=== PATIENT | female | born 1930 | race Caucasian/White ===

== ENCOUNTER → 2016-08-12 | Day surgery (SDC) | payer BC ==
[2016-08-10 08:05] VITALS: Ht 158.8 cm; Wt 61.4 kg
[~2016-08-12] VITALS: Ht 158.8 cm; Wt 61.4 kg
[~2016-08-12] MED LIST: 500ML BSS 0.3ML EPI 1:1000PF IRRIG ONE; ACETAMINOPHEN 325 MG TAB PO PRN; AMVISC PLUS 0.8ML SYRINGE INT OCU ONE; ASPI325T45 PO; ATOR-26 PO; ATROPINE SULFATE 0.1 MG/ML 5ML SYR IV PRN; BETAXOLOL HCL 0.25% OP SUSP PER DROP CHARGE OPL SCH; BRIMONIDINE TART 0.2% OP SOLN PER DROP CHARGE ONE; BSS FLUSH ONE; CHOL20009 PO; CLIN300C2 PO; DORZ2SOL17 OPL; EpHEDrine SULFATE INJ 50 MG/ML AMP IV PRN; EpINEphrine INJ 1MG/ML AMP 1 MG/ML AMP ONE; FENTANYL CITRATE INJ 50 MCG/1 ML 2 ML VIAL IV PRN; FLUMAZENIL 0.1 MG/1 ML 10 ML VIAL IV PRN; HYDROmorphone INJ 2 MG/ML SYR/VIAL IV PRN; INSDGIPEN SC; LABETALOL HCL IV 5 MG/ML 20ML IV PRN; LACTATED RINGER'S 1000ML 500 ML IV SCH; LATA0.009 OPB; LEVO25TA5 PO; LIDOCAINE 4% OP SOLN DROP CHARGE ONE; LIDOCAINE 4% OP SOLN DROP CHARGE OPL SCH; LIDOCAINE HCL 1% MPF 2 ML VIAL ONE; LIDOCAINE HCL 2% 2 ML VIAL (20MG/ML) ONE; LISI-461 PO; LISI-725 PO; LSN20 PO; MEPERIDINE HCL 25 MG/ML CARP IV PRN; MIDAZOLAM HCL 1 MG/ML 2ML VIAL ONE; MIX: 4ML BSS 1ML EPI 1:1000 PF INSTIL ONE; MOXIFLOXACIN OPH SOLN PER DROP CHARGE ONE; NALOXONE HCL 0.4 MG/1 ML VIAL/CARP IV PRN; NVLGI/PEN SC; OCUCOAT 1 ML SOLN IO ONE; ONDANSETRON INJ 2 MG/ML 2 ML VIAL IV PRN; PHENYLEPHRINE 100MCG/ML 5ML SYR IV PRN; PLV75 PO; POVIDONE-IODINE OP SOLN 30 ML BTL ONE; PROPARACAINE 0.5% OP SOLN PER DROP CHARGE OPL SCH; PROPOFOL IV EMULSION 10 MG/ML 20 ML VIAL IV ONE; TOBRAMYCIN/DEXAMETHASONE OPH OINT PER APPLN CHARGE ONE
--- NOTE | 2016-08-12 08:20 | History & Physical Bridge - SC ---
H&P Re-Evaluation Bridge Note: I have examined the patient, reviewed the History & Physical and in the interval since the performance of the History & Physical I have noted the following changes of clinical significance: No changes noted
[2016-08-12] MEDS: PHENYLEPHRINE HCL 2.5% OP SOLN PER DROP CHARGE OPL SCH ×2 (09:13→09:18)
[2016-08-12] MEDS: TROPICAMIDE 1% OP SOLN PER DROP CHARGE OPL SCH ×2 (09:14→09:19)
[2016-08-12] MEDS: CYCLOPENTOLATE HCL 1% OP SOLN PER DROP CHARGE OPL SCH ×2 (09:15→09:20)
[2016-08-12] MEDS: MOXIFLOXACIN OPH SOLN PER DROP CHARGE OPL SCH ×2 (09:16→09:26)
--- NOTE | 2016-08-12 10:07 | Discharge Instructions-SurgCtr ---
Discharge Instructions Visit Reason for Visit: Left Cataract Discharge Discharge Diagnosis / Problem: Lens Implant Left Eye Discharge Goals Goal(s): Improve function Activity Recommendations Activity Limitations: resume your previous activity Lifting Limitations: no more than 10 pounds Exercise/Sports Limitations: gradually increase as tolerated May Resume Sexual Activity: when tolerated Shower/Bathe: tomorrow Driving or Machine Use: resume 1 day after discharge Anesthesia . Post Anesthesia Instructions: If you have had General Anesthesia or IV Sedation: * Do not drive today. * Resume driving when surgeon permits. * Do not make important decisions or sign legal documents today. * Call surgeon for: 1. Temperature elevations greater than 101 degrees F. 2. Uncontrollable pain. 3. Excessive bleeding. 4. Persistent nausea and vomiting. 5. Medication intolerance (nausea, vomiting or rash). * For nausea and vomiting use only clear liquids such as: tea, soda, bouillon until nausea subsides, then gradually increase diet as tolerated. * If you have any concerns or questions, call your surgeon's office. If physician is unavailable and it is an emergency, call 911 or go to the nearest emergency room. . Instructions / Follow-Up Instructions / Follow-Up ACTIVITY RECOMMENDATIONS: * Light activities. * Mild irritation and blurred vision are common for the first few days. * You may walk outside, read, watch television. * Redness around the white part of the eye is common. MEDICATIONS: Resume previous medications unless instructed otherwise by your surgeon. Start all eye drops at 1 pm today: * Eye drops (today and tomorrow): Durezol - one drop in operative eye every 3 hours while awake Ofloxacin - one drop in operative eye every 3 hours while awake BromSite - one drop in operative eye twice a day SPECIAL CARE INSTRUCTIONS: * Tape plastic shield over eye to sleep at night. Call your doctor at with any concerns or problems. FOLLOW UP VISIT: Follow-up with Dr Hancock at [facility] office as scheduled. Diet Recommendations Home Diet: no limitations Pending Studies Studies pending at discharge: no Medical Emergencies . Who to Call and When: Medical Emergencies: If at any time you feel your situation is an emergency, please call 911 immediately. . Non-Emergent Contact Non-Emergency issues call your: Test Fixture Designer Call Non-Emergent contact if: your pain is not controlled [phone] . . "Provider Documentation" section prepared by Klaus Hancock.
--- NOTE | 2016-08-12 10:09 | [facility] Operative Report ---
Operative Report 1. PREOPERATIVE DIAGNOSIS: Senile nuclear cataract, left eye. 2. POSTOPERATIVE DIAGNOSIS: Senile nuclear cataract, left eye. 3. PROCEDURE: Phacoemulsification of left cataract with posterior chamber lens implant, type Bausch [employer] Lomb, model MX60, power +20.5 diopters. ANESTHESIA: Local standby. SURGEON: Dr. Hancock. COMPLICATIONS: None. OPERATING TIME: 10 minutes. 4. OPERATION AND FINDINGS: DESCRIPTION OF PROCEDURE: The left pupil was dilated. The anesthetic was administered using a topical technique. The left eye was prepped and draped. A speculum was placed. A clear corneal incision was formed. The chamber was filled with Amvisc Plus and Endocoat. Epinephrine solution was used. A paracentesis was placed. A capsulorrhexis was performed. The nucleus was hydrodissected. The lens was removed with phacoemulsification. Time was 5.52 seconds. The aspiration unit was used to remove the cortex. The capsule was filled with Amvisc Plus. The lens implant was folded and placed into the capsule. The incision was hydrated. The Amvisc was aspirated. The wound was secure. The chamber was deep. The pupil was round. TobraDex ointment and Vigamox solution were placed. The speculum was removed. The patient was returned to the Recovery Room in stable condition. I attest to the content of the Intraoperative Record and any orders documented therein. Any exceptions are noted below. The scribe's documentation has been prepared in my presence, under my direction and personally reviewed by me in its entirety. I confirm that the note above accurately reflects all work, treatment, procedures, and medical decision making performed by me. I personally scribed for Klaus Hancock M.D. ([email or web address]) on 08/12/16 at 10:09. Electronically submitted by Aisha Hand ([email or web address]).
[2016-08-12 10:12] VITALS: TEMP 36.5
[2016-08-12 10:28] VITALS: BP 159/73; PULSE 78; O2SAT 100
--- NOTE | 2016-08-12 10:37 | Anesthesia Progress Nt - [facility] ---
Anesthesia Post Op Note Date & Time Aug 12, 2016 at 10:36 Vital Signs Pain Intensity: 0 Vital Signs Past 12 Hours Date Time Temp Pulse Resp B/P Pulse Ox O2 Delivery O2 Flow Rate FiO2 08/12/16 10:28 78 16 159/73 100 Room Air 08/12/16 10:12 36.5 64 16 160/78 100 Room Air 08/12/16 09:02 36.3 71 20 189/78 99 Room Air 08/12/16 08:49 36.3 20 20 189/78 99 Notes Mental Status: alert / awake / arousable, participated in evaluation Pt Amnestic to Procedure: Yes Nausea / Vomiting: adequately controlled Pain: adequately controlled Airway Patency, RR, SpO2: stable & adequate BP & HR: stable & adequate Hydration State: stable & adequate Anesthetic Complications: no major complications apparent
== END | disposition home or self-care (01) ==
LOC: X.SURG 08:27
PROVIDERS: ATTEND Specialist
DX: H25.12 Age-related nuclear cataract, left eye (principal); I10 Essential (primary) hypertension; I51.9 Heart disease, unspecified; E11.9 Type 2 diabetes mellitus without complications; Z79.4 Long term (current) use of insulin

== ENCOUNTER → 2016-09-09 | Day surgery (SDC) | payer BC ==
[2016-08-26 10:09] VITALS: Ht 158.8 cm; Wt 61.4 kg
[~2016-09-09] VITALS: Ht 158.8 cm; Wt 61.4 kg
[~2016-09-09] MED LIST changes: -BETAXOLOL HCL 0.25% OP SUSP PER DROP CHARGE OPL SCH; +BETAXOLOL HCL 0.25% OP SUSP PER DROP CHARGE OPR SCH; +ENDOCOAT 0.85ML SYRINGE INT OCU ONE; -FENTANYL CITRATE INJ 50 MCG/1 ML 2 ML VIAL IV PRN; -FLUMAZENIL 0.1 MG/1 ML 10 ML VIAL IV PRN; -HYDROmorphone INJ 2 MG/ML SYR/VIAL IV PRN; -LABETALOL HCL IV 5 MG/ML 20ML IV PRN; -LIDOCAINE 4% OP SOLN DROP CHARGE OPL SCH; +LIDOCAINE 4% OP SOLN DROP CHARGE OPR SCH; -LIDOCAINE HCL 2% 2 ML VIAL (20MG/ML) ONE; -MEPERIDINE HCL 25 MG/ML CARP IV PRN; -NALOXONE HCL 0.4 MG/1 ML VIAL/CARP IV PRN; -ONDANSETRON INJ 2 MG/ML 2 ML VIAL IV PRN; -PHENYLEPHRINE 100MCG/ML 5ML SYR IV PRN; -PROPARACAINE 0.5% OP SOLN PER DROP CHARGE OPL SCH; +PROPARACAINE 0.5% OP SOLN PER DROP CHARGE OPR SCH; -PROPOFOL IV EMULSION 10 MG/ML 20 ML VIAL IV ONE
[2016-09-09] MEDS: PHENYLEPHRINE HCL 2.5% OP SOLN PER DROP CHARGE OPR SCH ×2 (07:52→07:57)
[2016-09-09] MEDS: TROPICAMIDE 1% OP SOLN PER DROP CHARGE OPR SCH ×2 (07:53→07:58)
[2016-09-09] MEDS: CYCLOPENTOLATE HCL 1% OP SOLN PER DROP CHARGE OPR SCH ×2 (07:54→07:59)
[2016-09-09] MEDS: MOXIFLOXACIN OPH SOLN PER DROP CHARGE OPR SCH ×2 (07:55→08:05)
--- NOTE | 2016-09-09 08:52 | Discharge Instructions-SurgCtr ---
Discharge Instructions Visit Reason for Visit: Cataract Right Eye Discharge Discharge Diagnosis / Problem: lens implant right eye Discharge Goals Goal(s): Improve function Activity Recommendations Activity Limitations: resume your previous activity Lifting Limitations: no more than 10 pounds Exercise/Sports Limitations: gradually increase as tolerated May Resume Sexual Activity: when tolerated Shower/Bathe: tomorrow Driving or Machine Use: resume 1 day after discharge Anesthesia . Post Anesthesia Instructions: If you have had General Anesthesia or IV Sedation: * Do not drive today. * Resume driving when surgeon permits. * Do not make important decisions or sign legal documents today. * Call surgeon for: 1. Temperature elevations greater than 101 degrees F. 2. Uncontrollable pain. 3. Excessive bleeding. 4. Persistent nausea and vomiting. 5. Medication intolerance (nausea, vomiting or rash). * For nausea and vomiting use only clear liquids such as: tea, soda, bouillon until nausea subsides, then gradually increase diet as tolerated. * If you have any concerns or questions, call your surgeon's office. If physician is unavailable and it is an emergency, call 911 or go to the nearest emergency room. . Instructions / Follow-Up Instructions / Follow-Up ACTIVITY RECOMMENDATIONS: * Light activities. * Mild irritation and blurred vision are common for the first few days. * You may walk outside, read, watch television. * Redness around the white part of the eye is common. MEDICATIONS: Resume previous medications unless instructed otherwise by your surgeon. Start all eye drops at 1 pm today: * Eye drops (today and tomorrow): Durezol - one drop in operative eye every 3 hours while awake Ofloxacin - one drop in operative eye every 3 hours while awake SPECIAL CARE INSTRUCTIONS: * Tape plastic shield over eye to sleep at night. Call your doctor at with any concerns or problems. FOLLOW UP VISIT: Follow-up with Dr Hancock at [facility] as scheduled. Diet Recommendations Home Diet: no limitations Procedures Procedures Performed: cataract extraction with lens implant Pending Studies Studies pending at discharge: no Medical Emergencies . Who to Call and When: Medical Emergencies: If at any time you feel your situation is an emergency, please call 911 immediately. . Non-Emergent Contact Non-Emergency issues call your: Target Network Analyst Call Non-Emergent contact if: your pain is not controlled [phone] . . "Provider Documentation" section prepared by Klaus Hancock.
--- NOTE | 2016-09-09 08:54 | [facility] Operative Report ---
Operative Report 1. PREOPERATIVE DIAGNOSIS: Senile nuclear cataract, right eye. 2. POSTOPERATIVE DIAGNOSIS: Senile nuclear cataract, right eye. 3. PROCEDURE: Phacoemulsification of right cataract with posterior chamber lens implant, type Bausch & Lomb, model MX60, power +21.0 diopters. ANESTHESIA: Local standby. SURGEON: Dr. Hancock. COMPLICATIONS: None. OPERATING TIME: 10 minutes. 4. OPERATION AND FINDINGS: DESCRIPTION OF PROCEDURE: The right pupil was dilated. The anesthetic was administered using a topical technique. The right eye was prepped and draped. A speculum was placed. A clear corneal incision was formed. The chamber was filled with Amvisc Plus and Endocoat. Epinephrine solution was used. A paracentesis was placed. A capsulorrhexis was performed. The nucleus was hydrodissected. A dense lens was removed with phacoemulsification. Time was 7.90 seconds. The aspiration unit was used to remove the cortex. The capsule was filled with Amvisc Plus. The lens implant was folded and placed into the capsule. The incision was hydrated. The Amvisc was aspirated. The wound was secure. The chamber was deep. The pupil was round. TobraDex ointment and Vigamox solution were placed. The speculum was removed. The patient was returned to the Recovery Room in stable condition. I attest to the content of the Intraoperative Record and any orders documented therein. Any exceptions are noted below. The scribe's documentation has been prepared in my presence, under my direction and personally reviewed by me in its entirety. I confirm that the note above accurately reflects all work, treatment, procedures, and medical decision making performed by me. I personally scribed for Klaus Hancock M.D. ([email or web address]) on 09/09/16 at 08:54. Electronically submitted by Aisha Hand ([email or web address]).
[2016-09-09 08:57] VITALS: TEMP 36.4
[2016-09-09 09:16] VITALS: BP 164/75; PULSE 65; O2SAT 100
--- NOTE | 2016-09-09 09:28 | Anesthesia Progress Nt - [facility] ---
Anesthesia Post Op Note Date & Time Sep 09, 2016 at 09:28 Vital Signs Pain Intensity: 0 Vital Signs Past 12 Hours Date Time Temp Pulse Resp B/P Pulse Ox O2 Delivery O2 Flow Rate FiO2 09/09/16 09:16 65 16 164/75 100 Room Air 09/09/16 08:57 36.4 70 16 147/76 99 Room Air 09/09/16 07:45 36.4 73 18 178/89 100 Room Air Notes Mental Status: alert / awake / arousable, participated in evaluation Pt Amnestic to Procedure: Yes Nausea / Vomiting: adequately controlled Pain: adequately controlled Airway Patency, RR, SpO2: stable & adequate BP & HR: stable & adequate Hydration State: stable & adequate Anesthetic Complications: no major complications apparent
== END | disposition home or self-care (01) ==
LOC: X.SURG 07:26
PROVIDERS: ATTEND Specialist
DX: H25.11 Age-related nuclear cataract, right eye (principal); I10 Essential (primary) hypertension; I51.9 Heart disease, unspecified; E11.9 Type 2 diabetes mellitus without complications; Z79.4 Long term (current) use of insulin; Z88.0 Allergy status to penicillin; Z88.2 Allergy status to sulfonamides

== ENCOUNTER → 2016-10-05 | Outpatient (CLI) | payer BC ==
[~2016-10-05] MED LIST changes: -500ML BSS 0.3ML EPI 1:1000PF IRRIG ONE; -ACETAMINOPHEN 325 MG TAB PO PRN; -AMVISC PLUS 0.8ML SYRINGE INT OCU ONE; +ATOR-24 PO; -ATROPINE SULFATE 0.1 MG/ML 5ML SYR IV PRN; -BETAXOLOL HCL 0.25% OP SUSP PER DROP CHARGE OPR SCH; -BRIMONIDINE TART 0.2% OP SOLN PER DROP CHARGE ONE; +BRIN3SUS OP; -BSS FLUSH ONE; +CHOL100027 PO; +CTP/1 PO; -ENDOCOAT 0.85ML SYRINGE INT OCU ONE; -EpHEDrine SULFATE INJ 50 MG/ML AMP IV PRN; -EpINEphrine INJ 1MG/ML AMP 1 MG/ML AMP ONE; -LACTATED RINGER'S 1000ML 500 ML IV SCH; -LIDOCAINE 4% OP SOLN DROP CHARGE ONE; -LIDOCAINE 4% OP SOLN DROP CHARGE OPR SCH; -LIDOCAINE HCL 1% MPF 2 ML VIAL ONE; -MIDAZOLAM HCL 1 MG/ML 2ML VIAL ONE; -MIX: 4ML BSS 1ML EPI 1:1000 PF INSTIL ONE; -MOXIFLOXACIN OPH SOLN PER DROP CHARGE ONE; -OCUCOAT 1 ML SOLN IO ONE; -POVIDONE-IODINE OP SOLN 30 ML BTL ONE; -PROPARACAINE 0.5% OP SOLN PER DROP CHARGE OPR SCH; -TOBRAMYCIN/DEXAMETHASONE OPH OINT PER APPLN CHARGE ONE
[2016-10-05 13:50] LABS: ESTIMATED AVERAGE GLUCOSE 177 mg/dl; HA1C FLAG Normal (Normal)
== END | disposition home or self-care (01) ==
LOC: C.LABBC 10:45
PROVIDERS: ATTEND Nurse Practitioner Family
DX: E03.9 Hypothyroidism, unspecified (principal); E10.9 Type 1 diabetes mellitus without complications

== ENCOUNTER 2016-10-16 23:23 | Inpatient (IN) | payer BC, OTHER ==
[~2016-10-16] VITALS: Ht 157.5 cm; Wt 56.4 kg
[~2016-10-16 23:23] MED LIST changes: -ATOR-24 PO; -BRIN3SUS OP; -CHOL100027 PO; -CLIN300C2 PO; -CTP/1 PO; -LATA0.009 OPB; -LISI-461 PO; -LSN20 PO; -PLV75 PO
[2016-10-17] MEDS ORDERED: LABETALOL HCL IV 5 MG/ML 20ML IV STA ×2 (00:14→03:40)
[2016-10-17 00:24] LABS: BASO % 0.4 %; BASO ABS # 0.02 K/uL (0-0.2); COMPLETE YES; EOS % 2.1 %; HEMATOCRIT 37.3 % (37-47); IG% 0.6 %; LYMPH % 20.2 %; LYMPH ABS # 0.98 K/uL (1.2-3.4); MEAN CELL VOLUME 83.1 fL (80-100); MEAN CORPUSCULAR HEMOGLOBIN 27.6 pg (25-34); MEAN CORPUSCULAR HGB CONC 33.2 g/dl (32-36); MEAN PLATELET VOLUME 10.8 fL (7.4-10.4); MONO % 12.1 %; NEUT % 64.6 %; PLATELET COUNT 155 K/uL (130-400); RED BLOOD COUNT 4.49 M/uL (4.2-5.4); WHITE BLOOD COUNT 4.86 K/uL (4.8-10.8)
[2016-10-17 00:33] LABS: URINE APPEARANCE CLEAR (CLEAR); URINE BILIRUBIN NEG (NEG); URINE COLOR YELLOW; URINE NITRITE NEG (NEG); URINE SPECIFIC GRAVITY 1.004 (1.000-1.030); UROBILINOGEN NEG (NEG)
[2016-10-17 00:38] LABS: INR 1.1 (0.9-1.1); PARTIAL THROMBOPLASTIN RATIO 1.1; PROTHROMBIN TIME (PATIENT) 11.5 SECONDS (9.0-12.0)
[2016-10-17 00:41] LABS: ALT/SGPT 25 U/L (12-78); BLOOD UREA NITROGEN 30 mg/dl (7-18); BUN/CREATININE RATIO 27.5 (10-20); CALCIUM 9.3 mg/dl (8.5-10.1); CARBON DIOXIDE 27 mmol/L (21-32); CHLORIDE 101 mmol/L (98-107); GLUCOSE 232 mg/dl (70-99); POTASSIUM 4.1 mmol/L (3.5-5.1); SODIUM 138 mmol/L (136-145)
[2016-10-17 00:49] LABS: MANUAL MICROSCOPIC REQUIRED? NO; REVIEW REQ? NO
[2016-10-17 00:51] LABS: ALKALINE PHOSPHATASE 85 U/L (45-117); AST/SGOT 17 U/L (15-37); CKMB/CK RATIO 3.3 (0-3.0)
[2016-10-17] MEDS ORDERED: LEVO25TA5 PO (01:31)
[2016-10-17] MEDS ORDERED: LATA0.009 OPB (01:37)
[2016-10-17] MEDS ORDERED: CLIN300C2 PO (01:40)
[2016-10-17] MEDS ORDERED: ASPIRIN 81 MG CHEW PO STA (01:45)
--- NOTE | 2016-10-17 04:52 | EMERGENCY ROOM VISIT NOTE ---
History Report prepared by Valeri: Bijan Lopez Under the Supervision of: Dr. Chi Johnson M.D. First contact with patient: 23:39 Chief Complaint: HYPERTENSION Stated Complaint: CONFUSED, SILENT MIGRAINE, HTN History of Present Illness The patient is an 86 year old female who presents to the Emergency Room with complaints of persistent headache that started about 3-4 hours ago. The patient has a history of silent migraines and noticed she was starting to get one tonight. The patient notes that she has a visual aura of sparkling diamonds in her eyes when her migraines are starting which she experienced tonight. She currently complains of a headache that she describes as a dull ache and some nausea for the past few days. The patient also notes that she had difficulty producing speech for about 30-45 minutes after the visual aura started. She notes that during this time, she knew what she wanted to say but could not say it. She notes that she has no history of these speech symptoms before. She has a history of TIA from a few years ago. She notes during this episode she had numbness symptoms in her arms and legs which she currently denies having. The patient is on Lisinopril as needed and notes that she fluctuates daily depending on what her blood pressure is. The last few days her pressure has been low. She took her Lisinopril tonight when she started experiencing her migraine symptoms. Upon arrival at the ED, her blood pressure is high. Pt denies LOC, fevers, chills, diaphoresis, neck pain, chest pain, breathing difficulties, vomiting, abdominal pain, back pain, melena, hematochezia, urinary symptoms, numbness, weakness, lymphadenopathy, rash, or other complaints. Source of History: patient Onset: 3-4 hours ago Position: head Quality: ache Timing: other (persistent) Associated Symptoms: + nausea Note: Other associated symptoms: visual aura, high blood pressure, difficulty with speech production Review of Systems See HPI for pertinent positives and negatives. A total of ten systems were reviewed and were otherwise negative. Past Medical & Surgical Medical Problems: (1) Accelerated hypertension (2) Aphasia (3) Diabetic peripheral neuropathy associated with type 2 diabetes mellitus (4) Foot deformity (5) Loss of sensation (6) Pre-ulcerative corn or callous Family History No pertinent family history Social History Smoking Status: Never Smoker Marital Status: Occupation Status: retired Current/Historical Medications Scheduled Aspirin (Aspirin), 162.5 MG PO QAM Atorvastatin (Lipitor), 80 MG PO HS Cholecalciferol (Vitamin D), 2,000 UNITS PO QAM Clindamycin Hcl (Cleocin), 600 MG PO PRN/UD Insulin Aspart (Novolog Flexpen), 1 DOSE SC AC Insulin Glargine (Lantus Solostar), 13 UNITS SC QPM Latanoprost (Xalatan 0.005% Oph Flavia), 1 DROPS OPB BID Levothyroxine Sodium (Levothyroxine Sodium), 25 MCG PO DAILY Lisinopril (Zestril), 0.25-0.5 TAB PO BID Allergies Coded Allergies: Penicillins (Verified Allergy, Unknown, UNKNOWN, 09/09/16) Sulfa Antibiotics (Verified Allergy, Unknown, SEVERE HIVES, 09/09/16) Physical Exam Vital Signs Date Time Temp Pulse Resp B/P Pulse Ox O2 Delivery O2 Flow Rate FiO2 10/17/16 02:45 70 18 198/91 99 Room Air 10/17/16 02:30 67 18 180/83 100 Room Air 10/17/16 02:15 67 18 183/84 100 Room Air 10/17/16 01:30 66 18 159/73 100 Room Air 10/17/16 01:15 66 18 161/81 98 Room Air 10/17/16 01:00 69 18 187/80 99 Room Air 10/17/16 00:51 73 18 167/87 99 Room Air 10/17/16 00:43 73 18 193/94 100 Room Air 10/17/16 00:00 74 18 222/113 99 Room Air 10/17/16 00:00 99 Room Air 10/17/16 00:00 99 Room Air 10/16/16 23:53 77 10/16/16 23:27 36.8 80 20 214/79 99 Room Air Physical Exam GENERAL: Awake, alert, well appearing, no distress HENT: Normocephalic, atraumatic. Oropharynx unremarkable. EYES: PERRL. EOMI. Normal conjunctiva. Sclera non-icteric. NECK: Supple. No nuchal rigidity. FROM. No JVD or bruit. RESPIRATORY: CTA CARDIAC: RRR. No murmur. ABDOMEN: Soft, non distended. No tenderness to palpation. No rebound or guarding. No masses. RECTAL: Deferred. MUSCULOSKELETAL: Unremarkable. No edema. No discoloration. Gross motor strength symmetric. NEURO: Cranial nerves 2-12 grossly intact. Normal sensorium. No sensory or motor deficits noted. Speech normal. No pronator drift. SKIN: No rash or jaundice noted. LYMPH: No adenopathy. Medical Decision & Procedures ER Provider Diagnostic Interpretation: Radiology results as stated below per my review and radiologist interpretation CT Head: Comparison is made to MRI brain 11/23/09. No ICH, mass effect, or midline shift. Involutional and chronic small vessel ischemic changes with intracranial atherosclerosis. Collins-white differentiation preserved. No evidence of skull fracture. Clear paranasal sinuses and mastoid air cells. MRI of the head. No acute ischemic findings noted. No hemorrhage. No mass. Chronic small vessel ischemic disease present. Carotid ultrasound pending. Laboratory Results 10/17/16 00:08 Red Blood Count 4.49, Mean Corpuscular Volume 83.1, Mean Corpuscular Hemoglobin 27.6, Mean Corpuscular Hemoglobin Concent 33.2, Mean Platelet Volume 10.8, Neutrophils (%) (Auto) 64.6, Lymphocytes (%) (Auto) 20.2, Monocytes (%) (Auto) 12.1, Eosinophils (%) (Auto) 2.1, Basophils (%) (Auto) 0.4, Neutrophils # (Auto ) 3.14, Lymphocytes # (Auto) 0.98, Monocytes # (Auto) 0.59, Eosinophils # (Auto ) 0.10, Basophils # (Auto) 0.02 10/17/16 00:08 Test 10/17/16 00:08 10/17/16 02:40 10/17/16 04:47 White Blood Count 4.86 K/uL (4.8-10.8) Red Blood Count 4.49 M/uL (4.2-5.4) Hemoglobin 12.4 g/dL (12.0-16.0) Hematocrit 37.3 % (37-47) Mean Corpuscular Volume 83.1 fL (80-100) Mean Corpuscular Hemoglobin 27.6 pg (25-34) Mean Corpuscular Hemoglobin Concent 33.2 g/dl (32-36) Platelet Count 155 K/uL (130-400) Mean Platelet Volume 10.8 fL (7.4-10.4) Neutrophils (%) (Auto) 64.6 % Lymphocytes (%) (Auto) 20.2 % Monocytes (%) (Auto) 12.1 % Eosinophils (%) (Auto) 2.1 % Basophils (%) (Auto) 0.4 % Neutrophils # (Auto) 3.14 K/uL (1.4-6.5) Lymphocytes # (Auto) 0.98 K/uL (1.2-3.4) Monocytes # (Auto) 0.59 K/uL (0.11-0.59) Eosinophils # (Auto) 0.10 K/uL (0-0.5) Basophils # (Auto) 0.02 K/uL (0-0.2) RDW Standard Deviation 46.3 fL (36.4-46.3) RDW Coefficient of Variation 15.1 % (11.5-14.5) Immature Granulocyte % (Auto) 0.6 % Immature Granulocyte # (Auto) 0.03 K/uL (0.00-0.02) Prothrombin Time 11.5 SECONDS (9.0-12.0) Prothromb Time International Ratio 1.1 (0.9-1.1) Activated Partial Thromboplast Time 28.7 SECONDS (21.0-31.0) Partial Thromboplastin Ratio 1.1 Urine Color YELLOW Urine Appearance CLEAR (CLEAR) Urine pH 7.0 (4.5-7.5) Urine Specific Stephens 1.004 (1.000-1.030) Urine Protein NEG (NEG) Urine Glucose (UA) 1+ (NEG) Urine Ketones NEG (NEG) Urine Occult Blood NEG (NEG) Urine Nitrite NEG (NEG) Urine Bilirubin NEG (NEG) Urine Urobilinogen NEG (NEG) Urine Leukocyte Esterase NEG (NEG) Anion Gap 10.0 mmol/L (3-11) Est Creatinine Clear Calc Drug Dose 31.5 ml/min Estimated GFR () 52.6 Estimated GFR (Non- 45.4 BUN/Creatinine Ratio 27.5 (10-20) Calcium Level 9.3 mg/dl (8.5-10.1) Total Bilirubin 0.4 mg/dl (0.2-1) Direct Bilirubin < 0.1 mg/dl (0-0.2) Aspartate Amino Transf (AST/SGOT) 17 U/L (15-37) Alanine Aminotransferase (ALT/SGPT) 25 U/L (12-78) Alkaline Phosphatase 85 U/L (45-117) Total Creatine Kinase 116 U/L (26-192) Creatine Kinase MB 3.8 ng/ml (0.5-3.6) Creatine Kinase MB Ratio 3.3 (0-3.0) Troponin I < 0.015 ng/ml (0-0.045) Total Protein 7.7 gm/dl (6.4-8.2) Albumin 4.0 gm/dl (3.4-5.0) Lipase 69 U/L (73-393) Thyroid Stimulating Hormone (TSH) 4.490 uIu/ml (0.300-4.500) Bedside Glucose 209 mg/dl (70-90) Laboratory results reviewed by me Medications Administered Medications (Trade) Dose Ordered Sig/Bernadine Route Start Time Stop Time Status Last Admin Dose Admin Labetalol HCl (Normodyne IV) 20 mg NOW STAT IV 10/17/16 00:14 10/17/16 00:15 DC 10/17/16 00:48 20 MG Aspirin (Aspirin Chew) 324 mg NOW STAT PO 10/17/16 01:45 10/17/16 01:47 DC 10/17/16 02:38 324 MG Labetalol HCl (Normodyne IV) 10 mg NOW STAT IV 10/17/16 03:40 10/17/16 03:41 DC 10/17/16 04:46 10 MG ECG Indication: other Rate (beats per minute): 79 Rhythm: normal sinus Findings: nonspecific-ST abn, no acute ischemic change, no ectopy ED Course 2345: The patient was evaluated in room A12. A complete history and physical exam was performed. 0014: Ordered Labetalol HCl 20 mg IV. 0142: I reevaluated the patient at this time and she was resting comfortably. 0145: Ordered Aspirin 324 mg PO. 0340: Ordered Labetalol HCl 10 mg IV. 0253: At this time, I discussed the patient's case with Dr. Bran - Hospitalist GENEVIEVE and he agreed to accept the patient for further evaluation. Medical Decision Triage Nursing notes reviewed. The patient's presentation and history were concerning for expressive aphasia. Etiologies such as TIA, CVA, hypertensive emergency, metabolic, infection, hypo/ hyperglycemia, electrolyte abnormalities, cardiac sources, intracerebral event, toxicologic, neurologic, as well as others were entertained. The patient was evaluated. Neuro examination did not reveal any focal findings. Her expressive aphasia had resolved. The patient was significantly hypertensive. She was given an IV dose of labetalol. Her CBC, coagulation studies, urinalysis, chemistry panel, troponin, LFTs, and TSH were unremarkable except for mild hyperglycemia. CK-MB was mildly elevated. The patient's EKG did not show any acute changes. Her CT and chest x-ray were unremarkable for acute process. The patient was given a second dose of IV labetalol and she was still hypertensive and given a dose of aspirin. Internal medicine was consulted. There was a high census in the Emergency Room and internal medicine was somewhat delayed admitting of the patient. MRI and carotid ultrasounds were ordered to assist with the workup. The chart was completed utilizing [employer] Speech voice recognition software. Grammatical errors, random word insertions, pronoun errors, and incomplete sentences are an occasional consequence of this system due to software limitations, ambient noise, and hardware issues. Any formal questions or concerns about the content, text, or information contained within the body of this dictation should be directly addressed to the physician for clarification. Consults Time Called: 0248 Consulting Physician: Dr. Bran [facility] [place] Returned Call: [phone] At this time, I discussed the patient's case with Dr. Bran and he agreed to accept the patient for further evaluation. Impression Primary Impression: Expressive aphasia Additional Impression: Hypertensive emergency Critical Care I have personally spent greater than 30 minutes of critical care time in the direct management of this patient. This includes bedside care, interpretation of diagnostic studies, and testing, discussion with consultants, patient, and family members, and other required patient management activities. This 30 minutes is in excess of all separately billable procedures. Scribe Attestation The scribe's documentation has been prepared under my direction and personally reviewed by me in its entirety. I confirm that the note above accurately reflects all work, treatment, procedures, and medical decision making performed by me. Departure Information Dispostion Being Evaluated By Hospitalist Shahid Morgan M.D. (PCP) Problem Qualifiers
[2016-10-17] MEDS ORDERED: PHARMACIST DISCHARGE MED REC CONSULT PRN (05:00)
[2016-10-17] MEDS ORDERED: ONDANSETRON INJ 2 MG/ML 2 ML VIAL IV PRN (05:00)
[2016-10-17] MEDS ORDERED: POLYETHYLENE (MIRALAX) 17 GM PACK PO PRN (05:00)
[2016-10-17] MEDS ORDERED: MAGNESIUM HYDROXIDE SUSP 30 ML UDC PO PRN (05:00)
[2016-10-17] MEDS ORDERED: ACETAMINOPHEN 325 MG TAB PO PRN (05:00)
[2016-10-17] MEDS ORDERED: METOPROLOL TARTRATE 1 MG/ML VIAL IV PRN (05:00)
[2016-10-17] MEDS ORDERED: ALUMINUM/MAGNESIUM/SIMETH (MAALOX MAX) 30 ML UDC PO PRN (05:00)
--- NOTE | 2016-10-17 05:04 | History and Physical ---
History & Physical Date & Time of Service: Oct 17, 2016 at 04:55 Chief Complaint: Confused, Silent Migraine, Htn Primary Care Physician: Shahid Shea M.D. History of Present Illness Source: patient 86 y/o F w/Hx HTN, DM, Migraines with aura, TIA, AVR. Pt developed a migraine aura which she describes as "diamonds appearing in front of her eyes". This was followed by a moderate to severe largely frontal SULLIVAN. She took a nap to wait for the SULLIVAN to resolve and woke up a few hours later reporting paresthesias , nausea and then acute aphasia. She was unable to get any words out although she describes knowing what she wanted to say. This lasted for approximately 40 min and resolved prior to arrival in the ER. It was noted that her SBP on arrival was 240. She denies previous episodes of aphasia. She denies CP, SOB, vomiting, fevers or dysuria. She denies noncompliance with her medications and states that her BP can be highly variable. Past Medical/Surgical History 1) TIA - diagnosi is not definitive as she describes this as acute upper b/l upper extremity weakness 2) AVR - bioprosthesis - 2004 3) Hypothyroid 4) Complex migraines 5) HTN 6) HPL 7) DM 2 8) Glaucoma Family History No pertinent family history Social History Smoking Status: Never Smoker Marital Status: Occupational Status: retired Multi-Drug Resistant Organisms History of MDRO: No Allergies Coded Allergies: Penicillins (Verified Allergy, Unknown, UNKNOWN, 09/09/16) Sulfa Antibiotics (Verified Allergy, Unknown, SEVERE HIVES, 09/09/16) Home Medications Scheduled Aspirin (Aspirin), 162.5 MG PO QAM Atorvastatin (Lipitor), 80 MG PO HS Cholecalciferol (Vitamin D), 2,000 UNITS PO QAM Clindamycin Hcl (Cleocin), 600 MG PO PRN/UD Insulin Aspart (Novolog Flexpen), 1 DOSE SC AC Insulin Glargine (Lantus Solostar), 13 UNITS SC QPM Latanoprost (Xalatan 0.005% Oph Flavia), 1 DROPS OPB BID Levothyroxine Sodium (Levothyroxine Sodium), 25 MCG PO DAILY Lisinopril (Zestril), 0.25-0.5 TAB PO BID Review of Systems Constitutional: No chills, No fever, No sweats Eyes: + worsening of vision, No eye pain ENT: No hearing loss, No nasal symptoms, No unusual epistaxis Respiratory: No cough, No sputum, No wheezing Cardiovascular: No PND, No chest pain, No orthopnea Abdomen: No nausea, No pain, No vomiting Musculoskeletal: No joint pain, No muscle pain Genitourinary - Female: No dysuria, No hematuria, No urinary frequency, No urinary incontinence, No urinary retention, No urinary urgency Neurologic: + numbness/tingling, + problem reported (headache , visual changes and aphasia as above), No memory loss, No paralysis Psychiatric: No anhedonism, No depression symptoms Endocrine: No fatigue Hematologic / Lymphatic: No abnormal bleeding/bruising Integumentary: No rash Allergic / Immunologic: No environmental allergies Physical Exam Vital Signs Date Time Temp Pulse Resp B/P Pulse Ox O2 Delivery O2 Flow Rate FiO2 10/17/16 02:45 70 18 198/91 99 Room Air 10/17/16 02:30 67 18 180/83 100 Room Air 10/17/16 02:15 67 18 183/84 100 Room Air 10/17/16 01:30 66 18 159/73 100 Room Air 10/17/16 01:15 66 18 161/81 98 Room Air 10/17/16 01:00 69 18 187/80 99 Room Air 10/17/16 00:51 73 18 167/87 99 Room Air 10/17/16 00:43 73 18 193/94 100 Room Air 10/17/16 00:00 74 18 222/113 99 Room Air 10/17/16 00:00 99 Room Air 10/17/16 00:00 99 Room Air 10/16/16 23:53 77 10/16/16 23:27 36.8 80 20 214/79 99 Room Air Head: normocephalic, atraumatic ENT: normal ENT inspection, pharynx normal Neck: supple, no JVD Respiratory/Chest: chest non-tender, lungs clear, normal breath sounds, no respiratory distress, no accessory muscle use Cardiovascular: regular rate, rhythm, no edema, no gallop, no JVD, no murmur, normal peripheral pulses Abdomen/GI: normal bowel sounds, non tender, soft Back: normal inspection, no CVA tenderness Extremities/Musculoskelatal: normal inspection, no calf tenderness, normal capillary refill, no pedal edema, normal range of motion Skin: normal color Diagnostics Laboratory Results Results Past 24 Hours Test 10/17/16 00:08 10/17/16 02:40 10/17/16 04:47 Range/Units White Blood Count 4.86 4.8-10.8 K/uL Red Blood Count 4.49 4.2-5.4 M/uL Hemoglobin 12.4 12.0-16.0 g/dL Hematocrit 37.3 37-47 % Mean Corpuscular Volume 83.1 80-100 fL Mean Corpuscular Hemoglobin 27.6 25-34 pg Mean Corpuscular Hemoglobin Concent 33.2 32-36 g/dl Platelet Count 155 130-400 K/uL Mean Platelet Volume 10.8 7.4-10.4 fL Neutrophils (%) (Auto) 64.6 % Lymphocytes (%) (Auto) 20.2 % Monocytes (%) (Auto) 12.1 % Eosinophils (%) (Auto) 2.1 % Basophils (%) (Auto) 0.4 % Neutrophils # (Auto) 3.14 1.4-6.5 K/uL Lymphocytes # (Auto) 0.98 1.2-3.4 K/uL Monocytes # (Auto) 0.59 0.11-0.59 K/uL Eosinophils # (Auto) 0.10 0-0.5 K/uL Basophils # (Auto) 0.02 0-0.2 K/uL RDW Standard Deviation 46.3 36.4-46.3 fL RDW Coefficient of Variation 15.1 11.5-14.5 % Immature Granulocyte % (Auto) 0.6 % Immature Granulocyte # (Auto) 0.03 0.00-0.02 K/uL Prothrombin Time 11.5 9.0-12.0 SECONDS Prothromb Time International Ratio 1.1 0.9-1.1 Activated Partial Thromboplast Time 28.7 21.0-31.0 SECONDS Partial Thromboplastin Ratio 1.1 Urine Color YELLOW Urine Appearance CLEAR CLEAR Urine pH 7.0 4.5-7.5 Urine Specific [place] 1.004 1.000-1.030 Urine Protein NEG NEG Urine Glucose (UA) 1+ NEG Urine Ketones NEG NEG Urine Occult Blood NEG NEG Urine Nitrite NEG NEG Urine Bilirubin NEG NEG Urine Urobilinogen NEG NEG Urine Leukocyte Esterase NEG NEG Sodium Level 138 136-145 mmol/L Potassium Level 4.1 3.5-5.1 mmol/L Chloride Level 101 98-107 mmol/L Carbon Dioxide Level 27 21-32 mmol/L Anion Gap 10.0 3-11 mmol/L Blood Urea Nitrogen 30 7-18 mg/dl Creatinine 1.10 0.60-1.20 mg/dl Est Creatinine Clear Calc Drug Dose 31.5 ml/min Estimated GFR () 52.6 Estimated GFR (Non- 45.4 BUN/Creatinine Ratio 27.5 10-20 Random Glucose 232 70-99 mg/dl Calcium Level 9.3 8.5-10.1 mg/dl Total Bilirubin 0.4 0.2-1 mg/dl Direct Bilirubin < 0.1 0-0.2 mg/dl Aspartate Amino Transf (AST/SGOT) 17 15-37 U/L Alanine Aminotransferase (ALT/SGPT) 25 12-78 U/L Alkaline Phosphatase 85 45-117 U/L Total Creatine Kinase 116 26-192 U/L Creatine Kinase MB 3.8 0.5-3.6 ng/ml Creatine Kinase MB Ratio 3.3 0-3.0 Troponin I < 0.015 0-0.045 ng/ml Total Protein 7.7 6.4-8.2 gm/dl Albumin 4.0 3.4-5.0 gm/dl Lipase 69 73-393 U/L Thyroid Stimulating Hormone (TSH) 4.490 0.300-4.500 uIu/ml Bedside Glucose 209 70-90 mg/dl Diagnostic Radiology MRI brain - negative for acute ischemia/cva - small vessel disease is seen EKG NSR Impression Assessment and Plan 86 y/o F w/Hx HTN, DM, Migraines with aura, TIA, AVR. Pt developed a migraine aura which she describes as "diamonds appearing in front of her eyes". This was followed by a moderate to severe largely frontal SULLIVAN. She took a nap to wait for the SULLIVAN to resolve and woke up a few hours later reporting paresthesias , nausea and then acute aphasia. She was unable to get any words out although she describes knowing what she wanted to say. This lasted for approximately 40 min and resolved prior to arrival in the ER. It was noted that her SBP on arrival was 240. She denies previous episodes of aphasia. She denies CP, SOB, vomiting, fevers or dysuria. She denies noncompliance with her medications and states that her BP can be highly variable. 1) Aphasia - complex migraine symptoms vs TIA - deficits have resolved as has her SULLIVAN. An MRI was negative for acute changes - carotid US is pending. We will add Plavix to her ASA, continue Lipitor 80 and consult neurology. She is admitted under a CVA protocol. As she had a valve replaced in 2004 we will obtain an echo 2) Accelerated HTN - she received IV Lopressor in the ER to excellent effect. We will avoid treating unless the BP is > 210 and would then prefer a low dose of Labetalol. 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 3) DM - sliding scale coverage provided 4) Hypothyroid - cont Synthroid Full code - Heparin prophylaxis Total time for this admit including review of labs, med, imaging, EKG - discussion with pt and ER attending - 38 min Level of Care Telemetry Resuscitation Status FULL RESUSCITATION VTE Prophylaxis VTE Risk Assessment Done? Y/N: Yes Risk Level: Moderate Given or contraindicated: Unfractionated heparin SQ
[2016-10-17 05:05] VITALS: BP 152/71; PULSE 66; TEMP 36.9; O2SAT 96; Ht 157.5 cm; Wt 56.4 kg
[2016-10-17] MEDS ORDERED: GLUCOSE 10 TABS/TUBE PO PRN (05:30)
[2016-10-17] MEDS ORDERED: GLUCAGON FOR INJ 1 MG VIAL SQ PRN (05:30)
[2016-10-17] MEDS ORDERED: DEXTROSE 50% 50 ML SYR IV PRN (05:30)
[2016-10-17] MEDS ORDERED: GLUCOSE 40% GEL 15 GM TUBE PO PRN (05:30)
[2016-10-17 06:00] LABS: ESTIMATED AVERAGE GLUCOSE 174 mg/dl; HA1C FLAG Normal (Normal)
--- NOTE | 2016-10-17 06:16 | DIAGNOSTIC IMAGING REPORT ---
CHEST ONE VIEW PORTABLE CLINICAL HISTORY: severe hypertension dyspnea COMPARISON STUDY: None FINDINGS: Prior median sternotomy. Diaphragms smooth. Lungs grossly clear. IMPRESSION: No acute process. Electronically signed by: Oscar Cruz M.D. 10/17/2016 6:15 AM Dictated Date/Time: 10/17/2016 6:14 AM
--- NOTE | 2016-10-17 06:23 | DIAGNOSTIC IMAGING REPORT ---
HEAD CT NONCONTRAST CT DOSE: 614.27 mGy.cm HISTORY: Hypertension severe hypertension TECHNIQUE: Multiaxial CT images of the head were performed without the use of intravenous contrast. Comparison: None. Findings: The paranasal sinuses and mastoid air cells are clear. The calvarium and skull base are intact. The ventricles and sulci are within normal limits. There is no mass, hematoma, midline shift, or acute infarct. Impression: No acute intracranial abnormality. Electronically signed by: Oscar Cruz M.D. 10/17/2016 6:22 AM Dictated Date/Time: 10/17/2016 6:22 AM
--- NOTE | 2016-10-17 07:13 | DIAGNOSTIC IMAGING REPORT ---
BILATERAL CAROTID DOPPLER STUDY HISTORY: Mental status change expressive aphasia COMPARISON: None. TECHNIQUE: Real-time, grayscale, and color Doppler sonography of the carotid arteries was performed. Imaging reviewed in the transverse and longitudinal planes. All measurements were calculated based on NASCET criteria. FINDINGS: Antegrade flow is seen in the bilateral vertebral arteries. The brachial pressures are hemodynamically similar. Considerable plaque formation bilaterally critical stenosis right external carotid artery The peak systolic velocity within the right ICA is 136. The right systolic ratio is 1.9. The peak systolic velocity within the left ICA is 176. The left systolic ratio is 2.0. IMPRESSION: Moderate 50-60% stenosis left internal carotid artery. 2. 40-50% stenosis right internal carotid artery. 3. Critical stenosis right external carotid artery Electronically signed by: Oscar Cruz M.D. 10/17/2016 7:12 AM Dictated Date/Time: 10/17/2016 7:06 AM
--- NOTE | 2016-10-17 07:23 | DIAGNOSTIC IMAGING REPORT ---
Brain MRI WITHOUT CONTRAST HISTORY: Mental status change severe htn, expressive aphasia TECHNIQUE: Multiplanar multisequence MRI of the brain was performed without the use of contrast. COMPARISON STUDY: 11/23/2009 FINDINGS: There are no areas of restricted diffusion to suggest acute infarction. The midline structures are intact. The paranasal sinuses are clear. The mastoid air cells are clear. The ventricles and sulci are within normal limits for age. There is no mass, hematoma, midline shift. The major vascular flow-voids at the skull base are well maintained. Findings of moderate cerebral atrophy. Moderate chronic small vessel change of aging. IMPRESSION: No acute intracranial abnormality. Age-related change. Electronically signed by: Oscar Cruz M.D. 10/17/2016 7:21 AM Dictated Date/Time: 10/17/2016 7:19 AM
[2016-10-17] MEDS: CLOPIDOGREL BISULFATE 75 MG TAB PO SCH (07:35)
[2016-10-17] MEDS: HEPARIN SOD 5000 UNIT/0.5 ML CARP SQ SCH ×3 (07:37→21:38)
[2016-10-17] MEDS: LEVOTHYROXINE 25 MCG TAB PO SCH (07:37)
[2016-10-17] MEDS: INSULIN ASPART 100 UNITS/ML 3 ML PEN SC SCH ×4 (07:37→21:00)
[2016-10-17 07:38] VITALS: BP 162/76; PULSE 66; TEMP 36.9; O2SAT 98
[2016-10-17] MEDS ORDERED: LATANOPROST 0.005% OP SOLN 2.5 ML BTL OPB SCH (09:00)
[2016-10-17] MEDS ORDERED: ASPIRIN 81 MG ECTAB PO SCH (09:00)
[2016-10-17 11:06] VITALS: BP_SYST 184; BP_SYST 186; BP_DIAS 78; BP_DIAS 81; PULSE 69; TEMP 36.7; O2SAT 98
--- NOTE | 2016-10-17 11:06 | ECHOCARDIOGRAM REPORT ---
*NOTICE TO RECEIVING REPUBLICAN AGENCY This information is strictly Confidential and protected under [place] law. [place] law prohibits you from making any further disclosure of this information unless further disclosure is expressly permitted by the written consent of the person to whom it pertains or is authorized by law. A general authorization for the release of medical or other information is not sufficient for this purpose. Hospital accepts no responsibility if the information is made available to any other person, INCLUDING THE PATIENT. Interpretation Summary * Name: JEFFERSON LOUIS Study Date: 10/17/2016 06:37 AM BP: 154/75 mmHg * Patient Location: .2E\S\E204\S\1 HR: 71 * : 1930 (M/d/yyyy) Gender: Female Height: 62 in * Age: 86 yrs Ethnicity: CA Weight: 133 lb * Ordering Physician: Giuseppe Bran * Performed By: Jazz Lee * * Reason For Study: TIA, AVR * BSA: 1.6 m2 * -- Conclusions -- * There is mild asymmetric left ventricular hypertrophy. * Left ventricular systolic function is normal. * A full diastolic examination was done with clinical findings of Class I diastolic dysfunction. * The left atrium is mildly dilated. * There is a prosthetic aortic valve. * The gradient is normal for this prosthetic aortic valve. * Heavily calcified mitral leaflets and apparatus * There is moderate mitral regurgitation. * Right ventricular systolic pressure is elevated at 40-50mmHg. Procedure Details * A complete two-dimensional transthoracic echocardiogram was performed (2D, M-mode, Doppler and color flow Doppler). * A saline contrast injection was performed to assess for cardiac shunting. * The injection was performed through an intravenous line in the right arm. * A total of 20 cc of agitated saline was given. Left Ventricle * The left ventricle is grossly normal size. * There is mild asymmetric left ventricular hypertrophy. * Ejection Fraction = 60-65%. * Left ventricular systolic function is normal. * A full diastolic examination was done with clinical findings of Class I diastolic dysfunction. Right Ventricle * The right ventricle is borderline dilated. * The right ventricular systolic function is normal. Atria * The left atrium is mildly dilated. * Right atrial size is normal. Mitral Valve * Heavily calcified mitral leaflets and apparatus * There is moderate mitral regurgitation. Tricuspid Valve * The tricuspid valve is not well visualized, but is grossly normal. * There is mild tricuspid regurgitation. * Right ventricular systolic pressure is elevated at 40-50mmHg. Aortic Valve * There is a prosthetic aortic valve. * The gradient is normal for this prosthetic aortic valve. Great Vessels * The aortic root and proximal ascending aorta are normal sized. Pericardium/Pleural * There is no pericardial effusion. MMode 2D Measurements and Calculations IVSd 1.7 cm IVSs 1.9 cm LVIDd 3.6 cm LVIDs 2.4 cm LVPWd 1.2 cm LVPWs 1.6 cm IVS/LVPW 1.5 FS 33.9 % EDV(Teich) 55.1 ml ESV(Teich) 20.0 ml EF(Teich) 63.7 % EDV(cubed) 47.4 ml ESV(cubed) 13.7 ml EF(cubed) 71.1 % % IVS thick 13.3 % % LVPW thick 34.9 % LV mass(C)d 191.8 grams LV mass(C)dI 119.3 grams/m\S\2 LV mass(C)s 163.2 grams LV mass(C)sI 101.5 grams/m\S\2 SV(Teich) 35.1 ml SI(Teich) 21.8 ml/m\S\2 SV(cubed) 33.7 ml SI(cubed) 21.0 ml/m\S\2 LA dimension 4.2 cm asc Aorta Diam 3.3 cm LVOT diam 1.2 cm LVOT area 1.1 cm\S\2 LVAd ap4 24.7 cm\S\2 LVLd ap4 6.8 cm EDV(MOD-sp4) 72.2 ml EDV(sp4-el) 75.8 ml LVAs ap4 12.7 cm\S\2 LVLs ap4 5.6 cm ESV(MOD-sp4) 26.3 ml ESV(sp4-el) 24.8 ml EF(MOD-sp4) 63.6 % EF(sp4-el) 67.2 % LVAd ap2 22.7 cm\S\2 LVLd ap2 7.2 cm EDV(MOD-sp2) 61.9 ml EDV(sp2-el) 60.4 ml LVAs ap2 11.1 cm\S\2 LVLs ap2 5.5 cm ESV(MOD-sp2) 20.5 ml ESV(sp2-el) 19.1 ml EF(MOD-sp2) 66.9 % EF(sp2-el) 68.4 % LVLd %diff 6.0 % EDV(MOD-bp) 68.4 ml LVLs %diff -1.50 % ESV(MOD-bp) 23.0 ml EF(MOD-bp) 66.3 % SV(MOD-sp4) 45.9 ml SI(MOD-sp4) 28.6 ml/m\S\2 SV(MOD-sp2) 41.4 ml SI(MOD-sp2) 25.8 ml/m\S\2 SV(MOD-bp) 45.3 ml SI(MOD-bp) 28.2 ml/m\S\2 SV(sp4-el) 51.0 ml SI(sp4-el) 31.7 ml/m\S\2 SV(sp2-el) 41.3 ml SI(sp2-el) 25.7 ml/m\S\2 Doppler Measurements and Calculations MV E max jeanna 146.1 cm/sec MV A max jeanna 156.9 cm/sec MV E/A 0.93 MV V2 max 174.5 cm/sec MV max PG 12.2 mmHg MV V2 mean 90.8 cm/sec MV mean PG 4.1 mmHg MV V2 VTI 59.7 cm MV dec time 0.24 sec Ao V2 max 242.7 cm/sec Ao max PG 23.6 mmHg Ao max PG (full) 15.9 mmHg SANA(V,A) 0.62 cm\S\2 SANA(V,D) 0.62 cm\S\2 LV V1 max PG 7.6 mmHg LV V1 max 138.0 cm/sec MR max jeanna 525.0 cm/sec MR max PG 110.3 mmHg PA V2 max 67.2 cm/sec PA max PG 1.8 mmHg TR max jeanna 299.6 cm/sec
--- NOTE | 2016-10-17 14:12 | Neurology Consultation ---
Neurology Consultation Date of Consultation: Oct 17, 2016. Attending Physician: Yolanda Mcnulty MD Primary Care Physician: Shahid Shea M.D. Reason for Consultation: consultation for TIA like events History of Present Illness Source: patient, clinic records, hospital records This is a 86-year-old right-handed female who presents for transient symptoms concerning for possible TIA. Patient reports that yesterday she got a typical ocular migraine with/e- lights in her vision. She reports that she is beginning ocular migraines without a headache for the last 5 years. She does report a remote history of rare migraine headaches. She reports that at the time of getting this most recent ocular-type migraine, she went to bed and when she woke up she had trouble getting words. She reports that she knew what she wanted to say but had trouble getting them out. It lasted for about half an hour. She denies any new numbness or weakness. Denies any facial droop. No loss of vision or double vision. No trouble swallowing. Her blood pressure taken at home at the time was systolically in the 180s and then teto to the low 200s. At this point family encouraged her to go to the emergency room for evaluation. Patient does report that her blood pressure at home does tend to fluctuate and can be anywhere from systolic 110 to 170s. Patient has never had any definite stroke or TIA like episodes in the past and she does report 1 episode in 2009 in which both of her upper extremities felt weak and she did receive a TIA workup at that time that was unremarkable. Patient reports that with this current episode she did have a mild 1/ 10 headache. She also been feeling a little bit nauseous for the last couple of days. She denies any other sick symptoms. Patient was taking half tab of full dose aspirin daily at the time of this event. The patient does not use tobacco. On review of systems she does note some decreased hearing for the last 5-10 years and intermittent constipation. MRI of the brain reported images reviewed by myself. It appeared normal for age. No old or acute strokes. Minimum T2 hyperintensity likely consistent with age. Ultrasound of the carotids showed 50-60% stenosis of the left ICA, 40-50% stenosis of the right ICA, and critical stenosis of right external carotid artery Echocardiogram was reviewed. Noted left ventricular hypertrophy and diastolic 1 dysfunction. 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 Independent in activities of daily living. No tobacco use. No alcohol use. No illegal drug use. No supplement use. There has not been any recent weight loss or old medication use. Marital Status: Occupation Status: retired Allergies Coded Allergies: Penicillins (Verified Allergy, Unknown, UNKNOWN, 09/09/16) Sulfa Antibiotics (Verified Allergy, Unknown, SEVERE HIVES, 09/09/16) Current Inpatient Medications Current Inpatient Medications Medications (Trade) Dose Ordered Sig/Bernadine Route Start Time Stop Time Status Last Admin Dose Admin Atorvastatin Calcium (Lipitor Tab) 80 mg HS PO 10/17/16 21:00 11/16/16 20:59 Latanoprost (Xalatan Oph Soln) 1 drops BID OPB 10/17/16 09:00 11/16/16 08:59 10/17/16 07:37 1 DROPS Levothyroxine Sodium (Synthroid Tab) 25 mcg DAILYBB PO 10/17/16 06:00 11/16/16 08:59 Clopidogrel Bisulfate (plAVix TAB) 75 mg QAM PO 10/17/16 09:00 11/16/16 08:59 10/17/16 07:35 75 MG Miscellaneous Information (Pharmacist Discharge Med Rec Consult) 1 ea UD PRN N/A 10/17/16 05:00 11/16/16 04:59 Heparin Sodium (Porcine) (Heparin Sq 5000 Unit/0.5ml) 5,000 unit Q8 SQ 10/17/16 06:00 11/16/16 05:59 Acetaminophen (Tylenol Tab) 650 mg Q4H PRN PO 10/17/16 05:00 11/16/16 04:59 Al Hydrox/Mg Hydrox/Simethicone (Maalox Max Susp) 15 ml Q4H PRN PO 10/17/16 05:00 11/16/16 04:59 Magnesium Hydroxide (Milk Of Magnesia Susp) 30 ml Q12H PRN PO 10/17/16 05:00 11/16/16 04:59 Ondansetron HCl (Zofran Inj) 4 mg Q6H PRN IV 10/17/16 05:00 11/16/16 04:59 Polyethylene (Miralax Powder Packet) 17 gm DAILY PRN PO 10/17/16 05:00 11/16/16 04:59 Metoprolol Tartrate (Lopressor Iv) 2.5 mg Q6 PRN IV 10/17/16 05:00 11/16/16 04:59 Insulin Aspart (novoLOG ASPART) SLIDING SCALE G... ACHS SC 10/17/16 07:00 11/16/16 06:59 10/17/16 11:35 2 UNITS Glucose (Glucose 40% Gel) 15-30 GRAMS 15 GRAMS... UD PRN PO 10/17/16 05:30 11/16/16 05:29 Glucose (Glucose Chew Tab) 4-8 Tablets 4 Tabl... UD PRN PO 10/17/16 05:30 11/16/16 05:29 Dextrose (Dextrose 50% 50ML Syringe) 25-50ML OF 50% DW IV FOR... UD PRN IV 10/17/16 05:30 11/16/16 05:29 Glucagon (Glucagon Inj) 1 mg UD PRN SQ 10/17/16 05:30 11/16/16 05:29 Aspirin (Ecotrin Tab) 81 mg QAM PO 10/18/16 09:00 11/17/16 08:59 Review of Systems Complete review of systems otherwise negative except for the above noted in history of present illness Physical Exam Vital Signs (Past 24 Hrs): Date Time Temp Pulse Resp B/P Pulse Ox O2 Delivery O2 Flow Rate FiO2 10/17/16 12:10 Room Air 10/17/16 11:06 36.7 69 20 184/78 98 186/81 10/17/16 08:00 Room Air 10/17/16 07:38 36.9 66 20 162/76 98 10/17/16 05:09 71 15 154/75 97 10/17/16 05:05 36.9 66 18 152/71 96 Room Air 10/17/16 05:01 71 15 154/75 97 Room Air 10/17/16 04:46 66 20 168/84 97 Room Air 10/17/16 04:43 166/109 10/17/16 02:45 70 18 198/91 99 Room Air 10/17/16 02:30 67 18 180/83 100 Room Air 10/17/16 02:15 67 18 183/84 100 Room Air 10/17/16 01:30 66 18 159/73 100 Room Air 10/17/16 01:15 66 18 161/81 98 Room Air 10/17/16 01:00 69 18 187/80 99 Room Air 10/17/16 00:51 73 18 167/87 99 Room Air 10/17/16 00:43 73 18 193/94 100 Room Air 10/17/16 00:00 74 18 222/113 99 Room Air 10/17/16 00:00 99 Room Air 10/17/16 00:00 99 Room Air 10/16/16 23:53 77 10/16/16 23:27 36.8 80 20 214/79 99 Room Air Gen.: Patient is alert and sitting in bed, in no acute distress. HEENT: Normocephalic /atraumatic, no scleral icterus Heart: Regular rate and rhythm Extremities: No gross deformities or rashes noted Neurological examination: Mental status: Patient is alert and oriented x3. Attention and concentration normal for the situation. Good fund of knowledge. Able to give her own history. Speech is fluent without any dysarthria or aphasia noted Cranial nerve: Funduscopic examination was unremarkable. No papilledema. Pupils equally round and reactive to light. Extraocular muscles intact without nystagmus. No facial asymmetry noted. Facial sensation intact. Tongue is midline. Good palatal elevation. Good shoulder shrug bilaterally. Hearing grossly intact to voice. Strength: 5/5 both proximal and distally in all extremities. There is no arm drift. Tone is normal. Sensation: Grossly intact to light touch in all extremities. Deep tendon reflexes: +1 in bilateral biceps, brachioradialis and patellar. Coordination: Patient had good finger to nose without dysmetria Station within the bed was normal Laboratory Results Past 24 Hours: 10/17/16 00:08 Red Blood Count 4.49, Mean Corpuscular Volume 83.1, Mean Corpuscular Hemoglobin 27.6, Mean Corpuscular Hemoglobin Concent 33.2, Mean Platelet Volume 10.8, Neutrophils (%) (Auto) 64.6, Lymphocytes (%) (Auto) 20.2, Monocytes (%) (Auto) 12.1, Eosinophils (%) (Auto) 2.1, Basophils (%) (Auto) 0.4, Neutrophils # (Auto ) 3.14, Lymphocytes # (Auto) 0.98, Monocytes # (Auto) 0.59, Eosinophils # (Auto ) 0.10, Basophils # (Auto) 0.02 10/17/16 00:08 Test 10/17/16 00:08 10/17/16 11:05 White Blood Count 4.86 K/uL (4.8-10.8) Red Blood Count 4.49 M/uL (4.2-5.4) Hemoglobin 12.4 g/dL (12.0-16.0) Hematocrit 37.3 % (37-47) Mean Corpuscular Volume 83.1 fL (80-100) Mean Corpuscular Hemoglobin 27.6 pg (25-34) Mean Corpuscular Hemoglobin Concent 33.2 g/dl (32-36) Platelet Count 155 K/uL (130-400) Mean Platelet Volume 10.8 fL (7.4-10.4) Neutrophils (%) (Auto) 64.6 % Lymphocytes (%) (Auto) 20.2 % Monocytes (%) (Auto) 12.1 % Eosinophils (%) (Auto) 2.1 % Basophils (%) (Auto) 0.4 % Neutrophils # (Auto) 3.14 K/uL (1.4-6.5) Lymphocytes # (Auto) 0.98 K/uL (1.2-3.4) Monocytes # (Auto) 0.59 K/uL (0.11-0.59) Eosinophils # (Auto) 0.10 K/uL (0-0.5) Basophils # (Auto) 0.02 K/uL (0-0.2) RDW Standard Deviation 46.3 fL (36.4-46.3) RDW Coefficient of Variation 15.1 % (11.5-14.5) Immature Granulocyte % (Auto) 0.6 % Immature Granulocyte # (Auto) 0.03 K/uL (0.00-0.02) Prothrombin Time 11.5 SECONDS (9.0-12.0) Prothromb Time International Ratio 1.1 (0.9-1.1) Activated Partial Thromboplast Time 28.7 SECONDS (21.0-31.0) Partial Thromboplastin Ratio 1.1 Urine Color YELLOW Urine Appearance CLEAR (CLEAR) Urine pH 7.0 (4.5-7.5) Urine Specific [place] 1.004 (1.000-1.030) Urine Protein NEG (NEG) Urine Glucose (UA) 1+ (NEG) Urine Ketones NEG (NEG) Urine Occult Blood NEG (NEG) Urine Nitrite NEG (NEG) Urine Bilirubin NEG (NEG) Urine Urobilinogen NEG (NEG) Urine Leukocyte Esterase NEG (NEG) Anion Gap 10.0 mmol/L (3-11) Est Creatinine Clear Calc Drug Dose 31.5 ml/min Estimated GFR () 52.6 Estimated GFR (Non- 45.4 BUN/Creatinine Ratio 27.5 (10-20) Estimated Average Glucose 174 mg/dl Hemoglobin A1c 7.7 % (4.5-5.6) Calcium Level 9.3 mg/dl (8.5-10.1) Total Bilirubin 0.4 mg/dl (0.2-1) Direct Bilirubin < 0.1 mg/dl (0-0.2) Aspartate Amino Transf (AST/SGOT) 17 U/L (15-37) Alanine Aminotransferase (ALT/SGPT) 25 U/L (12-78) Alkaline Phosphatase 85 U/L (45-117) Total Creatine Kinase 116 U/L (26-192) Creatine Kinase MB 3.8 ng/ml (0.5-3.6) Creatine Kinase MB Ratio 3.3 (0-3.0) Troponin I < 0.015 ng/ml (0-0.045) Total Protein 7.7 gm/dl (6.4-8.2) Albumin 4.0 gm/dl (3.4-5.0) Lipase 69 U/L (73-393) Thyroid Stimulating Hormone (TSH) 4.490 uIu/ml (0.300-4.500) Bedside Glucose 228 mg/dl (70-90) Imaging As noted above in history of present illness Impression This is a 86-year-old right-handed female who presented with ocular migraine type symptoms followed by half an hour of acute expressive aphasia in the setting of accelerated hypertension. Differential diagnosis is TIA versus hypertensive encephalopathy secondary to accelerated hypertension. I think it is unlikely that this is a migraine event (typically migraines will not cause accelerated hypertension in the 200s). No residual neurological deficits this morning. Known stroke risk factors include diabetes, dyslipidemia, carotid artery stenosis (large vessel atherosclerotic disease), and hypertension. Overall I think that we have to treat as though this may have been TIA Plan Agree with addition of Plavix for secondary stroke prevention, especially in the setting of large vessel atherosclerotic disease. Recommend discontinuation of aspirin in 3-7 days. In addition I have changed aspirin to 81 mg daily (there is no significant benefit between 81 mg and higher doses of aspirin for stroke prevention) Follow-up lipid profile for stroke risk factor modifications (scheduled for tomorrow morning). Continue home statin medication. Follow-up PT/OT and speech therapies for discharge planning. Blood pressure recommendations while in hospital 175/95-150/80 Avoid hypotension and dehydration Stroke risk factor modifications and recommendations: Blood pressure recommendations for the first month post hospital discharge 150/ 90-130/80, and after that blood pressure recommendations 130/80-110/70 Total cholesterol goal 100- 200 and LDL goal less than 70 Hemoglobin A1c goal less than 7 Encourage cardiovascular exercise at least 3 times a week for 30 minutes. Follow-up in neurology clinic in 1 month for post stroke hospital follow-up. As an outpatient, recommend Holter monitor to rule out A. fib if no cardiac arrhythmias are found in hospital. Thank you for letting me participate in this patient's care. If there is any questions or concerns, feel free to call/page me. ( I anticipate that the patient will be able to go home tomorrow morning from a neurological standpoint.)
--- NOTE | 2016-10-17 14:19 | Progress Note ---
Subjective Date of Service: Oct 17, 2016. Subjective Pt evaluation today including: conversation w/ patient, conversation w/ family , physical exam, chart review, lab review, review of studies, review of inpatient medication list Patient reports she has been diagnosed with "silent migraines" typically manifesting with auras and usually resolves after she naps/sleeps. She reports having an expressive aphasia-type of event where she knew what she wanted to say but could not verbalize it. This event only lasted for a few minutes and completely resolved with no residual effects. She currently feels no chest pain , no sob. No discomfort of any sort and tolerating diet well. Problem List Medical Problems: (1) Expressive aphasia Status: Acute (2) Hypertensive emergency Status: Acute Review of Systems All Other Systems: Reviewed and Negative Medications Acetaminophen (Tylenol Tab) 650 mg Q4H PRN PO; Start 10/17/16 at 05:00; Stop 11/16/16 at 04:59 Al Hydrox/Mg Hydrox/Simethicone (Maalox Max Susp) 15 ml Q4H PRN PO; Start 10/17 at 05:00; Stop 11/16/16 at 04:59 Aspirin (Ecotrin Tab) 81 mg QAM PO; Start 10/18/16 at 09:00; Stop 11/17/16 at 08 :59 Atorvastatin Calcium (Lipitor Tab) 80 mg HS PO; Start 10/17/16 at 21:00; Stop at 20:59 Clopidogrel Bisulfate (plAVix TAB) 75 mg QAM PO Last administered on 10/17/16t 07:35; Admin Dose 75 MG; Start 10/17/16 at 09:00; Stop 11/16/16 at 08:59 Dextrose (Dextrose 50% 50ML Syringe) 25-50ML OF 50% DW IV FOR... UD PRN IV; Start 10/17/16 at 05:30; Stop 11/16/16 at 05:29 Glucagon (Glucagon Inj) 1 mg UD PRN SQ; Start 10/17/16 at 05:30; Stop 11/16/16 at 05:29 Glucose (Glucose 40% Gel) 15-30 GRAMS 15 GRAMS... UD PRN PO; Start 10/17/16 at 05:30; Stop 11/16/16 at 05:29 Glucose (Glucose Chew Tab) 4-8 Tablets 4 Tabl... UD PRN PO; Start 10/17/16 at 05:30; Stop 11/16/16 at 05:29 Heparin Sodium (Porcine) (Heparin Sq 5000 Unit/0.5ml) 5,000 unit Q8 SQ Last administered on 10/17/16 14:26; Admin Dose 5,000 UNIT; Start 10/17/16 at 06:00 ; Stop 11/16/16 at 05:59 Insulin Aspart (novoLOG ASPART) SLIDING SCALE G... ACHS SC Last administered on 10/17/16 11:35; Admin Dose 2 UNITS; Start 10/17/16 at 07:00; Stop 11/16/16 at 06:59 Latanoprost (Xalatan Oph Soln) 1 drops BID OPB Last administered on 10/17/16 07 :37; Admin Dose 1 DROPS; Start 10/17/16 at 09:00; Stop 11/16/16 at 08:59 Levothyroxine Sodium (Synthroid Tab) 25 mcg DAILYBB PO; Start 10/17/16 at 06:00 ; Stop 11/16/16 at 08:59 Magnesium Hydroxide (Milk Of Magnesia Susp) 30 ml Q12H PRN PO; Start 10/17/16 at 05:00; Stop 11/16/16 at 04:59 Metoprolol Tartrate (Lopressor Iv) 2.5 mg Q6 PRN IV; Start 10/17/16 at 05:00; Stop 11/16/16 at 04:59 Miscellaneous Information (Pharmacist Discharge Med Rec Consult) 1 ea UD PRN N/ A; Start 10/17/16 at 05:00; Stop 11/16/16 at 04:59 Ondansetron HCl (Zofran Inj) 4 mg Q6H PRN IV; Start 10/17/16 at 05:00; Stop at 04:59 Polyethylene (Miralax Powder Packet) 17 gm DAILY PRN PO; Start 10/17/16 at 05: 00; Stop 11/16/16 at 04:59 Objective Vital Signs Date Time Temp Pulse Resp B/P Pulse Ox O2 Delivery O2 Flow Rate FiO2 10/17/16 12:10 Room Air 10/17/16 11:06 36.7 69 20 184/78 98 186/81 10/17/16 08:00 Room Air 10/17/16 07:38 36.9 66 20 162/76 98 10/17/16 05:09 71 15 154/75 97 10/17/16 05:05 36.9 66 18 152/71 96 Room Air 10/17/16 05:01 71 15 154/75 97 Room Air 10/17/16 04:46 66 20 168/84 97 Room Air 10/17/16 04:43 166/109 10/17/16 02:45 70 18 198/91 99 Room Air 10/17/16 02:30 67 18 180/83 100 Room Air 10/17/16 02:15 67 18 183/84 100 Room Air 10/17/16 01:30 66 18 159/73 100 Room Air 10/17/16 01:15 66 18 161/81 98 Room Air 10/17/16 01:00 69 18 187/80 99 Room Air 10/17/16 00:51 73 18 167/87 99 Room Air 10/17/16 00:43 73 18 193/94 100 Room Air 10/17/16 00:00 74 18 222/113 99 Room Air 10/17/16 00:00 99 Room Air 10/17/16 00:00 99 Room Air 10/16/16 23:53 77 10/16/16 23:27 36.8 80 20 214/79 99 Room Air Physical Exam Comments: nad, aox3 eomi, perrl, anicteric s1 s2 rrr, no murmurs appreciated, left carotid bruit appreciated ctab no w/r/r abd soft nt/nd +BS no LE edema Laboratory Results Last 24 Hours Test 10/17/16 00:08 10/17/16 02:40 10/17/16 06:32 10/17/16 11:05 White Blood Count 4.86 K/uL Red Blood Count 4.49 M/uL Hemoglobin 12.4 g/dL Hematocrit 37.3 % Mean Corpuscular Volume 83.1 fL Mean Corpuscular Hemoglobin 27.6 pg Mean Corpuscular Hemoglobin Concent 33.2 g/dl Platelet Count 155 K/uL Mean Platelet Volume 10.8 fL Neutrophils (%) (Auto) 64.6 % Lymphocytes (%) (Auto) 20.2 % Monocytes (%) (Auto) 12.1 % Eosinophils (%) (Auto) 2.1 % Basophils (%) (Auto) 0.4 % Neutrophils # (Auto) 3.14 K/uL Lymphocytes # (Auto) 0.98 K/uL Monocytes # (Auto) 0.59 K/uL Eosinophils # (Auto) 0.10 K/uL Basophils # (Auto) 0.02 K/uL RDW Standard Deviation 46.3 fL RDW Coefficient of Variation 15.1 % Immature Granulocyte % (Auto) 0.6 % Immature Granulocyte # (Auto) 0.03 K/uL Prothrombin Time 11.5 SECONDS Prothromb Time International Ratio 1.1 Activated Partial Thromboplast Time 28.7 SECONDS Partial Thromboplastin Ratio 1.1 Urine Color YELLOW Urine Appearance CLEAR Urine pH 7.0 Urine Specific [place] 1.004 Urine Protein NEG Urine Glucose (UA) 1+ Urine Ketones NEG Urine Occult Blood NEG Urine Nitrite NEG Urine Bilirubin NEG Urine Urobilinogen NEG Urine Leukocyte Esterase NEG Sodium Level 138 mmol/L Potassium Level 4.1 mmol/L Chloride Level 101 mmol/L Carbon Dioxide Level 27 mmol/L Anion Gap 10.0 mmol/L Blood Urea Nitrogen 30 mg/dl Creatinine 1.10 mg/dl Est Creatinine Clear Calc Drug Dose 31.5 ml/min Estimated GFR () 52.6 Estimated GFR (Non- 45.4 BUN/Creatinine Ratio 27.5 Random Glucose 232 mg/dl Estimated Average Glucose 174 mg/dl Hemoglobin A1c 7.7 % Calcium Level 9.3 mg/dl Total Bilirubin 0.4 mg/dl Direct Bilirubin < 0.1 mg/dl Aspartate Amino Transf (AST/SGOT) 17 U/L Alanine Aminotransferase (ALT/SGPT) 25 U/L Alkaline Phosphatase 85 U/L Total Creatine Kinase 116 U/L Creatine Kinase MB 3.8 ng/ml Creatine Kinase MB Ratio 3.3 Troponin I < 0.015 ng/ml Total Protein 7.7 gm/dl Albumin 4.0 gm/dl Lipase 69 U/L Thyroid Stimulating Hormone (TSH) 4.490 uIu/ml Bedside Glucose 209 mg/dl 167 mg/dl 228 mg/dl Assessment and Plan 1. Accelerated HTN - no end-organ damage on labs or CT noted - will keep BP 160-180 for today and gradually control BP over the next 24 hours - cont to monitor tele 2. Transient expressive aphasia - migraine vs TIA vs HTN encephalopathy - not typical of her migraine presentation - noted is the left carotid 50-60% carotid stenosis which she already knew about - await neuro recs - CTH and MRI also noted - therapeutic options may be surgical vs conservative with BP and lipid control along with dual antiplatelet therapy 3. DM - relatively controlled for her age - will resume her on glargine 10unit tonight 4. Hypothyroid - resume home levothyroxine 5. dvt ppx
[2016-10-17] MEDS ORDERED: LABETALOL HCL IV 5 MG/ML 20ML IV PRN (16:00)
[2016-10-17 16:25] VITALS: BP 177/78; PULSE 68; TEMP 36.8; O2SAT 97
[2016-10-17] MEDS ORDERED: DOCUSATE SODIUM 100 MG CAP PO ONE (16:30)
[2016-10-17 19:32] VITALS: BP 175/90; PULSE 67; TEMP 37.6; O2SAT 97
[2016-10-17] MEDS ORDERED: ATORVASTATIN 40 MG TAB PO SCH (21:00)
[2016-10-17] MEDS ORDERED: INSULIN GLARGINE SOLOSTAR 100 UNITS/ML 3 ML PEN SC SCH (21:00)
[2016-10-17] MEDS ORDERED: NURSING VERBAL MED ORDER ONE (21:15)
[2016-10-17] MEDS: BRINZOLAMIDE-BRIMONIDINE 1-0.2% OPH SUSP OPB SCH (22:08)
[2016-10-17 23:38] VITALS: BP 127/55; PULSE 57; TEMP 36.9; O2SAT 97
[2016-10-18 03:37] VITALS: BP 128/67; PULSE 58; TEMP 36.6; O2SAT 98
[2016-10-18 05:59] LABS: BASO % 0.5 %; BASO ABS # 0.02 K/uL (0-0.2); COMPLETE YES; IG% 0.2 %; LYMPH % 30.5 %; LYMPH ABS # 1.31 K/uL (1.2-3.4); MEAN CELL VOLUME 82.7 fL (80-100); MEAN CORPUSCULAR HGB CONC 32.6 g/dl (32-36); MEAN PLATELET VOLUME 10.9 fL (7.4-10.4); MONO % 11.9 %; NEUT % 52.9 %; PLATELET COUNT 148 K/uL (130-400); RED BLOOD COUNT 4.11 M/uL (4.2-5.4); WHITE BLOOD COUNT 4.29 K/uL (4.8-10.8)
[2016-10-18] MEDS: HEPARIN SOD 5000 UNIT/0.5 ML CARP SQ SCH (06:00)
[2016-10-18] MEDS: LEVOTHYROXINE 25 MCG TAB PO SCH (06:37)
[2016-10-18 06:41] LABS: BUN/CREATININE RATIO 24.6 (10-20); CALCIUM 8.8 mg/dl (8.5-10.1); CREATININE 0.92 mg/dl (0.60-1.20)
[2016-10-18 06:44] LABS: CHOLESTEROL/HDL RATIO 2.4
[2016-10-18] MEDS: INSULIN ASPART 100 UNITS/ML 3 ML PEN SC SCH ×2 (07:00→10:26)
[2016-10-18] MEDS ORDERED: PLV75 PO ×2 (07:21→11:18)
[2016-10-18] MEDS ORDERED: LISI-461 PO ×2 (07:21→11:18)
[2016-10-18 07:37] VITALS: BP 153/76; PULSE 68; TEMP 36.6; O2SAT 99
[2016-10-18] MEDS: CLOPIDOGREL BISULFATE 75 MG TAB PO SCH (08:01)
[2016-10-18] MEDS: BRINZOLAMIDE-BRIMONIDINE 1-0.2% OPH SUSP OPB SCH (08:02)
[2016-10-18 09:00] VITALS: O2SAT 99
[2016-10-18] MEDS ORDERED: DOCUSATE SODIUM 100 MG CAP PO SCH (09:00)
[2016-10-18] MEDS ORDERED: LISINOPRIL 10 MG TAB PO SCH (09:00)
[2016-10-18] MEDS ORDERED: ASPIRIN 81 MG ECTAB PO SCH (09:00)
[2016-10-18 09:20] VITALS: BP 123/70; PULSE 70; O2SAT 96
--- NOTE | 2016-10-18 10:44 | Discharge Instructions ---
Discharge Instructions Date of Service Oct 18, 2016. Admission Reason for Admission: Accelerated Hypertension, Aphasia Discharge Discharge Diagnosis / Problem: accelerated hypertension Discharge Goals Goal(s): Improve disease control Activity Recommendations Activity Limitations: resume your previous activity . Current Hospital Diet Patient's current hospital diet: AHA Diet (Heart Healthy) Discharge Diet Recommended Diet: AHA Diet (Heart Healthy), Low Sodium Diet (2gm Na), Diabetes Type 1 Diet Pending Studies Studies pending at discharge: no Laboratory Results Hemoglobin A1c Test 10/17/16 00:08 Range/Units Estimated Average Glucose 174 mg/dl Hemoglobin A1c 7.7 H 4.5-5.6 % Lipid Panel Test 10/18/16 05:16 Range/Units Triglycerides Level 83 0-150 mg/dl Cholesterol Level 110 0-200 mg/dl HDL Cholesterol 46 mg/dl Cholesterol/HDL Ratio 2.4 LDL Cholesterol, Calculated 47 mg/dl Medical Emergencies . Who to Call and When: Medical Emergencies: If at any time you feel your situation is an emergency, please call 911 immediately. . Non-Emergent Contact Non-Emergency issues call your: Primary Care Provider . . "Provider Documentation" section prepared by Yolanda Mcnulty. VTE Core Measure Inpt VTE Proph given/why not?: Unfractionated heparin SQ
[2016-10-18] MEDS ORDERED: INSULIN ASPART 100 UNITS/ML 3 ML PEN SC SCH (11:00)
[2016-10-18 11:14] VITALS: BP 163/71; PULSE 58; TEMP 36.5; O2SAT 98
--- NOTE | 2016-10-18 11:17 | Discharge Summary ---
Discharge Summary Date of Service Oct 18, 2016. Discharge Summary Admission Date: Oct 17, 2016 at 04:51 Discharge Date: Oct 18, 2016 Discharge Disposition: Home Principal Diagnosis: accelerated hypertension Procedures: Brain MRI WITHOUT CONTRAST HISTORY: Mental status change severe htn, expressive aphasia TECHNIQUE: Multiplanar multisequence MRI of the brain was performed without the use of contrast. COMPARISON STUDY: 11/23/2009 FINDINGS: There are no areas of restricted diffusion to suggest acute infarction. The midline structures are intact. The paranasal sinuses are clear. The mastoid air cells are clear. The ventricles and sulci are within normal limits for age. There is no mass, hematoma, midline shift. The major vascular flow-voids at the skull base are well maintained. Findings of moderate cerebral atrophy. Moderate chronic small vessel change of aging. IMPRESSION: No acute intracranial abnormality. Age-related change. BILATERAL CAROTID DOPPLER STUDY HISTORY: Mental status change expressive aphasia COMPARISON: None. TECHNIQUE: Real-time, grayscale, and color Doppler sonography of the carotid arteries was performed. Imaging reviewed in the transverse and longitudinal planes. All measurements were calculated based on NASCET criteria. FINDINGS: Antegrade flow is seen in the bilateral vertebral arteries. The brachial pressures are hemodynamically similar. Considerable plaque formation bilaterally critical stenosis right external carotid artery The peak systolic velocity within the right ICA is 136. The right systolic ratio is 1.9. The peak systolic velocity within the left ICA is 176. The left systolic ratio is 2.0. IMPRESSION: Moderate 50-60% stenosis left internal carotid artery. 2. 40-50% stenosis right internal carotid artery. 3. Critical stenosis right external carotid artery ECHO on this admission Interpretation Summary * Name: JEFFERSON LOUIS Study Date: 10/17/2016 06:37 AM BP: 154/75 mmHg * Patient Location: 2E\\S\\E204\\S\\1 HR: 71 * : 1930 (M/d/yyyy) Gender: Female Height: 62 in * Age: 86 yrs Ethnicity: [place] Weight: 133 lb * Ordering Physician: Giuseppe Bran * Performed By: Jazz Lee * * Reason For Study: TIA, AVR * BSA: 1.6 m2 * -- Conclusions -- * There is mild asymmetric left ventricular hypertrophy. * Left ventricular systolic function is normal. * A full diastolic examination was done with clinical findings of Class I diastolic dysfunction. * The left atrium is mildly dilated. * There is a prosthetic aortic valve. * The gradient is normal for this prosthetic aortic valve. * Heavily calcified mitral leaflets and apparatus * There is moderate mitral regurgitation. * Right ventricular systolic pressure is elevated at 40-50mmHg. Procedure Details * A complete two-dimensional transthoracic echocardiogram was performed (2D, M-mode, Doppler and color flow Doppler). * A saline contrast injection was performed to assess for cardiac shunting. * The injection was performed through an intravenous line in the right arm. * A total of 20 cc of agitated saline was given. Left Ventricle * The left ventricle is grossly normal size. * There is mild asymmetric left ventricular hypertrophy. * Ejection Fraction = 60-65%. * Left ventricular systolic function is normal. * A full diastolic examination was done with clinical findings of Class I diastolic dysfunction. Right Ventricle * The right ventricle is borderline dilated. * The right ventricular systolic function is normal. Medication Reconciliation New Medications: Clopidogrel Bisulfate (Clopidogrel) 75 Mg Tab 75 MG PO QAM for 30 Days, #30 TAB Continued Medications: Aspirin (Aspirin) 325 Mg Tab 162.5 MG PO QAM 1/2 TABLET DOSE Atorvastatin (Lipitor) 80 Mg Tab 80 MG PO HS, TAB Cholecalciferol (Vitamin D) 2,000 Unit Tab 2000 UNITS PO QAM Clindamycin Hcl (Cleocin) 300 Mg Cap 600 MG PO PRN/UD for 10 Days, CAP TAKE 2 CAPSULES 1 HOUR PRIOR TO DENTAL APPOINTMENT Insulin Aspart (Novolog Flexpen) 100 Units/Ml Inj 1 DOSE SC AC DOSE PER SLIDING SCALE Insulin Glargine (Lantus Solostar) 100 Unit/Ml Inj 13 UNITS SC QPM, PEN AND IN ADDITION TO SLIDING SCALE Latanoprost (Xalatan 0.005% Oph Flavia) 0.005 % Flavia 1 DROPS OPB BID, #2.5 ML Levothyroxine Sodium (Levothyroxine Sodium) 25 Mcg Tab 25 MCG PO DAILY, TAB Lisinopril (Zestril) 20 Mg Tab 0.25-0.5 TAB PO BID, TAB Hospital Course 86 y/o F w/Hx HTN, DM, Migraines with aura, TIA, AVR. Pt developed a migraine aura which she describes as "diamonds appearing in front of her eyes". This was followed by a moderate to severe largely frontal SULLIVAN. She took a nap to wait for the SULLIVAN to resolve and woke up a few hours later reporting paresthesias , nausea and then acute aphasia. She was unable to get any words out although she describes knowing what she wanted to say. This lasted for approximately 40 min and resolved prior to arrival in the ER. It was noted that her SBP on arrival was 240. She denies previous episodes of aphasia. She denies CP, SOB, vomiting, fevers or dysuria. She denies noncompliance with her medications and states that her BP can be highly variable. On this admission, she had a CT of her head done which was negative for any pathologies. MRI of the brain was also unremarkable for any acute pathologies. Carotid US however did reveals b/l stenoses worse on the left side as above 50- 60%. Neurology was consulted. It is unlikely that this was her silent migraine as it does not typically present this way for her. Her carotid stenosis certainly would be a concern, however, after speaking with patient, she would like a more conservative management at this point. She will need good lipid control and more stable BP control. Vital Signs Date Time Temp Pulse Resp B/P Pulse Ox O2 Delivery O2 Flow Rate FiO2 10/18/16 09:20 70 96 10/18/16 09:00 Room Air 10/18/16 07:37 36.6 20 153/76 On day of discharge, she c/o no chest pain, no sob, no abd pain No further neuro events nad, aox3 eomi, perrl, anicteric s1 s2 rrr, no carotid bruit noted today ctab no w/r/r abd soft nt / nd + BS no LE edema cn 2-12 grossly intact without facial drooping, speech fluent and coherent 1. Accelerated HTN - no end-organ damage on labs or CT noted - BP recs below - cont to monitor tele - will cont her on current lisinopril at home dose - she was startedo n plavix by neurology as well - cont statin 2. Transient expressive aphasia vs #1 - migraine vs TIA vs HTN encephalopathy - not typical of her migraine presentation - noted is the left carotid 50-60% carotid stenosis which she already knew about - await neuro recs - CTH and MRI also noted - conservative with BP and lipid control along with dual antiplatelet therapy as below - certainly, if she has recurrent episodes of elevated BP with neuro deficits, i would consider surgical intervention for her carotid stenosis 3. DM - although neuro recs were a1c <7.0, for her age, risk of hypoglycemic episodes need to be weighed by benefits so I would tend to be less strict on her A1C 4. Hypothyroid - resume home levothyroxine 5. dvt ppx Neuro recs are as follows: Stroke risk factor modifications and recommendations: Blood pressure recommendations for the first month post hospital discharge 150/ 90-130/80, and after that blood pressure recommendations 130/80-110/70 Total cholesterol goal 100- 200 and LDL goal less than 70 Hemoglobin A1c goal less than 7 Encourage cardiovascular exercise at least 3 times a week for 30 minutes. Total Time Spent: Less than 30 minutes This includes examination of the patient, discharge planning, medication reconciliation, and 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 with other providers. Discharge Instructions Please refer to the electronic Patient Visit Report (Discharge Instructions) for additional information. Additional Copies To Alfred Martínez M.D.; Shahid Shea M.D.
[2016-10-18] MEDS ORDERED: LSN20 PO (11:23)
[2016-10-18 12:36] VITALS: BP 163/71; PULSE 58; TEMP 36.5; O2SAT 98
== END 2016-10-18 13:35 | disposition home or self-care (01) | DRG 305 ==
LOC: ENRESERVTM → ENRESERVDT → C.EDB 23:25 → C.2E 10-17 04:51
PROVIDERS: ADMIT Internal Medicine; ATTEND Internal Medicine
DX: I10 Essential (primary) hypertension (principal); R47.01 Aphasia; R41.82 Altered mental status, unspecified; I65.23 Occlusion and stenosis of bilateral carotid arteries; G43.909 Migraine, unspecified, not intractable, without status migrainosus; E11.9 Type 2 diabetes mellitus without complications; E03.9 Hypothyroidism, unspecified; E78.5 Hyperlipidemia, unspecified; H40.9 Unspecified glaucoma; Z95.3 Presence of xenogenic heart valve; Z79.82 Long term (current) use of aspirin; Z79.4 Long term (current) use of insulin; Z79.899 Other long term (current) drug therapy

== ENCOUNTER 2016-10-19 21:20 | Emergency (ER) | payer BC, OTHER ==
[~2016-10-19 21:20] MED LIST changes: +CLIN300C2 PO; -DORZ2SOL17 OPL; +LATA0.009 OPB; +PLV75 PO
== END 2016-10-19 21:50 | disposition left against medical advice (07) ==
LOC: C.EDB 21:21
DX: I10 Essential (primary) hypertension (principal)

== ENCOUNTER → 2016-12-03 | Outpatient (CLI) | payer BC ==
[~2016-12-03] MED LIST changes: +ATOR-24 PO; +ATV5 PO; +BRIN3SUS OP; +BRIN3SUS OPB; +BUSP5TAB59 PO; +CHOL100027 PO; +CLC/300 PO; +CTP/1 PO; +ESCI1TAB6 PO; +FLUO0.0220 TOP; +LISI-461 PO; +LORA-741 PO; +LSN10 PO; +NVLG SC
== END | disposition home or self-care (01) ==
LOC: C.PATHSPEC 16:35
PROVIDERS: ATTEND Dermatology
DX: C44.310 Basal cell carcinoma of skin of unspecified parts of face (principal); L57.0 Actinic keratosis; L82.0 Inflamed seborrheic keratosis

== ENCOUNTER → 2017-01-06 | Outpatient (CLI) | payer BC ==
[2017-01-06 14:20] LABS: ESTIMATED AVERAGE GLUCOSE 177 mg/dl; HA1C FLAG Normal (Normal)
== END | disposition home or self-care (01) ==
LOC: C.LABBC 10:20
PROVIDERS: ATTEND Nurse Practitioner Family
DX: E10.9 Type 1 diabetes mellitus without complications (principal)

== ENCOUNTER → 2017-01-18 | Outpatient (CLI) | payer BC | END | disposition home or self-care (01) | LOC: C.PAPS 10:56 | PROVIDERS: ATTEND Obstetrics & Gynecology | DX: Z12.4 Encounter for screening for malignant neoplasm of cervix (principal) ==

== ENCOUNTER → 2017-04-08 | Outpatient (CLI) | payer BC ==
[~2017-04-08] MED LIST changes: -ATV5 PO; -BRIN3SUS OPB; -BUSP5TAB59 PO; -CLC/300 PO; -ESCI1TAB6 PO; -FLUO0.0220 TOP; -LISI-461 PO; -LSN10 PO; -NVLG SC
[2017-04-08 11:34] LABS: CHOLESTEROL/HDL RATIO 2.6
[2017-04-08 11:50] LABS: ESTIMATED AVERAGE GLUCOSE 169 mg/dl; HA1C FLAG Normal (Normal)
== END | disposition home or self-care (01) ==
LOC: C.LABBC 07:55
PROVIDERS: ATTEND Nurse Practitioner Family
DX: E10.42 Type 1 diabetes mellitus with diabetic polyneuropathy (principal)

== ENCOUNTER 2017-05-06 13:10 | Emergency (ER) | payer BC ==
[~2017-05-06] VITALS: Ht 157.5 cm; Wt 61.6 kg
[~2017-05-06 13:10] MED LIST changes: -ATOR-24 PO; -BRIN3SUS OP; -CHOL100027 PO; -CTP/1 PO; -LORA-741 PO
[2017-05-06 13:21] VITALS: TEMP 36.5; O2SAT 100; Ht 157.5 cm; Wt 61.6 kg
--- NOTE | 2017-05-06 14:11 | DIAGNOSTIC IMAGING REPORT ---
CHEST ONE VIEW PORTABLE CLINICAL HISTORY: Chest pain. COMPARISON STUDY: Chest radiograph October 16, 2016. FINDINGS: Median sternotomy wires are noted. Cardiac size is normal. There is no evidence of pulmonary edema. Mild widening of the right paratracheal stripe is unchanged. No pneumothorax or pleural effusion is present. Minimal bibasilar opacities favor atelectasis. IMPRESSION: No acute cardiopulmonary findings. Electronically signed by: Jean Paul Salcedo M.D. 05/06/2017 2:10 PM Dictated Date/Time: 05/06/2017 2:08 PM
[2017-05-06] MEDS ORDERED: BRIN3SUS OP (14:37)
[2017-05-06] MEDS ORDERED: ATOR-24 PO (14:37)
[2017-05-06] MEDS ORDERED: CTP/1 PO (14:37)
[2017-05-06] MEDS ORDERED: CHOL100027 PO (14:37)
[2017-05-06 14:39] LABS: BASO % 0.6 %; BASO ABS # 0.02 K/uL (0-0.2); COMPLETE YES; EOS % 1.4 %; HEMATOCRIT 34.9 % (37-47); IG% 0.6 %; LYMPH % 15.2 %; LYMPH ABS # 0.55 K/uL (1.2-3.4); MEAN CELL VOLUME 83.5 fL (80-100); MEAN CORPUSCULAR HEMOGLOBIN 27.5 pg (25-34); MEAN PLATELET VOLUME 10.6 fL (7.4-10.4); MONO % 9.7 %; NEUT % 72.5 %; PLATELET COUNT 152 K/uL (130-400); RED BLOOD COUNT 4.18 M/uL (4.2-5.4); WHITE BLOOD COUNT 3.61 K/uL (4.8-10.8)
[2017-05-06 14:48] LABS: BUN/CREATININE RATIO 23.5 (10-20); CALCIUM 8.6 mg/dl (8.5-10.1); CREATININE 0.96 mg/dl (0.60-1.20); POTASSIUM 4.1 mmol/L (3.5-5.1)
--- NOTE | 2017-05-06 15:47 | EMERGENCY ROOM VISIT NOTE ---
History Report prepared by Valeri: Josue Stevens Under the Supervision of: Dr. Kamaljit Good M.D. First contact with patient: 13:36 Chief Complaint: HYPERTENSION Stated Complaint: HYPERTENSION/ANXIETY History of Present Illness The patient is a 86 year old female who presents to the Emergency Room with complaints of persistent hypertension beginning today. The patient states that her blood pressure was over 200 today. She states that she has been having problems with her hypertension for 7 months. She is on Lisinopril for her blood pressure. The patient states that she takes extra Lisinopril PRN. She states that she took Clonidine today for her blood pressure today as it would not drop below 200 systolically. She estimates that this was 7 hours ago. The patient has a history of type I diabetes and notes that she was mildly hypoglycemic today. She states that she began "feeling funny" after eating. She states "my head often feels funny". The patient states that she had an episode of lightheadedness. She is on Plavix. She denies headache, chest pain, SOB, weakness, or numbness. The patient states that she often does not take Lisinopril certain days because her blood pressure is sometimes normal. She notes that she was a little stressed today. She also notes that her last year and she has felt very anxious since. Source of History: patient, family Onset: Today Symptom Intensity: over 200 Quality: other (hypertension) Timing: other (persistent) Associated Symptoms: No headache, No chest pain, No SOB, No weakness, No numbness Note: Additional symptoms: episode of lightheadedness. Review of Systems See HPI for pertinent positives & negatives. A total of 10 systems reviewed and were otherwise negative. Past Medical & Surgical Medical Problems: (1) Accelerated hypertension (2) Aphasia (3) Diabetic peripheral neuropathy associated with type 2 diabetes mellitus (4) Foot deformity (5) Loss of sensation (6) Pre-ulcerative corn or callous Old medical records were reviewed. Nurse's notes were reviewed and I agree with. Family History No pertinent family history Social History Smoking Status: Never Smoker Drug Use: none Marital Status: Occupation Status: retired Current/Historical Medications Scheduled Atorvastatin (Lipitor), 40 MG PO HS Brinzolamide-Brimonidine Tartr (Simbrinza), 1 DROP OP BID Cholecalciferol (Vitamin D 1000 Unit), 1,000 INTER.UNIT PO DAILY Clopidogrel Bisulfate (Clopidogrel), 75 MG PO QAM Insulin Aspart (Novolog Flexpen), 1 DOSE SC AC Insulin Glargine (Lantus Solostar), 13 UNITS SC QPM Levothyroxine Sodium (Levothyroxine Sodium), 25 MCG PO DAILY Lisinopril (Zestril), 5 MG PO BID Scheduled PRN Clonidine Hcl (Catapres), 0.1 MG PO BID PRN for Anxiety Allergies Coded Allergies: Penicillins (Verified Allergy, Unknown, UNKNOWN, 09/09/16) Sulfa Antibiotics (Verified Allergy, Unknown, SEVERE HIVES, 09/09/16) Tramadol (Unverified Allergy, Unknown, UNKNOWN, 05/06/17) Physical Exam Vital Signs Date Time Temp Pulse Resp B/P (MAP) Pulse Ox O2 Delivery O2 Flow Rate FiO2 05/06/17 16:05 64 20 176/90 99 Room Air 05/06/17 14:34 68 17 173/77 99 Room Air 05/06/17 13:21 100 Room Air 05/06/17 13:21 36.5 75 18 207/81 100 Room Air 05/06/17 13:21 74 Physical Exam General: Non-ill appearing older female in no acute distress. Mildly hard of hearing. HEENT: Normal cephalic atraumatic. Pupils are equal round and reactive to light. Sclerae anicteric. No nystagmus. Extraocular movements are intact. Oropharynx is pink with moist mucous membranes. No swelling of the mouth lips or tongue. Neck: Supple with a midline trachea. No meningeal signs or stiffness, no JVD or bruits. No Stridor. Chest: Clear to auscultation bilaterally. No wheezes or rhonchi. No increased work of breathing. Heart: regular rate and rhythm. Abdomen: Soft nontender, nondistended without rebound guarding or rigidity. Extremities: No cyanosis clubbing or edema. No calf tenderness or assymetry Spine/Back. Non tender to palpation. No CVA tenderness Skin: Good turgor without rashes. Neurologic exam: Cranial nerves two through 12 are intact. Motor and sensation are intact and symmetrical throughout. No tremor. Medical Decision & Procedures ER Provider Diagnostic Interpretation: X-ray results as stated below per interpretation by me and the radiologist: CHEST ONE VIEW PORTABLE FINDINGS: Median sternotomy wires are noted. Cardiac size is normal. There is no evidence of pulmonary edema. Mild widening of the right paratracheal stripe is unchanged. No pneumothorax or pleural effusion is present. Minimal bibasilar opacities favor atelectasis. IMPRESSION: No acute cardiopulmonary findings. Electronically signed by: Jean Paul Salcedo M.D. 05/06/2017 2:10 PM Laboratory Results 05/06/17 14:15 Red Blood Count 4.18, Mean Corpuscular Volume 83.5, Mean Corpuscular Hemoglobin 27.5, Mean Corpuscular Hemoglobin Concent 33.0, Mean Platelet Volume 10.6, Neutrophils (%) (Auto) 72.5, Lymphocytes (%) (Auto) 15.2, Monocytes (%) (Auto) 9.7, Eosinophils (%) (Auto) 1.4, Basophils (%) (Auto) 0.6, Neutrophils # (Auto) 2.62, Lymphocytes # (Auto) 0.55, Monocytes # (Auto) 0.35, Eosinophils # (Auto) 0.05, Basophils # (Auto) 0.02 05/06/17 14:15 Test 05/06/17 14:15 White Blood Count 3.61 K/uL (4.8-10.8) Red Blood Count 4.18 M/uL (4.2-5.4) Hemoglobin 11.5 g/dL (12.0-16.0) Hematocrit 34.9 % (37-47) Mean Corpuscular Volume 83.5 fL (80-100) Mean Corpuscular Hemoglobin 27.5 pg (25-34) Mean Corpuscular Hemoglobin Concent 33.0 g/dl (32-36) Platelet Count 152 K/uL (130-400) Mean Platelet Volume 10.6 fL (7.4-10.4) Neutrophils (%) (Auto) 72.5 % Lymphocytes (%) (Auto) 15.2 % Monocytes (%) (Auto) 9.7 % Eosinophils (%) (Auto) 1.4 % Basophils (%) (Auto) 0.6 % Neutrophils # (Auto) 2.62 K/uL (1.4-6.5) Lymphocytes # (Auto) 0.55 K/uL (1.2-3.4) Monocytes # (Auto) 0.35 K/uL (0.11-0.59) Eosinophils # (Auto) 0.05 K/uL (0-0.5) Basophils # (Auto) 0.02 K/uL (0-0.2) RDW Standard Deviation 45.8 fL (36.4-46.3) RDW Coefficient of Variation 15.0 % (11.5-14.5) Immature Granulocyte % (Auto) 0.6 % Immature Granulocyte # (Auto) 0.02 K/uL (0.00-0.02) Anion Gap 9.0 mmol/L (3-11) Est Creatinine Clear Calc Drug Dose 36.3 ml/min Estimated GFR () 62.1 Estimated GFR (Non- 53.6 BUN/Creatinine Ratio 23.5 (10-20) Calcium Level 8.6 mg/dl (8.5-10.1) Laboratory studies as stated above per my review. ECG Indication: other (HTN) Rate (beats per minute): 99 Rhythm: normal sinus Findings: no acute ischemic change, other (Non-specific ST abnormality) Comparison ECG Date: October 16, 2016 Change: no significant change ED Course 1337: Past medical records reviewed. The patient was evaluated in room B4B, and a complete history and physical examination were performed. 1530: Upon reevaluation, the patient is resting comfortably. I discussed the results and treatment plan with her. She verbalized agreement of the treatment plan. The patient was discharged home. Medical Decision Differentials include, but are not limited to; HTN, anxiety, cardiac disease, diabetic emergency, and electrolyte or metabolic abnormality. This patient comes in as described above. She was placed room A2. She is here for treatment and evaluation of hypertension just felt anxious. She is of high blood pressure. He does go up and down she in fact takes her lisinopril more or less when necessary. She takes it twice a day and either takes anywhere from 0-1/4-1/2 a pill depending upon how her blood pressure is. She looks fine at present she has a normal neurologic exam. She's no chest pain or shortness breath at present . EKG was obtained and shows no acute coronary syndrome or arrhythmia. Electrolytes were unremarkable. She has no abnormalities of her kidney function. She has no elevation of her troponin. She is feeling better and blood pressure has been coming down. Talking to the patient and looking through her blood pressure she checks her blood pressure about 7 times a day. She becomes very anxious with this and I think this is deftly an anxiety component. I discussed this with Dr. Shahid Shea, her primary care physician , and he is to follow-up with her as well. I encouraged her to check her blood pressure but not be too concerned about the numbers but more of a long-term friend as long she feels well. There may be an anxiety component as well. The patient and family were happy with plan and she was discharged to home. Medication Reconcilliation Current Medication List: was personally reviewed by me Blood Pressure Screening Patient's blood pressure: Elevated blood pressure Blood pressure disposition: Referred to PCP Consults Time Called: [phone] Consulting Physician: Dr. Shea PCP Returned Call: [phone] Discussed the patient's case. Dr. Shea agrees with the treatment plan. Impression Primary Impression: HTN (hypertension) Additional Impression: Anxiety Scribe Attestation The scribe's documentation has been prepared under my direction and personally reviewed by me in its entirety. I confirm that the note above accurately reflects all work, treatment, procedures, and medical decision making performed by me. Departure Information Dispostion Home / Self-Care Referrals Shahid Shea M.D. (PCP) Forms HOME CARE DOCUMENTATION FORM, IMPORTANT VISIT INFORMATION, WORK / SCHOOL INSTRUCTIONS Patient Instructions My [facility] [place] [employer] Additional Instructions Rest Drink plenty of fluids REturn if: worsening of symptoms, chest pain, shortness of breath, any new problems or concerns Follow-up with Dr. Shea for recheck this coming week, return to the ER over the weekend if any new problems Problem Qualifiers
[2017-05-06 16:05] VITALS: BP 176/90; PULSE 64; O2SAT 99
== END 2017-05-06 16:32 | disposition home or self-care (01) ==
LOC: EDBD 13:10 → C.EDB 13:11
DX: I10 Essential (primary) hypertension (principal); F41.9 Anxiety disorder, unspecified; R47.01 Aphasia; E11.40 Type 2 diabetes mellitus with diabetic neuropathy, unspecified; Z79.4 Long term (current) use of insulin

== ENCOUNTER 2017-05-13 17:00 | Emergency (ER) | payer BC ==
[~2017-05-13] VITALS: Ht 157.5 cm; Wt 57.4 kg
[~2017-05-13 17:00] MED LIST changes: -ASPI325T45 PO; +ATOR-24 PO; -ATOR-26 PO; +BRIN3SUS OP; +CHOL100027 PO; -CHOL20009 PO; -CLIN300C2 PO; +CTP/1 PO; -LATA0.009 OPB
[2017-05-13 17:18] VITALS: TEMP 36.8; Ht 157.5 cm; Wt 57.4 kg
[2017-05-13] MEDS ORDERED: LORA-741 PO (17:52)
[2017-05-13] MEDS ORDERED: LORAZEPAM 0.5 MG TAB PO STA (17:54)
--- NOTE | 2017-05-13 17:59 | EMERGENCY ROOM VISIT NOTE ---
History Report prepared by Valeri: Haily Maya Under the Supervision of: Dr. Tony Luis D.O. First contact with patient: 17:24 Chief Complaint: HYPERTENSION Stated Complaint: HIGH BLOOD PRESSURE, ANXIETY History of Present Illness The patient is an 86 year old female who presents to the Emergency Room with complaints of persistent high blood pressure starting earlier today. She checks her blood pressure frequently throughout the day. The patient has been having episode of high blood pressure for several months now. She has been prescribed clonidine and lisinopril to take when her blood pressure goes over 200. Her pressure is normal at times. Earlier today, her blood pressure was 214/101. She took some clonidine at the time. She called a nurse who told her to present to the ED. She states she feels "ucky" when her blood pressure is high. She does not feel comfortable and her head is "mixed up". Her mouth is dry. She feels like she has some anxiety which started after her passed 1 year ago. She was started on Lexapro yesterday. She has a history of diabetes and aortic valve replacement. Source of History: patient Onset: earlier today Position: other (global) Quality: other (hypertension) Timing: other (persistent) Associated Symptoms: + headache Note: Pt reports anxiety, mouth dry. Review of Systems See HPI for pertinent positives & negatives. A total of 10 systems reviewed and were otherwise negative. Past Medical & Surgical Medical Problems: (1) Accelerated hypertension (2) Aphasia (3) Diabetic peripheral neuropathy associated with type 2 diabetes mellitus (4) Foot deformity (5) Loss of sensation (6) Pre-ulcerative corn or callous Family History No pertinent family history Social History Smoking Status: Never Smoker Drug Use: none Marital Status: Occupation Status: retired Current/Historical Medications Scheduled Atorvastatin (Lipitor), 40 MG PO HS Brinzolamide-Brimonidine Tartr (Simbrinza), 1 DROP OP BID Cholecalciferol (Vitamin D 1000 Unit), 1,000 INTER.UNIT PO DAILY Clopidogrel Bisulfate (Clopidogrel), 75 MG PO QAM Insulin Aspart (Novolog Flexpen), 1 DOSE SC AC Insulin Glargine (Lantus Solostar), 13 UNITS SC QPM Levothyroxine Sodium (Levothyroxine Sodium), 25 MCG PO DAILY Lisinopril (Zestril), 5 MG PO BID Scheduled PRN Clonidine Hcl (Catapres), 0.1 MG PO BID PRN for Anxiety Lorazepam (Ativan), 0.5 MG PO Q8 PRN for Anxiety/Agitation Allergies Coded Allergies: Penicillins (Verified Allergy, Unknown, UNKNOWN, 09/09/16) Sulfa Antibiotics (Verified Allergy, Unknown, SEVERE HIVES, 09/09/16) Tramadol (Unverified Allergy, Unknown, UNKNOWN, 05/06/17) Physical Exam Vital Signs Date Time Temp Pulse Resp B/P (MAP) Pulse Ox O2 Delivery O2 Flow Rate FiO2 05/13/17 17:18 36.8 79 20 105/58 97 Room Air Physical Exam VITAL SIGNS: were reviewed as above. GENERAL:Non-toxic in appearance. SKIN: Warm dry and pink. HEAD: Normocephalic and atraumatic. OROPHARYNX: Is clear and moist NECK: Supple without lymphadenopathy or meningismus. LUNGS: clear. HEART: Regular rate and rhythm. ABDOMEN: Soft and nontender. EXTREMITIES: Warm and well perfused. NEUROLOGICALLY: Awake alert and oriented without focal deficit. Cranial nerves 2 -12 are intact. There is no pronator drift. Cerebellar testing is within normal limits. There is no nystagmus. There is no facial droop. Speech is clear. Vision is grossly normal. MUSCULOSKELETAL: Good muscle tone. No evidence of trauma. Medical Decision & Procedures ED Course 1727: Previous medical records were reviewed. The patient was evaluated in room B3B. A complete history and physical examination was performed. I discussed the results and findings with the patient. She verbalized agreement of the treatment plan. She was discharged home. 1751: Ativan 1 homepack PO. Medical Decision the differential was considered includes acute myocardial infarction, acute coronary syndrome, myocarditis, pericarditis, pericardial effusions /tamponade, esophageal perforation, thoracic aortic dissection, pulmonary embolism, pneumonia, pneumothorax, pancreatitis, shingles, acute cholecystitis, perforated abdominal viscus. This is a 86-year-old female who presents to the ED with a chief complaint of hypertension. The patient states that she is undergoing a lot of stress with regards to German and various issues after her 's one year ago. The patient has had labile hypertension and is on when necessary lisinopril and when necessary clonidine for this. Today she measured her blood pressure at home and it was over 200. She reports it being 214/100 one around 4 PM. She called the advice nurse and was referred here. She states that she has a feeling of apprehension or anxiety. She was started on Lexapro yesterday for this. The patient's initial blood pressure here was 105/58. It was 172/83 in the room. After talking with the patient, she does report that she has had similar symptoms in the past and has been seen here for this. She has been worked up completely and she states that everything has been normal. The patient has a normal exam and is no distress. She reports that she checks her blood pressure more than 4 times today. She takes a mostly when she is not feeling well and it has been high. After talking with the patient, I feel the patient's symptoms are likely related to stress and anxiety. She was prescribed lorazepam. She will take this as needed for these feelings of anxiety and apprehension. She was advised to limit the number of times that she takes her blood pressure per day. Medication Reconcilliation Current Medication List: was personally reviewed by me Blood Pressure Screening Patient's blood pressure: Elevated blood pressure Blood pressure disposition: Elevated BP felt to be situational Impression Primary Impression: Anxiety Additional Impression: Hypertension Scribe Attestation The scribe's documentation has been prepared under my direction and personally reviewed by me in its entirety. I confirm that the note above accurately reflects all work, treatment, procedures, and medical decision making performed by me. Departure Information Prescriptions Lorazepam (ATIVAN) 0.5 Mg Tab 0.5 MG PO Q8 Y for Anxiety/Agitation, #15 TAB Prov: Tony Luis D.O. 05/13/17 Referrals Shahid Shea M.D. (PCP) Patient Instructions My [facility] Problem Qualifiers
[2017-05-13 18:21] VITALS: BP 153/78; PULSE 68; O2SAT 98
[2017-05-13] MEDS ORDERED: ATIVAN 1MG HOMEPACK PO ONE (18:30)
== END 2017-05-13 18:22 | disposition home or self-care (01) ==
LOC: C.EDB 17:00
DX: I10 Essential (primary) hypertension (principal); F41.9 Anxiety disorder, unspecified; F43.9 Reaction to severe stress, unspecified; Z95.2 Presence of prosthetic heart valve; E11.43 Type 2 diabetes mellitus with diabetic autonomic (poly)neuropathy; Z79.4 Long term (current) use of insulin; Z79.899 Other long term (current) drug therapy

== ENCOUNTER 2017-05-18 11:59 | Inpatient (IN) | payer BC, OTHER ==
[2017-05-18] VITALS (20 sets, daily range): BP systolic 139–217; BP diastolic 58–93; PULSE 64–81; TEMP 36.4–36.7; O2SAT 96–100; Ht 157.5 cm; Wt 54.0 kg
[~2017-05-18] VITALS: Ht 157.5 cm; Wt 54.0 kg
[~2017-05-18 11:59] MED LIST changes: +LORA-741 PO
[2017-05-18] MEDS ORDERED: SODIUM CHLORIDE 0.9% 1000ML 1,000 ML IV SCH ×2 (12:47→15:15)
[2017-05-18 12:57] LABS: BASO % 0.3 %; BASO ABS # 0.02 K/uL (0-0.2); COMPLETE YES; EOS % 0.8 %; HEMATOCRIT 39.8 % (37-47); IG% 0.5 %; LYMPH % 22.1 %; LYMPH ABS # 1.39 K/uL (1.2-3.4); MEAN CELL VOLUME 82.7 fL (80-100); MEAN CORPUSCULAR HEMOGLOBIN 27.2 pg (25-34); MEAN CORPUSCULAR HGB CONC 32.9 g/dl (32-36); MEAN PLATELET VOLUME 10.3 fL (7.4-10.4); MONO % 11.5 %; NEUT % 64.8 %; PLATELET COUNT 209 K/uL (130-400); RED BLOOD COUNT 4.81 M/uL (4.2-5.4); WHITE BLOOD COUNT 6.28 K/uL (4.8-10.8)
[2017-05-18 13:04] LABS: BLOOD UREA NITROGEN 25 mg/dl (7-18); BUN/CREATININE RATIO 24.5 (10-20); CALCIUM 9.5 mg/dl (8.5-10.1); CARBON DIOXIDE 26 mmol/L (21-32); CHLORIDE 96 mmol/L (98-107); CREATININE 1.01 mg/dl (0.60-1.20); GLUCOSE 187 mg/dl (70-99); SODIUM 129 mmol/L (136-145)
[2017-05-18 13:11] LABS: INR 1.1 (0.9-1.1); PARTIAL THROMBOPLASTIN RATIO 1.1; PROTHROMBIN TIME (PATIENT) 11.7 SECONDS (9.0-12.0)
--- NOTE | 2017-05-18 13:21 | DIAGNOSTIC IMAGING REPORT ---
SINGLE VIEW CHEST CLINICAL HISTORY: Strokelike symptoms. FINDINGS: An AP, portable, upright chest radiograph is compared to study dated 05/06/2017. The examination is degraded by portable technique and patient rotation. The patient is status post midline sternotomy. The heart is mildly enlarged and there is atherosclerotic calcification of the thoracic aorta. The pulmonary vasculature is noncongested. Chronic interstitial thickening is similar to previous. No airspace consolidation, large pleural effusion, or pneumothorax is seen. The skeletal structures are osteopenic. The bony thorax is grossly intact. Calcific tendinopathy is noted in the right shoulder. IMPRESSION: Mild cardiac enlargement with no acute cardiopulmonary abnormality. Electronically signed by: Julio Cano M.D. 05/18/2017 1:19 PM Dictated Date/Time: 05/18/2017 1:18 PM
--- NOTE | 2017-05-18 13:50 | DIAGNOSTIC IMAGING REPORT ---
CT SCAN OF THE BRAIN WITHOUT IV CONTRAST CLINICAL HISTORY: Right-sided facial droop. Stroke like symptoms. Weakness. COMPARISON STUDY: CT of the brain dated 10/17/2016. TECHNIQUE: Unenhanced axial CT scan of the brain is performed from the vertex to the skull base. CT DOSE: 729.78 mGycm FINDINGS: Brain parenchyma: There are age-related involutional changes noting mild subcortical and periventricular microangiopathic change. There is no hemorrhage, mass effect, or evidence of acute territorial ischemia by CT criteria. Collins-white matter is preserved. No extra-axial fluid collection is seen. Ventricles, sulci, cisterns: Prominent secondary to involutional change. Intracranial vasculature: There is atherosclerotic calcification of the cavernous carotid and vertebral arteries. Calvarium: Unremarkable. Sinuses and mastoids: The visualized paranasal sinuses are clear. The mastoid air cells are well pneumatized. Orbits: The bony orbits are grossly intact. There are bilateral ocular lens implants. IMPRESSION: There is no hemorrhage, mass effect, or evidence of acute territorial ischemia by CT criteria. Electronically signed by: Julio Cano M.D. 05/18/2017 1:49 PM Dictated Date/Time: 05/18/2017 1:47 PM
[2017-05-18] MEDS ORDERED: PHARMACIST DISCHARGE MED REC CONSULT PRN (14:45)
[2017-05-18] MEDS ORDERED: ACETAMINOPHEN 325 MG TAB PO PRN (14:45)
[2017-05-18] MEDS ORDERED: ONDANSETRON INJ 2 MG/ML 2 ML VIAL IV PRN (14:45)
[2017-05-18] MEDS ORDERED: CLONIDINE HCL 0.1 MG TAB PO PRN (14:45)
[2017-05-18] MEDS ORDERED: MoRPHine SULFATE 2 MG/ML CARP IV PRN (14:45)
[2017-05-18] MEDS ORDERED: MAGNESIUM HYDROXIDE SUSP 30 ML UDC PO PRN (14:45)
[2017-05-18] MEDS ORDERED: ALUMINUM/MAGNESIUM/SIMETH (MAALOX MAX) 30 ML UDC PO PRN (14:45)
[2017-05-18] MEDS ORDERED: BRIN3SUS OPB (14:47)
[2017-05-18] MEDS ORDERED: ESCI1TAB6 PO (14:47)
[2017-05-18] MEDS ORDERED: CLC/300 PO (14:47)
[2017-05-18] MEDS ORDERED: INSDGIPEN SC (14:47)
[2017-05-18] MEDS ORDERED: FLUO0.0220 TOP (14:48)
--- NOTE | 2017-05-18 15:07 | EMERGENCY ROOM VISIT NOTE ---
History Report prepared by Valeri: Josue Stevens Under the Supervision of: Dr. Mj Ramsey M.D. First contact with patient: 12:29 Chief Complaint: WEAKNESS Stated Complaint: WEAKNESS Nursing Triage Summary: Pt presents via ALS litter from home. Per medic and pts daughter, pt reports approx 1030 developed a right facial droop, slow speech that became slurred, generalized weakness. Daughter states she was with the pt and pt was "not acting herself", "was slowing moving, seemed confused, had slow speech and was unable to read what she was writing. She had to keep turning the tablet to try to read it because she thought it was upside down." Pt states she also felt dizzy at the time. Medic states by the time they arrived on scene, which was approx 12 mins after the call was placed, the sx had resolved. Pt reports TIA in September. Hx of aortic valve replacement. History of Present Illness The patient is a 86 year old female who presents to the Emergency Room by EMS with complaints of an episode of neurologic symptoms occurring 1.5 hours ago. She is on Plavix due to a history of TIA. She recently was started on Clonidine for breakthrough hypertension. Per daughter, the patient's symptoms included left sided facial droop, slurred speech, fatigue, generalized weakness, and generalized lack of coordination. She states that the patient's blood pressure has been running very high recently. She states that the patient has been "slow " all week, and has been very tired. The patient's daughter states that the patient was doing the dishes when her symptoms occurred. She states that she was having problems with motor control initially, and then developed her facial droop and slurred speech. She states that the patient's symptoms improved significantly after calling EMS. The patient estimates that her facial droop and slurred speech lasted for about 10 minutes total, although states that her speech is not completely normal at this time. She denies any focal weakness, chest pain, vomiting, fevers, or abdominal pain. She states "I was walking funny ", and states that she was shuffling to walk. The patient also states that she had trouble reading something she had written this morning, and felt that it was difficulty with comprehending the letters rather than visual change. The patient's daughter feels that the patient's speech has improved significantly, but is still "a little thick". The patient does not believe she had a headache, but states "if I did, it was very, very slight". She notes that she has felt dehydrated recently. She also notes that she has been changing her blood pressure medication dose reactively after her blood pressure goes too high or too low. Source of History: patient, family (daughter) Onset: 1.5 hours ago Symptom Intensity: 10 minutes long Quality: other (neurologic symptoms) Timing: other (episode) Associated Symptoms: + fatigue, + weakness (generalized), No fevers, No headache, No chest pain, No SOB, No vomiting, No abdominal pain Note: Additional symptoms: left sided facial droop, slurred speech, and generalized lack of coordination Review of Systems See HPI for pertinent positives & negatives. A total of 10 systems reviewed and were otherwise negative. Past Medical & Surgical Medical Problems: (1) Accelerated hypertension (2) Aphasia (3) Diabetic peripheral neuropathy associated with type 2 diabetes mellitus (4) Focal motor deficit (5) Foot deformity (6) Loss of sensation (7) Pre-ulcerative corn or callous (8) Troponin I above reference range Family History No pertinent family history Social History Smoking Status: Never Smoker Drug Use: none Marital Status: Occupation Status: retired Current/Historical Medications Scheduled Atorvastatin (Lipitor), 40 MG PO HS Brinzolamide-Brimonidine Tartr (Simbrinza), 1 DROP OPB BID Cholecalciferol (Vitamin D 1000 Unit), 2,000 UNITS PO DAILY Clindamycin HCl (Clindamycin HCl), 300 MG PO UD Clopidogrel Bisulfate (Clopidogrel), 75 MG PO QAM Escitalopram Oxalate (Lexapro), 5 MG PO DAILY Fluorouracil (Topical) (Fluorouracil), 1 APPLN TOP HS Insulin Glargine (Lantus Solostar), 13 UNITS SC DAILY Levothyroxine Sodium (Levothyroxine Sodium), 25 MCG PO DAILY Lisinopril (Zestril), 5 MG PO AMPM Scheduled PRN Clonidine Hcl (Catapres), 0.1 MG PO UD PRN for BLOOD PRESSURE Lorazepam (Ativan), 0.5 MG PO Q8 PRN for Anxiety/Agitation Allergies Coded Allergies: Penicillins (Verified Allergy, Unknown, UNKNOWN, 05/18/17) Sulfa Antibiotics (Verified Allergy, Unknown, SEVERE HIVES, 05/18/17) Tramadol (Unverified Allergy, Unknown, UNKNOWN, 05/18/17) Physical Exam Vital Signs Date Time Temp Pulse Resp B/P (MAP) Pulse Ox O2 Delivery O2 Flow Rate FiO2 05/18/17 14:50 76 18 233/104 100 Room Air 228/99 05/18/17 13:31 63 18 176/106 99 Room Air 05/18/17 12:09 61 05/18/17 12:05 36.5 61 20 158/76 98 Room Air 05/18/17 12:05 98 Room Air Physical Exam Constitutional: Vital signs reviewed. Eyes: Pupils are equal round reactive to light. Conjunctiva are noninjected. ENT: Pharynx is clear without erythema or exudate. Mucous membranes are moist. Neck supple without meningeal signs. Respiratory: Clear to auscultation bilaterally. Breath sounds are equal bilaterally. Cardiovascular: Regular rate and rhythm. No rubs or gallops. GI: Soft, nondistended and nontender. Bowel sounds are present. Musculoskeletal: No peripheral edema. No lower extremity tenderness. Integumentary: No cyanosis. Neurological: The patient is awake and alert. Cranial nerves II-XII are intact. Motor is 5 out of 5 all extremities. Sensation is intact to light touch all extremities. Normal speech. No pronator drift. No limb ataxia. Psychiatric: Normal affect. Medical Decision & Procedures ER Provider Diagnostic Interpretation: Radiology results as stated below per my review and the radiologist's interpretation: CT SCAN OF THE BRAIN WITHOUT IV CONTRAST FINDINGS: Brain parenchyma: There are age-related involutional changes noting mild subcortical and periventricular microangiopathic change. There is no hemorrhage, mass effect, or evidence of acute territorial ischemia by CT criteria. Collins-white matter is preserved. No extra-axial fluid collection is seen. Ventricles, sulci, cisterns: Prominent secondary to involutional change. Intracranial vasculature: There is atherosclerotic calcification of the cavernous carotid and vertebral arteries. Calvarium: Unremarkable. Sinuses and mastoids: The visualized paranasal sinuses are clear. The mastoid air cells are well pneumatized. Orbits: The bony orbits are grossly intact. There are bilateral ocular lens implants. IMPRESSION: There is no hemorrhage, mass effect, or evidence of acute territorial ischemia by CT criteria. Electronically signed by: Julio Cano M.D. 05/18/2017 1:49 PM SINGLE VIEW CHEST FINDINGS: An AP, portable, upright chest radiograph is compared to study dated 05/06/2017. The examination is degraded by portable technique and patient rotation. The patient is status post midline sternotomy. The heart is mildly enlarged and there is atherosclerotic calcification of the thoracic aorta. The pulmonary vasculature is noncongested. Chronic interstitial thickening is similar to previous. No airspace consolidation, large pleural effusion, or pneumothorax is seen. The skeletal structures are osteopenic. The bony thorax is grossly intact. Calcific tendinopathy is noted in the right shoulder. IMPRESSION: Mild cardiac enlargement with no acute cardiopulmonary abnormality. Electronically signed by: Julio Cano M.D. 05/18/2017 1:19 PM Laboratory Results 05/18/17 12:00 Red Blood Count 4.81, Mean Corpuscular Volume 82.7, Mean Corpuscular Hemoglobin 27.2, Mean Corpuscular Hemoglobin Concent 32.9, Mean Platelet Volume 10.3, Neutrophils (%) (Auto) 64.8, Lymphocytes (%) (Auto) 22.1, Monocytes (%) (Auto) 11.5, Eosinophils (%) (Auto) 0.8, Basophils (%) (Auto) 0.3, Neutrophils # (Auto ) 4.07, Lymphocytes # (Auto) 1.39, Monocytes # (Auto) 0.72, Eosinophils # (Auto ) 0.05, Basophils # (Auto) 0.02 05/18/17 12:00 Test 05/18/17 12:00 05/18/17 12:52 White Blood Count 6.28 K/uL (4.8-10.8) Red Blood Count 4.81 M/uL (4.2-5.4) Hemoglobin 13.1 g/dL (12.0-16.0) Hematocrit 39.8 % (37-47) Mean Corpuscular Volume 82.7 fL (80-100) Mean Corpuscular Hemoglobin 27.2 pg (25-34) Mean Corpuscular Hemoglobin Concent 32.9 g/dl (32-36) Platelet Count 209 K/uL (130-400) Mean Platelet Volume 10.3 fL (7.4-10.4) Neutrophils (%) (Auto) 64.8 % Lymphocytes (%) (Auto) 22.1 % Monocytes (%) (Auto) 11.5 % Eosinophils (%) (Auto) 0.8 % Basophils (%) (Auto) 0.3 % Neutrophils # (Auto) 4.07 K/uL (1.4-6.5) Lymphocytes # (Auto) 1.39 K/uL (1.2-3.4) Monocytes # (Auto) 0.72 K/uL (0.11-0.59) Eosinophils # (Auto) 0.05 K/uL (0-0.5) Basophils # (Auto) 0.02 K/uL (0-0.2) RDW Standard Deviation 44.3 fL (36.4-46.3) RDW Coefficient of Variation 14.6 % (11.5-14.5) Immature Granulocyte % (Auto) 0.5 % Immature Granulocyte # (Auto) 0.03 K/uL (0.00-0.02) Prothrombin Time 11.7 SECONDS (9.0-12.0) Prothromb Time International Ratio 1.1 (0.9-1.1) Activated Partial Thromboplast Time 29.1 SECONDS (21.0-31.0) Partial Thromboplastin Ratio 1.1 Anion Gap 7.0 mmol/L (3-11) Est Creatinine Clear Calc Drug Dose 31.6 ml/min Estimated GFR () 58.4 Estimated GFR (Non- 50.4 BUN/Creatinine Ratio 24.5 (10-20) Calcium Level 9.5 mg/dl (8.5-10.1) Troponin I < 0.015 ng/ml (0-0.045) Bedside Troponin I 0.050 ng/ml (0-0.045) Laboratory results as reviewed by me. Medications Administered Medications (Trade) Dose Ordered Sig/Bernadine Route Start Time Stop Time Status Last Admin Dose Admin Sodium Chloride 1,000 ml @ 50 mls/hr Q20H IV 05/18/17 12:47 06/17/17 12:46 05/18/17 12:50 50 MLS/HR ECG Indication: weakness Rate (beats per minute): 59 Rhythm: sinus bradycardia Findings: no ectopy, other (No ST elevations. Limited interpretation due to motion artifact V4-V6.) Change: Repeat ECG reveals a normal sinus rhythm with a rate of 64 bpm. No ectopy or ischemic changes seen. Minimal ST depressions noted V4-V6 less than 1 mm. ED Course 1232: The patient was evaluated in room A2. A complete history and physical exam was performed. 1247: Ordered Sodium Chloride 1000 ml @ 50 mls/hr IV. 1405: I reassessed the patient. She has no further symptoms. She explains that her last chest discomfort was two weeks ago which she describes as "pounding". I discussed test results and the treatment plan with the patient. She verbalized agreement and understanding. The patient will be evaluated for further management. Medical Decision This is an 86-year-old female who presents with neurologic symptoms and generalized weakness. Differential diagnosis includes TIA, CVA, intracranial mass, intracranial hemorrhage, metabolic derangement, cardiac, infection. I did perform a limited focused review of portions of the patient's old chart on the electronic medical record. The patient was seen here five days ago for high blood pressure and saying that her head felt "mixed up". She was treated for anxiety with Lorazepam. I did evaluate the patient as noted above. The patient is presenting with neurologic symptoms concerning for CVA/TIA. She had slurred speech and a left facial droop that was witnessed by her daughter. Currently her symptoms are almost completely resolved until her speech is reported to be still slightly abnormal. She does have a prior history of TIA and takes Plavix for this. She also has had generalized weakness and a general lack of coordination with some difficulty walking. She has not been herself over the past week. She has had trouble with her blood pressure and has seen her environmental systems coordinator and PCP as well as visit the ER for this problem in the past. She was placed on clonidine when necessary by her environmental systems coordinator. IV access was established. The patient was placed on a continuous general engineer. I did order and personally review the patient's 12-lead EKG and chest x-ray as described above. I did order and review the patient's blood work as noted in the electronic medical record. Her troponin is very minimally elevated. Her sodium is low. She does state that she drinks approximately 6 glasses of water a day. I did order a CT of the head. I did review the images myself as well as the radiology report as described above. There is no evidence of intracranial hemorrhage or CVA. I did reassess patient. She is feeling much better at this time. Her blood pressure still elevated. She states that her speech is completely normal at this time. She feels better in general and denies having any chest discomfort. She states the last time she had chest discomfort was 2 weeks ago when she felt a pounding sensation in her chest. I did repeat a twelve-lead EKG which showed some very minimal ST depressions in leads V4 to V6. I did discuss the test results with the patient and her daughter. I did recommend hospitalization for further evaluation. I did discuss the case with the hospitalist and renal case manager. Medication Reconcilliation Current Medication List: was personally reviewed by me Blood Pressure Screening Patient's blood pressure: Elevated blood pressure Blood pressure disposition: Referred to PCP Consults Time Called: 1400 Consulting Physician: Dr. Bran -[facility] Returned Call: [address] Bran of [facility]. We discussed the patient and her results. The patient will be further evaluated by [facility]. Impression Primary Impression: TIA (transient ischemic attack) Additional Impressions: Hyponatremia Elevated troponin I level Abnormal ECG Poorly-controlled hypertension Scribe Attestation The scribe's documentation has been prepared under my direct and personally reviewed by me in its entirety. I confirm that the note above accurately reflects all work, treatment, procedures, and medical decision making performed by me. Departure Information Dispostion Being Evaluated By Hospitalist Referrals Shahid Shea M.D. (PCP) Patient Instructions My [facility] Problem Qualifiers Primary Impression: TIA (transient ischemic attack) Transient cerebral ischemia type: unspecified Qualified Codes: G45.9 - Transient cerebral ischemic attack, unspecified
[2017-05-18 15:12] LABS: URINE APPEARANCE CLEAR (CLEAR); URINE BILIRUBIN NEG (NEG); URINE COLOR YELLOW; URINE NITRITE NEG (NEG); URINE SPECIFIC GRAVITY 1.015 (1.000-1.030); UROBILINOGEN NEG (NEG); ZZUR CULT IF INDIC CLEAN CATCH NO
[2017-05-18 15:28] LABS: MANUAL MICROSCOPIC REQUIRED? NO; REVIEW REQ? NO
[2017-05-18] MEDS ORDERED: IV FLUIDS COMPLETED PRN ×2 (15:30→16:00)
[2017-05-18] MEDS ORDERED: GLUCOSE 10 TABS/TUBE PO PRN (16:00)
[2017-05-18] MEDS ORDERED: GLUCOSE 40% GEL 15 GM TUBE PO PRN (16:00)
[2017-05-18] MEDS ORDERED: GLUCAGON FOR INJ 1 MG VIAL SQ PRN (16:00)
[2017-05-18] MEDS: INSULIN ASPART 100 UNITS/ML 3 ML PEN SC SCH ×2 (16:00→23:49)
[2017-05-18] MEDS ORDERED: DEXTROSE 50% 50 ML SYR IV PRN (16:00)
--- NOTE | 2017-05-18 16:40 | History and Physical ---
History & Physical Date & Time of Service: May 18, 2017 at 15:34 Chief Complaint: Weakness Primary Care Physician: Shahid Shea M.D. History of Present Illness Source: patient 86 y/o F Hx AVR, DM II, hypothyroidism, HTN, HPL, Grade I diastolic dysfunction. Pt states that over the past 2 days her BP has been labile and fluctuating between 170-200 at home. She was worming in her kitchen today and her daughter reported that she developed a L facia droop and slurred speech. She was brought into the ER therefore. Her symptoms had resolved at the time of arrival. An initial EKG revealed inferior ST depressions. Past Medical/Surgical History 1) Aortic valve replacement - bioprosthetic 2) HTN 3) HPL 4) Hypothyroidism 5) Grade I diastolic dysfunction - echo 10/16 6) DM II Family History No pertinent family history Noncontributory Social History Smoking Status: Never Smoker Drug Use: none Marital Status: Occupational Status: retired Multi-Drug Resistant Organisms History of MDRO: No Allergies Coded Allergies: Penicillins (Verified Allergy, Unknown, UNKNOWN, 09/09/16) Sulfa Antibiotics (Verified Allergy, Unknown, SEVERE HIVES, 09/09/16) Tramadol (Unverified Allergy, Unknown, UNKNOWN, 05/06/17) Home Medications Scheduled Atorvastatin (Lipitor), 40 MG PO HS Brinzolamide-Brimonidine Tartr (Simbrinza), 1 DROP OPB BID Cholecalciferol (Vitamin D 1000 Unit), 2,000 UNITS PO DAILY Clindamycin HCl (Clindamycin HCl), 300 MG PO UD Clopidogrel Bisulfate (Clopidogrel), 75 MG PO QAM Escitalopram Oxalate (Lexapro), 5 MG PO DAILY Fluorouracil (Topical) (Fluorouracil), 1 APPLN TOP HS Insulin Glargine (Lantus Solostar), 13 UNITS SC DAILY Levothyroxine Sodium (Levothyroxine Sodium), 25 MCG PO DAILY Lisinopril (Zestril), 5 MG PO AMPM Scheduled PRN Clonidine Hcl (Catapres), 0.1 MG PO UD PRN for BLOOD PRESSURE Lorazepam (Ativan), 0.5 MG PO Q8 PRN for Anxiety/Agitation Review of Systems Constitutional: No fever, No chills, No sweats ENT: No hearing loss, No unusual epistaxis Respiratory: No cough, No sputum, No wheezing Cardiovascular: No chest pain, No orthopnea, No PND Abdomen: No pain, No nausea Musculoskeletal: No joint pain Genitourinary - Female: No dysuria, No urinary frequency, No urinary urgency Neurologic: + memory loss, + problem reported (L facial droop, slurred speech reported - does not recall) Psychiatric: No depression symptoms Endocrine: No fatigue Hematologic / Lymphatic: No abnormal bleeding/bruising Integumentary: No rash Allergic / Immunologic: No environmental allergies Physical Exam Vital Signs Date Time Temp Pulse Resp B/P (MAP) Pulse Ox O2 Delivery O2 Flow Rate FiO2 05/18/17 13:31 63 18 176/106 99 Room Air 05/18/17 12:09 61 05/18/17 12:05 36.5 61 20 158/76 98 Room Air 05/18/17 12:05 98 Room Air General Appearance: WD/WN, no apparent distress Head: normocephalic Eyes: normal inspection ENT: normal ENT inspection, pharynx normal Neck: supple, no JVD Respiratory/Chest: chest non-tender, lungs clear Cardiovascular: regular rate, rhythm, no edema, no gallop, no JVD Abdomen/GI: normal bowel sounds, non tender, soft Back: normal inspection, no CVA tenderness Extremities/Musculoskelatal: normal inspection, no calf tenderness Neurologic/Psych: regional cra II-XII nml as tested, no motor/sensory deficits, alert, oriented x 3 Skin: normal color, warm/dry, no rash Diagnostics Laboratory Results Results Past 24 Hours Test 05/18/17 12:00 05/18/17 12:52 05/18/17 14:50 Range/Units White Blood Count 6.28 4.8-10.8 K/uL Red Blood Count 4.81 4.2-5.4 M/uL Hemoglobin 13.1 12.0-16.0 g/dL Hematocrit 39.8 37-47 % Mean Corpuscular Volume 82.7 80-100 fL Mean Corpuscular Hemoglobin 27.2 25-34 pg Mean Corpuscular Hemoglobin Concent 32.9 32-36 g/dl Platelet Count 209 130-400 K/uL Mean Platelet Volume 10.3 7.4-10.4 fL Neutrophils (%) (Auto) 64.8 % Lymphocytes (%) (Auto) 22.1 % Monocytes (%) (Auto) 11.5 % Eosinophils (%) (Auto) 0.8 % Basophils (%) (Auto) 0.3 % Neutrophils # (Auto) 4.07 1.4-6.5 K/uL Lymphocytes # (Auto) 1.39 1.2-3.4 K/uL Monocytes # (Auto) 0.72 0.11-0.59 K/uL Eosinophils # (Auto) 0.05 0-0.5 K/uL Basophils # (Auto) 0.02 0-0.2 K/uL RDW Standard Deviation 44.3 36.4-46.3 fL RDW Coefficient of Variation 14.6 11.5-14.5 % Immature Granulocyte % (Auto) 0.5 % Immature Granulocyte # (Auto) 0.03 0.00-0.02 K/uL Prothrombin Time 11.7 9.0-12.0 SECONDS Prothromb Time International Ratio 1.1 0.9-1.1 Activated Partial Thromboplast Time 29.1 21.0-31.0 SECONDS Partial Thromboplastin Ratio 1.1 Sodium Level 129 136-145 mmol/L Potassium Level 4.0 3.5-5.1 mmol/L Chloride Level 96 98-107 mmol/L Carbon Dioxide Level 26 21-32 mmol/L Anion Gap 7.0 3-11 mmol/L Blood Urea Nitrogen 25 7-18 mg/dl Creatinine 1.01 0.60-1.20 mg/dl Est Creatinine Clear Calc Drug Dose 31.6 ml/min Estimated GFR () 58.4 Estimated GFR (Non- 50.4 BUN/Creatinine Ratio 24.5 10-20 Random Glucose 187 70-99 mg/dl Calcium Level 9.5 8.5-10.1 mg/dl Troponin I < 0.015 0-0.045 ng/ml Bedside Troponin I 0.050 0-0.045 ng/ml Urine Color YELLOW Urine Appearance CLEAR CLEAR Urine pH 6.0 4.5-7.5 Urine Specific [place] 1.015 1.000-1.030 Urine Protein NEG NEG Urine Glucose (UA) NEG NEG Urine Ketones NEG NEG Urine Occult Blood NEG NEG Urine Nitrite NEG NEG Urine Bilirubin NEG NEG Urine Urobilinogen NEG NEG Urine Leukocyte Esterase TRACE NEG Urine WBC (Auto) 1-5 0-5 /hpf Urine RBC (Auto) 0-4 0-4 /hpf Urine Hyaline Casts (Auto) 1-5 0-5 /lpf Urine Epithelial Cells (Auto) 5-10 0-5 /lpf Urine Bacteria (Auto) NEG NEG Diagnostic Radiology CT head is negative EKG Initial EKG - Sinus , inferior ST depressions - resolved on subsequent Impression Assessment and Plan 86 y/o F Hx AVR, DM II, hypothyroidism, HTN, HPL, Grade I diastolic dysfunction. Pt states that over the past 2 days her BP has been labile and fluctuating between 170-200 at home. She was worming in her kitchen today and her daughter reported that she developed a L facia droop and slurred speech. She was brought into the ER therefore. Her symptoms had resolved at the time of arrival. An initial EKG revealed inferior ST depressions. This normalized on a repeat which appeared to correlate with a lower BP. An initial troponin is marginally elevated and her sodium is incidentally low She has no complaints of CP, SOB, lightheadedness or nausea and vomiting. She was unaware of her neurological symptoms when they occurred. 1) Hypertensive urgency - the pts pressure was fluctuant yet remained over 200 on admission. She was placed on a Cardene drip due to HR considerations. She is asymptomatic at the time of transfer to the ICU. Lisinopril and Clonidine held. 2) TIA - likely related to her elevated pressure. She will remain on Plavix, we will add 81 ASA and continue Statin therapy. She is admitted with a CVA protocol and an MRI/MRA are pending. Neurology is consulted 3) Elevated troponin - EKG changes - believed due to uncontrolled pressure and resultant strain. An echo in September did not show any wall motion abnormalities. We will trend her troponin and consult cardiology. She will remain on Plavix and a Statin. Has not c/o CP or related symptoms. 4) Hyponatremia - reason unclear - may correlate with commencement of Lexapro. Provided with IVF - urine NA, OSM ordered. 5) Hypothyroidism - cont Synthroid 6) Depression - pt expresses degree of clinical depression - will remain on Lexapro pending above results. 7) DM - placed on a sliding scale Full code - Heparin prophylaxis - total time for this admit including review of labs, meds, imaging, records - discussion with pt, family and ER attending - 43 min Level of Care Critical Care Resuscitation Status FULL RESUSCITATION VTE Prophylaxis VTE Risk Assessment Done? Y/N: Yes Risk Level: Moderate Given or contraindicated: Unfractionated heparin SQ
[2017-05-18] MEDS ORDERED: NiCARDipine IV 25 MG in SODIUM CHLORIDE 0.9% 250ML 240 ML IV PRN (16:45)
--- NOTE | 2017-05-18 18:06 | Critical Care Consultation ---
Critical Care Consultation Date of Consultation: May 18, 2017. Attending Physician: Giuseppe Bran M.D. Reason for Consultation: Hypertensive emergency. History of Present Illness In summary, the patient is a 86-year-old female with history of hypertension who is very functional and works in her garden on daily basis. Patient stated that she has had difficulty controlling blood pressure for the last couple of weeks. Systolic blood pressure would spike above 200 mmHg. That was even more pronounced last 2 days when systolic blood pressure spikes of 231 and 224 mmHg were recorded. Patient was taking additional lorazepam and clonidine in addition to her lisinopril. Patient developed sudden episode of clumsiness, left-sided facial droop slurred speech. Her gait was shuffled. Patient was brought to [facility] emergency room for further evaluation. In the emergency room, face looks symmetric, her speech was still thick. CT scan was negative for any acute intracranial abnormality. Patient was started on nicardipine drip for hypertension and transferred critically ill to surgical intensive care unit for further management. Past Medical/Surgical History 1. Status post pericardial aortic valve replacement in 2007 2. Single vessel CABG (to PDA) in 2007 at the time of her AVR 3. Insulin requiring diabetes mellitus with neuropathy 4. Dyslipidemia 5. Hypertension 6. Hypothyroidism 7. Carotid artery stenosis 8. Lumbar radiculopathy and sciatica 9. Ocular migraines 10. Mohs surgery 11. Cataract surgery 12. Tonsillectomy 13. Tubal ligation Family History No pertinent family history Social History Patient lives with her son. She has never smoked. No alcohol intake. She has 6 daughters, multiple grandchildren. Smoking Status: Never Smoker Drug Use: none Marital Status: Occupation Status: retired Allergies Coded Allergies: Penicillins (Verified Allergy, Unknown, UNKNOWN, 05/18/17) Sulfa Antibiotics (Verified Allergy, Unknown, SEVERE HIVES, 05/18/17) Tramadol (Unverified Allergy, Unknown, UNKNOWN, 05/18/17) Home Medications Scheduled Atorvastatin (Lipitor), 40 MG PO HS Brinzolamide-Brimonidine Tartr (Simbrinza), 1 DROP OPB BID Cholecalciferol (Vitamin D 1000 Unit), 2,000 UNITS PO DAILY Clindamycin HCl (Clindamycin HCl), 300 MG PO UD Clopidogrel Bisulfate (Clopidogrel), 75 MG PO QAM Escitalopram Oxalate (Lexapro), 5 MG PO DAILY Fluorouracil (Topical) (Fluorouracil), 1 APPLN TOP HS Insulin Glargine (Lantus Solostar), 13 UNITS SC DAILY Levothyroxine Sodium (Levothyroxine Sodium), 25 MCG PO DAILY Lisinopril (Zestril), 5 MG PO AMPM Scheduled PRN Clonidine Hcl (Catapres), 0.1 MG PO UD PRN for BLOOD PRESSURE Lorazepam (Ativan), 0.5 MG PO Q8 PRN for Anxiety/Agitation Current Inpatient Medications Current Inpatient Medications Medications (Trade) Dose Ordered Sig/Bernadine Route Start Time Stop Time Status Last Admin Dose Admin Atorvastatin Calcium (Lipitor Tab) 40 mg HS PO 05/18/17 21:00 06/17/17 20:59 Cholecalciferol (Vitamin D Tab) 1,000 inter.unit DAILY PO 05/19/17 09:00 06/18/17 08:59 Clonidine HCl (Catapres Tab) 0.1 mg BID PRN PO 05/18/17 14:45 06/17/17 14:44 Clopidogrel Bisulfate (plAVix TAB) 75 mg QAM PO 05/19/17 09:00 06/18/17 08:59 Levothyroxine Sodium (Synthroid Tab) 25 mcg DAILYBB PO 05/19/17 06:00 06/18/17 06:59 Lisinopril (Zestril Tab) 5 mg BID PO 05/18/17 21:00 06/17/17 20:59 Lorazepam (Ativan Tab) 0.5 mg Q8 PRN PO 05/18/17 14:45 06/17/17 14:44 Insulin Aspart (novoLOG ASPART) SLIDING SCALE G... ACHS SC 05/18/17 16:00 06/17/17 15:59 Heparin Sodium (Porcine) (Heparin Sq 5000 Unit/0.5ml) 5,000 unit Q8 SQ 05/18/17 22:00 06/17/17 21:59 Acetaminophen (Tylenol Tab) 650 mg Q4H PRN PO 05/18/17 14:45 06/17/17 14:44 Al Hydrox/Mg Hydrox/Simethicone (Maalox Max Susp) 15 ml Q4H PRN PO 05/18/17 14:45 06/17/17 14:44 Magnesium Hydroxide (Milk Of Magnesia Susp) 30 ml Q12H PRN PO 05/18/17 14:45 06/17/17 14:44 Ondansetron HCl (Zofran Inj) 4 mg Q6H PRN IV 05/18/17 14:45 06/17/17 14:44 Morphine Sulfate (MoRPHine SULFATE INJ) 2 mg Q30M PRN IV 05/18/17 14:45 06/01/17 14:44 Aspirin (Ecotrin Tab) 81 mg QAM PO 05/19/17 09:00 06/18/17 08:59 Miscellaneous Information (Pharmacist Discharge Med Rec Consult) 1 ea UD PRN N/A 05/18/17 14:45 06/17/17 14:44 Miscellaneous (Iv Fluids Completed) 1 ea PRN PRN N/A 05/18/17 15:30 05/18/18 15:29 Nicardipine HCl 25 mg/Sodium Chloride 250 ml @ 50 mls/hr Q5H PRN IV 05/18/17 16:45 06/17/17 16:44 05/18/17 16:54 50 MLS/HR Sodium Chloride 1,000 ml @ 50 mls/hr Q20H IV 05/18/17 15:15 06/17/17 15:14 05/18/17 15:15 50 MLS/HR Escitalopram Oxalate (Lexapro Tab) 5 mg DAILY PO 05/19/17 09:00 06/18/17 08:59 Insulin Glargine (Lantus Solostar Pen) 13 units DAILY SC 05/19/17 09:00 06/18/17 08:59 Miscellaneous Information (Order Awaiting Action) 1 ea QS N/A 05/19/17 00:00 06/18/17 00:00 Glucose (Glucose 40% Gel) 15-30 GRAMS 15 GRAMS... UD PRN PO 05/18/17 16:00 06/17/17 15:59 Glucose (Glucose Chew Tab) 4-8 Tablets 4 Tabl... UD PRN PO 05/18/17 16:00 06/17/17 15:59 Dextrose (Dextrose 50% 50ML Syringe) 25-50ML OF 50% DW IV FOR... UD PRN IV 05/18/17 16:00 06/17/17 15:59 Glucagon (Glucagon Inj) 1 mg UD PRN SQ 05/18/17 16:00 06/17/17 15:59 Review of Systems Neurologic: + weakness, + numbness/tingling, + balance problems, No memory loss , No paralysis, No vertigo, No problem reported Psychiatric: + anxiety Physical Exam Date Time Temp Pulse Resp B/P (MAP) Pulse Ox O2 Delivery O2 Flow Rate FiO2 05/18/17 17:15 64 19 155/64 (83) 100 05/18/17 17:00 75 17 160/73 (102) 99 05/18/17 16:45 67 19 99 05/18/17 16:38 36.4 71 16 217/93 100 Room Air 05/18/17 16:31 67 20 205/94 05/18/17 16:30 72 28 97 05/18/17 15:40 197/89 05/18/17 15:39 68 18 204/102 99 05/18/17 15:29 66 18 100 05/18/17 15:19 67 21 100 05/18/17 15:09 70 18 208/98 05/18/17 15:09 70 17 100 05/18/17 15:08 230/97 05/18/17 15:06 204/104 05/18/17 15:03 78 228/99 05/18/17 15:00 228/99 05/18/17 14:59 67 14 99 05/18/17 14:51 233/104 05/18/17 14:50 76 18 233/104 100 Room Air 228/99 05/18/17 13:31 63 18 176/106 99 Room Air 05/18/17 13:28 176/106 05/18/17 13:19 62 19 100 05/18/17 13:09 60 19 100 05/18/17 12:59 61 18 100 05/18/17 12:49 68 22 100 05/18/17 12:39 65 14 98 05/18/17 12:29 57 17 99 05/18/17 12:24 158/76 05/18/17 12:19 59 17 100 05/18/17 12:09 61 05/18/17 12:05 36.5 61 20 158/76 98 Room Air 05/18/17 12:05 158/76 05/18/17 12:05 98 Room Air Constitutional: Elderly female sitting in the bed, pleasant, alert, oriented, in no acute distress. HEENT: Head is atraumatic and normocephalic. EOMs intact. Sclera anicteric. Face is symmetric. No perioral cyanosis. Mucous membranes moist. Neck: Supple, no appreciable JVD, bilateral carotid bruits Pulmonary: Normal respiratory effort, clear to auscultation bilaterally Cardiac: Regular rate and rhythm, normal S1 and S2, no gallops, no rubs, no obvious murmurs Extremities: No clubbing, cyanosis, or edema. Pulses intact Abdomen: Normal bowel sounds, soft, non-tender, no abdominal mass palpated Skin: Normal skin color, turgor, and pigmentation, no rash, no skin lesions Neurological: Oriented to person, place, and time 3. Speech is clear and 12 understandable. Face looks symmetric with complete resolution of left nasolabial fold droop. Motor strength in all 4 extremities is equal, 5 over 5. Peripheral neuropathy in lower extremities to light touch. Psychiatric: Slightly anxious otherwise affect is appropriate. Laboratory Results Last 24 Hours Test 05/18/17 12:00 05/18/17 12:52 05/18/17 14:50 05/18/17 16:30 White Blood Count 6.28 K/uL Red Blood Count 4.81 M/uL Hemoglobin 13.1 g/dL Hematocrit 39.8 % Mean Corpuscular Volume 82.7 fL Mean Corpuscular Hemoglobin 27.2 pg Mean Corpuscular Hemoglobin Concent 32.9 g/dl Platelet Count 209 K/uL Mean Platelet Volume 10.3 fL Neutrophils (%) (Auto) 64.8 % Lymphocytes (%) (Auto) 22.1 % Monocytes (%) (Auto) 11.5 % Eosinophils (%) (Auto) 0.8 % Basophils (%) (Auto) 0.3 % Neutrophils # (Auto) 4.07 K/uL Lymphocytes # (Auto) 1.39 K/uL Monocytes # (Auto) 0.72 K/uL Eosinophils # (Auto) 0.05 K/uL Basophils # (Auto) 0.02 K/uL RDW Standard Deviation 44.3 fL RDW Coefficient of Variation 14.6 % Immature Granulocyte % (Auto) 0.5 % Immature Granulocyte # (Auto) 0.03 K/uL Prothrombin Time 11.7 SECONDS Prothromb Time International Ratio 1.1 Activated Partial Thromboplast Time 29.1 SECONDS Partial Thromboplastin Ratio 1.1 Sodium Level 129 mmol/L Potassium Level 4.0 mmol/L Chloride Level 96 mmol/L Carbon Dioxide Level 26 mmol/L Anion Gap 7.0 mmol/L Blood Urea Nitrogen 25 mg/dl Creatinine 1.01 mg/dl Est Creatinine Clear Calc Drug Dose 31.6 ml/min Estimated GFR () 58.4 Estimated GFR (Non- 50.4 BUN/Creatinine Ratio 24.5 Random Glucose 187 mg/dl Calcium Level 9.5 mg/dl Troponin I < 0.015 ng/ml Bedside Troponin I 0.050 ng/ml Urine Color YELLOW Urine Appearance CLEAR Urine pH 6.0 Urine Specific [place] 1.015 Urine Protein NEG Urine Glucose (UA) NEG Urine Ketones NEG Urine Occult Blood NEG Urine Nitrite NEG Urine Bilirubin NEG Urine Urobilinogen NEG Urine Leukocyte Esterase TRACE Urine WBC (Auto) 1-5 /hpf Urine RBC (Auto) 0-4 /hpf Urine Hyaline Casts (Auto) 1-5 /lpf Urine Epithelial Cells (Auto) 5-10 /lpf Urine Bacteria (Auto) NEG Urine Osmolality 249 mOms/kg Urine Random Sodium 64 mEq/L Test 05/18/17 16:43 Bedside Glucose 118 mg/dl Assessment & Plan 1. Hypertensive emergency versus TIA. Neurologic examination revealed improvement as patient had clear speech, symmetric face, no motor asymmetry. Neurology consultation was obtained, MRI was ordered. CT scan did not reveal any acute intracranial changes. 2. Difficult to control hypertension. Nicardipine drip was initiated. We will keep systolic blood pressure 160-180. We'll continue with lisinopril. 3. Hyponatremia, may be secondary to recently initiated (05/06) Lexapro. If sodium level continues to decline we'll discontinue Lexapro. 4. Hyperlipidemia 5. Status post biomechanical aortic valve replacement. 6. No signs of cardiac ischemia. 7. Respiratory: Good gas exchange. 8. GI: Nothing by mouth for now, restart diet tomorrow. 9. Renal function is adequate. 10. Hypothyroidism for what will continue with Synthroid. 11. Diabetes mellitus, we will continue with insulin sliding scale. 12. Patient wished not to be resuscitated in the event of cardiac arrest. I spent totally 35 minutes of critical care modality and managing this patient. Patient's clinical condition and management plan was extensively discussed with 2 daughters at the bedside.
[2017-05-18] MEDS ORDERED: INFLUENZA ADMINISTRATION CHARGE ONE (20:00)
[2017-05-18] MEDS ORDERED: INFLUENZA VACCINE HIGH DOSE 65+ 0.5 ML SYR IM. ONE (20:00)
[2017-05-18] MEDS ORDERED: GADAVIST IV PRN (20:15)
[2017-05-18] MEDS: LISINOPRIL 5 MG TAB PO SCH (20:16)
[2017-05-18] MEDS: ATORVASTATIN 40 MG TAB PO SCH (20:17)
[2017-05-18] MEDS: HEPARIN SOD 5000 UNIT/0.5 ML CARP SQ SCH (20:18)
--- NOTE | 2017-05-18 20:40 | DIAGNOSTIC IMAGING REPORT ---
Brain MRA HISTORY: Stroke - Attention to [place] TECHNIQUE: 3-D [id number] MRA of the brain was performed without contrast. COMPARISON STUDY: None. FINDINGS: Visualized intracranial internal carotid arteries, distal vertebral arteries, and basilar artery are widely patent. There is no significant stenosis, occlusion, or aneurysm seen within the bilateral ACAs, MCAs, or disassembler. IMPRESSION: No significant stenosis, occlusion, or aneurysm within the [place]. Electronically signed by: Nitin Vega M.D. 05/18/2017 8:39 PM Dictated Date/Time: 05/18/2017 8:36 PM
--- NOTE | 2017-05-18 20:46 | DIAGNOSTIC IMAGING REPORT ---
NECK MRA HISTORY: Slurred speech. Stroke TECHNIQUE: [id number] and gadolinium-enhanced MRA of the neck was performed both before and after the intravenous administration of contrast. All measurements were calculated based on NASCET criteria. COMPARISON STUDY: Carotid Doppler 10/17/2016. FINDINGS: The aortic arch is not well visualized. The visualized portion of the proximal great vessels extending from the aortic arch appear patent. The bilateral common carotid and vertebral arteries are widely patent. There is approximate 50% focal stenosis at the right carotid bifurcation. There is high-grade/critical stenosis at the takeoff of the right external carotid artery. There is a 1.3 cm segment of approximately 50% stenosis within the proximal left internal carotid artery. The left external carotid artery is widely patent. IMPRESSION: 1. Approximately 50% focal stenosis at the right carotid bifurcation. 2. High-grade/critical stenosis at the takeoff of the right external carotid artery. 3. Approximately 50% stenosis involving a proximal 1.3 cm segment of the left internal carotid artery. Electronically signed by: Nitin Vega M.D. 05/18/2017 8:45 PM Dictated Date/Time: 05/18/2017 8:39 PM
--- NOTE | 2017-05-18 20:50 | DIAGNOSTIC IMAGING REPORT ---
Brain MRI WITHOUT CONTRAST HISTORY: Slurred speech. Stroke TECHNIQUE: Multiplanar multisequence MRI of the brain was performed without the use of contrast. COMPARISON STUDY: Brain MRI 10/17/2016. FINDINGS: There is a punctate focus of restricted diffusion seen within the left stoney on image 7 consistent with an acute lacunar infarct. There is no mass, hematoma, midline shift. Age-related atrophy and microvascular ischemic changes are again noted. This is not significantly changed. Old lacunar infarct seen within the left caudate head. The major vascular flow-voids at the skull base are maintained. The paranasal sinuses and mastoid air cells are clear. IMPRESSION: A punctate acute lacunar infarct within the left stoney. Electronically signed by: Nitin Vega M.D. 05/18/2017 8:49 PM Dictated Date/Time: 05/18/2017 8:45 PM
[2017-05-18] MEDS ORDERED: BRINZOLAMIDE BRIMONIDINE TARTR OP SCH (21:00)
[2017-05-18] MEDS ORDERED: INSULIN GLARGINE SOLOSTAR 100 UNITS/ML 3 ML PEN SC SCH (21:00)
[2017-05-19] VITALS (19 sets, daily range): BP systolic 123–194; BP diastolic 62–99; PULSE 61–92; TEMP 36.7–37.3; O2SAT 96–98
[2017-05-19] MEDS ORDERED: INSULIN GLARGINE SOLOSTAR 100 UNITS/ML 3 ML PEN SC STA (00:24)
[2017-05-19] MEDS ORDERED: NURSING VERBAL MED ORDER ONE ×2 (00:30→12:15)
[2017-05-19 05:27] LABS: BASO % 0.4 %; BASO ABS # 0.02 K/uL (0-0.2); COMPLETE YES; EOS % 2.2 %; IG% 0.4 %; LYMPH % 29.5 %; MEAN CELL VOLUME 81.9 fL (80-100); MEAN PLATELET VOLUME 10.3 fL (7.4-10.4); MONO % 12.8 %; NEUT % 54.7 %; PLATELET COUNT 177 K/uL (130-400); RED BLOOD COUNT 4.52 M/uL (4.2-5.4); WHITE BLOOD COUNT 5.08 K/uL (4.8-10.8)
[2017-05-19] MEDS: HydrALAZINE HCL 20 MG/ML VIAL IV. PRN ×2 (05:40→16:41)
[2017-05-19] MEDS: LEVOTHYROXINE 25 MCG TAB PO SCH (05:40)
[2017-05-19] MEDS: HEPARIN SOD 5000 UNIT/0.5 ML CARP SQ SCH ×3 (05:41→21:12)
[2017-05-19 05:53] LABS: BLOOD UREA NITROGEN 21 mg/dl (7-18); BUN/CREATININE RATIO 23.5 (10-20); CALCIUM 8.7 mg/dl (8.5-10.1); CARBON DIOXIDE 25 mmol/L (21-32); CHLORIDE 103 mmol/L (98-107); CREATININE 0.91 mg/dl (0.60-1.20); GLUCOSE 189 mg/dl (70-99); MAGNESIUM 2.1 mg/dl (1.8-2.4); POTASSIUM 4.2 mmol/L (3.5-5.1); SODIUM 134 mmol/L (136-145)
[2017-05-19 05:58] LABS: CHOLESTEROL 131 mg/dl (0-200); CHOLESTEROL/HDL RATIO 2.6; HDL CHOLESTEROL 50 mg/dl; LDL CHOLESTEROL CALCULATED 63 mg/dl; TRIGLYCERIDES 88 mg/dl (0-150); VERY LOW DENSITY LIPOPROT CALC 18 mg/dl
--- NOTE | 2017-05-19 07:13 | Critical Care Progress Note ---
Critical Care Progress Note Date of Service May 19, 2017. ICU Day ICU Day Number: [address] Givens Subjective The patient was seen and examined at bedside. Pt was taken off her Nicardipine drip the previous evening. Pt reports that she still feels funny (has a slight SULLIVAN) and has continued interrupted speech. After a long discussion with the patient in which we talked about her life, the passing of her one year ago, her present living situation with her son and being taken care of her daughters - the patient expressed to me that she wishes to not be resuscitated or intubated if anything bad happens. I do believe she has capacity. Pt is eating her food and is able to ambulate in the room on her own. BPs remain slightly elevated with a MAP of around 115. Patient is resting comfortably in bed. Denies having any pain. Eating and urinating well. Plan of care was described to the patient and all questions were answered. ROS: No chest pain, no SOB, no dyspnea on exertion, no palpitations, no fevers, no chills, no nausea, no vomiting, no diarrhea, no dysuria, no rash. Objective Gen: No acute distress. +Thin. Normal mood and affect. There was no family in the room on exam. Mood: Pt does appear sad, pt denies SI, but states that since her passing she has been sad. Neuro: AAOx3. Muscle strength is 5/5 in all 4 extremities. 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 There are no cerebellar signs. Could not appreciated any motor or sensory deficits on exam. 2+ biceps and patellar tendon reflexes bilaterally . CN2-12 normal as tested. Patient does have intermittent pauses in her speech where she has to either repeat a word or stop to think which word she is going to say - this is not her baseline according to the patient,. HEENT: Head - normocephalic and atraumatic. Pupils are equal, round, and reactive to light. Extraocular eye muscles are intact and sclera are anicteric. Ears - bilaterally patent canals with noninjected tympanic membranes and no evidence of hemotympanum. Nose - moist nasal mucosa without discharge. Mouth - moist buccal mucosa. Oropharynx is nonerythematous and there is no tonsillar exudate or edema noted. Neck: Supple; no JVD, nuchal rigidity, cervical lymphadenopathy, or auscultated bruits. Heart: Regular rate and rhythm. There is a normal S1 and S2 with no murmurs, clicks, or gallops appreciated. Lungs: Clear to auscultation bilaterally with no wheezes, rales, or rhonchi. Abdomen: Soft, completely nontender, nondistended, with good bowel sounds. There are no palpable pulsatile masses or hepatosplenomegaly. There is no guarding, rigidity, or rebound noted. Extremities: No evidence of cyanosis, clubbing, or edema. There are easily palpable peripheral pulses. Current SOFA Score SOFA Score Response (Comments) Value Platelets (x10) > 150 0 Bilirubin (mg/dL) < 1.2 0 [place] Coma Score 15 0 Level of Hypotension No Hypotension 0 Creatinine (mg/dL) < 1.2 0 Total 0 Assessment & Plan Resident Physician Supervision Note: I was present with [Name of resident] during the history and exam. I discussed the case with the resident and agree with the findings and plan as documented in the note. Any exceptions or clarifications are listed here: [None ] Documented By: Alvaro Givens [id number] with a PMHx of TIAs p/w stroke like symptoms (slurred speech and left facial droop) that resolved on ER admission. Admitted to the ICU for HTN Urgency (nicardipine drip was utilized and turned off in the PM of 05/18/2017) . 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 Clinical symptoms are improving. Pt is stable in our opinion to be transferred to [facility]. Neuro: AAOx3, complaining of SULLIVAN. * Stroke: MRI showed a punctate acute lacunar infarct within the left stoney. * PT has a history of TIA. * Head and Neck MRA normal for age. * ASA 81mg daily. * c/w Plavix 75mg daily. * Appreciate Neurology recommendations. * Pain control with Tylenol 650mg PO Q4H PRN + Morphine 2mg IV q30min PRN chest pain. * Anxiety: 0.5mg Q8H PRN. * Depression: Lexapro 5mg daily. CV - * EKG showed normal sinus rhythm. * HTN Urgency, last BP 142 / 71: * Hydralazine 10mg Q6H PRN systolic >160, Lisinopril 5mg PO BID, Nicardipine drip stopped yesterday evening. * Cardiology on board, appreciate their recs regarding HTN management. * Consider endocrine workup for HTN if it becomes refractive to medications. * HLD: Lipitor 40mg daily Resp - * Good sats on room air. * X-ray results showed no acute process. Renal/ - * Creatinine is 0.9 * IVF NSS at 50mls/hr overnight. GI/Diet - * DM2/Heart Healthy diet is ordered. * Pt is eating her breakfast without difficulty. * Still appreciate speech eval consult. Endo - * DM2: HBA1C was 7.1, c/w Lantus 13 units QHS + Novolog coverage for meals, adjust for target sugars between 120-180. * Hypothyroid: c/w Levothyroxine 25mcg PO daily. * Vit D Deficiency: c/w Vitamin D 1000 IU * Electrolytes: Na+ 134 (resolved hyponatremia possibly 2/2 to Lexapro), K+ 4.2 , Mg2+ 2.1. * Will continue NSS at 50mls/hr for hyponatremia. Heme - * Hgb 12, Platelets 177 - WNL. * DVT Proph: Hep SQ BID, SCDs ID - * Afebrile, WBC count normal. MSK - * PT and OT on board. Dispo: Tele. Social: Pt expressed desire to create a living will - I have put in the pecan mallow dipper consult so she can have it done here which she appreciated. Will change status to a DNR/ DNI - Family should be informed. Dr. Barker hospitalist also made aware. Resident Physician Supervision Note: I was present with Dr. Oscar Miguel during the history and exam. I discussed the case with the resident and agree with the findings and plan as documented in the note. In summary, patient is a 86-year-old very functional female with recently more difficult to control hypertension who presented yesterday with dysarthria, left facial droop and disbalance with spontaneous resolution. Patient had hypertensive crisis with systolic blood pressure of 230 mmHg. Patient was treated with nicardipine drip with significantly better blood pressure control. Patient had an uneventful night. MRI was obtained and revealed acute left stoney stroke which could explain her symptoms. Neurology and cardiology consultation is appreciated. Patient will require significantly better blood pressure control. It would be reasonable to continue titrating lisinopril. Nicardipine drip has been discontinued. Patient remains on 12 and platelet therapy. We will continue with Synthroid for management of hypothyroidism, insulin for diabetes mellitus. Otherwise, patient denies any signs of cardiac ischemia. She is able to tolerate diet without any signs of dysphagia or aspiration. Patient expressed her wishes not to be resuscitated in case of cardiopulmonary arrest. CODE STATUS was changed to DO NOT RESUSCITATE/DO NOT INTUBATE. Patient has improved significantly, so we'll transfer her to telemetry status. [id number] note. GULKANA II Score Date Score Was Generated: May 20, 2017 Consults & Procedures Consultants: Neurology Cardiology Speech Therapy PT and OT Car Racer Procedures: None Data Medications: Current Inpatient Medications Medications (Trade) Dose Ordered Sig/Bernadine Route Start Time Stop Time Status Last Admin Dose Admin Atorvastatin Calcium (Lipitor Tab) 40 mg HS PO 05/18/17 21:00 06/17/17 20:59 05/18/17 20:17 40 MG Cholecalciferol (Vitamin D Tab) 1,000 inter.unit DAILY PO 05/19/17 09:00 06/18/17 08:59 Clonidine HCl (Catapres Tab) 0.1 mg BID PRN PO 05/18/17 14:45 06/17/17 14:44 Clopidogrel Bisulfate (plAVix TAB) 75 mg QAM PO 05/19/17 09:00 06/18/17 08:59 Levothyroxine Sodium (Synthroid Tab) 25 mcg DAILYBB PO 05/19/17 06:00 06/18/17 06:59 05/19/17 05:40 25 MCG Lisinopril (Zestril Tab) 5 mg BID PO 05/18/17 21:00 06/17/17 20:59 05/18/17 20:16 5 MG Lorazepam (Ativan Tab) 0.5 mg Q8 PRN PO 05/18/17 14:45 06/17/17 14:44 Insulin Aspart (novoLOG ASPART) SLIDING SCALE G... ACHS SC 05/18/17 16:00 06/17/17 15:59 Heparin Sodium (Porcine) (Heparin Sq 5000 Unit/0.5ml) 5,000 unit Q8 SQ 05/18/17 22:00 06/17/17 21:59 05/19/17 05:41 5,000 UNIT Acetaminophen (Tylenol Tab) 650 mg Q4H PRN PO 05/18/17 14:45 06/17/17 14:44 Al Hydrox/Mg Hydrox/Simethicone (Maalox Max Susp) 15 ml Q4H PRN PO 05/18/17 14:45 06/17/17 14:44 Magnesium Hydroxide (Milk Of Magnesia Susp) 30 ml Q12H PRN PO 05/18/17 14:45 06/17/17 14:44 Ondansetron HCl (Zofran Inj) 4 mg Q6H PRN IV 05/18/17 14:45 06/17/17 14:44 Morphine Sulfate (MoRPHine SULFATE INJ) 2 mg Q30M PRN IV 05/18/17 14:45 06/01/17 14:44 Aspirin (Ecotrin Tab) 81 mg QAM PO 05/19/17 09:00 06/18/17 08:59 Miscellaneous Information (Pharmacist Discharge Med Rec Consult) 1 ea UD PRN N/A 05/18/17 14:45 06/17/17 14:44 Miscellaneous (Iv Fluids Completed) 1 ea PRN PRN N/A 05/18/17 15:30 05/18/18 15:29 Nicardipine HCl 25 mg/Sodium Chloride 250 ml @ 50 mls/hr Q5H PRN IV 05/18/17 16:45 06/17/17 16:44 Future Hold 05/18/17 16:54 50 MLS/HR Sodium Chloride 1,000 ml @ 50 mls/hr Q20H IV 05/18/17 15:15 06/17/17 15:14 05/18/17 15:15 50 MLS/HR Escitalopram Oxalate (Lexapro Tab) 5 mg DAILY PO 05/19/17 09:00 06/18/17 08:59 Miscellaneous Information (Order Awaiting Action) 1 ea QS N/A 05/19/17 00:00 06/18/17 00:00 Glucose (Glucose 40% Gel) 15-30 GRAMS 15 GRAMS... UD PRN PO 05/18/17 16:00 06/17/17 15:59 Glucose (Glucose Chew Tab) 4-8 Tablets 4 Tabl... UD PRN PO 05/18/17 16:00 06/17/17 15:59 Dextrose (Dextrose 50% 50ML Syringe) 25-50ML OF 50% DW IV FOR... UD PRN IV 05/18/17 16:00 06/17/17 15:59 Glucagon (Glucagon Inj) 1 mg UD PRN SQ 05/18/17 16:00 06/17/17 15:59 Gadobutrol (Gadavist) 5 mmol UD PRN IV 05/18/17 20:15 05/22/17 20:14 Insulin Glargine (Lantus Solostar Pen) 13 units HS SC 05/19/17 21:00 06/18/17 20:59 Hydralazine HCl (HydrALAZINE INJ) 10 mg Q6H PRN IV. 05/19/17 01:15 06/18/17 01:14 05/19/17 05:40 10 MG Vital Signs: Date Time Temp Pulse Resp B/P (MAP) Pulse Ox O2 Delivery O2 Flow Rate FiO2 05/19/17 06:00 69 17 142/71 (94) 97 Room Air 05/19/17 05:37 68 22 164/81 (108) 97 Room Air 05/19/17 05:00 69 22 179/82 (114) 97 Room Air 05/19/17 04:00 37.0 61 15 142/70 (94) 97 Room Air 05/19/17 04:00 Room Air 05/19/17 03:00 66 20 137/68 (91) 96 Room Air 05/19/17 02:00 67 22 141/64 (89) 97 Room Air 05/19/17 01:00 72 18 140/70 (93) 97 Room Air 05/19/17 00:00 36.9 69 17 151/82 (105) 97 Room Air 05/19/17 00:00 Room Air 05/18/17 22:00 67 16 143/67 (93) 96 05/18/17 22:00 67 16 143/67 (93) 96 05/18/17 22:00 69 16 143/67 (92) 97 Room Air 05/18/17 21:45 68 16 97 05/18/17 21:30 70 16 152/82 (119) 97 05/18/17 21:30 70 16 152/82 (119) 97 05/18/17 21:15 73 17 98 05/18/17 21:00 71 14 155/80 (123) 99 05/18/17 20:45 72 18 162/70 (116) 99 05/18/17 20:30 74 23 152/89 (120) 98 05/18/17 20:15 68 18 160/87 (138) 98 05/18/17 20:00 Room Air 05/18/17 20:00 36.7 68 20 152/82 (105) 97 Room Air 05/18/17 19:00 36.4 71 17 139/60 (97) 98 05/18/17 18:30 71 17 139/60 (97) 98 05/18/17 18:15 74 16 149/65 (104) 99 05/18/17 18:00 80 21 157/63 (118) 98 05/18/17 18:00 74 20 157/63 (94) 98 Room Air 05/18/17 17:45 81 15 167/65 (112) 99 05/18/17 17:30 70 16 155/58 (80) 100 05/18/17 17:15 64 19 155/64 (83) 100 05/18/17 17:15 64 19 155/64 (83) 100 05/18/17 17:00 75 17 160/73 (102) 99 05/18/17 17:00 75 17 160/73 (102) 99 05/18/17 16:45 67 19 99 05/18/17 16:38 36.4 71 16 217/93 100 Room Air 05/18/17 16:31 67 20 205/94 05/18/17 16:30 72 28 97 05/18/17 16:30 72 28 97 05/18/17 15:40 197/89 05/18/17 15:39 68 18 204/102 99 05/18/17 15:29 66 18 100 05/18/17 15:19 67 21 100 05/18/17 15:09 70 18 208/98 05/18/17 15:09 70 17 100 05/18/17 15:08 230/97 05/18/17 15:06 204/104 05/18/17 15:03 78 228/99 05/18/17 15:00 228/99 05/18/17 14:59 67 14 99 05/18/17 14:51 233/104 05/18/17 14:50 76 18 233/104 100 Room Air 228/99 05/18/17 13:31 63 18 176/106 99 Room Air 05/18/17 13:28 176/106 05/18/17 13:19 62 19 100 05/18/17 13:09 60 19 100 05/18/17 12:59 61 18 100 05/18/17 12:49 68 22 100 05/18/17 12:39 65 14 98 05/18/17 12:29 57 17 99 05/18/17 12:24 158/76 05/18/17 12:19 59 17 100 05/18/17 12:09 61 05/18/17 12:05 36.5 61 20 158/76 98 Room Air 05/18/17 12:05 158/76 05/18/17 12:05 98 Room Air Laboratory Results: Last 24 Hours Test 05/18/17 12:00 05/18/17 12:52 05/18/17 14:50 05/18/17 16:30 White Blood Count 6.28 K/uL Red Blood Count 4.81 M/uL Hemoglobin 13.1 g/dL Hematocrit 39.8 % Mean Corpuscular Volume 82.7 fL Mean Corpuscular Hemoglobin 27.2 pg Mean Corpuscular Hemoglobin Concent 32.9 g/dl Platelet Count 209 K/uL Mean Platelet Volume 10.3 fL Neutrophils (%) (Auto) 64.8 % Lymphocytes (%) (Auto) 22.1 % Monocytes (%) (Auto) 11.5 % Eosinophils (%) (Auto) 0.8 % Basophils (%) (Auto) 0.3 % Neutrophils # (Auto) 4.07 K/uL Lymphocytes # (Auto) 1.39 K/uL Monocytes # (Auto) 0.72 K/uL Eosinophils # (Auto) 0.05 K/uL Basophils # (Auto) 0.02 K/uL RDW Standard Deviation 44.3 fL RDW Coefficient of Variation 14.6 % Immature Granulocyte % (Auto) 0.5 % Immature Granulocyte # (Auto) 0.03 K/uL Prothrombin Time 11.7 SECONDS Prothromb Time International Ratio 1.1 Activated Partial Thromboplast Time 29.1 SECONDS Partial Thromboplastin Ratio 1.1 Sodium Level 129 mmol/L Potassium Level 4.0 mmol/L Chloride Level 96 mmol/L Carbon Dioxide Level 26 mmol/L Anion Gap 7.0 mmol/L Blood Urea Nitrogen 25 mg/dl Creatinine 1.01 mg/dl Est Creatinine Clear Calc Drug Dose 31.6 ml/min Estimated GFR () 58.4 Estimated GFR (Non- 50.4 BUN/Creatinine Ratio 24.5 Random Glucose 187 mg/dl Calcium Level 9.5 mg/dl Troponin I < 0.015 ng/ml Bedside Glucose 174 mg/dl Bedside Troponin I 0.050 ng/ml Urine Color YELLOW Urine Appearance CLEAR Urine pH 6.0 Urine Specific [place] 1.015 Urine Protein NEG Urine Glucose (UA) NEG Urine Ketones NEG Urine Occult Blood NEG Urine Nitrite NEG Urine Bilirubin NEG Urine Urobilinogen NEG Urine Leukocyte Esterase TRACE Urine WBC (Auto) 1-5 /hpf Urine RBC (Auto) 0-4 /hpf Urine Hyaline Casts (Auto) 1-5 /lpf Urine Epithelial Cells (Auto) 5-10 /lpf Urine Bacteria (Auto) NEG Urine Osmolality 249 mOms/kg Urine Random Sodium 64 mEq/L Test 05/18/17 16:43 05/18/17 20:26 05/18/17 23:35 05/19/17 04:52 Bedside Glucose 118 mg/dl 187 mg/dl 167 mg/dl White Blood Count 5.08 K/uL Red Blood Count 4.52 M/uL Hemoglobin 12.2 g/dL Hematocrit 37.0 % Mean Corpuscular Volume 81.9 fL Mean Corpuscular Hemoglobin 27.0 pg Mean Corpuscular Hemoglobin Concent 33.0 g/dl Platelet Count 177 K/uL Mean Platelet Volume 10.3 fL Neutrophils (%) (Auto) 54.7 % Lymphocytes (%) (Auto) 29.5 % Monocytes (%) (Auto) 12.8 % Eosinophils (%) (Auto) 2.2 % Basophils (%) (Auto) 0.4 % Neutrophils # (Auto) 2.78 K/uL Lymphocytes # (Auto) 1.50 K/uL Monocytes # (Auto) 0.65 K/uL Eosinophils # (Auto) 0.11 K/uL Basophils # (Auto) 0.02 K/uL RDW Standard Deviation 43.0 fL RDW Coefficient of Variation 14.3 % Immature Granulocyte % (Auto) 0.4 % Immature Granulocyte # (Auto) 0.02 K/uL Sodium Level 134 mmol/L Potassium Level 4.2 mmol/L Chloride Level 103 mmol/L Carbon Dioxide Level 25 mmol/L Anion Gap 6.0 mmol/L Blood Urea Nitrogen 21 mg/dl Creatinine 0.91 mg/dl Est Creatinine Clear Calc Drug Dose 35.1 ml/min Estimated GFR () 66.2 Estimated GFR (Non- 57.1 BUN/Creatinine Ratio 23.5 Random Glucose 189 mg/dl Calcium Level 8.7 mg/dl Magnesium Level 2.1 mg/dl Troponin I < 0.015 ng/ml Triglycerides Level 88 mg/dl Cholesterol Level 131 mg/dl HDL Cholesterol 50 mg/dl LDL Cholesterol, Calculated 63 mg/dl VLDL Cholesterol, Calculated 18 mg/dl Cholesterol/HDL Ratio 2.6 Resident Involvement: Resident Care Provided Care Provided: Adult Hospital Medicine
[2017-05-19] MEDS: SIMBRINZA ~ ORDER AWAITING ACTION SCH ×3 (08:00→16:00)
[2017-05-19] MEDS: CLOPIDOGREL BISULFATE 75 MG TAB PO SCH (08:25)
[2017-05-19] MEDS: ASPIRIN 81 MG ECTAB PO SCH (08:25)
[2017-05-19] MEDS: ESCITALOPRAM OXALATE 10 MG TAB PO SCH (08:25)
[2017-05-19] MEDS: LISINOPRIL 5 MG TAB PO SCH ×2 (08:25→21:12)
[2017-05-19] MEDS: CHOLECALCIFEROL 1000 INTER.UNIT TAB PO SCH (08:25)
[2017-05-19] MEDS: INSULIN ASPART 100 UNITS/ML 3 ML PEN SC SCH ×4 (08:27→21:00)
[2017-05-19 08:32] LABS: ESTIMATED AVERAGE GLUCOSE 157 mg/dl; HA1C FLAG Normal (Normal)
--- NOTE | 2017-05-19 08:49 | Medical Student: [facility] ---
Consultation Date of Consultation: May 19, 2017. Requesting Physician: Dr. Hill Attending Physician: Dr. Black Reason for Consultation: Hypertensive urgency - neurologic deficits History of Present Illness Patient is an 86yo female with PMH significant for HTN, DM II with peripheral neuropathy, HLD and grade I diastolic dysfunction (echo ) presenting to the hospital due to several day history of labile BP with elevated systolic values per home monitoring and noted LT facial droop and speech slurring observed by daughter 05/18. She currently reports no motor or sensory changes other than slight articulation difficulty. She states she does feel generally worse than yesterday, although she is unable to provide an exact reason why, largely citing fatigue and feeling "unsteady". Patient denies recent illness, SOB, pain, tachycardia, NVDC, difficulty swallowing, fever, nightsweats or recent weight changes. No reported symptoms outside of fatigue and dysarthria Past Medical/Surgical History Medical History: HTN - patient instructed to use clonidine when BP over 200 only, not a daily regiment HLD,Hypothyroidism Grade I diastolic dysfunction - last echo 10/16 DM II with secondary peripheral neuropathy Sciatica Glaucoma Anxiety Surgical History: Tonsillectomy Aortic valve replacement - bioprosthetic Heart catheterization 1 vessel CABG Tubal ligation Cataracts Family History Mother: Hemorrhagic stroke Father: CT, DM, CVA Brother: CT Cancers No clotting disorders known Social History Smoking Status: Never Smoker History of Alcohol Use: No Drug Use: none Marital Status: ( passed 2015) Housing Status: lives with family (Son) 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) Review of Systems Constitutional: + fatigue, No fever, No chills, No sweats, No weight loss, No weakness Eyes: No worsening of vision, No diplopia ENT: + hearing loss (Chronic RT ear), No tinnitus, No trouble swallowing Respiratory: No shortness of breath Cardiac: No chest pain, No palpitations Neurologic: + numbness/tingling (Chronic - feet bilateral, no change), + balance problems (Feels "unstable" when walking), No memory loss, No paralysis, No weakness Heme: No clotting problems, No night sweats Endo: + fatigue Allergies Coded Allergies: Penicillins (Verified Allergy, Unknown, UNKNOWN, 05/18/17) Sulfa Antibiotics (Verified Allergy, Unknown, SEVERE HIVES, 05/18/17) Tramadol (Unverified Allergy, Unknown, UNKNOWN, 05/18/17) Medications Current Inpatient Medications Medications (Trade) Dose Ordered Sig/Bernadine Route Start Time Stop Time Status Last Admin Dose Admin Atorvastatin Calcium (Lipitor Tab) 40 mg HS PO 05/18/17 21:00 06/17/17 20:59 05/18/17 20:17 40 MG Cholecalciferol (Vitamin D Tab) 1,000 inter.unit DAILY PO 05/19/17 09:00 06/18/17 08:59 Clonidine HCl (Catapres Tab) 0.1 mg BID PRN PO 05/18/17 14:45 06/17/17 14:44 Clopidogrel Bisulfate (plAVix TAB) 75 mg QAM PO 05/19/17 09:00 06/18/17 08:59 Levothyroxine Sodium (Synthroid Tab) 25 mcg DAILYBB PO 05/19/17 06:00 06/18/17 06:59 05/19/17 05:40 25 MCG Lisinopril (Zestril Tab) 5 mg BID PO 05/18/17 21:00 06/17/17 20:59 05/18/17 20:16 5 MG Lorazepam (Ativan Tab) 0.5 mg Q8 PRN PO 05/18/17 14:45 06/17/17 14:44 Insulin Aspart (novoLOG ASPART) SLIDING SCALE G... ACHS SC 05/18/17 16:00 06/17/17 15:59 Heparin Sodium (Porcine) (Heparin Sq 5000 Unit/0.5ml) 5,000 unit Q8 SQ 05/18/17 22:00 06/17/17 21:59 05/19/17 05:41 5,000 UNIT Acetaminophen (Tylenol Tab) 650 mg Q4H PRN PO 05/18/17 14:45 06/17/17 14:44 Al Hydrox/Mg Hydrox/Simethicone (Maalox Max Susp) 15 ml Q4H PRN PO 05/18/17 14:45 06/17/17 14:44 Magnesium Hydroxide (Milk Of Magnesia Susp) 30 ml Q12H PRN PO 05/18/17 14:45 06/17/17 14:44 Ondansetron HCl (Zofran Inj) 4 mg Q6H PRN IV 05/18/17 14:45 06/17/17 14:44 Morphine Sulfate (MoRPHine SULFATE INJ) 2 mg Q30M PRN IV 05/18/17 14:45 06/01/17 14:44 Aspirin (Ecotrin Tab) 81 mg QAM PO 05/19/17 09:00 06/18/17 08:59 Miscellaneous Information (Pharmacist Discharge Med Rec Consult) 1 ea UD PRN N/A 05/18/17 14:45 06/17/17 14:44 Miscellaneous (Iv Fluids Completed) 1 ea PRN PRN N/A 05/18/17 15:30 05/18/18 15:29 Nicardipine HCl 25 mg/Sodium Chloride 250 ml @ 50 mls/hr Q5H PRN IV 05/18/17 16:45 06/17/17 16:44 Future Hold 05/18/17 16:54 50 MLS/HR Sodium Chloride 1,000 ml @ 50 mls/hr Q20H IV 05/18/17 15:15 06/17/17 15:14 05/18/17 15:15 50 MLS/HR Escitalopram Oxalate (Lexapro Tab) 5 mg DAILY PO 05/19/17 09:00 06/18/17 08:59 Miscellaneous Information (Order Awaiting Action) 1 ea QS N/A 05/19/17 00:00 06/18/17 00:00 Glucose (Glucose 40% Gel) 15-30 GRAMS 15 GRAMS... UD PRN PO 05/18/17 16:00 06/17/17 15:59 Glucose (Glucose Chew Tab) 4-8 Tablets 4 Tabl... UD PRN PO 05/18/17 16:00 06/17/17 15:59 Dextrose (Dextrose 50% 50ML Syringe) 25-50ML OF 50% DW IV FOR... UD PRN IV 05/18/17 16:00 06/17/17 15:59 Glucagon (Glucagon Inj) 1 mg UD PRN SQ 05/18/17 16:00 06/17/17 15:59 Gadobutrol (Gadavist) 5 mmol UD PRN IV 05/18/17 20:15 05/22/17 20:14 Insulin Glargine (Lantus Solostar Pen) 13 units HS SC 05/19/17 21:00 06/18/17 20:59 Hydralazine HCl (HydrALAZINE INJ) 10 mg Q6H PRN IV. 05/19/17 01:15 06/18/17 01:14 05/19/17 05:40 10 MG Physical Exam Date Time Temp Pulse Resp B/P (MAP) Pulse Ox O2 Delivery O2 Flow Rate FiO2 05/19/17 06:00 69 17 142/71 (94) 97 Room Air 05/19/17 05:37 68 22 164/81 (108) 97 Room Air 05/19/17 05:00 69 22 179/82 (114) 97 Room Air 05/19/17 04:00 37.0 61 15 142/70 (94) 97 Room Air 05/19/17 04:00 Room Air 05/19/17 03:00 66 20 137/68 (91) 96 Room Air 05/19/17 02:00 67 22 141/64 (89) 97 Room Air 05/19/17 01:00 72 18 140/70 (93) 97 Room Air 05/19/17 00:00 36.9 69 17 151/82 (105) 97 Room Air 05/19/17 00:00 Room Air 05/18/17 22:00 67 16 143/67 (93) 96 05/18/17 22:00 67 16 143/67 (93) 96 05/18/17 22:00 69 16 143/67 (92) 97 Room Air 05/18/17 21:45 68 16 97 05/18/17 21:30 70 16 152/82 (119) 97 05/18/17 21:30 70 16 152/82 (119) 97 05/18/17 21:15 73 17 98 05/18/17 21:00 71 14 155/80 (123) 99 05/18/17 20:45 72 18 162/70 (116) 99 05/18/17 20:30 74 23 152/89 (120) 98 05/18/17 20:15 68 18 160/87 (138) 98 05/18/17 20:00 Room Air 05/18/17 20:00 36.7 68 20 152/82 (105) 97 Room Air 05/18/17 19:00 36.4 71 17 139/60 (97) 98 05/18/17 18:30 71 17 139/60 (97) 98 05/18/17 18:15 74 16 149/65 (104) 99 05/18/17 18:00 80 21 157/63 (118) 98 17 18:00 74 20 157/63 (94) 98 Room Air 05/18/17 17:45 81 15 167/65 (112) 99 05/18/17 17:30 70 16 155/58 (80) 100 05/18/17 17:15 64 19 155/64 (83) 100 17 17:15 64 19 155/64 (83) 100 17 17:00 75 17 160/73 (102) 99 17 17:00 75 17 160/73 (102) 99 05/18/17 16:45 67 19 99 05/18/17 16:38 36.4 71 16 217/93 100 Room Air 05/18/17 16:31 67 20 205/94 05/18/17 16:30 72 28 97 05/18/17 16:30 72 28 97 05/18/17 15:40 197/89 05/18/17 15:39 68 18 204/102 99 05/18/17 15:29 66 18 100 05/18/17 15:19 67 21 100 05/18/17 15:09 70 18 208/98 05/18/17 15:09 70 17 100 05/18/17 15:08 230/97 05/18/17 15:06 204/104 05/18/17 15:03 78 228/99 05/18/17 15:00 228/99 05/18/17 14:59 67 14 99 05/18/17 14:51 233/104 05/18/17 14:50 76 18 233/104 100 Room Air 228/99 05/18/17 13:31 63 18 176/106 99 Room Air 05/18/17 13:28 176/106 05/18/17 13:19 62 19 100 05/18/17 13:09 60 19 100 05/18/17 12:59 61 18 100 05/18/17 12:49 68 22 100 05/18/17 12:39 65 14 98 05/18/17 12:29 57 17 99 05/18/17 12:24 158/76 05/18/17 12:19 59 17 100 05/18/17 12:09 61 05/18/17 12:05 36.5 61 20 158/76 98 Room Air 05/18/17 12:05 158/76 05/18/17 12:05 98 Room Air General Appearance: no apparent distress Eyes: bilateral eyes normal inspection, bilateral eyes PERRL, bilateral eyes EOMI ENT: hearing grossly normal (Chronic RT loss, hearing aid LT), pharynx normal Neck: supple, no adenopathy, no JVD, no carotid bruits, trachea midline Respiratory: chest non-tender, lungs clear, normal breath sounds, no respiratory distress, no accessory muscle use Cardiovascular: regular rate, rhythm, no edema, no gallop, no JVD, no murmur Neurologic/Psychiatric: normal mood/affect Skin: normal color, warm/dry, no rash Alert and oriented to person, place, time, and situation. Motor: * 5/5 upper extremities * 5/5 lower extremities * No pronator drift noted * Normal finger to nose exam * Appropriate tone in all limbs * Able to stand, gait not assessed as patient reported feeling "unsteady" today * Minor dysarthria noted Sensory * Symmetric fine touch and vibrational in upper extremities * Decreased fine touch and vibrational in feet due to chronic peripheral neuropathy, patient notes no change from prior exams and symmetry. Symmetric fine touch in proximal lower extremities Cranial Nerves * I: not assessed * II: Pupils equal and reactive to light, visual acuity grossly normal ( chronically poor), ophthalmic exam demonstrated no papilledema, potentially enlarged vessels that would be explained by chronic HTN * III, IV, : EOMI, no nystagmus * V: Sensation to fine touch equal in V1, V2, V3 distributions * VII: 5/5 facial muscle strength * VIII: hearing grossly normal, chronic hearing impairment secondary to age * IX, X: equal palatine elevation, no trouble swallowing * XI: 5/5 strength * XII: full range of motion, no fasciculations, 5/5 strength Reflexes: * Biceps and triceps 1/4 bilaterally * RT brachioradialis 1/4, LT not tested due to IV placement * Patellar 2/4 bilaterally * LT Achilles 1/4, RT 0/4 * Babinski negative bilaterally Laboratory Results Last 24 Hours Test 05/18/17 12:00 05/18/17 12:52 05/18/17 14:50 05/18/17 16:30 White Blood Count 6.28 K/uL Red Blood Count 4.81 M/uL Hemoglobin 13.1 g/dL Hematocrit 39.8 % Mean Corpuscular Volume 82.7 fL Mean Corpuscular Hemoglobin 27.2 pg Mean Corpuscular Hemoglobin Concent 32.9 g/dl Platelet Count 209 K/uL Mean Platelet Volume 10.3 fL Neutrophils (%) (Auto) 64.8 % Lymphocytes (%) (Auto) 22.1 % Monocytes (%) (Auto) 11.5 % Eosinophils (%) (Auto) 0.8 % Basophils (%) (Auto) 0.3 % Neutrophils # (Auto) 4.07 K/uL Lymphocytes # (Auto) 1.39 K/uL Monocytes # (Auto) 0.72 K/uL Eosinophils # (Auto) 0.05 K/uL Basophils # (Auto) 0.02 K/uL RDW Standard Deviation 44.3 fL RDW Coefficient of Variation 14.6 % Immature Granulocyte % (Auto) 0.5 % Immature Granulocyte # (Auto) 0.03 K/uL Prothrombin Time 11.7 SECONDS Prothromb Time International Ratio 1.1 Activated Partial Thromboplast Time 29.1 SECONDS Partial Thromboplastin Ratio 1.1 Sodium Level 129 mmol/L Potassium Level 4.0 mmol/L Chloride Level 96 mmol/L Carbon Dioxide Level 26 mmol/L Anion Gap 7.0 mmol/L Blood Urea Nitrogen 25 mg/dl Creatinine 1.01 mg/dl Est Creatinine Clear Calc Drug Dose 31.6 ml/min Estimated GFR () 58.4 Estimated GFR (Non- 50.4 BUN/Creatinine Ratio 24.5 Random Glucose 187 mg/dl Calcium Level 9.5 mg/dl Troponin I < 0.015 ng/ml Bedside Glucose 174 mg/dl Bedside Troponin I 0.050 ng/ml Urine Color YELLOW Urine Appearance CLEAR Urine pH 6.0 Urine Specific [place] 1.015 Urine Protein NEG Urine Glucose (UA) NEG Urine Ketones NEG Urine Occult Blood NEG Urine Nitrite NEG Urine Bilirubin NEG Urine Urobilinogen NEG Urine Leukocyte Esterase TRACE Urine WBC (Auto) 1-5 /hpf Urine RBC (Auto) 0-4 /hpf Urine Hyaline Casts (Auto) 1-5 /lpf Urine Epithelial Cells (Auto) 5-10 /lpf Urine Bacteria (Auto) NEG Urine Osmolality 249 mOms/kg Urine Random Sodium 64 mEq/L Test 05/18/17 16:43 05/18/17 20:26 05/18/17 23:35 05/19/17 04:52 Bedside Glucose 118 mg/dl 187 mg/dl 167 mg/dl White Blood Count 5.08 K/uL Red Blood Count 4.52 M/uL Hemoglobin 12.2 g/dL Hematocrit 37.0 % Mean Corpuscular Volume 81.9 fL Mean Corpuscular Hemoglobin 27.0 pg Mean Corpuscular Hemoglobin Concent 33.0 g/dl Platelet Count 177 K/uL Mean Platelet Volume 10.3 fL Neutrophils (%) (Auto) 54.7 % Lymphocytes (%) (Auto) 29.5 % Monocytes (%) (Auto) 12.8 % Eosinophils (%) (Auto) 2.2 % Basophils (%) (Auto) 0.4 % Neutrophils # (Auto) 2.78 K/uL Lymphocytes # (Auto) 1.50 K/uL Monocytes # (Auto) 0.65 K/uL Eosinophils # (Auto) 0.11 K/uL Basophils # (Auto) 0.02 K/uL RDW Standard Deviation 43.0 fL RDW Coefficient of Variation 14.3 % Immature Granulocyte % (Auto) 0.4 % Immature Granulocyte # (Auto) 0.02 K/uL Sodium Level 134 mmol/L Potassium Level 4.2 mmol/L Chloride Level 103 mmol/L Carbon Dioxide Level 25 mmol/L Anion Gap 6.0 mmol/L Blood Urea Nitrogen 21 mg/dl Creatinine 0.91 mg/dl Est Creatinine Clear Calc Drug Dose 35.1 ml/min Estimated GFR () 66.2 Estimated GFR (Non- 57.1 BUN/Creatinine Ratio 23.5 Random Glucose 189 mg/dl Calcium Level 8.7 mg/dl Magnesium Level 2.1 mg/dl Troponin I < 0.015 ng/ml Triglycerides Level 88 mg/dl Cholesterol Level 131 mg/dl HDL Cholesterol 50 mg/dl LDL Cholesterol, Calculated 63 mg/dl VLDL Cholesterol, Calculated 18 mg/dl Cholesterol/HDL Ratio 2.6 Test 05/19/17 06:37 Bedside Glucose 181 mg/dl Assessment & Plan Patient is a pleasant 86yo female with PMH significant for HTN, DMII, HLD, and diastolic dysfunction presenting with 2 day history elevated systolic BP, 1 day history facial droop, which has resolved, and slurred speech which has improved per patient with minor residual articulation issues. FND likely secondary to punctate acute lacunar infarct in LT stoney Focal neurologic deficits secondary to punctate acute lacunar infarct seen on brain MRI * Likely result of small vessel disease due to chronic HTN and DM * Differential * CT head non contrast rules out acute intraparenchymal/subarachnoid hemorrhage * Acute nature of symptoms + brain imaging rules out neoplasm, mass lesion, slow subdural bleed * Lack of significant stenosis in internal carotids and [place] decreases likelihood of large vessel atherosclerotic disease * Echo in 10/16 demonstrated no vegetations that could result in embolization, normal CBC makes infective endocarditis unlikely * PT/OT evaluation to determine fall risk * Outpatient speech therapy to work on articulation * Patient is currently on clopidogrel and ASA - no medication changes at this time * Continue to monitor patient HTN: 142/71, average MAP 111 * Continue home lisinopril * Patient completed nicardipine drip * Continue monitoring with goal MAP of approximately 100 - some elevation expectable to ensure penumbral perfusion * Current elevation episode may be secondary to frequent clonidine use over past several days inducing rebound HTN, consider alternative acute BP control medication DM II: 181, A1C 7.1 * Patient placed on sliding insulin scale * Diabetic diet * Continue bedside glucose monitoring Prophylaxis * Lovenox for DVT * Continue home clindamycin for cardiovascular infection prophylaxis Resuscitation * Patient wishes to change from full code to DNR/DNI
[2017-05-19] MEDS ORDERED: INSULIN GLARGINE SOLOSTAR 100 UNITS/ML 3 ML PEN SC SCH (09:00)
--- NOTE | 2017-05-19 10:15 | Cardiology Consultation ---
Cardiology Consultation Date of Consultation: May 19, 2017. Requesting Physician: Dr. Bran Attending Physician: Dr. Vogt Reason for Consultation: Hypertensive urgency, elevated troponin Pt evaluation today including: conversation w/ patient, physical exam, chart review, lab review, review of studies, review of inpatient medication list, conversation w/ attending History of Present Illness Ms. Saleh is an 86-year-old female with a history of pericardial aortic valve replacement and CABG x1 vessel (PDA) in 2007, hypertension, dyslipidemia, insulin requiring diabetes mellitus with neuropathy, and carotid artery stenosis who presented to the ED yesterday with complaints of neurologic symptoms occurring about 1.5 hours prior to arrival. Per notes, her symptoms included left sided facial droop, slurred speech, generalized weakness, and generalized lack of coordination. Her symptoms improved significantly after calling EMS, and they had resolved completely at the time of arrival to the ED. The patient reports that she has recently been struggling with elevated blood pressures. She was in the ED on 05/06/2017 with complaints of hypertension. She had been taking her blood pressure up to 8 times a day, and due to concern for hypotension, she tries to regulate her blood pressure by taking her Lisinopril as well as clonidine as needed. She was recently seen in her PCP's office, and at that time, she was advised to limit taking her blood pressure. She was advised to take her BP in the morning, and if it is >140, she was to take 1/4 dose Lisinopril 20 mg. She was to not take her blood pressure again until that evening, and if her BP is >180, she was to take 1/4 dose lisinopril and repeat blood pressure in 1 hour. If her pressure was elevated at that time, she was to take clonidine 0.1 mg and recheck in 1 hour. She reports that she has been following these instructions, but her pressure has been consistently elevated at home, and it reaches >200 at times. She denies chest pain or other anginal type symptoms. She notes chronic exertional dyspnea with walking longer distances, but this has been stable in nature. She denies orthopnea, PND, or edema. She reports that she could feel her heart beating hard and fast prior to her ED visit on 05/06/2017, but she notes that she was also hypoglycemic at this time. She denies any other palpitations or irregular heartbeat including yesterday when her neurologic symptoms occurred. She denies lightheadedness, dizziness, syncope, or presyncope. She denies abnormal bleeding such as melena, hematochezia, or hematuria. Review of Systems: As noted in HPI. All other 10 point ROS reviewed and otherwise negative. Past Medical/Surgical History 1. Status post pericardial aortic valve replacement in 2007 2. Single vessel CABG (to PDA) in 2007 at the time of her AVR 3. Insulin requiring diabetes mellitus with neuropathy 4. Dyslipidemia 5. Hypertension 6. Hypothyroidism 7. Carotid artery stenosis 8. Lumbar radiculopathy and sciatica 9. Ocular migraines 10. Mohs surgery 11. Cataract surgery 12. Tonsillectomy 13. Tubal ligation Family History No pertinent family history Noncontributory given her advanced age and known CAD. Social History Smoking Status: Never Smoker History of Alcohol Use: No She is a . She has 6 children and numerous grandchildren and great grandchildren. She lives at home with her son. She denies smoking, alcohol, or illicit drug use. Review of Systems Respiratory: No shortness of breath Cardiac: No chest pain, No palpitations Allergies Coded Allergies: Penicillins (Verified Allergy, Unknown, UNKNOWN, 05/18/17) Sulfa Antibiotics (Verified Allergy, Unknown, SEVERE HIVES, 05/18/17) Tramadol (Unverified Allergy, Unknown, UNKNOWN, 05/18/17) Medications Current Inpatient Medications Medications (Trade) Dose Ordered Sig/Bernadine Route Start Time Stop Time Status Last Admin Dose Admin Atorvastatin Calcium (Lipitor Tab) 40 mg HS PO 05/18/17 21:00 06/17/17 20:59 05/18/17 20:17 40 MG Cholecalciferol (Vitamin D Tab) 1,000 inter.unit DAILY PO 05/19/17 09:00 06/18/17 08:59 05/19/17 08:25 1,000 INTER.UNIT Clonidine HCl (Catapres Tab) 0.1 mg BID PRN PO 05/18/17 14:45 06/17/17 14:44 Clopidogrel Bisulfate (plAVix TAB) 75 mg QAM PO 05/19/17 09:00 06/18/17 08:59 05/19/17 08:25 75 MG Levothyroxine Sodium (Synthroid Tab) 25 mcg DAILYBB PO 05/19/17 06:00 06/18/17 06:59 05/19/17 05:40 25 MCG Lisinopril (Zestril Tab) 5 mg BID PO 05/18/17 21:00 06/17/17 20:59 05/19/17 08:25 5 MG Lorazepam (Ativan Tab) 0.5 mg Q8 PRN PO 05/18/17 14:45 06/17/17 14:44 Insulin Aspart (novoLOG ASPART) SLIDING SCALE G... ACHS SC 05/18/17 16:00 06/17/17 15:59 05/19/17 08:27 1 UNITS Heparin Sodium (Porcine) (Heparin Sq 5000 Unit/0.5ml) 5,000 unit Q8 SQ 05/18/17 22:00 06/17/17 21:59 05/19/17 05:41 5,000 UNIT Acetaminophen (Tylenol Tab) 650 mg Q4H PRN PO 05/18/17 14:45 06/17/17 14:44 Al Hydrox/Mg Hydrox/Simethicone (Maalox Max Susp) 15 ml Q4H PRN PO 05/18/17 14:45 06/17/17 14:44 Magnesium Hydroxide (Milk Of Magnesia Susp) 30 ml Q12H PRN PO 05/18/17 14:45 06/17/17 14:44 Ondansetron HCl (Zofran Inj) 4 mg Q6H PRN IV 05/18/17 14:45 06/17/17 14:44 Morphine Sulfate (MoRPHine SULFATE INJ) 2 mg Q30M PRN IV 05/18/17 14:45 06/01/17 14:44 Aspirin (Ecotrin Tab) 81 mg QAM PO 05/19/17 09:00 06/18/17 08:59 05/19/17 08:25 81 MG Miscellaneous Information (Pharmacist Discharge Med Rec Consult) 1 ea UD PRN N/A 05/18/17 14:45 06/17/17 14:44 Miscellaneous (Iv Fluids Completed) 1 ea PRN PRN N/A 05/18/17 15:30 05/18/18 15:29 Escitalopram Oxalate (Lexapro Tab) 5 mg DAILY PO 05/19/17 09:00 06/18/17 08:59 05/19/17 08:25 5 MG Miscellaneous Information (Order Awaiting Action) 1 ea QS N/A 05/19/17 00:00 06/18/17 00:00 Glucose (Glucose 40% Gel) 15-30 GRAMS 15 GRAMS... UD PRN PO 05/18/17 16:00 06/17/17 15:59 Glucose (Glucose Chew Tab) 4-8 Tablets 4 Tabl... UD PRN PO 05/18/17 16:00 06/17/17 15:59 Dextrose (Dextrose 50% 50ML Syringe) 25-50ML OF 50% DW IV FOR... UD PRN IV 05/18/17 16:00 06/17/17 15:59 Glucagon (Glucagon Inj) 1 mg UD PRN SQ 05/18/17 16:00 06/17/17 15:59 Gadobutrol (Gadavist) 5 mmol UD PRN IV 05/18/17 20:15 05/22/17 20:14 Insulin Glargine (Lantus Solostar Pen) 13 units HS SC 05/19/17 21:00 06/18/17 20:59 Hydralazine HCl (HydrALAZINE INJ) 10 mg Q6H PRN IV. 05/19/17 01:15 06/18/17 01:14 05/19/17 05:40 10 MG Physical Exam Vital Signs Past 12 Hours Date Time Temp Pulse Resp B/P (MAP) Pulse Ox O2 Delivery O2 Flow Rate FiO2 05/19/17 08:00 79 18 155/75 (101) 97 Room Air 05/19/17 08:00 Room Air 05/19/17 08:00 Room Air 05/19/17 06:00 69 17 142/71 (94) 97 Room Air 05/19/17 05:37 68 22 164/81 (108) 97 Room Air 05/19/17 05:00 69 22 179/82 (114) 97 Room Air 05/19/17 04:00 37.0 61 15 142/70 (94) 97 Room Air 05/19/17 04:00 Room Air 05/19/17 03:00 66 20 137/68 (91) 96 Room Air 05/19/17 02:00 67 22 141/64 (89) 97 Room Air 05/19/17 01:00 72 18 140/70 (93) 97 Room Air 05/19/17 00:00 36.9 69 17 151/82 (105) 97 Room Air 05/19/17 00:00 Room Air 05/18/17 22:00 67 16 143/67 (93) 96 05/18/17 22:00 67 16 143/67 (93) 96 05/18/17 22:00 69 16 143/67 (92) 97 Room Air 05/18/17 21:45 68 16 97 05/18/17 21:30 70 16 152/82 (119) 97 05/18/17 21:30 70 16 152/82 (119) 97 Constitutional: Alert, oriented, in no acute distress HEENT: Head is atraumatic and normocephalic. EOMs intact. Sclera anicteric. Face is symmetric. No perioral cyanosis. Mucous membranes moist. Neck: Supple, no appreciable JVD, bilateral carotid bruits Pulmonary: Normal respiratory effort, clear to auscultation bilaterally Cardiac: Regular rate and rhythm, normal S1 and S2, no gallops, no rubs, no obvious murmurs Extremities: No clubbing, cyanosis, or edema. Pulses intact Abdomen: Normal bowel sounds, soft, non-tender, no abdominal mass palpated Skin: Normal skin color, turgor, and pigmentation, no rash, no skin lesions Neurological: Oriented to person, place, and time Data Laboratory Results: Last 24 Hours Test 05/18/17 12:00 05/18/17 12:52 05/18/17 14:50 05/18/17 16:30 White Blood Count 6.28 K/uL Red Blood Count 4.81 M/uL Hemoglobin 13.1 g/dL Hematocrit 39.8 % Mean Corpuscular Volume 82.7 fL Mean Corpuscular Hemoglobin 27.2 pg Mean Corpuscular Hemoglobin Concent 32.9 g/dl Platelet Count 209 K/uL Mean Platelet Volume 10.3 fL Neutrophils (%) (Auto) 64.8 % Lymphocytes (%) (Auto) 22.1 % Monocytes (%) (Auto) 11.5 % Eosinophils (%) (Auto) 0.8 % Basophils (%) (Auto) 0.3 % Neutrophils # (Auto) 4.07 K/uL Lymphocytes # (Auto) 1.39 K/uL Monocytes # (Auto) 0.72 K/uL Eosinophils # (Auto) 0.05 K/uL Basophils # (Auto) 0.02 K/uL RDW Standard Deviation 44.3 fL RDW Coefficient of Variation 14.6 % Immature Granulocyte % (Auto) 0.5 % Immature Granulocyte # (Auto) 0.03 K/uL Prothrombin Time 11.7 SECONDS Prothromb Time International Ratio 1.1 Activated Partial Thromboplast Time 29.1 SECONDS Partial Thromboplastin Ratio 1.1 Sodium Level 129 mmol/L Potassium Level 4.0 mmol/L Chloride Level 96 mmol/L Carbon Dioxide Level 26 mmol/L Anion Gap 7.0 mmol/L Blood Urea Nitrogen 25 mg/dl Creatinine 1.01 mg/dl Est Creatinine Clear Calc Drug Dose 31.6 ml/min Estimated GFR () 58.4 Estimated GFR (Non- 50.4 BUN/Creatinine Ratio 24.5 Random Glucose 187 mg/dl Estimated Average Glucose 157 mg/dl Hemoglobin A1c 7.1 % Calcium Level 9.5 mg/dl Troponin I < 0.015 ng/ml Bedside Glucose 174 mg/dl Bedside Troponin I 0.050 ng/ml Urine Color YELLOW Urine Appearance CLEAR Urine pH 6.0 Urine Specific Monitor 1.015 Urine Protein NEG Urine Glucose (UA) NEG Urine Ketones NEG Urine Occult Blood NEG Urine Nitrite NEG Urine Bilirubin NEG Urine Urobilinogen NEG Urine Leukocyte Esterase TRACE Urine WBC (Auto) 1-5 /hpf Urine RBC (Auto) 0-4 /hpf Urine Hyaline Casts (Auto) 1-5 /lpf Urine Epithelial Cells (Auto) 5-10 /lpf Urine Bacteria (Auto) NEG Urine Osmolality 249 mOms/kg Urine Random Sodium 64 mEq/L Test 05/18/17 16:43 05/18/17 20:26 05/18/17 23:35 05/19/17 04:52 Bedside Glucose 118 mg/dl 187 mg/dl 167 mg/dl White Blood Count 5.08 K/uL Red Blood Count 4.52 M/uL Hemoglobin 12.2 g/dL Hematocrit 37.0 % Mean Corpuscular Volume 81.9 fL Mean Corpuscular Hemoglobin 27.0 pg Mean Corpuscular Hemoglobin Concent 33.0 g/dl Platelet Count 177 K/uL Mean Platelet Volume 10.3 fL Neutrophils (%) (Auto) 54.7 % Lymphocytes (%) (Auto) 29.5 % Monocytes (%) (Auto) 12.8 % Eosinophils (%) (Auto) 2.2 % Basophils (%) (Auto) 0.4 % Neutrophils # (Auto) 2.78 K/uL Lymphocytes # (Auto) 1.50 K/uL Monocytes # (Auto) 0.65 K/uL Eosinophils # (Auto) 0.11 K/uL Basophils # (Auto) 0.02 K/uL RDW Standard Deviation 43.0 fL RDW Coefficient of Variation 14.3 % Immature Granulocyte % (Auto) 0.4 % Immature Granulocyte # (Auto) 0.02 K/uL Sodium Level 134 mmol/L Potassium Level 4.2 mmol/L Chloride Level 103 mmol/L Carbon Dioxide Level 25 mmol/L Anion Gap 6.0 mmol/L Blood Urea Nitrogen 21 mg/dl Creatinine 0.91 mg/dl Est Creatinine Clear Calc Drug Dose 35.1 ml/min Estimated GFR () 66.2 Estimated GFR (Non- 57.1 BUN/Creatinine Ratio 23.5 Random Glucose 189 mg/dl Calcium Level 8.7 mg/dl Magnesium Level 2.1 mg/dl Troponin I < 0.015 ng/ml Triglycerides Level 88 mg/dl Cholesterol Level 131 mg/dl HDL Cholesterol 50 mg/dl LDL Cholesterol, Calculated 63 mg/dl VLDL Cholesterol, Calculated 18 mg/dl Cholesterol/HDL Ratio 2.6 Test 05/19/17 06:37 Bedside Glucose 181 mg/dl EKG 05/18/2017: Sinus bradycardia at [address] wave abnormality. EKG 05/18/2017: Sinus rhythm at 64 bpm. Telemetry reviewed: Sinus rhythm. No arrhythmia. Assessment & Plan ASSESSMENT: 1. S/P Acute lacunar infarct within the left stoney - Her neurological symptoms have now resolved. 2. Hypertensive urgency - Her blood pressure is adequately controlled currently. 3. S/P pericardial AVR - Her most recent echo in September 2016 showed appropriate valve gradient. 4. CAD S/P CABG x1 - She denies angina. She has no evidence of ACS. 5. Dyslipidemia - She is on high intensity statin therapy, and her lipid profile showed excellent control with LDL 63. 6. Diabetes mellitus 7. Carotid artery stenosis 8. No arrhythmia identified by telemetry monitoring or ECG PLAN: The patient has no evidence of ACS, and there is no indication for an ischemic evaluation at this time as she is asymptomatic. Her blood pressure is now better controlled, but she may benefit from a set dosing of her antihypertensive medications when she is discharged at home. Since the Lisinopril 5 mg BID has not been adequate to control her pressure recently, the dose may need to be titrated prior to discharge. Otherwise, she should remain on high intensity statin therapy and antiplatelet therapy. The patient was discussed with Dr. Vogt, and the plan was made in collaboration with him.
--- NOTE | 2017-05-19 10:55 | Neurology Consultation ---
Neurology Consultation Date of Consultation: May 19, 2017. Attending Physician: Kushal Barker D.O. Primary Care Physician: Shahid Shea M.D. Reason for Consultation: Stroke History of Present Illness Source: patient, hospital records The patient is an 86-year-old female who presented to the emergency department yesterday for further assessment of an episode of facial droop, slurred speech, and poor balance that began suddenly about 1-1/2 hours prior to arrival. The episode had persisted for about 10 minutes and greatly improved by the time she was evaluated in the emergency department. She does not recall experiencing any associated diplopia. She does believe that her speech is slightly slurred this morning but otherwise does not have any new or specific neurological complaints. She denies headache at this time. She denies any weakness or loss of sensation in the limbs at this time. An EKG revealed a normal sinus rhythm, [address] of the head was unremarkable. No evidence of hemorrhage or acute process. A follow-up brain MRI does reveal a very small, punctate, acute infarcts within the left yunior-stoney as well as chronic small vessel ischemic disease throughout the brain parenchyma. I reviewed the images as well as the radiologist's interpretation of this test in degree. An MRI of the head is unremarkable. MR angiography of the neck reveals a 50% stenosis of the right carotid bifurcation and a 50% stenosis of the left internal carotid artery. The patient is aware of this issue and has been following regularly with Dr. Martínez who has been following her carotid stenoses with ultrasounds. She does not have a history of carotid endarterectomy. The patient does have a past medical history is notable for significant hypertension. Further, the patient has been notably hypertensive during this hospitalization with a blood pressure as high as 233/104 obtained yesterday. Her blood pressure has been improving with treatment. Again, she denies headache at this time. Past Medical/Surgical History Medical Problems: (1) Abnormal ECG Status: Acute (2) Anxiety Status: Acute (3) Anxiety Status: Acute (4) Elevated troponin I level Status: Acute (5) Expressive aphasia Status: Acute (6) HTN (hypertension) Status: Acute (7) Hypertension Status: Acute (8) Hypertensive emergency Status: Acute (9) Hyponatremia Status: Acute (10) Poorly-controlled hypertension Status: Acute (11) TIA (transient ischemic attack) Status: Acute Family History There is no pertinent family history that would place this patient at increased risk for additional neurological diagnoses or complications in the context of her current hospitalization at age Social History Drug Use: none Marital Status: ( passed 2015) 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) Allergies Coded Allergies: Penicillins (Verified Allergy, Unknown, UNKNOWN, 05/18/17) Sulfa Antibiotics (Verified Allergy, Unknown, SEVERE HIVES, 05/18/17) Tramadol (Unverified Allergy, Unknown, UNKNOWN, 05/18/17) Current Inpatient Medications Current Inpatient Medications Medications (Trade) Dose Ordered Sig/Bernadine Route Start Time Stop Time Status Last Admin Dose Admin Atorvastatin Calcium (Lipitor Tab) 40 mg HS PO 05/18/17 21:00 06/17/17 20:59 05/18/17 20:17 40 MG Cholecalciferol (Vitamin D Tab) 1,000 inter.unit DAILY PO 05/19/17 09:00 06/18/17 08:59 05/19/17 08:25 1,000 INTER.UNIT Clonidine HCl (Catapres Tab) 0.1 mg BID PRN PO 05/18/17 14:45 06/17/17 14:44 Clopidogrel Bisulfate (plAVix TAB) 75 mg QAM PO 05/19/17 09:00 06/18/17 08:59 05/19/17 08:25 75 MG Levothyroxine Sodium (Synthroid Tab) 25 mcg DAILYBB PO 05/19/17 06:00 06/18/17 06:59 05/19/17 05:40 25 MCG Lisinopril (Zestril Tab) 5 mg BID PO 05/18/17 21:00 06/17/17 20:59 05/19/17 08:25 5 MG Lorazepam (Ativan Tab) 0.5 mg Q8 PRN PO 05/18/17 14:45 06/17/17 14:44 Insulin Aspart (novoLOG ASPART) SLIDING SCALE G... ACHS SC 05/18/17 16:00 06/17/17 15:59 05/19/17 08:27 1 UNITS Heparin Sodium (Porcine) (Heparin Sq 5000 Unit/0.5ml) 5,000 unit Q8 SQ 05/18/17 22:00 06/17/17 21:59 05/19/17 05:41 5,000 UNIT Acetaminophen (Tylenol Tab) 650 mg Q4H PRN PO 05/18/17 14:45 06/17/17 14:44 Al Hydrox/Mg Hydrox/Simethicone (Maalox Max Susp) 15 ml Q4H PRN PO 05/18/17 14:45 06/17/17 14:44 Magnesium Hydroxide (Milk Of Magnesia Susp) 30 ml Q12H PRN PO 05/18/17 14:45 06/17/17 14:44 Ondansetron HCl (Zofran Inj) 4 mg Q6H PRN IV 05/18/17 14:45 06/17/17 14:44 Morphine Sulfate (MoRPHine SULFATE INJ) 2 mg Q30M PRN IV 05/18/17 14:45 06/01/17 14:44 Aspirin (Ecotrin Tab) 81 mg QAM PO 05/19/17 09:00 06/18/17 08:59 05/19/17 08:25 81 MG Miscellaneous Information (Pharmacist Discharge Med Rec Consult) 1 ea UD PRN N/A 05/18/17 14:45 06/17/17 14:44 Miscellaneous (Iv Fluids Completed) 1 ea PRN PRN N/A 05/18/17 15:30 05/18/18 15:29 Escitalopram Oxalate (Lexapro Tab) 5 mg DAILY PO 05/19/17 09:00 06/18/17 08:59 05/19/17 08:25 5 MG Miscellaneous Information (Order Awaiting Action) 1 ea QS N/A 05/19/17 00:00 06/18/17 00:00 Glucose (Glucose 40% Gel) 15-30 GRAMS 15 GRAMS... UD PRN PO 05/18/17 16:00 06/17/17 15:59 Glucose (Glucose Chew Tab) 4-8 Tablets 4 Tabl... UD PRN PO 05/18/17 16:00 06/17/17 15:59 Dextrose (Dextrose 50% 50ML Syringe) 25-50ML OF 50% DW IV FOR... UD PRN IV 05/18/17 16:00 06/17/17 15:59 Glucagon (Glucagon Inj) 1 mg UD PRN SQ 05/18/17 16:00 06/17/17 15:59 Gadobutrol (Gadavist) 5 mmol UD PRN IV 05/18/17 20:15 05/22/17 20:14 Insulin Glargine (Lantus Solostar Pen) 13 units HS SC 05/19/17 21:00 06/18/17 20:59 Hydralazine HCl (HydrALAZINE INJ) 10 mg Q6H PRN IV. 05/19/17 01:15 06/18/17 01:14 05/19/17 05:40 10 MG Review of Systems Constitutional: No fever or chills Eyes: No vision loss or diplopia ENT: No vertigo or tinnitus Cardiovascular: No chest pain or palpitations Respiratory: No coughing wheezing or shortness of breath Neurological: As per history of present illness A full 10 point review of systems was obtained in this patient with pertinent positives and negatives described in history of present illness and otherwise listed above. All remaining systems reviewed and are negative. Physical Exam Vital Signs (Past 24 Hrs): Date Time Temp Pulse Resp B/P (MAP) Pulse Ox O2 Delivery O2 Flow Rate FiO2 05/19/17 08:00 79 18 155/75 (101) 97 Room Air 05/19/17 08:00 Room Air 05/19/17 08:00 Room Air 05/19/17 06:00 69 17 142/71 (94) 97 Room Air 05/19/17 05:37 68 22 164/81 (108) 97 Room Air 05/19/17 05:00 69 22 179/82 (114) 97 Room Air 05/19/17 04:00 37.0 61 15 142/70 (94) 97 Room Air 05/19/17 04:00 Room Air 05/19/17 03:00 66 20 137/68 (91) 96 Room Air 05/19/17 02:00 67 22 141/64 (89) 97 Room Air 05/19/17 01:00 72 18 140/70 (93) 97 Room Air 05/19/17 00:00 36.9 69 17 151/82 (105) 97 Room Air 05/19/17 00:00 Room Air 05/18/17 22:00 67 16 143/67 (93) 96 05/18/17 22:00 67 16 143/67 (93) 96 05/18/17 22:00 69 16 143/67 (92) 97 Room Air 05/18/17 21:45 68 16 97 05/18/17 21:30 70 16 152/82 (119) 97 05/18/17 21:30 70 16 152/82 (119) 97 05/18/17 21:15 73 17 98 05/18/17 21:00 71 14 155/80 (123) 99 05/18/17 20:45 72 18 162/70 (116) 99 05/18/17 20:30 74 23 152/89 (120) 98 05/18/17 20:15 68 18 160/87 (138) 98 05/18/17 20:00 Room Air 05/18/17 20:00 36.7 68 20 152/82 (105) 97 Room Air 05/18/17 19:00 36.4 71 17 139/60 (97) 98 05/18/17 18:30 71 17 139/60 (97) 98 05/18/17 18:15 74 16 149/65 (104) 99 05/18/17 18:00 80 21 157/63 (118) 98 05/18/17 18:00 74 20 157/63 (94) 98 Room Air 05/18/17 17:45 81 15 167/65 (112) 99 05/18/17 17:30 70 16 155/58 (80) 100 05/18/17 17:15 64 19 155/64 (83) 100 05/18/17 17:15 64 19 155/64 (83) 100 05/18/17 17:00 75 17 160/73 (102) 99 05/18/17 17:00 75 17 160/73 (102) 99 05/18/17 16:45 67 19 99 05/18/17 16:38 36.4 71 16 217/93 100 Room Air 05/18/17 16:31 67 20 205/94 05/18/17 16:30 72 28 97 05/18/17 16:30 72 28 97 05/18/17 15:40 197/89 05/18/17 15:39 68 18 204/102 99 05/18/17 15:29 66 18 100 05/18/17 15:19 67 21 100 05/18/17 15:09 70 18 208/98 05/18/17 15:09 70 17 100 05/18/17 15:08 230/97 10/17/17 15:06 204/104 05/18/17 15:03 78 228/99 05/18/17 15:00 228/99 05/18/17 14:59 67 14 99 05/18/17 14:51 233/104 05/18/17 14:50 76 18 233/104 100 Room Air 228/99 05/18/17 13:31 63 18 176/106 99 Room Air 05/18/17 13:28 176/106 05/18/17 13:19 62 19 100 05/18/17 13:09 60 19 100 05/18/17 12:59 61 18 100 05/18/17 12:49 68 22 100 05/18/17 12:39 65 14 98 05/18/17 12:29 57 17 99 05/18/17 12:24 158/76 05/18/17 12:19 59 17 100 05/18/17 12:09 61 05/18/17 12:05 36.5 61 20 158/76 98 Room Air 05/18/17 12:05 158/76 05/18/17 12:05 98 Room Air The patient is a well-developed elderly female. She is sitting up comfortably in bed and is in no acute distress. The patient is alert and oriented to person place and time. Recent and remote memory intact. Attention and concentration normal. Patient is able to name objects and repeat phrases. She does exhibit mild dysarthria. Patient exhibits an age-appropriate fund of knowledge and normal vocabulary. Visual vail full to confrontation. Visual acuity normal. Pupils equal round reactive to light and accommodation. Eye movements normal. Facial sensation intact bilaterally. There is normal facial symmetry and strength. No facial droop. There is an impaired hearing to finger rub on the right. Hearing to finger rub on the left intact (hearing aid in place). Palate elevates to midline. Shoulder shrug strength intact bilaterally. Tongue protrudes to midline. Sensation intact to temperature, light touch, temperature , and proprioception for all 4 limbs. I do not find any evidence of a "crossed sensory deficit." Deep tendon reflexes are intact and symmetric for the arms and legs bilaterally. Plantar responses downgoing bilaterally. There is no dysdiadochokinesia or dysmetria with finger to nose or heel to waters bilaterally. Ophthalmoscopic examination reveals normal-appearing optic disks and posterior segments. No papilledema or hemorrhages. Carotid pulses normal bilaterally. Patient does have faint bruits to auscultation bilaterally. Gait and station not tested due to safety concerns. Muscle strength and tone normal for the arms and legs bilaterally. No atrophy. No abnormal movements observed. Laboratory Results Past 24 Hours: 05/19/17 04:52 Red Blood Count 4.52, Mean Corpuscular Volume 81.9, Mean Corpuscular Hemoglobin 27.0, Mean Corpuscular Hemoglobin Concent 33.0, Mean Platelet Volume 10.3, Neutrophils (%) (Auto) 54.7, Lymphocytes (%) (Auto) 29.5, Monocytes (%) (Auto) 12.8, Eosinophils (%) (Auto) 2.2, Basophils (%) (Auto) 0.4, Neutrophils # (Auto ) 2.78, Lymphocytes # (Auto) 1.50, Monocytes # (Auto) 0.65, Eosinophils # (Auto ) 0.11, Basophils # (Auto) 0.02 05/19/17 04:52 Test 05/18/17 12:00 05/18/17 12:52 05/18/17 14:50 05/18/17 16:30 Prothrombin Time 11.7 SECONDS (9.0-12.0) Prothromb Time International Ratio 1.1 (0.9-1.1) Activated Partial Thromboplast Time 29.1 SECONDS (21.0-31.0) Partial Thromboplastin Ratio 1.1 Estimated Average Glucose 157 mg/dl Hemoglobin A1c 7.1 % (4.5-5.6) Bedside Troponin I 0.050 ng/ml (0-0.045) Urine Color YELLOW Urine Appearance CLEAR (CLEAR) Urine pH 6.0 (4.5-7.5) Urine Specific Humble 1.015 (1.000-1.030) Urine Protein NEG (NEG) Urine Glucose (UA) NEG (NEG) Urine Ketones NEG (NEG) Urine Occult Blood NEG (NEG) Urine Nitrite NEG (NEG) Urine Bilirubin NEG (NEG) Urine Urobilinogen NEG (NEG) Urine Leukocyte Esterase TRACE (NEG) Urine WBC (Auto) 1-5 /hpf (0-5) Urine RBC (Auto) 0-4 /hpf (0-4) Urine Hyaline Casts (Auto) 1-5 /lpf (0-5) Urine Epithelial Cells (Auto) 5-10 /lpf (0-5) Urine Bacteria (Auto) NEG (NEG) Urine Osmolality 249 mOms/kg (500-800) Urine Random Sodium 64 mEq/L Test 05/19/17 04:52 05/19/17 06:37 White Blood Count 5.08 K/uL (4.8-10.8) Red Blood Count 4.52 M/uL (4.2-5.4) Hemoglobin 12.2 g/dL (12.0-16.0) Hematocrit 37.0 % (37-47) Mean Corpuscular Volume 81.9 fL (80-100) Mean Corpuscular Hemoglobin 27.0 pg (25-34) Mean Corpuscular Hemoglobin Concent 33.0 g/dl (32-36) Platelet Count 177 K/uL (130-400) Mean Platelet Volume 10.3 fL (7.4-10.4) Neutrophils (%) (Auto) 54.7 % Lymphocytes (%) (Auto) 29.5 % Monocytes (%) (Auto) 12.8 % Eosinophils (%) (Auto) 2.2 % Basophils (%) (Auto) 0.4 % Neutrophils # (Auto) 2.78 K/uL (1.4-6.5) Lymphocytes # (Auto) 1.50 K/uL (1.2-3.4) Monocytes # (Auto) 0.65 K/uL (0.11-0.59) Eosinophils # (Auto) 0.11 K/uL (0-0.5) Basophils # (Auto) 0.02 K/uL (0-0.2) RDW Standard Deviation 43.0 fL (36.4-46.3) RDW Coefficient of Variation 14.3 % (11.5-14.5) Immature Granulocyte % (Auto) 0.4 % Immature Granulocyte # (Auto) 0.02 K/uL (0.00-0.02) Anion Gap 6.0 mmol/L (3-11) Est Creatinine Clear Calc Drug Dose 35.1 ml/min Estimated GFR () 66.2 Estimated GFR (Non- 57.1 BUN/Creatinine Ratio 23.5 (10-20) Calcium Level 8.7 mg/dl (8.5-10.1) Magnesium Level 2.1 mg/dl (1.8-2.4) Troponin I < 0.015 ng/ml (0-0.045) Triglycerides Level 88 mg/dl (0-150) Cholesterol Level 131 mg/dl (0-200) HDL Cholesterol 50 mg/dl LDL Cholesterol, Calculated 63 mg/dl VLDL Cholesterol, Calculated 18 mg/dl Cholesterol/HDL Ratio 2.6 Bedside Glucose 181 mg/dl (70-90) Date/Time Source Procedure Growth Status 05/18/17 16:30 Nasal MRSA DNA Surveillance Screen - Final Specimen Negative for MRSA by DNA Probe Complete Impression This is an 86-year-old female who presents with an episode of facial droop, dysarthria, and poor balance lasting about 10 minutes and largely resolving by the time she was assessed in the emergency department. She does have very mild residual dysarthria at this time. Her recently completed brain MRI does reveal a very faint, punctate, infarct within the left yunior-stoney. 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 Fortunately, most of her symptoms have resolved. Hypertensive urgency would be the most significant risk factor in this patient's presentation. Her blood pressure has been much better controlled during this hospitalization. She also has a history of diabetes mellitus which would be another pertinent risk factor. The bilateral moderate carotid stenoses would not be clinically significant. Plan Additional neurological testing is not needed. Continue medical management of patient's hypertension. Continue antiplatelet therapy. I would typically only recommend a single antiplatelet agent for stroke risk reduction. In her case, I think Plavix is appropriate. However, if cardiology feels that 2 antiplatelet agents are necessary in light of her cardiac history, then it may be reasonable to continue with both aspirin and Plavix PT/OT/speech therapy consultations Please contact me if I may be of further assistance
[2017-05-19] MEDS ORDERED: INSULIN ASPART 100 UNITS/ML 3 ML PEN SC ONE (12:30)
--- NOTE | 2017-05-19 12:45 | Progress Note ---
Subjective Date of Service: May 19, 2017. Subjective Pt evaluation today including: conversation w/ patient, conversation w/ family , physical exam, lab review, review of studies, conversation w/ funeral pre need consultant, review of inpatient medication list Pain: no pain PO Intake: adequate Voiding: no voiding problems patient feeling well, only mild dysarthria but most of symptoms resolved no other complaints wants to take Novolog like at home, 3 units, 9 units and then 11 units with meals reviewed MRI, small infarct in left stoney MRA head and neck mostly unremarkable Cardene off discussed case with ICU reviewed recommendations from cardiology and neurology Problem List Medical Problems: (1) Abnormal ECG Status: Acute (2) Anxiety Status: Acute (3) Anxiety Status: Acute (4) Elevated troponin I level Status: Acute (5) Expressive aphasia Status: Acute (6) HTN (hypertension) Status: Acute (7) Hypertension Status: Acute (8) Hypertensive emergency Status: Acute (9) Hyponatremia Status: Acute (10) Poorly-controlled hypertension Status: Acute (11) TIA (transient ischemic attack) Status: Acute Review of Systems All Other Systems: Reviewed and Negative Medications Current Inpatient Medications Medications (Trade) Dose Ordered Sig/Bernadine Route Start Time Stop Time Status Last Admin Dose Admin Atorvastatin Calcium (Lipitor Tab) 40 mg HS PO 05/18/17 21:00 06/17/17 20:59 05/18/17 20:17 40 MG Cholecalciferol (Vitamin D Tab) 1,000 inter.unit DAILY PO 05/19/17 09:00 06/18/17 08:59 05/19/17 08:25 1,000 INTER.UNIT Clonidine HCl (Catapres Tab) 0.1 mg BID PRN PO 05/18/17 14:45 06/17/17 14:44 Clopidogrel Bisulfate (plAVix TAB) 75 mg QAM PO 05/19/17 09:00 06/18/17 08:59 05/19/17 08:25 75 MG Levothyroxine Sodium (Synthroid Tab) 25 mcg DAILYBB PO 05/19/17 06:00 06/18/17 06:59 05/19/17 05:40 25 MCG Lisinopril (Zestril Tab) 5 mg BID PO 05/18/17 21:00 06/17/17 20:59 05/19/17 08:25 5 MG Lorazepam (Ativan Tab) 0.5 mg Q8 PRN PO 05/18/17 14:45 06/17/17 14:44 Heparin Sodium (Porcine) (Heparin Sq 5000 Unit/0.5ml) 5,000 unit Q8 SQ 05/18/17 22:00 06/17/17 21:59 05/19/17 05:41 5,000 UNIT Acetaminophen (Tylenol Tab) 650 mg Q4H PRN PO 05/18/17 14:45 06/17/17 14:44 Al Hydrox/Mg Hydrox/Simethicone (Maalox Max Susp) 15 ml Q4H PRN PO 05/18/17 14:45 06/17/17 14:44 Magnesium Hydroxide (Milk Of Magnesia Susp) 30 ml Q12H PRN PO 05/18/17 14:45 06/17/17 14:44 Ondansetron HCl (Zofran Inj) 4 mg Q6H PRN IV 05/18/17 14:45 06/17/17 14:44 Morphine Sulfate (MoRPHine SULFATE INJ) 2 mg Q30M PRN IV 05/18/17 14:45 06/01/17 14:44 Aspirin (Ecotrin Tab) 81 mg QAM PO 05/19/17 09:00 06/18/17 08:59 05/19/17 08:25 81 MG Miscellaneous Information (Pharmacist Discharge Med Rec Consult) 1 ea UD PRN N/A 05/18/17 14:45 06/17/17 14:44 Miscellaneous (Iv Fluids Completed) 1 ea PRN PRN N/A 05/18/17 15:30 05/18/18 15:29 Escitalopram Oxalate (Lexapro Tab) 5 mg DAILY PO 05/19/17 09:00 06/18/17 08:59 05/19/17 08:25 5 MG Miscellaneous Information (Order Awaiting Action) 1 ea QS N/A 05/19/17 00:00 06/18/17 00:00 Glucose (Glucose 40% Gel) 15-30 GRAMS 15 GRAMS... UD PRN PO 05/18/17 16:00 06/17/17 15:59 Glucose (Glucose Chew Tab) 4-8 Tablets 4 Tabl... UD PRN PO 05/18/17 16:00 06/17/17 15:59 Dextrose (Dextrose 50% 50ML Syringe) 25-50ML OF 50% DW IV FOR... UD PRN IV 05/18/17 16:00 06/17/17 15:59 Glucagon (Glucagon Inj) 1 mg UD PRN SQ 05/18/17 16:00 06/17/17 15:59 Gadobutrol (Gadavist) 5 mmol UD PRN IV 05/18/17 20:15 05/22/17 20:14 Insulin Glargine (Lantus Solostar Pen) 13 units HS SC 05/19/17 21:00 06/18/17 20:59 Hydralazine HCl (HydrALAZINE INJ) 10 mg Q6H PRN IV. 05/19/17 01:15 06/18/17 01:14 05/19/17 05:40 10 MG Insulin Aspart (novoLOG ASPART) SLIDING SCALE G... ACHS SC 05/19/17 16:00 06/18/17 15:59 Insulin Aspart (novoLOG ASPART) 11 units QDD SC 05/19/17 16:30 06/18/17 16:29 Insulin Aspart (novoLOG ASPART) 3 units QDB SC 05/20/17 07:15 06/19/17 07:14 Insulin Aspart (novoLOG ASPART) 9 units QDL SC 05/20/17 11:30 06/19/17 11:29 Objective Vital Signs Date Time Temp Pulse Resp B/P (MAP) Pulse Ox O2 Delivery O2 Flow Rate FiO2 05/19/17 12:00 Room Air 05/19/17 12:00 68 18 123/64 (83) Room Air 05/19/17 08:00 79 18 155/75 (101) 97 Room Air 05/19/17 08:00 Room Air 05/19/17 08:00 Room Air 05/19/17 06:00 69 17 142/71 (94) 97 Room Air 05/19/17 05:37 68 22 164/81 (108) 97 Room Air 05/19/17 05:00 69 22 179/82 (114) 97 Room Air 05/19/17 04:00 37.0 61 15 142/70 (94) 97 Room Air 05/19/17 04:00 Room Air 05/19/17 03:00 66 20 137/68 (91) 96 Room Air 05/19/17 02:00 67 22 141/64 (89) 97 Room Air 05/19/17 01:00 72 18 140/70 (93) 97 Room Air 05/19/17 00:00 36.9 69 17 151/82 (105) 97 Room Air 05/19/17 00:00 Room Air 05/18/17 22:00 67 16 143/67 (93) 96 05/18/17 22:00 67 16 143/67 (93) 96 05/18/17 22:00 69 16 143/67 (92) 97 Room Air 05/18/17 21:45 68 16 97 05/18/17 21:30 70 16 152/82 (119) 97 05/18/17 21:30 70 16 152/82 (119) 97 05/18/17 21:15 73 17 98 05/18/17 21:00 71 14 155/80 (123) 99 05/18/17 20:45 72 18 162/70 (116) 99 05/18/17 20:30 74 23 152/89 (120) 98 05/18/17 20:15 68 18 160/87 (138) 98 05/18/17 20:00 Room Air 05/18/17 20:00 36.7 68 20 152/82 (105) 97 Room Air 05/18/17 19:00 36.4 71 17 139/60 (97) 98 05/18/17 18:30 71 17 139/60 (97) 98 05/18/17 18:15 74 16 149/65 (104) 99 05/18/17 18:00 80 21 157/63 (118) 98 05/18/17 18:00 74 20 157/63 (94) 98 Room Air 05/18/17 17:45 81 15 167/65 (112) 99 05/18/17 17:30 70 16 155/58 (80) 100 05/18/17 17:15 64 19 155/64 (83) 100 05/18/17 17:15 64 19 155/64 (83) 100 05/18/17 17:00 75 17 160/73 (102) 99 05/18/17 17:00 75 17 160/73 (102) 99 05/18/17 16:45 67 19 99 05/18/17 16:38 36.4 71 16 217/93 100 Room Air 05/18/17 16:31 67 20 205/94 05/18/17 16:30 72 28 97 05/18/17 16:30 72 28 97 05/18/17 15:40 197/89 05/18/17 15:39 68 18 204/102 99 05/18/17 15:29 66 18 100 05/18/17 15:19 67 21 100 05/18/17 15:09 70 18 208/98 05/18/17 15:09 70 17 100 05/18/17 15:08 230/97 05/18/17 15:06 204/104 05/18/17 15:03 78 228/99 05/18/17 15:00 228/99 05/18/17 14:59 67 14 99 05/18/17 14:51 233/104 05/18/17 14:50 76 18 233/104 100 Room Air 228/99 05/18/17 13:31 63 18 176/106 99 Room Air 05/18/17 13:28 176/106 05/18/17 13:19 62 19 100 05/18/17 13:09 60 19 100 05/18/17 12:59 61 18 100 05/18/17 12:49 68 22 100 05/18/17 12:39 65 14 98 Physical Exam General Appearance: WD/WN, no apparent distress Eyes: normal inspection, EOMI, sclerae normal ENT: normal ENT inspection, hearing grossly normal, pharynx normal Neck: supple, no adenopathy, no JVD, trachea midline Respiratory/Chest: chest non-tender, lungs clear, normal breath sounds, no respiratory distress, no accessory muscle use Cardiovascular: regular rate, rhythm, no edema, no gallop, no JVD, no murmur Abdomen: normal bowel sounds, non tender, soft, no organomegaly Extremities: normal range of motion, non-tender, normal inspection, no pedal edema, no calf tenderness Neurologic/Psychiatric: dockmaster II-XII nml as tested, no motor/sensory deficits, alert, normal mood/affect, oriented x 3 Skin: normal color, warm/dry, no rash Laboratory Results Last 24 Hours Test 05/18/17 12:52 05/18/17 14:50 05/18/17 16:30 05/18/17 16:43 Bedside Glucose 174 mg/dl 118 mg/dl Bedside Troponin I 0.050 ng/ml Urine Color YELLOW Urine Appearance CLEAR Urine pH 6.0 Urine Specific [place] 1.015 Urine Protein NEG Urine Glucose (UA) NEG Urine Ketones NEG Urine Occult Blood NEG Urine Nitrite NEG Urine Bilirubin NEG Urine Urobilinogen NEG Urine Leukocyte Esterase TRACE Urine WBC (Auto) 1-5 /hpf Urine RBC (Auto) 0-4 /hpf Urine Hyaline Casts (Auto) 1-5 /lpf Urine Epithelial Cells (Auto) 5-10 /lpf Urine Bacteria (Auto) NEG Urine Osmolality 249 mOms/kg Urine Random Sodium 64 mEq/L Test 05/18/17 20:26 05/18/17 23:35 05/19/17 04:52 05/19/17 06:37 Bedside Glucose 187 mg/dl 167 mg/dl 181 mg/dl White Blood Count 5.08 K/uL Red Blood Count 4.52 M/uL Hemoglobin 12.2 g/dL Hematocrit 37.0 % Mean Corpuscular Volume 81.9 fL Mean Corpuscular Hemoglobin 27.0 pg Mean Corpuscular Hemoglobin Concent 33.0 g/dl Platelet Count 177 K/uL Mean Platelet Volume 10.3 fL Neutrophils (%) (Auto) 54.7 % Lymphocytes (%) (Auto) 29.5 % Monocytes (%) (Auto) 12.8 % Eosinophils (%) (Auto) 2.2 % Basophils (%) (Auto) 0.4 % Neutrophils # (Auto) 2.78 K/uL Lymphocytes # (Auto) 1.50 K/uL Monocytes # (Auto) 0.65 K/uL Eosinophils # (Auto) 0.11 K/uL Basophils # (Auto) 0.02 K/uL RDW Standard Deviation 43.0 fL RDW Coefficient of Variation 14.3 % Immature Granulocyte % (Auto) 0.4 % Immature Granulocyte # (Auto) 0.02 K/uL Sodium Level 134 mmol/L Potassium Level 4.2 mmol/L Chloride Level 103 mmol/L Carbon Dioxide Level 25 mmol/L Anion Gap 6.0 mmol/L Blood Urea Nitrogen 21 mg/dl Creatinine 0.91 mg/dl Est Creatinine Clear Calc Drug Dose 35.1 ml/min Estimated GFR () 66.2 Estimated GFR (Non- 57.1 BUN/Creatinine Ratio 23.5 Random Glucose 189 mg/dl Calcium Level 8.7 mg/dl Magnesium Level 2.1 mg/dl Troponin I < 0.015 ng/ml Triglycerides Level 88 mg/dl Cholesterol Level 131 mg/dl HDL Cholesterol 50 mg/dl LDL Cholesterol, Calculated 63 mg/dl VLDL Cholesterol, Calculated 18 mg/dl Cholesterol/HDL Ratio 2.6 Test 05/19/17 10:39 05/19/17 11:37 Troponin I < 0.015 ng/ml Bedside Glucose 237 mg/dl Assessment and Plan 86 y/o F Hx AVR, DM II, hypothyroidism, HTN, HPL, Grade I diastolic dysfunction. Pt states that over the past 2 days her BP has been labile and fluctuating between 170-200 at home. She was worming in her kitchen today and her daughter reported that she developed a L facia droop and slurred speech. She was brought into the ER therefore. Her symptoms had resolved at the time of arrival. An initial EKG revealed inferior ST depressions. This normalized on a repeat which appeared to correlate with a lower BP. An initial troponin is marginally elevated and her sodium is incidentally low She has no complaints of CP, SOB, lightheadedness or nausea and vomiting. She was unaware of her neurological symptoms when they occurred. - Left lacunar ischemic infarct, stoney antiplatelet therapy with aspirin and Plavix, neurology recommends just Plavix LDL controlled on statin HbA1c 7.1 on Lantus and Novolog BP control with Lisinopril no further neurological testing recommended PT/OT and speech therapy - Hypertensive urgency: resolved, no further Cardene resume Lisinopril 5mg BID and PRN Hydralazine - DM, insulin dependent: Lantus 13 units and Novolog with meals (3, 9 and 11 units with BLD) sliding scale coverage with CF of 40 - Mild elevated in troponin, no EKG changes, continue antiplatelet therapy, likely demand ischemia from hypertension - Hypothyroidism: Synthroid - Hyponatremia: resolving, Uosm low at 294 so unlikely SIADH repeat tomorrow - Depression: lexapro DVT prophylaxis: heparin SC
[2017-05-19] MEDS: LORAZEPAM 0.5 MG TAB PO PRN (17:08)
[2017-05-19] MEDS ORDERED: CLONIDINE HCL 0.1 MG TAB PO ONE (18:00)
[2017-05-19] MEDS: ATORVASTATIN 40 MG TAB PO SCH (21:09)
[2017-05-19] MEDS: INSULIN GLARGINE SOLOSTAR 100 UNITS/ML 3 ML PEN SC SCH (21:10)
[2017-05-20] VITALS (10 sets, daily range): BP systolic 96–195; BP diastolic 58–82; PULSE 63–71; TEMP 36.4–36.7; O2SAT 97–99
[2017-05-20] MEDS: LORAZEPAM 0.5 MG TAB PO PRN (03:36)
[2017-05-20] MEDS: HydrALAZINE HCL 20 MG/ML VIAL IV. PRN (03:37)
[2017-05-20] MEDS: LEVOTHYROXINE 25 MCG TAB PO SCH (06:00)
[2017-05-20] MEDS: HEPARIN SOD 5000 UNIT/0.5 ML CARP SQ SCH ×3 (06:03→21:33)
[2017-05-20] MEDS: INSULIN ASPART 100 UNITS/ML 3 ML PEN SC SCH ×7 (07:00→20:11)
[2017-05-20 07:03] LABS: BASO % 0.2 %; BASO ABS # 0.01 K/uL (0-0.2); COMPLETE YES; EOS % 2.1 %; HEMATOCRIT 34.1 % (37-47); IG% 0.5 %; LYMPH % 25.7 %; LYMPH ABS # 1.12 K/uL (1.2-3.4); MEAN CORPUSCULAR HEMOGLOBIN 26.7 pg (25-34); MEAN CORPUSCULAR HGB CONC 32.6 g/dl (32-36); MEAN PLATELET VOLUME 10.4 fL (7.4-10.4); MONO % 10.8 %; NEUT % 60.7 %; PLATELET COUNT 152 K/uL (130-400); RED BLOOD COUNT 4.16 M/uL (4.2-5.4); WHITE BLOOD COUNT 4.35 K/uL (4.8-10.8)
[2017-05-20 07:33] LABS: BUN/CREATININE RATIO 29.9 (10-20); CALCIUM 8.9 mg/dl (8.5-10.1); CREATININE 0.84 mg/dl (0.60-1.20); POTASSIUM 4.2 mmol/L (3.5-5.1)
[2017-05-20] MEDS: SIMBRINZA ~ ORDER AWAITING ACTION SCH ×3 (07:40→16:00)
[2017-05-20] MEDS: CLOPIDOGREL BISULFATE 75 MG TAB PO SCH (07:41)
[2017-05-20] MEDS: LISINOPRIL 5 MG TAB PO SCH (07:41)
[2017-05-20] MEDS: ASPIRIN 81 MG ECTAB PO SCH (07:41)
[2017-05-20] MEDS: ESCITALOPRAM OXALATE 10 MG TAB PO SCH (07:41)
[2017-05-20] MEDS: CHOLECALCIFEROL 1000 INTER.UNIT TAB PO SCH (07:41)
--- NOTE | 2017-05-20 10:14 | Cardiology Follow-Up ---
Subjective Date of Service: May 20, 2017. Pt evaluation today including: conversation w/ patient, conversation w/ family , physical exam, chart review, lab review, review of studies, review of inpatient medication list, conversation w/ attending History of Present Illness Patient was seen at bedside this morning. Her son and daughter accompany her in the room. She reports that she has been feeling very anxious and overwhelmed in regards to her blood pressure as well as her diabetes mellitus since she has to take her blood sugar several times daily. She denies chest pain or shortness of breath. She denies orthopnea, PND, or edema. She denies palpitations, syncope, or presyncope. She denies cerebrovascular symptoms. Early this morning, her blood pressure teto to >190 mmHg systolic. She was therefore given IV hydralazine with improvement in her pressure. Social History Smoking Status: Never Smoker History of Alcohol Use: No Review of Systems Cardiac: + palpitations Objective Vital Signs Past 12 Hours Date Time Temp Pulse Resp B/P (MAP) Pulse Ox O2 Delivery O2 Flow Rate FiO2 05/20/17 08:06 Room Air 05/20/17 07:37 36.7 68 18 136/70 (92) 98 Room Air 05/20/17 04:15 67 115/65 (82) 05/20/17 04:00 Room Air 05/20/17 04:00 69 145/65 (91) 05/20/17 03:42 71 180/82 (114) 05/20/17 03:29 36.6 71 17 190/77 (114) 99 Room Air 195/75 (115) 05/20/17 00:00 Room Air 05/19/17 23:10 36.7 74 17 151/70 (97) 98 Room Air Last Recorded Weight-Kilograms: 55.800 Physical Exam Constitutional: Alert, oriented, in no acute distress HEENT: Head is atraumatic and normocephalic. EOMs intact. Sclera anicteric. Face is symmetric. No perioral cyanosis. Mucous membranes moist. Neck: Supple, no appreciable JVD Pulmonary: Normal respiratory effort, clear to auscultation bilaterally Cardiac: Regular rate and rhythm, normal S1 and S2, no gallops, no rubs, 1/6 basal systolic murmur, 1/6 apical holosystolic murmur Extremities: No clubbing, cyanosis, or edema. Pulses intact Abdomen: Normal bowel sounds, soft, non-tender, no abdominal mass palpated Skin: Normal skin color, turgor, and pigmentation, no rash, no skin lesions Neurological: Oriented to person, place, and time Data Laboratory Results: Last 24 Hours Test 05/19/17 10:39 05/19/17 11:37 05/19/17 15:57 05/19/17 20:48 Troponin I < 0.015 ng/ml Bedside Glucose 237 mg/dl 153 mg/dl 244 mg/dl Test 05/20/17 06:23 05/20/17 06:43 Bedside Glucose 152 mg/dl White Blood Count 4.35 K/uL Red Blood Count 4.16 M/uL Hemoglobin 11.1 g/dL Hematocrit 34.1 % Mean Corpuscular Volume 82.0 fL Mean Corpuscular Hemoglobin 26.7 pg Mean Corpuscular Hemoglobin Concent 32.6 g/dl Platelet Count 152 K/uL Mean Platelet Volume 10.4 fL Neutrophils (%) (Auto) 60.7 % Lymphocytes (%) (Auto) 25.7 % Monocytes (%) (Auto) 10.8 % Eosinophils (%) (Auto) 2.1 % Basophils (%) (Auto) 0.2 % Neutrophils # (Auto) 2.64 K/uL Lymphocytes # (Auto) 1.12 K/uL Monocytes # (Auto) 0.47 K/uL Eosinophils # (Auto) 0.09 K/uL Basophils # (Auto) 0.01 K/uL RDW Standard Deviation 43.8 fL RDW Coefficient of Variation 14.6 % Immature Granulocyte % (Auto) 0.5 % Immature Granulocyte # (Auto) 0.02 K/uL Sodium Level 132 mmol/L Potassium Level 4.2 mmol/L Chloride Level 101 mmol/L Carbon Dioxide Level 24 mmol/L Anion Gap 7.0 mmol/L Blood Urea Nitrogen 25 mg/dl Creatinine 0.84 mg/dl Est Creatinine Clear Calc Drug Dose 38.0 ml/min Estimated GFR () 72.9 Estimated GFR (Non- 62.9 BUN/Creatinine Ratio 29.9 Random Glucose 152 mg/dl Calcium Level 8.9 mg/dl Telemetry reviewed: Sinus rhythm with occasional PVCs. No atrial or ventricular arrhythmia identified. Assessment and Plan ASSESSMENT: 1. S/P Acute lacunar infarct within the left stoney - Her neurological symptoms have now resolved. Neurology has recommended only one antiplatelet medication in the form of Plavix for treatment of her cerebrovascular disease. 2. Hypertensive urgency - Her blood pressure is adequately controlled currently , but she has continued to require IV hydralazine PRN for spikes in her blood pressure. 3. S/P pericardial AVR - Her most recent echo in September 2016 showed appropriate valve gradient. 4. CAD S/P CABG x1 - She denies angina. She has no evidence of ACS. 5. Dyslipidemia - She is on high intensity statin therapy, and her lipid profile showed excellent control with LDL 63. 6. Diabetes mellitus 7. Carotid artery stenosis 8. No arrhythmia identified by telemetry monitoring PLAN: 1. Increase Lisinopril to 10 mg BID for better blood pressure control and continue to monitor vitals closely. 2. Add Clonidine 0.1 mg BID if she continues to have spikes in her blood pressure despite the increased dose of Lisinopril. 3. Continue Atorvastatin 40 mg daily. 4. Continue Plavix 75 mg daily. 5. Aspirin may be discontinued from a cardiovascular standpoint. 6. Will continue to follow. The patient was discussed with Dr. Vogt, and the plan was made in collaboration with him.
[2017-05-20] MEDS ORDERED: LISI-461 PO (12:04)
[2017-05-20] MEDS ORDERED: BUSP5TAB59 PO (12:04)
--- NOTE | 2017-05-20 12:13 | Discharge Instructions ---
Discharge Instructions Date of Service May 20, 2017. Admission Reason for Admission: Hypertensive Urgency, Malignant Discharge Discharge Diagnosis / Problem: CVA, htn urgency Discharge Goals Goal(s): Improve function, Improve disease control Activity Recommendations Activity Limitations: resume your previous activity . Instructions / Follow-Up Instructions / Follow-Up Risk Factors for Stroke: You can reduce your chances of stroke by working with your medical provider to adopt a healthy lifestyle. Some specific ways to lower your chance of stroke are: * If you are a smoker, now is the time to stop smoking cigarettes * If you are diabetic, improve the control of your blood sugars * Avoid excessive amounts of alcohol * Control high blood pressure * Lose weight if you are overweight * Be sure to lead an active lifestyle * Eat a healthy diet low in salt, cholesterol and fat You should know about other risk factors for stroke that you are unable to control. These include: * Age 55 years or older * Male gender * Certain racial groups: , or / * Family History of Stroke, Mini stroke or Heart Attack * Sickle Cell Disease Follow Up: It is important for you to keep your follow up appointments with your medical provider. You will have an appt set up with Dr. Shea by the nurse navigator for next week. Please have blood work done on Wednesday, your results will got to Dr. Shea's office. Current Hospital Diet Patient's current hospital diet: AHA Diet (Heart Healthy), Diabetes Type 2 Diet Discharge Diet Recommended Diet: AHA Diet (Heart Healthy) Procedures Procedures Performed: CT head MRI head MRA head/neck Chest xray Pending Studies Studies pending at discharge: no Laboratory Results Hemoglobin A1c Test 05/18/17 12:00 Range/Units Estimated Average Glucose 157 mg/dl Hemoglobin A1c 7.1 H 4.5-5.6 % Lipid Panel Test 05/19/17 04:52 Range/Units Triglycerides Level 88 0-150 mg/dl Cholesterol Level 131 0-200 mg/dl HDL Cholesterol 50 mg/dl Cholesterol/HDL Ratio 2.6 LDL Cholesterol, Calculated 63 mg/dl Medical Emergencies . Who to Call and When: Medical Emergencies: Call 911 immediately if you experience any of the following warning signs and symptoms of Stroke: * Sudden numbness or weakness of the face, arm or leg, especially on one side of the body * Sudden confusion, trouble speaking or understanding * Sudden trouble seeing in one or both eyes * Sudden trouble walking, dizziness, loss of balance or coordination * Sudden severe headache with no cause Do not delay calling 911 if you experience any warning signs or symptoms of a stroke. Delay in seeking medical attention may affect what treatments can be given to you. . Non-Emergent Contact Non-Emergency issues call your: Primary Care Provider Call Non-Emergent contact if: you have any medication questions . . "Provider Documentation" section prepared by Janett Shea. . Stroke Core Measures Reason no t-PA for Stroke: Treatment not indicated Reason no antithrom by day 2: Treatment not indicated Reason no antithrom at D/C: Treatment not indicated Reason no statin at D/C: Treatment provided - N/A Reason no anticoag w/a fib: Treatment not indicated VTE Core Measure Inpt VTE Proph given/why not?: Unfractionated heparin SQ
--- NOTE | 2017-05-20 12:35 | Hospitalist Progress Note ---
Hospitalist Progress Note Date of Service May 20, 2017. Subjective Pt evaluation today including: conversation w/ patient, conversation w/ family , physical exam, review of studies, review of inpatient medication list Voiding: no voiding problems Ms. Saleh reports feeling better today but is not 100% back to baseline. She is not having any of the symptoms that brought her into the hospital. Respiratory: No shortness of breath Cardiovascular: No chest pain Neurologic: No weakness, No numbness/tingling, No balance problems Psychiatric: + anxiety All Other Systems: Reviewed and Negative Medications Medications Administered Medications (Trade) Dose Ordered Sig/Bernadine Route Start Time Stop Time Status Last Admin Dose Admin Sodium Chloride 1,000 ml @ 50 mls/hr Q20H IV 05/18/17 12:47 05/18/17 16:51 DC 05/18/17 12:50 50 MLS/HR Atorvastatin Calcium (Lipitor Tab) 40 mg HS PO 05/18/17 21:00 06/17/17 20:59 05/19/17 21:09 40 MG Cholecalciferol (Vitamin D Tab) 1,000 inter.unit DAILY PO 05/19/17 09:00 06/18/17 08:59 05/20/17 07:41 1,000 INTER.UNIT Clopidogrel Bisulfate (plAVix TAB) 75 mg QAM PO 05/19/17 09:00 06/18/17 08:59 05/20/17 07:41 75 MG Levothyroxine Sodium (Synthroid Tab) 25 mcg DAILYBB PO 05/19/17 06:00 06/18/17 06:59 05/20/17 06:00 25 MCG Lisinopril (Zestril Tab) 5 mg BID PO 05/18/17 21:00 05/20/17 11:57 DC 05/20/17 07:41 5 MG Lorazepam (Ativan Tab) 0.5 mg Q8 PRN PO 05/18/17 14:45 06/17/17 14:44 05/20/17 03:36 0.5 MG Insulin Aspart (novoLOG ASPART) SLIDING SCALE G... ACHS SC 05/18/17 16:00 05/19/17 12:12 DC 05/19/17 08:27 1 UNITS Heparin Sodium (Porcine) (Heparin Sq 5000 Unit/0.5ml) 5,000 unit Q8 SQ 05/18/17 22:00 06/17/17 21:59 05/20/17 06:03 5,000 UNIT Aspirin (Ecotrin Tab) 81 mg QAM PO 05/19/17 09:00 05/20/17 12:04 DC 05/20/17 07:41 81 MG Nicardipine HCl 25 mg/Sodium Chloride 250 ml @ 50 mls/hr Q5H PRN IV 05/18/17 16:45 05/19/17 09:17 DC 05/18/17 16:54 50 MLS/HR Sodium Chloride 1,000 ml @ 50 mls/hr Q20H IV 05/18/17 15:15 05/19/17 09:17 DC 05/18/17 15:15 50 MLS/HR Escitalopram Oxalate (Lexapro Tab) 5 mg DAILY PO 05/19/17 09:00 05/20/17 12:04 DC 05/20/17 07:41 5 MG Insulin Glargine (Lantus Solostar Pen) 13 units HS SC 05/19/17 21:00 06/18/17 20:59 05/19/17 21:10 13 UNITS Insulin Glargine (Lantus Solostar Pen) 13 units NOW STAT SC 05/19/17 00:24 05/19/17 00:25 DC 05/19/17 00:29 13 UNITS Hydralazine HCl (HydrALAZINE INJ) 10 mg Q6H PRN IV. 05/19/17 01:15 06/18/17 01:14 05/20/17 03:37 10 MG Insulin Aspart (novoLOG ASPART) SLIDING SCALE G... ACHS SC 05/19/17 16:00 06/18/17 15:59 05/20/17 11:00 1 UNITS Insulin Aspart (novoLOG ASPART) 9 units NOW ONCE SC 05/19/17 12:30 05/19/17 12:31 DC 05/19/17 13:03 9 UNITS Insulin Aspart (novoLOG ASPART) 11 units QDD SC 05/19/17 16:30 06/18/17 16:29 05/19/17 16:35 10 UNITS Insulin Aspart (novoLOG ASPART) 3 units QDB SC 05/20/17 07:15 06/19/17 07:14 05/20/17 07:40 3 UNITS Insulin Aspart (novoLOG ASPART) 9 units QDL SC 05/20/17 11:30 06/19/17 11:29 05/20/17 11:42 9 UNITS Clonidine HCl (Catapres Tab) 0.1 mg NOW ONCE PO 05/19/17 18:00 05/19/17 18:01 DC 05/19/17 18:32 0.1 MG Objective Vital Signs Date Time Temp Pulse Resp B/P (MAP) Pulse Ox O2 Delivery O2 Flow Rate FiO2 05/20/17 12:26 36.5 66 16 98 05/20/17 12:01 Room Air 05/20/17 11:59 36.5 66 16 96/58 (71) 98 Room Air 05/20/17 11:53 36.5 66 20 96/58 (71) 98 Room Air Free Flow/Blowby 05/20/17 08:06 Room Air 05/20/17 07:37 36.7 68 18 136/70 (92) 98 Room Air 05/20/17 04:15 67 115/65 (82) 05/20/17 04:00 Room Air 05/20/17 04:00 69 145/65 (91) 05/20/17 03:42 71 180/82 (114) 05/20/17 03:29 36.6 71 17 190/77 (114) 99 Room Air 195/75 (115) 05/20/17 00:00 Room Air 05/19/17 23:10 36.7 74 17 151/70 (97) 98 Room Air 05/19/17 20:04 37.3 77 18 155/67 (96) 97 Room Air 05/19/17 20:00 Room Air 05/19/17 18:30 76 17 05/19/17 17:39 91 17 194/77 (116) 98 05/19/17 17:30 92 22 05/19/17 17:04 158/62 (94) 05/19/17 16:41 82 187/99 (128) 05/19/17 15:20 36.8 78 18 143/66 (91) 97 Room Air 05/19/17 15:20 Room Air 05/19/17 14:25 88 Physical Exam Notes: General: no distress Eyes: normal inspection, PERLL Respiratory: chest non tender, clear to auscultation, normal breath sounds, no respiratory distress, no accessory muscle use Cardiac: regular rate and rhythm, no rub or gallop, no murmur, no edema, no jvd GI/: active bowel sounds, no abd pain or tenderness, soft, non distended Extremities: normal range of motion, normal strength, non tender Neuro/Psych: alert and oriented x 3, normal mood and affect Skin: normal color, dry Laboratory Results Last 24 Hours Test 05/19/17 15:57 05/19/17 20:48 05/20/17 06:23 05/20/17 06:43 Bedside Glucose 153 mg/dl 244 mg/dl 152 mg/dl White Blood Count 4.35 K/uL Red Blood Count 4.16 M/uL Hemoglobin 11.1 g/dL Hematocrit 34.1 % Mean Corpuscular Volume 82.0 fL Mean Corpuscular Hemoglobin 26.7 pg Mean Corpuscular Hemoglobin Concent 32.6 g/dl Platelet Count 152 K/uL Mean Platelet Volume 10.4 fL Neutrophils (%) (Auto) 60.7 % Lymphocytes (%) (Auto) 25.7 % Monocytes (%) (Auto) 10.8 % Eosinophils (%) (Auto) 2.1 % Basophils (%) (Auto) 0.2 % Neutrophils # (Auto) 2.64 K/uL Lymphocytes # (Auto) 1.12 K/uL Monocytes # (Auto) 0.47 K/uL Eosinophils # (Auto) 0.09 K/uL Basophils # (Auto) 0.01 K/uL RDW Standard Deviation 43.8 fL RDW Coefficient of Variation 14.6 % Immature Granulocyte % (Auto) 0.5 % Immature Granulocyte # (Auto) 0.02 K/uL Sodium Level 132 mmol/L Potassium Level 4.2 mmol/L Chloride Level 101 mmol/L Carbon Dioxide Level 24 mmol/L Anion Gap 7.0 mmol/L Blood Urea Nitrogen 25 mg/dl Creatinine 0.84 mg/dl Est Creatinine Clear Calc Drug Dose 38.0 ml/min Estimated GFR () 72.9 Estimated GFR (Non- 62.9 BUN/Creatinine Ratio 29.9 Random Glucose 152 mg/dl Calcium Level 8.9 mg/dl Test 05/20/17 11:10 Bedside Glucose 181 mg/dl Assessment and Plan 86 y/o F Hx AVR, DM II, hypothyroidism, HTN, HPL, Grade I diastolic dysfunction. Pt states that prior to admission her BP has been labile and fluctuating between 170-200 at home. She was working in her kitchen and her daughter reported that she developed a L facial droop and slurred speech. She was brought into the ER therefore. Her symptoms had resolved at the time of arrival. An initial EKG revealed inferior ST depressions. This normalized on a repeat which appeared to correlate with a lower BP. An initial troponin is marginally elevated and her sodium is incidentally low She has no complaints of CP, SOB, lightheadedness or nausea and vomiting. She was unaware of her neurological symptoms when they occurred. - Left lacunar ischemic infarct, stoney antiplatelet therapy with aspirin and Plavix, neurology recommends just Plavix LDL controlled on statin HbA1c 7.1 on Lantus and Novolog BP control with Lisinopril no further neurological testing recommended PT/OT and speech therapy - Hypertensive urgency: resolved, no further Cardene resume Lisinopril 5mg BID and PRN Hydralazine SBP below 100 today so held off on increasing lisinopril - DM, insulin dependent: Lantus 13 units and Novolog with meals (3, 9 and 11 units with BLD) sliding scale coverage with CF of 40 - Mild elevated in troponin, no EKG changes, continue antiplatelet therapy, likely demand ischemia from hypertension - Hypothyroidism: Synthroid - Hyponatremia: Na 132 today d/c'd lexapro and changed to buspirone for anxiety - Anxiety/depression - buspirone DVT prophylaxis: heparin SC DNR
[2017-05-20] MEDS ORDERED: NURSING VERBAL MED ORDER ONE (17:00)
[2017-05-20] MEDS: BRINZOLAMIDE-BRIMONIDINE 1-0.2% OPH SUSP OPB SCH (18:52)
[2017-05-20] MEDS: INSULIN GLARGINE SOLOSTAR 100 UNITS/ML 3 ML PEN SC SCH (20:14)
[2017-05-20] MEDS ORDERED: LISINOPRIL 5 MG TAB PO SCH ×2 (21:00)
[2017-05-20] MEDS: ATORVASTATIN 40 MG TAB PO SCH (21:32)
[2017-05-21] VITALS (8 sets, daily range): BP systolic 113–204; BP diastolic 62–87; PULSE 71–76; TEMP 36.5–37.1; O2SAT 97–100
[2017-05-21 05:45] LABS: BASO % 0.4 %; BASO ABS # 0.02 K/uL (0-0.2); COMPLETE YES; EOS % 2.2 %; HEMATOCRIT 35.1 % (37-47); IG% 0.4 %; LYMPH % 28.1 %; LYMPH ABS # 1.41 K/uL (1.2-3.4); MEAN CELL VOLUME 81.6 fL (80-100); MEAN CORPUSCULAR HEMOGLOBIN 27.4 pg (25-34); MEAN CORPUSCULAR HGB CONC 33.6 g/dl (32-36); MONO % 11.4 %; NEUT % 57.5 %; PLATELET COUNT 156 K/uL (130-400); WHITE BLOOD COUNT 5.02 K/uL (4.8-10.8)
[2017-05-21] MEDS: HEPARIN SOD 5000 UNIT/0.5 ML CARP SQ SCH ×3 (06:00→21:43)
[2017-05-21] MEDS: LEVOTHYROXINE 25 MCG TAB PO SCH (06:07)
[2017-05-21 06:12] LABS: BUN/CREATININE RATIO 28.2 (10-20); CALCIUM 8.7 mg/dl (8.5-10.1); CREATININE 0.85 mg/dl (0.60-1.20)
[2017-05-21] MEDS: INSULIN ASPART 100 UNITS/ML 3 ML PEN SC SCH ×7 (07:43→21:00)
[2017-05-21] MEDS: LORAZEPAM 0.5 MG TAB PO PRN ×2 (07:45→15:37)
[2017-05-21] MEDS: CLOPIDOGREL BISULFATE 75 MG TAB PO SCH (07:45)
[2017-05-21] MEDS: CHOLECALCIFEROL 1000 INTER.UNIT TAB PO SCH (07:46)
[2017-05-21] MEDS: BRINZOLAMIDE-BRIMONIDINE 1-0.2% OPH SUSP OPB SCH ×2 (07:47→19:33)
[2017-05-21] MEDS: LISINOPRIL 10 MG TAB PO SCH ×2 (08:28→21:45)
[2017-05-21] MEDS ORDERED: BusPIRone 15 MG TAB PO SCH (09:00)
--- NOTE | 2017-05-21 10:08 | CARDIOLOGY PROGRESS NOTE ---
DATE: 05/21/2017 SUBJECTIVE: Mrs. Saleh is resting comfortably in bed without complaints of chest pain or dyspnea. She is anxious for elevated blood pressure this morning. OBJECTIVE: VITAL SIGNS: Blood pressure is labile ranging from 96/60-204/87 this morning. Heart rate is 76 and the patient is afebrile at 37.1 degrees Celsius. Saturation is 97% on room air. NECK: Supple with full carotid upstrokes. No carotid bruits. Jugular venous pressure is flat at 90 degrees. There is no thyromegaly. CARDIOVASCULAR: Reveals a regular rhythm with a normal S1 and S2. A 1/6 basal systolic ejection murmur noted. No S3. LUNGS: Clear without rales, rhonchi, or wheezes. ABDOMEN: Soft without bruits. EXTREMITIES: Reveal intact radial artery pulses bilaterally. There is no peripheral edema. DATA: CBC notes hemoglobin of 11.8, hematocrit 35.1, white count 5.0, and platelet count 156,000. Electrolytes note sodium of 127, potassium 4.0, chloride 96, bicarbonate 25, BUN 25, creatinine 0.85, glucose 123. IMPRESSION AND PLAN: 1. Status post acute on current function -- within the left stoney. Her neurological status has improved. She will remain on Plavix alone as per neurology. 2. Labile hypertension -- concerned that there is a large component of anxiety making treatment difficult. I have discussed with Dr. Barker. We may increase her lisinopril dose. 3. Status post pericardial aortic valve replacement -- appropriate gradients on echocardiogram in September 2016. 4. Coronary artery disease -- status post coronary artery bypass grafting x1. Continue medical management. 5. Hypercholesterolemia -- continue high intensity statin. 6. Carotid artery stenosis. 7. Diabetes mellitus.
[2017-05-21] MEDS ORDERED: SODIUM CHLORIDE 1 GM TAB PO ONE (11:47)
--- NOTE | 2017-05-21 13:27 | Hospitalist Progress Note ---
Hospitalist Progress Note Date of Service May 21, 2017. Subjective Pt evaluation today including: conversation w/ patient, physical exam, chart review, lab review, review of inpatient medication list Voiding: no voiding problems Ms. Saleh is still not feeling her baseline self although her complaints are vague. She has not had any headache or change in vision. She is eating well. Respiratory: No shortness of breath Cardiovascular: No chest pain Abdomen: No nausea, No vomiting Neurologic: + see HPI Psychiatric: + anxiety All Other Systems: Reviewed and Negative Medications Medications Administered Medications (Trade) Dose Ordered Sig/Bernadine Route Start Time Stop Time Status Last Admin Dose Admin Sodium Chloride 1,000 ml @ 50 mls/hr Q20H IV 05/18/17 12:47 05/18/17 16:51 DC 05/18/17 12:50 50 MLS/HR Atorvastatin Calcium (Lipitor Tab) 40 mg HS PO 05/18/17 21:00 06/17/17 20:59 05/20/17 21:32 40 MG Cholecalciferol (Vitamin D Tab) 1,000 inter.unit DAILY PO 05/19/17 09:00 06/18/17 08:59 05/21/17 07:46 1,000 INTER.UNIT Clopidogrel Bisulfate (plAVix TAB) 75 mg QAM PO 05/19/17 09:00 06/18/17 08:59 05/21/17 07:45 75 MG Levothyroxine Sodium (Synthroid Tab) 25 mcg DAILYBB PO 05/19/17 06:00 06/18/17 06:59 05/21/17 06:07 25 MCG Lisinopril (Zestril Tab) 5 mg BID PO 05/18/17 21:00 05/20/17 11:57 DC 05/20/17 07:41 5 MG Lorazepam (Ativan Tab) 0.5 mg Q8 PRN PO 05/18/17 14:45 06/17/17 14:44 05/21/17 07:45 0.5 MG Insulin Aspart (novoLOG ASPART) SLIDING SCALE G... ACHS SC 05/18/17 16:00 05/19/17 12:12 DC 05/19/17 08:27 1 UNITS Heparin Sodium (Porcine) (Heparin Sq 5000 Unit/0.5ml) 5,000 unit Q8 SQ 05/18/17 22:00 06/17/17 21:59 05/20/17 13:13 5,000 UNIT Aspirin (Ecotrin Tab) 81 mg QAM PO 05/19/17 09:00 05/20/17 12:04 DC 05/20/17 07:41 81 MG Nicardipine HCl 25 mg/Sodium Chloride 250 ml @ 50 mls/hr Q5H PRN IV 05/18/17 16:45 05/19/17 09:17 DC 05/18/17 16:54 50 MLS/HR Sodium Chloride 1,000 ml @ 50 mls/hr Q20H IV 05/18/17 15:15 05/19/17 09:17 DC 05/18/17 15:15 50 MLS/HR Escitalopram Oxalate (Lexapro Tab) 5 mg DAILY PO 05/19/17 09:00 05/20/17 12:04 DC 05/20/17 07:41 5 MG Insulin Glargine (Lantus Solostar Pen) 13 units HS SC 05/19/17 21:00 06/18/17 20:59 05/20/17 20:14 13 UNITS Insulin Glargine (Lantus Solostar Pen) 13 units NOW STAT SC 05/19/17 00:24 05/19/17 00:25 DC 05/19/17 00:29 13 UNITS Hydralazine HCl (HydrALAZINE INJ) 10 mg Q6H PRN IV. 05/19/17 01:15 06/18/17 01:14 05/20/17 03:37 10 MG Insulin Aspart (novoLOG ASPART) SLIDING SCALE G... ACHS SC 05/19/17 16:00 06/18/17 15:59 05/21/17 12:02 1 UNITS Insulin Aspart (novoLOG ASPART) 9 units NOW ONCE SC 05/19/17 12:30 05/19/17 12:31 DC 05/19/17 13:03 9 UNITS Insulin Aspart (novoLOG ASPART) 11 units QDD SC 05/19/17 16:30 06/18/17 16:29 05/20/17 16:55 11 UNITS Insulin Aspart (novoLOG ASPART) 3 units QDB SC 05/20/17 07:15 06/19/17 07:14 05/21/17 07:43 3 UNITS Insulin Aspart (novoLOG ASPART) 9 units QDL SC 05/20/17 11:30 06/19/17 11:29 05/21/17 12:01 9 UNITS Clonidine HCl (Catapres Tab) 0.1 mg NOW ONCE PO 05/19/17 18:00 05/19/17 18:01 DC 05/19/17 18:32 0.1 MG Lisinopril (Zestril Tab) 5 mg BID PO 05/20/17 21:00 05/21/17 07:32 DC 05/20/17 21:33 5 MG Buspirone HCl (BusPAR TAB) 15 mg QAM PO 05/21/17 09:00 05/21/17 11:48 DC 05/21/17 08:28 15 MG Lisinopril (Zestril Tab) 10 mg BID PO 05/21/17 09:00 06/19/17 20:59 05/21/17 08:28 10 MG Sodium Chloride (Sodium Chloride Tab) 1 gm 1147 ONCE PO 05/21/17 11:47 05/21/17 12:30 DC 05/21/17 12:56 1 GM Objective Vital Signs Date Time Temp Pulse Resp B/P (MAP) Pulse Ox O2 Delivery O2 Flow Rate FiO2 05/21/17 10:22 113/72 (86) 05/21/17 08:00 Room Air 05/21/17 07:17 37.1 76 18 204/87 (126) 97 Room Air 05/21/17 00:00 97 Room Air 05/20/17 23:10 36.5 71 18 155/70 (98) 97 Room Air 05/20/17 15:44 36.4 63 18 154/75 (101) 99 Room Air 05/20/17 15:35 Room Air Physical Exam Notes: General: no distress Eyes: normal inspection, PERLL Respiratory: chest non tender, clear to auscultation, normal breath sounds, no respiratory distress, no accessory muscle use Cardiac: regular rate and rhythm, no rub or gallop, no murmur, no edema, no jvd GI/: active bowel sounds, no abd pain or tenderness, soft, non distended Extremities: normal range of motion, normal strength, non tender Neuro/Psych: alert and oriented x 3, anxious Skin: normal color, dry Laboratory Results Last 24 Hours Test 05/20/17 16:15 05/20/17 16:20 05/20/17 19:57 05/21/17 05:19 Bedside Glucose 142 mg/dl 110 mg/dl Urine Osmolality 398 mOms/kg White Blood Count 5.02 K/uL Red Blood Count 4.30 M/uL Hemoglobin 11.8 g/dL Hematocrit 35.1 % Mean Corpuscular Volume 81.6 fL Mean Corpuscular Hemoglobin 27.4 pg Mean Corpuscular Hemoglobin Concent 33.6 g/dl Platelet Count 156 K/uL Mean Platelet Volume 10.0 fL Neutrophils (%) (Auto) 57.5 % Lymphocytes (%) (Auto) 28.1 % Monocytes (%) (Auto) 11.4 % Eosinophils (%) (Auto) 2.2 % Basophils (%) (Auto) 0.4 % Neutrophils # (Auto) 2.89 K/uL Lymphocytes # (Auto) 1.41 K/uL Monocytes # (Auto) 0.57 K/uL Eosinophils # (Auto) 0.11 K/uL Basophils # (Auto) 0.02 K/uL RDW Standard Deviation 43.2 fL RDW Coefficient of Variation 14.6 % Immature Granulocyte % (Auto) 0.4 % Immature Granulocyte # (Auto) 0.02 K/uL Sodium Level 127 mmol/L Potassium Level 4.0 mmol/L Chloride Level 96 mmol/L Carbon Dioxide Level 25 mmol/L Anion Gap 6.0 mmol/L Blood Urea Nitrogen 24 mg/dl Creatinine 0.85 mg/dl Est Creatinine Clear Calc Drug Dose 37.6 ml/min Estimated GFR () 71.9 Estimated GFR (Non- 62.0 BUN/Creatinine Ratio 28.2 Random Glucose 123 mg/dl Calcium Level 8.7 mg/dl Thyroid Stimulating Hormone (TSH) 3.100 uIu/ml Test 05/21/17 07:40 05/21/17 08:58 05/21/17 11:14 Bedside Glucose 137 mg/dl 177 mg/dl Osmolality 272 mOsm/kg Assessment and Plan 86 y/o F Hx AVR, DM II, hypothyroidism, HTN, HPL, Grade I diastolic dysfunction. Pt states that prior to admission her BP has been labile and fluctuating between 170-200 at home. She was working in her kitchen and her daughter reported that she developed a L facial droop and slurred speech. She was brought into the ER therefore. Her symptoms had resolved at the time of arrival. An initial EKG revealed inferior ST depressions. This normalized on a repeat which appeared to correlate with a lower BP. An initial troponin is marginally elevated and her sodium is incidentally low She has no complaints of CP, SOB, lightheadedness or nausea and vomiting. She was unaware of her neurological symptoms when they occurred. - Left lacunar ischemic infarct, stoney antiplatelet therapy with aspirin and Plavix, neurology recommends just Plavix LDL controlled on statin HbA1c 7.1 on Lantus and Novolog BP control with Lisinopril no further neurological testing recommended PT/OT and speech therapy - Hypertensive urgency: resolved, no further Cardene increase Lisinopril to 10mg BID and PRN Hydralazine - DM, insulin dependent: Lantus 13 units and Novolog with meals (3, 9 and 11 units with BLD) sliding scale coverage with CF of 40 - Mild elevated in troponin, no EKG changes, continue antiplatelet therapy, likely demand ischemia from hypertension - Hypothyroidism: Synthroid - Hyponatremia: Na 132 today d/c'd lexapro and changed to buspirone for anxiety TSH, serum osmolality, urine sodium - Anxiety/depression - buspirone DVT prophylaxis: heparin SC DNR
[2017-05-21] MEDS: INSULIN GLARGINE SOLOSTAR 100 UNITS/ML 3 ML PEN SC SCH (21:43)
[2017-05-21] MEDS: ATORVASTATIN 40 MG TAB PO SCH (21:45)
[2017-05-22] VITALS (11 sets, daily range): BP systolic 100–197; BP diastolic 62–82; PULSE 64–79; TEMP 36.6–36.9; O2SAT 94–98
[2017-05-22] MEDS: LORAZEPAM 0.5 MG TAB PO PRN (02:18)
[2017-05-22] MEDS: HydrALAZINE HCL 20 MG/ML VIAL IV. PRN (02:18)
[2017-05-22] MEDS: HEPARIN SOD 5000 UNIT/0.5 ML CARP SQ SCH ×3 (06:30→21:10)
[2017-05-22] MEDS: INSULIN ASPART 100 UNITS/ML 3 ML PEN SC SCH ×7 (06:30→21:00)
[2017-05-22] MEDS: LEVOTHYROXINE 25 MCG TAB PO SCH (06:32)
[2017-05-22] MEDS: BRINZOLAMIDE-BRIMONIDINE 1-0.2% OPH SUSP OPB SCH ×2 (06:33→18:36)
[2017-05-22] MEDS: CHOLECALCIFEROL 1000 INTER.UNIT TAB PO SCH (08:07)
[2017-05-22] MEDS: CLOPIDOGREL BISULFATE 75 MG TAB PO SCH (08:07)
[2017-05-22] MEDS: BusPIRone 15 MG TAB PO SCH ×2 (08:08→21:02)
[2017-05-22] MEDS: LISINOPRIL 10 MG TAB PO SCH ×2 (08:08→21:03)
[2017-05-22] MEDS ORDERED: SODIUM CHLORIDE 1 GM TAB PO SCH (09:00)
[2017-05-22 09:48] LABS: BUN/CREATININE RATIO 30.4 (10-20); CALCIUM 8.7 mg/dl (8.5-10.1); CREATININE 0.91 mg/dl (0.60-1.20); POTASSIUM 4.6 mmol/L (3.5-5.1)
--- NOTE | 2017-05-22 10:34 | CARDIOLOGY PROGRESS NOTE ---
DATE: 05/22/2017 DATE: 05/22/2017 SUBJECTIVE: Mrs. Saleh is resting comfortably in bedside chair without complaints of chest pain or dyspnea. OBJECTIVE: VITAL SIGNS: Blood is 110/60 with a regular pulse of 75. Respiratory rate is 16. The patient is afebrile at 36.7 degrees Celsius. Saturations 97% on room air. NECK: Supple with full carotid upstrokes. There are no carotid bruits. Jugular venous pressure is flat at 90 degrees. There is no thyromegaly. CARDIOVASCULAR EXAMINATION: Reveals a regular rhythm with normal S1 and S2. A 1/6 basal systolic ejection murmur is noted. No S3. LUNGS: Clear without rales, rhonchi, or wheezes. ABDOMEN: Soft and nontender without bruits. EXTREMITIES: Reveal intact radial artery pulses bilaterally. There is no peripheral edema. LABORATORY DATA: CBC notes a hemoglobin of 11.8, hematocrit 35.1, white count 5.0, platelet count 156,000. Electrolytes note a sodium of 126, potassium 4.6, chloride 94, bicarb 25, BUN 28, creatinine 0.9, glucose 135. IMPRESSION AND PLAN: 1. Status post acute lacunar cerebrovascular accident -- within the left stoney. Neurologic status has normalized. She will remain on Plavix alone as per neurology. 2. Labile hypertension -- adequately controlled this morning, however, concern that her anxiety is a major factor in her elevated blood pressures. Consider long-term anxiolytic. 3. Status post pericardial aortic valve replacement -- appropriate gradients on echocardiogram September 2016. 4. Coronary artery disease -- status post coronary artery bypass graft x1 -- continue medical management. 5. Hypercholesterolemia -- continue high intensity statin. 6. Carotid artery stenosis. 7. Diabetes mellitus.
--- NOTE | 2017-05-22 11:39 | Progress Note ---
Subjective Date of Service: May 22, 2017. 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, review of inpatient medication list Pain: no pain PO Intake: adequate Voiding: no voiding problems patient was doing well until she experienced a lot of anxiety last night, called in RN at 1am BP was 190's systolic, normal diastolic given Ativan at 2am, slept better long talk with patient, it certainly appears that anxiety is driving BP up on average her pressures are acceptable discussed low sodium, will increase NaCl to BID, repeat osmolalities tomorrow Problem List Medical Problems: (1) Abnormal ECG Status: Acute (2) Anxiety Status: Acute (3) Anxiety Status: Acute (4) Elevated troponin I level Status: Acute (5) Expressive aphasia Status: Acute (6) HTN (hypertension) Status: Acute (7) Hypertension Status: Acute (8) Hypertensive emergency Status: Acute (9) Hyponatremia Status: Acute (10) Poorly-controlled hypertension Status: Acute (11) TIA (transient ischemic attack) Status: Acute Review of Systems Constitutional: + weakness, + fatigue Psychiatric: + depression symptoms, + anxiety, + insomnia All Other Systems: Reviewed and Negative Medications Current Inpatient Medications Medications (Trade) Dose Ordered Sig/Bernadine Route Start Time Stop Time Status Last Admin Dose Admin Atorvastatin Calcium (Lipitor Tab) 40 mg HS PO 05/18/17 21:00 06/17/17 20:59 05/21/17 21:45 40 MG Cholecalciferol (Vitamin D Tab) 1,000 inter.unit DAILY PO 05/19/17 09:00 06/18/17 08:59 05/22/17 08:07 1,000 INTER.UNIT Clopidogrel Bisulfate (plAVix TAB) 75 mg QAM PO 05/19/17 09:00 06/18/17 08:59 05/22/17 08:07 75 MG Levothyroxine Sodium (Synthroid Tab) 25 mcg DAILYBB PO 05/19/17 06:00 06/18/17 06:59 05/22/17 06:32 25 MCG Lorazepam (Ativan Tab) 0.5 mg Q8 PRN PO 05/18/17 14:45 06/17/17 14:44 05/22/17 02:18 0.5 MG Heparin Sodium (Porcine) (Heparin Sq 5000 Unit/0.5ml) 5,000 unit Q8 SQ 05/18/17 22:00 06/17/17 21:59 05/22/17 06:30 5,000 UNIT Acetaminophen (Tylenol Tab) 650 mg Q4H PRN PO 05/18/17 14:45 06/17/17 14:44 Al Hydrox/Mg Hydrox/Simethicone (Maalox Max Susp) 15 ml Q4H PRN PO 05/18/17 14:45 06/17/17 14:44 Magnesium Hydroxide (Milk Of Magnesia Susp) 30 ml Q12H PRN PO 05/18/17 14:45 06/17/17 14:44 Ondansetron HCl (Zofran Inj) 4 mg Q6H PRN IV 05/18/17 14:45 06/17/17 14:44 Morphine Sulfate (MoRPHine SULFATE INJ) 2 mg Q30M PRN IV 05/18/17 14:45 06/01/17 14:44 Miscellaneous Information (Pharmacist Discharge Med Rec Consult) 1 ea UD PRN N/A 05/18/17 14:45 06/17/17 14:44 Miscellaneous (Iv Fluids Completed) 1 ea PRN PRN N/A 05/18/17 15:30 05/18/18 15:29 Glucose (Glucose 40% Gel) 15-30 GRAMS 15 GRAMS... UD PRN PO 05/18/17 16:00 06/17/17 15:59 Glucose (Glucose Chew Tab) 4-8 Tablets 4 Tabl... UD PRN PO 05/18/17 16:00 06/17/17 15:59 Dextrose (Dextrose 50% 50ML Syringe) 25-50ML OF 50% DW IV FOR... UD PRN IV 05/18/17 16:00 06/17/17 15:59 Glucagon (Glucagon Inj) 1 mg UD PRN SQ 05/18/17 16:00 06/17/17 15:59 Gadobutrol (Gadavist) 5 mmol UD PRN IV 05/18/17 20:15 05/22/17 20:14 Insulin Glargine (Lantus Solostar Pen) 13 units HS SC 05/19/17 21:00 06/18/17 20:59 05/21/17 21:43 13 UNITS Hydralazine HCl (HydrALAZINE INJ) 10 mg Q6H PRN IV. 05/19/17 01:15 06/18/17 01:14 05/22/17 02:18 10 MG Insulin Aspart (novoLOG ASPART) SLIDING SCALE G... ACHS [place] 05/19/17 16:00 06/18/17 15:59 05/21/17 16:58 1 UNITS Insulin Aspart (novoLOG ASPART) 11 units QDD SC 05/19/17 16:30 06/18/17 16:29 05/21/17 16:59 11 UNITS Insulin Aspart (novoLOG ASPART) 3 units QDB SC 05/20/17 07:15 06/19/17 07:14 05/22/17 08:06 3 UNITS Insulin Aspart (novoLOG ASPART) 9 units QDL SC 05/20/17 11:30 06/19/17 11:29 05/21/17 12:01 9 UNITS Lisinopril (Zestril Tab) 10 mg BID PO 05/21/17 09:00 06/19/17 20:59 05/22/17 08:08 10 MG Buspirone HCl (BusPAR TAB) 7.5 mg BID PO 05/22/17 09:00 06/21/17 08:59 05/22/17 08:08 7.5 MG Sodium Chloride (Sodium Chloride Tab) 1 gm BID PO 05/22/17 21:00 06/21/17 08:59 Lorazepam (Ativan Tab) 0.5 mg HSZ PO 05/22/17 22:00 06/21/17 21:59 Objective Vital Signs Date Time Temp Pulse Resp B/P (MAP) Pulse Ox O2 Delivery O2 Flow Rate FiO2 05/22/17 08:00 97 Room Air 05/22/17 07:10 36.7 75 16 109/62 (78) 97 Room Air 05/22/17 03:50 69 100/62 (75) 05/22/17 02:18 68 18 197/82 (120) 97 Room Air 05/22/17 00:26 36.7 69 18 163/71 (101) 97 Room Air 05/22/17 00:00 Room Air 05/21/17 19:45 36.7 71 18 162/69 (100) 99 Room Air 05/21/17 18:40 73 148/62 (90) 05/21/17 18:00 100 Room Air 05/21/17 17:29 180/75 (110) 05/21/17 16:02 36.5 71 18 195/75 (115) 100 Room Air Physical Exam General Appearance: WD/WN, no apparent distress ENT: normal ENT inspection, hearing grossly normal, pharynx normal Neck: supple, no adenopathy, no JVD, trachea midline Respiratory/Chest: chest non-tender, lungs clear, normal breath sounds, no respiratory distress, no accessory muscle use Cardiovascular: regular rate, rhythm, no edema, no gallop, no JVD, no murmur Abdomen: normal bowel sounds, non tender, soft, no organomegaly Extremities: normal range of motion, non-tender, normal inspection, no pedal edema, no calf tenderness, pelvis stable 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, no motor/sensory deficits, alert, oriented x 3, + pertinent finding (very anxious, tearful at times) Skin: normal color, warm/dry, no rash Laboratory Results Last 24 Hours Test 05/21/17 16:56 05/21/17 20:18 05/22/17 07:39 05/22/17 08:13 Bedside Glucose 166 mg/dl 157 mg/dl 134 mg/dl Sodium Level 126 mmol/L Potassium Level 4.6 mmol/L Chloride Level 94 mmol/L Carbon Dioxide Level 25 mmol/L Anion Gap 8.0 mmol/L Blood Urea Nitrogen 28 mg/dl Creatinine 0.91 mg/dl Est Creatinine Clear Calc Drug Dose 35.1 ml/min Estimated GFR () 66.2 Estimated GFR (Non- 57.1 BUN/Creatinine Ratio 30.4 Random Glucose 135 mg/dl Calcium Level 8.7 mg/dl Assessment and Plan - Left lacunar ischemic infarct, stoney antiplatelet therapy with Plavix LDL controlled on statin HbA1c 7.1 on Lantus and Novolog BP control with Lisinopril , increased to 10mg BID no further neurological testing recommended PT/OT and speech therapy likely home on discharge - Hypertensive urgency: resolved, no further Cardene BP tends to go up with anxiety because only systolic pressures up increase lisinopril to 10mg BID, follow for another 24 hours Hydralazine PRN treat anxiety with Buspar and PRN Ativan - DM, insulin dependent: Lantus 13 units and Novolog with meals (3, 9 and 11 units with BLD) sliding scale coverage with CF of 40 - Mild elevated in troponin, no EKG changes, continue antiplatelet therapy, likely demand ischemia from hypertension - Hypothyroidism: Synthroid - Hyponatremia: Na continues to drop, 126 today, will increase NaCl to 1gm BID, fluid restrict to 1500cc/day repeat serum and urine osmolality tomorrow unclear cause of potential SIADH, urine osm was up inappropriately yesterday if sodium continues to get worse, will ask for recommendations from nephrology - Depression: just started Lexapro, will exchange for Buspar 7.5mg BID - Anxiety: Ativan PRN in addition to Buspar try for [place] on Wednesday, will need new insurance authorization
[2017-05-22] MEDS: LORAZEPAM 0.5 MG TAB PO SCH (17:01)
[2017-05-22] MEDS: ATORVASTATIN 40 MG TAB PO SCH (21:02)
[2017-05-22] MEDS: SODIUM CHLORIDE 1 GM TAB PO SCH (21:03)
[2017-05-22] MEDS: INSULIN GLARGINE SOLOSTAR 100 UNITS/ML 3 ML PEN SC SCH (21:09)
[2017-05-23] VITALS (7 sets, daily range): BP systolic 110–152; BP diastolic 55–72; PULSE 66–76; TEMP 36.3–37; O2SAT 97–99
[2017-05-23] MEDS: LORAZEPAM 0.5 MG TAB PO PRN ×2 (00:01→16:24)
[2017-05-23] MEDS: LEVOTHYROXINE 25 MCG TAB PO SCH (06:00)
[2017-05-23] MEDS: HEPARIN SOD 5000 UNIT/0.5 ML CARP SQ SCH ×3 (06:00→21:23)
[2017-05-23] MEDS: INSULIN ASPART 100 UNITS/ML 3 ML PEN SC SCH ×7 (06:30→21:00)
[2017-05-23] MEDS: BRINZOLAMIDE-BRIMONIDINE 1-0.2% OPH SUSP OPB SCH ×2 (07:56→18:43)
[2017-05-23] MEDS: BusPIRone 15 MG TAB PO SCH ×2 (09:02→21:21)
[2017-05-23] MEDS: LISINOPRIL 10 MG TAB PO SCH ×2 (09:02→21:25)
[2017-05-23] MEDS: CLOPIDOGREL BISULFATE 75 MG TAB PO SCH (09:02)
[2017-05-23] MEDS: SODIUM CHLORIDE 1 GM TAB PO SCH ×2 (09:02→21:25)
[2017-05-23] MEDS: CHOLECALCIFEROL 1000 INTER.UNIT TAB PO SCH (09:02)
--- NOTE | 2017-05-23 10:59 | Progress Note ---
Subjective Date of Service: May 23, 2017. Subjective Pt evaluation today including: conversation w/ patient, conversation w/ family , physical exam, lab review, review of inpatient medication list Pain: no pain PO Intake: adequate Voiding: no voiding problems patient certainly feeling less anxious with the Ativan, slept well last night c/o feeling fatigued, discussed that this can be a side effect of the BuSpar, will see if it goes away with time reviewed blood pressures, consistently high systolic pressure with normal diastolic, suggesting an anxiety component ambulating in the halls today reviewed urine osm and serum osm, urine osm appears appropriate Na is 127, up slightly from 126 Problem List Medical Problems: (1) Abnormal ECG Status: Acute (2) Anxiety Status: Acute (3) Anxiety Status: Acute (4) Elevated troponin I level Status: Acute (5) Expressive aphasia Status: Acute (6) HTN (hypertension) Status: Acute (7) Hypertension Status: Acute (8) Hypertensive emergency Status: Acute (9) Hyponatremia Status: Acute (10) Poorly-controlled hypertension Status: Acute (11) TIA (transient ischemic attack) Status: Acute Review of Systems Constitutional: + weakness, + fatigue Psychiatric: + anxiety All Other Systems: Reviewed and Negative Medications Current Inpatient Medications Medications (Trade) Dose Ordered Sig/Bernadine Route Start Time Stop Time Status Last Admin Dose Admin Atorvastatin Calcium (Lipitor Tab) 40 mg HS PO 05/18/17 21:00 06/17/17 20:59 05/22/17 21:02 40 MG Cholecalciferol (Vitamin D Tab) 1,000 inter.unit DAILY PO 05/19/17 09:00 06/18/17 08:59 05/23/17 09:02 1,000 INTER.UNIT Clopidogrel Bisulfate (plAVix TAB) 75 mg QAM PO 05/19/17 09:00 06/18/17 08:59 05/23/17 09:02 75 MG Levothyroxine Sodium (Synthroid Tab) 25 mcg DAILYBB PO 05/19/17 06:00 06/18/17 06:59 05/23/17 06:00 25 MCG Lorazepam (Ativan Tab) 0.5 mg Q8 PRN PO 05/18/17 14:45 06/17/17 14:44 05/23/17 00:01 0.5 MG Heparin Sodium (Porcine) (Heparin Sq 5000 Unit/0.5ml) 5,000 unit Q8 SQ 05/18/17 22:00 06/17/17 21:59 05/23/17 06:00 5,000 UNIT Acetaminophen (Tylenol Tab) 650 mg Q4H PRN PO 05/18/17 14:45 06/17/17 14:44 Al Hydrox/Mg Hydrox/Simethicone (Maalox Max Susp) 15 ml Q4H PRN PO 05/18/17 14:45 06/17/17 14:44 Magnesium Hydroxide (Milk Of Magnesia Susp) 30 ml Q12H PRN PO 05/18/17 14:45 06/17/17 14:44 Ondansetron HCl (Zofran Inj) 4 mg Q6H PRN IV 05/18/17 14:45 06/17/17 14:44 Morphine Sulfate (MoRPHine SULFATE INJ) 2 mg Q30M PRN IV 05/18/17 14:45 06/01/17 14:44 Miscellaneous Information (Pharmacist Discharge Med Rec Consult) 1 ea UD PRN N/A 05/18/17 14:45 06/17/17 14:44 Miscellaneous (Iv Fluids Completed) 1 ea PRN PRN N/A 05/18/17 15:30 05/18/18 15:29 Glucose (Glucose 40% Gel) 15-30 GRAMS 15 GRAMS... UD PRN PO 05/18/17 16:00 06/17/17 15:59 Glucose (Glucose Chew Tab) 4-8 Tablets 4 Tabl... UD PRN PO 05/18/17 16:00 06/17/17 15:59 Dextrose (Dextrose 50% 50ML Syringe) 25-50ML OF 50% DW IV FOR... UD PRN IV 05/18/17 16:00 06/17/17 15:59 Glucagon (Glucagon Inj) 1 mg UD PRN SQ 05/18/17 16:00 06/17/17 15:59 Insulin Glargine (Lantus Solostar Pen) 13 units HS SC 05/19/17 21:00 06/18/17 20:59 05/22/17 21:09 13 UNITS Hydralazine HCl (HydrALAZINE INJ) 10 mg Q6H PRN IV. 05/19/17 01:15 06/18/17 01:14 05/22/17 02:18 10 MG Insulin Aspart (novoLOG ASPART) SLIDING SCALE G... ACHS SC 05/19/17 16:00 06/18/17 15:59 05/21/17 16:58 1 UNITS Insulin Aspart (novoLOG ASPART) 11 units QDD SC 05/19/17 16:30 06/18/17 16:29 05/22/17 16:48 10 UNITS Insulin Aspart (novoLOG ASPART) 3 units QDB SC 05/20/17 07:15 06/19/17 07:14 05/23/17 07:56 3 UNITS Insulin Aspart (novoLOG ASPART) 9 units QDL SC 05/20/17 11:30 06/19/17 11:29 05/22/17 11:48 9 UNITS Lisinopril (Zestril Tab) 10 mg BID PO 05/21/17 09:00 06/19/17 20:59 05/23/17 09:02 10 MG Buspirone HCl (BusPAR TAB) 7.5 mg BID PO 05/22/17 09:00 06/21/17 08:59 05/23/17 09:02 7.5 MG Sodium Chloride (Sodium Chloride Tab) 1 gm BID PO 05/22/17 21:00 06/21/17 08:59 05/23/17 09:02 1 GM Lorazepam (Ativan Tab) 0.5 mg HSZ PO 05/22/17 22:00 06/21/17 21:59 05/22/17 17:01 0.5 MG Objective Vital Signs Date Time Temp Pulse Resp B/P (MAP) Pulse Ox O2 Delivery O2 Flow Rate FiO2 05/23/17 07:45 97 Room Air 05/23/17 07:44 36.9 66 20 152/72 (98) 97 Room Air 05/23/17 02:36 Room Air 05/23/17 00:15 71 128/66 (86) 05/22/17 23:51 36.9 70 18 170/78 (108) 98 Room Air 05/22/17 21:00 Room Air 05/22/17 17:52 107/68 (81) 05/22/17 16:08 36.6 72 20 134/68 (90) 97 Room Air 05/22/17 16:00 Room Air 05/22/17 15:35 79 97 05/22/17 11:34 36.7 64 18 137/68 (91) 94 Room Air Physical Exam General Appearance: WD/WN, no apparent distress Eyes: normal inspection, EOMI, sclerae normal Neck: supple, no adenopathy, no JVD, trachea midline Respiratory/Chest: chest non-tender, lungs clear, normal breath sounds, no respiratory distress, no accessory muscle use Cardiovascular: regular rate, rhythm, no edema, no gallop, no JVD, no murmur Abdomen: normal bowel sounds, non tender, soft, no organomegaly Extremities: normal range of motion, non-tender, normal inspection, no pedal edema, no calf tenderness, pelvis stable 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, alert, normal mood/affect, oriented x 3, + motor weakness (generalized) Skin: normal color, warm/dry, no rash Laboratory Results Last 24 Hours Test 05/22/17 11:24 05/22/17 16:25 05/22/17 20:22 05/23/17 05:55 Bedside Glucose 160 mg/dl 121 mg/dl 108 mg/dl Osmolality 274 mOsm/kg Test 05/23/17 07:16 05/23/17 09:01 Bedside Glucose 158 mg/dl Sodium Level 127 mmol/L Assessment and Plan - Left lacunar ischemic infarct, stoney antiplatelet therapy with Plavix LDL controlled on statin HbA1c 7.1 on Lantus and Novolog BP control with Lisinopril , increased to 10mg BID, adequate control no further neurological testing recommended PT/OT and speech therapy - Hypertensive urgency: resolved, initially given Cardene in ICU, d/c quickly BP tends to go up with anxiety because only systolic pressures up increase lisinopril to 10mg BID, much better control over past 36 hours Hydralazine PRN treat anxiety with Buspar and PRN Ativan - Hyponatremia: Na at 127 today, 126 yesterday, continue NaCl 1gm BID, fluid restrict to 1500cc/day repeat serum and urine osmolality today shows 274 and 272 respectively, so renal response is appropriate unclear if this is SIADH or a result of recent SSRI use if sodium continues to go up, would continue above treatment on discharge and follow up with PCP if sodium goes down again, would consult nephrology for recommendations - Anxiety: Ativan PRN in addition to Buspar feeling fatigued today, likely from above combination would try to limit Ativan to just HS but if needed, she can take during the day definitely working, less anxious and blood pressure is benefitting - DM, insulin dependent: Lantus 13 units and Novolog with meals (3, 9 and 11 units with BLD) sliding scale coverage with CF of 40 - Mild elevated in troponin, no EKG changes, continue antiplatelet therapy, likely demand ischemia from hypertension - Hypothyroidism: Synthroid try for [place] on Wednesday, will need new insurance authorization
[2017-05-23] MEDS: ATORVASTATIN 40 MG TAB PO SCH (21:21)
[2017-05-23] MEDS: INSULIN GLARGINE SOLOSTAR 100 UNITS/ML 3 ML PEN SC SCH (21:22)
[2017-05-23] MEDS: LORAZEPAM 0.5 MG TAB PO SCH (21:35)
[2017-05-24] MEDS: LEVOTHYROXINE 25 MCG TAB PO SCH (06:08)
[2017-05-24] MEDS: HEPARIN SOD 5000 UNIT/0.5 ML CARP SQ SCH ×3 (06:09→21:27)
[2017-05-24] MEDS: INSULIN ASPART 100 UNITS/ML 3 ML PEN SC SCH ×7 (07:43→21:00)
[2017-05-24] MEDS: BRINZOLAMIDE-BRIMONIDINE 1-0.2% OPH SUSP OPB SCH ×2 (07:45→18:51)
[2017-05-24 08:09] VITALS: BP 172/76; PULSE 64; TEMP 36.7; O2SAT 98
[2017-05-24] MEDS: BusPIRone 15 MG TAB PO SCH ×2 (08:45→21:17)
[2017-05-24] MEDS: SODIUM CHLORIDE 1 GM TAB PO SCH ×2 (08:45→21:17)
[2017-05-24] MEDS: CLOPIDOGREL BISULFATE 75 MG TAB PO SCH (08:45)
[2017-05-24] MEDS: LISINOPRIL 10 MG TAB PO SCH ×2 (08:45→21:17)
[2017-05-24] MEDS: CHOLECALCIFEROL 1000 INTER.UNIT TAB PO SCH (08:45)
[2017-05-24 09:56] LABS: BUN/CREATININE RATIO 25.3 (10-20); CALCIUM 8.5 mg/dl (8.5-10.1); CREATININE 1.06 mg/dl (0.60-1.20); POTASSIUM 4.4 mmol/L (3.5-5.1)
--- NOTE | 2017-05-24 10:05 | CARDIOLOGY PROGRESS NOTE ---
DATE: 05/24/2017 SUBJECTIVE: Mrs. Saleh is resting comfortably in bed without complaints of chest pain or dyspnea. She is feeling better with the addition of lorazepam to her regimen. OBJECTIVE: VITAL SIGNS: Blood pressure ranges from 110/60 to 170/75. Pulse is regular at 64. Respiratory rate is 18 and the patient is afebrile at 36.7 degrees Celsius. Saturation is 98% on room air. NECK: Supple with full carotid upstrokes. There are no carotid bruits. Jugular venous pressure is flat at 90 degrees. There is no thyromegaly. CARDIOVASCULAR: Reveals a regular rhythm with normal S1 and S2. A 2/6 basal systolic ejection murmur is noted. No S3. LUNGS: Clear without rales, rhonchi, or wheezes. ABDOMEN: Soft and nontender without bruits. EXTREMITIES: Reveal intact radial artery pulses bilaterally. There is no peripheral edema. DATA: Electrolytes are pending. IMPRESSION AND PLAN: 1. Status post acute lacunar cerebrovascular accident -- was within the left stoney. Neurologic status now normal. Will remain on Plavix alone as per neurology. 2. Labile hypertension -- adequate control in general. However, concerned that anxiety is a major factor in her elevated blood pressures. Consider long-term anxiolytics. 3. Status post pericardial AVR -- appropriate gradients on echocardiogram in September 2016. 4. Coronary artery disease -- status post coronary artery bypass grafting x1. Continue medical management. 5. Hypercholesterolemia -- continue high intensity statin. 6. Carotid artery stenosis. 7. Diabetes mellitus. 8. Disposition -- stable for hospital discharge from a cardiac perspective.
--- NOTE | 2017-05-24 13:39 | Progress Note ---
Subjective Date of Service: May 24, 2017. Subjective Pt evaluation today including: conversation w/ patient, conversation w/ family (daughter), physical exam, chart review, lab review, review of studies, review of inpatient medication list Resting comfortably in bed States slightly anxious this AM No complaints or concerns Problem List Medical Problems: (1) Abnormal ECG Status: Acute (2) Anxiety Status: Acute (3) Anxiety Status: Acute (4) Elevated troponin I level Status: Acute (5) Expressive aphasia Status: Acute (6) HTN (hypertension) Status: Acute (7) Hypertension Status: Acute (8) Hypertensive emergency Status: Acute (9) Hyponatremia Status: Acute (10) Poorly-controlled hypertension Status: Acute (11) TIA (transient ischemic attack) Status: Acute Review of Systems Constitutional: No fever, No chills, No sweats, No weakness Eyes: No worsening of vision, No eye pain, No redness, No discharge Respiratory: No cough, No sputum, No wheezing, No shortness of breath, No dyspnea on exertion Cardiac: No chest pain, No orthopnea, No PND, No edema, No claudication Abdomen: No pain, No nausea, No vomiting, No diarrhea, No constipation Musculoskeletal: No joint pain, No muscle pain, No swelling, No calf pain Female : No dysuria, No urinary frequency, No hematuria, No incontinence Neurologic: No memory loss, No paralysis, No weakness, No numbness/tingling, No vertigo Psychiatric: + anxiety, No depression symptoms, No anhedonism, No insomnia Endo: No fatigue, No excessive thirst Skin: No rash, No itch Objective Vital Signs Date Time Temp Pulse Resp B/P (MAP) Pulse Ox O2 Delivery O2 Flow Rate FiO2 05/24/17 08:09 36.7 64 18 172/76 (108) 98 05/24/17 08:00 Room Air 05/24/17 01:10 Room Air 05/23/17 23:10 37.0 71 19 149/71 (97) 97 Room Air 05/23/17 21:50 Room Air 05/23/17 21:35 72 113/57 (75) 05/23/17 15:35 Room Air 05/23/17 14:44 76 98 05/23/17 14:36 36.3 69 18 113/63 (80) 99 Room Air Physical Exam General Appearance: WD/WN, no apparent distress Eyes: normal inspection, PERRL, EOMI, sclerae normal Neck: supple, no adenopathy, thyroid normal, no JVD, no carotid bruits Respiratory/Chest: chest non-tender, lungs clear, normal breath sounds, no respiratory distress Cardiovascular: no edema, no gallop, no JVD, no murmur Abdomen: normal bowel sounds, non tender, soft, no organomegaly Extremities: normal range of motion, non-tender, normal inspection, no pedal edema Neurologic/Psychiatric: alert, normal mood/affect, oriented x 3 Skin: normal color, warm/dry, no rash Lymphatic: no adenopathy Laboratory Results Last 24 Hours Test 05/23/17 16:33 05/23/17 21:04 05/24/17 07:14 05/24/17 09:03 Bedside Glucose 168 mg/dl 160 mg/dl 167 mg/dl Sodium Level 130 mmol/L Potassium Level 4.4 mmol/L Chloride Level 98 mmol/L Carbon Dioxide Level 24 mmol/L Anion Gap 7.0 mmol/L Blood Urea Nitrogen 27 mg/dl Creatinine 1.06 mg/dl Est Creatinine Clear Calc Drug Dose 30.1 ml/min Estimated GFR () 55.1 Estimated GFR (Non- 47.5 BUN/Creatinine Ratio 25.3 Random Glucose 276 mg/dl Calcium Level 8.5 mg/dl Test 05/24/17 11:43 Bedside Glucose 194 mg/dl Assessment and Plan - Left lacunar ischemic infarct, stoney cotninue antiplatelet therapy with Plavix LDL controlled on statin HbA1c 7.1 on Lantus and Novolog BP control with Lisinopril , increased to 10mg BID, adequate control no further neurological testing recommended PT/OT and speech therapy - Hypertensive urgency: resolved, initially given Cardene in ICU, d/c quickly BP tends to go up with anxiety because only systolic pressures up increase lisinopril to 10mg BID, much better control over past 36 hours Hydralazine PRN treat anxiety with Buspar and PRN Ativan - Hyponatremia:resolving, continue NaCl 1gm BID, fluid restrict to 1500cc/day unclear if this is SIADH or a result of recent SSRI use if sodium continues to go up, would continue above treatment on discharge and follow up with PCP if sodium goes down again, would consult nephrology for recommendations - Anxiety: Ativan PRN in addition to Buspar feeling fatigued today, likely from above combination would try to limit Ativan to just HS but if needed, she can take during the day definitely working, less anxious and blood pressure is benefitting - DM, insulin dependent: Lantus 13 units and Novolog with meals (3, 9 and 11 units with BLD) sliding scale coverage with CF of 40 - Mild elevated in troponin, no EKG changes, continue antiplatelet therapy, likely demand ischemia from hypertension - Hypothyroidism: Synthroid
--- NOTE | 2017-05-24 15:51 | Medical Student: [facility] ---
Med Student History & Physical Date & Time of Service: May 24, 2017 at 15:26 Chief Complaint: Hypertensive Urgency, Malignant Primary Care Physician: Shahid Shea M.D. History of Present Illness Source: patient, family Michaela is an 86 yo female with history of Anxiety, HTN, DM1, hypothyroidism, and hyperlipidemia who presented to the hospital on 05/18 when her daughter observed the patient having left sided facial droop and slurring of speech. This is in the context of having elevated systolic BP for the past 2 days in the ranges of 170-200. The facial changes resolved by the time of arrival at the hospital. Denies chest pain, chest pressure, tightness, shortness of breath , confusion, weakness, numbness, fevers, chills, and n/v/d. Initial EKG showed ST depressions. Imaging showed lacunar infarct in the L stoney. Carotid MRA showed 50% stenosis in the R carotid bifurcation and L internal carotid. Troponin negative. Past Medical/Surgical History Medical Problems: (1) Abnormal ECG Status: Acute (2) Anxiety Status: Acute (3) Anxiety Status: Acute (4) Elevated troponin I level Status: Acute (5) Expressive aphasia Status: Acute (6) HTN (hypertension) Status: Acute (7) Hypertension Status: Acute (8) Hypertensive emergency Status: Acute (9) Hyponatremia Status: Acute (10) Poorly-controlled hypertension Status: Acute (11) TIA (transient ischemic attack) Status: Acute (12) Type 1 Diabetes mellitus Status: Chronic Family History Father: diabetes, stroke Mother: stroke Sibling(s): heart disease (Brother), cancer (Breast cancer (sisters)), stroke ( brother) Social History Smoking Status: Never Smoker Alcohol Use: none Drug Use: none Marital Status: ( passed 2015) Housing status: lives with family (Son) 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) Allergies Coded Allergies: Penicillins (Verified Allergy, Unknown, UNKNOWN, 05/18/17) Sulfa Antibiotics (Verified Allergy, Unknown, SEVERE HIVES, 05/18/17) Tramadol (Unverified Allergy, Unknown, UNKNOWN, 05/18/17) Medications Atorvastatin (Lipitor), 40 MG PO HS Brinzolamide-Brimonidine Tartr (Simbrinza), 1 DROP OPB BID Buspirone Hcl (Buspirone Hcl), 1.5 TAB PO BID Cholecalciferol (Vitamin D 1000 Unit), 2,000 UNITS PO DAILY Clindamycin HCl (Clindamycin HCl), 300 MG PO UD Clonidine Hcl (Catapres), 0.1 MG PO UD PRN for BLOOD PRESSURE Clopidogrel Bisulfate (Clopidogrel), 75 MG PO QAM Escitalopram Oxalate (Lexapro), 5 MG PO DAILY Fluorouracil (Topical) (Fluorouracil), 1 APPLN TOP HS Insulin Glargine (Lantus Solostar), 13 UNITS SC DAILY Levothyroxine Sodium (Levothyroxine Sodium), 25 MCG PO DAILY Lisinopril (Zestril), 5 MG PO AMPM Lisinopril (Lisinopril), 10 MG PO DAILY Review of Systems Constitutional: No fever, No chills, No sweats, No weight loss, No weakness, No fatigue, No problem reported Eyes: No worsening of vision, No eye pain, No redness, No diplopia, No problem reported ENT: No hearing loss, No unusual epistaxis, No nasal symptoms, No sore throat, No trouble swallowing, No problem reported Respiratory: No cough, No sputum, No wheezing, No shortness of breath, No dyspnea on exertion, No dyspnea at rest, No hemoptysis, No problem reported Cardiovascular: No chest pain, No edema, No claudication, No palpitations, No problem reported Abdomen: No pain, No nausea, No vomiting, No diarrhea, No constipation, No GI bleeding, No problem reported Musculoskeletal: No joint pain, No muscle pain, No swelling, No problem reported Genitourinary - Female: No dysuria, No urinary frequency, No urinary urgency, No urinary incontinence, No urinary retention, No hematuria, No problem reported Neurologic: + paralysis, No memory loss, No weakness, No numbness/tingling, No vertigo, No balance problems Psychiatric: + anxiety Hematologic / Lymphatic: No abnormal bleeding/bruising Physical Exam Vital Signs (24 Hours) Date Time Temp Pulse Resp B/P (MAP) Pulse Ox O2 Delivery O2 Flow Rate FiO2 05/24/17 08:09 36.7 64 18 172/76 (108) 98 05/24/17 08:00 Room Air 05/24/17 01:10 Room Air 05/23/17 23:10 37.0 71 19 149/71 (97) 97 Room Air 05/23/17 21:50 Room Air 05/23/17 21:35 72 113/57 (75) 05/23/17 15:35 Room Air General Appearance: WD/WN, no apparent distress Head: normocephalic ENT: hearing grossly normal Neck: supple, no JVD, no carotid bruits, trachea midline Respiratory/Chest: chest non-tender, lungs clear, normal breath sounds, no respiratory distress, no accessory muscle use Cardiovascular: regular rate, rhythm, no edema, no gallop, no JVD, no murmur, normal peripheral pulses Abdomen/GI: normal bowel sounds, non tender, soft, no organomegaly, no pulsatile mass Extremities/Musculoskelatal: normal inspection, no calf tenderness, normal capillary refill, no pedal edema, non-tender Neurologic/Psych: 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1 ml/min Estimated GFR () 55.1 Estimated GFR (Non- 47.5 BUN/Creatinine Ratio 25.3 10-20 Random Glucose 276 70-99 mg/dl Calcium Level 8.5 8.5-10.1 mg/dl Test 05/24/17 11:43 Range/Units Bedside Glucose 194 70-90 mg/dl Diagnostic Radiology Brain MRI WITHOUT CONTRAST HISTORY: Slurred speech. Stroke TECHNIQUE: Multiplanar multisequence MRI of the brain was performed without the use of contrast. COMPARISON STUDY: Brain MRI 10/17/2016. FINDINGS: There is a punctate focus of restricted diffusion seen within the left stoney on image 7 consistent with an acute lacunar infarct. There is no mass, hematoma, midline shift. Age-related atrophy and microvascular ischemic changes are again noted. This is not significantly changed. Old lacunar infarct seen within the left caudate head. The major vascular flow-voids at the skull base are maintained. The paranasal sinuses and mastoid air cells are clear. IMPRESSION: A punctate acute lacunar infarct within the left stoney. Electronically signed by: Nitin Vega M.D. 05/18/2017 8:49 PM Brain MRA HISTORY: Stroke - Attention to [place] TECHNIQUE: 3-D [id number] MRA of the brain was performed without contrast. COMPARISON STUDY: None. FINDINGS: Visualized intracranial internal carotid arteries, distal vertebral arteries, and basilar artery are widely patent. There is no significant stenosis, occlusion, or aneurysm seen within the bilateral ACAs, MCAs, or lending manager. IMPRESSION: No significant stenosis, occlusion, or aneurysm within the [place]. Electronically signed by: Nitin Vega M.D. 05/18/2017 8:39 PM NECK MRA HISTORY: Slurred speech. Stroke TECHNIQUE: [id number] and gadolinium-enhanced MRA of the neck was performed both before and after the intravenous administration of contrast. All measurements were calculated based on NASCET criteria. COMPARISON STUDY: Carotid Doppler 10/17/2016. FINDINGS: The aortic arch is not well visualized. The visualized portion of the proximal great vessels extending from the aortic arch appear patent. The bilateral common carotid and vertebral arteries are widely patent. There is approximate 50% focal stenosis at the right carotid bifurcation. There is high-grade/critical stenosis at the takeoff of the right external carotid artery. There is a 1.3 cm segment of approximately 50% stenosis within the proximal left internal carotid artery. The left external carotid artery is widely patent. IMPRESSION: 1. Approximately 50% focal stenosis at the right carotid bifurcation. 2. High-grade/critical stenosis at the takeoff of the right external carotid artery. 3. Approximately 50% stenosis involving a proximal 1.3 cm segment of the left internal carotid artery. Electronically signed by: Nitin Vega M.D. 05/18/2017 8:45 PM SINGLE VIEW CHEST CLINICAL HISTORY: Strokelike symptoms. FINDINGS: An AP, portable, upright chest radiograph is compared to study dated 05/06/2017. The examination is degraded by portable technique and patient rotation. The patient is status post midline sternotomy. The heart is mildly enlarged and there is atherosclerotic calcification of the thoracic aorta. The pulmonary vasculature is noncongested. Chronic interstitial thickening is similar to previous. No airspace consolidation, large pleural effusion, or pneumothorax is seen. The skeletal structures are osteopenic. The bony thorax is grossly intact. Calcific tendinopathy is noted in the right shoulder. IMPRESSION: Mild cardiac enlargement with no acute cardiopulmonary abnormality. Electronically signed by: Julio Cano M.D. 05/18/2017 1:19 PM Normal EKG Impression Assessment and Plan ASSESSMENT: Michaela is an 86 yo female who presented to the hospital following neurologic changes in the setting of hypertension. She has a history notable for Anxiety, and has had some anxiety during times of hypertension during her time inpatient. Her BP continues to fluctuate from low to high while on treatment. 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 Neurology has recommended only one antiplatelet medication in the form of Plavix for treatment of her cerebrovascular disease. Plan: Continue Clopidogrel 75mg PO daily. Address risk factors (hypertension, vascular disease, and anxiety) Hypertensive urgency - Her blood pressure continues to fluctuate, has continued to require IV hydralazine PRN for spikes in her blood pressure. Remains asymptomatic. Says she has elevated anxiety around the times her BP is elevated. Plan: Increase Lisinopril to 10mg BID, monitor BP closely. Add Clonidine 0.1mg BID as needed for hypertension spikes. Anxiety: May be underlying cause of fluctuating BP. Currently on Lorazepam 0.5 mg, added Buspirone 7.5mg PO BID. Will need to be on Buspirone longer to assess effects. Plan: Continue with Buspirone and Lorazepam. Assess for symptom improvement on outpatient basis. S/P pericardial AVR - Her most recent echo in September 2016 showed appropriate valve gradient. Plan: Monitor outpatient Carotid stenosis, CAD - She denies angina. She has no evidence of ACS. Plan: Continue atorvastatin 40 mg PO daily, d/c Aspirin per cardiology. Dyslipidemia - She is on high intensity statin therapy, and her lipid profile showed excellent control with LDL 63. Plan: Continue atorvastatin Diabetes mellitus: Varies in the low to high 100's. Asymptomatic. Plan: Continue with sliding scale insulin. Advanced Directives Existing Living Will: Yes Existing Power of [place]ountain Dispenser: Yes
[2017-05-24 16:00] VITALS: O2SAT 99
[2017-05-24 16:14] VITALS: BP 113/68; PULSE 71; TEMP 36.6; O2SAT 99
[2017-05-24] MEDS: LORAZEPAM 0.5 MG TAB PO PRN (16:23)
[2017-05-24 21:16] VITALS: BP 123/68; PULSE 67; O2SAT 97
[2017-05-24] MEDS: ATORVASTATIN 40 MG TAB PO SCH (21:17)
[2017-05-24] MEDS: INSULIN GLARGINE SOLOSTAR 100 UNITS/ML 3 ML PEN SC SCH (21:26)
[2017-05-24] MEDS: LORAZEPAM 0.5 MG TAB PO SCH (21:58)
[2017-05-24 23:12] VITALS: BP 127/51; PULSE 62; TEMP 36.7; O2SAT 99
[2017-05-25] MEDS: LEVOTHYROXINE 25 MCG TAB PO SCH (05:36)
[2017-05-25] MEDS: HEPARIN SOD 5000 UNIT/0.5 ML CARP SQ SCH ×3 (05:36→20:57)
[2017-05-25 07:26] VITALS: BP 149/72; PULSE 59; TEMP 36.6; O2SAT 97
[2017-05-25] MEDS: INSULIN ASPART 100 UNITS/ML 3 ML PEN SC SCH ×7 (07:44→20:49)
[2017-05-25 08:00] VITALS: O2SAT 97
[2017-05-25] MEDS: BRINZOLAMIDE-BRIMONIDINE 1-0.2% OPH SUSP OPB SCH ×2 (09:03→20:50)
[2017-05-25] MEDS: BusPIRone 15 MG TAB PO SCH ×2 (09:04→20:51)
[2017-05-25] MEDS: CLOPIDOGREL BISULFATE 75 MG TAB PO SCH (09:04)
[2017-05-25] MEDS: CHOLECALCIFEROL 1000 INTER.UNIT TAB PO SCH (09:05)
[2017-05-25] MEDS: LISINOPRIL 10 MG TAB PO SCH ×2 (09:05→20:51)
[2017-05-25] MEDS: SODIUM CHLORIDE 1 GM TAB PO SCH ×2 (09:05→20:51)
--- NOTE | 2017-05-25 09:31 | CARDIOLOGY PROGRESS NOTE ---
DATE: 05/25/2017 SUBJECTIVE: Mrs. Saleh is resting comfortably in the bedside chair. She has been ambulatory without difficulty. She is anxious for hospital discharge. OBJECTIVE: VITAL SIGNS: Blood pressure is 150/70 with a regular pulse of 60. Respiratory rate is 20 and the patient is afebrile at 36.6 degrees Celsius. Saturation is 97% on room air. NECK: Supple with full carotid upstrokes. There are no carotid bruits. Jugular venous pressure is flat at 90 degrees. There is no thyromegaly. CARDIOVASCULAR: Reveals a regular rhythm with normal S1 and S2. A 2/6 basal systolic ejection murmur is noted. No S3. LUNGS: Clear without rales, rhonchi, or wheezes. ABDOMEN: Soft, nontender without bruits. EXTREMITIES: Reveal intact radial artery pulses bilaterally. There is no peripheral edema. LABORATORY DATA: Electrolytes note a sodium of 130, potassium 4.4, chloride 98, bicarb 24, BUN 27, creatinine 1.06, glucose of 276. IMPRESSION AND PLAN: 1. Status post acute lacunar cerebrovascular accident -- within the left stoney. Will remain on Plavix alone as per neurology's recommendation. 2. Labile hypertension -- adequate control at this time. Anxiety seems to be a major component of her elevated pressures. 3. Status post pericardial aVR -- appropriate gradients on echocardiogram in September 2016. 4. Coronary artery disease -- status post coronary artery bypass grafting x1. Continue conservative medical care. 5. Hypercholesterolemia -- continue high intensity statin. 6. Carotid artery stenosis. 7. Diabetes mellitus. 8. Disposition -- stable for hospital discharge.
[2017-05-25 09:58] LABS: BUN/CREATININE RATIO 31.8 (10-20); CALCIUM 8.9 mg/dl (8.5-10.1); CREATININE 0.92 mg/dl (0.60-1.20); POTASSIUM 4.3 mmol/L (3.5-5.1)
--- NOTE | 2017-05-25 15:13 | Medical Student: [facility] ---
Med Student Progress Note Date of Service May 25, 2017. Subjective Pt evaluation today including: conversation w/ patient, conversation w/ family , physical exam Michaela is doing well today. She has walked about 4 laps around the floor, and walked some without a walker. She denies shortness of breath, chest pain, n/v/d/ c, fever, chills. She was unsure of if she had type 1 or type 2 diabetes. I spoke with her in length, discussing the differences and how each works and how the treatments work. She was also concerned about end of life care, and I spoke with her in regards to this as well, but recommended she speak further with her PCP about these as they are complicated issues that are very situational and must be thought about thoroughly. All together, I hoped to have helped ease her and calm any anxiety. She feels her anxiety has been improving since being here. Otherwise, planning to send to [facility] for PT/OT due to concerns for deconditioning. Review of Systems Constitutional: + see HPI Respiratory: + see HPI Cardiac: + see HPI Abdomen: + see HPI Musculoskeletal: + see HPI Objective Vital Signs Date Time Temp Pulse Resp B/P (MAP) Pulse Ox O2 Delivery O2 Flow Rate FiO2 05/25/17 08:00 97 Room Air 05/25/17 07:26 36.6 59 20 149/72 (97) 97 05/25/17 00:00 Room Air 05/24/17 23:12 36.7 62 20 127/51 (76) 99 Room Air 05/24/17 21:16 67 123/68 (86) 97 Room Air 05/24/17 16:14 36.6 71 18 113/68 (83) 99 Room Air 05/24/17 16:00 99 Room Air Physical Exam General Appearance: WD/WN, no apparent distress ENT: hearing grossly normal (uses hearing aids) Neck: supple, no JVD, trachea midline Respiratory/Chest: chest non-tender, lungs clear, normal breath sounds, no respiratory distress, no accessory muscle use Cardiovascular: regular rate, rhythm, no edema, no gallop, no JVD, no murmur Abdomen: normal bowel sounds, non tender, soft Extremities: non-tender, normal inspection, no pedal edema, no calf tenderness Neurologic/Psychiatric: alert, normal mood/affect, oriented x 3 Skin: normal color, warm/dry, no rash Laboratory Results Last 24 Hours Test 05/24/17 16:37 05/24/17 21:13 05/25/17 07:20 05/25/17 08:51 Bedside Glucose 124 mg/dl 140 mg/dl 114 mg/dl Sodium Level 133 mmol/L Potassium Level 4.3 mmol/L Chloride Level 101 mmol/L Carbon Dioxide Level 24 mmol/L Anion Gap 8.0 mmol/L Blood Urea Nitrogen 29 mg/dl Creatinine 0.92 mg/dl Est Creatinine Clear Calc Drug Dose 34.7 ml/min Estimated GFR () 65.3 Estimated GFR (Non- 56.4 BUN/Creatinine Ratio 31.8 Random Glucose 180 mg/dl Calcium Level 8.9 mg/dl Test 05/25/17 11:14 Bedside Glucose 208 mg/dl Assessment and Plan Assessment and Plan: ASSESSMENT: Michaela is an 86 yo female who presented to the hospital following neurologic changes in the setting of hypertension. She has a history notable for Anxiety, and has had some anxiety during times of hypertension during her time inpatient but she says this has been improving during her stay. Her BP is under better control today with no systolic BP above 150 in past 24 hours. 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 Neurology has recommended only one antiplatelet medication in the form of Plavix for treatment of her cerebrovascular disease. Plan: Continue Clopidogrel 75mg PO daily. Address risk factors (hypertension, vascular disease, and anxiety) Hypertensive urgency - Her blood pressure has been controlled in past 24 hours. Remains asymptomatic. Says she has elevated anxiety around the times her BP is elevated. Plan: Increase Lisinopril to 10mg BID, monitor BP closely. Add Clonidine 0.1mg BID as needed for hypertension spikes. Anxiety: May be underlying cause of fluctuating BP. Currently on Lorazepam 0.5 mg, added Buspirone 7.5mg PO BID. Will need to be on Buspirone longer to assess effects. Reports anxiety is improving. Plan: Continue with Buspirone and Lorazepam. Assess for symptom improvement on outpatient basis. S/P pericardial AVR - Her most recent echo in September 2016 showed appropriate valve gradient. Plan: Monitor outpatient Carotid stenosis, CAD - She denies angina. She has no evidence of ACS. Plan: Continue atorvastatin 40 mg PO daily, d/c Aspirin per cardiology. Dyslipidemia - She is on high intensity statin therapy, and her lipid profile showed excellent control with LDL 63. Plan: Continue atorvastatin Diabetes mellitus: Varies in the low to high 100's. Asymptomatic. Plan: Continue with sliding scale insulin. Deconditioning: Per occupational therapy evaluation. Plan: Discharge to [facility] for rehab. Discharge planning: rehab hospital
[2017-05-25 15:21] VITALS: BP 145/67; PULSE 82; TEMP 36.7; O2SAT 99
--- NOTE | 2017-05-25 16:01 | Progress Note ---
Subjective Date of Service: May 25, 2017. Subjective Pt evaluation today including: conversation w/ patient, physical exam, chart review, lab review, review of studies, review of inpatient medication list Resting comfortably in bed States ambulating quite a bit today States sometimes feels head is "full" No other concerns at this time Problem List Medical Problems: (1) Abnormal ECG Status: Acute (2) Anxiety Status: Acute (3) Anxiety Status: Acute (4) Elevated troponin I level Status: Acute (5) Expressive aphasia Status: Acute (6) HTN (hypertension) Status: Acute (7) Hypertension Status: Acute (8) Hypertensive emergency Status: Acute (9) Hyponatremia Status: Acute (10) Poorly-controlled hypertension Status: Acute (11) TIA (transient ischemic attack) Status: Acute Review of Systems Constitutional: No fever, No chills, No sweats, No weight loss, No weakness Eyes: No worsening of vision, No eye pain, No redness, No discharge Respiratory: No cough, No sputum, No wheezing, No shortness of breath, No dyspnea on exertion Cardiac: No chest pain, No orthopnea, No PND, No edema, No claudication Abdomen: No pain, No nausea, No vomiting, No diarrhea, No constipation Musculoskeletal: No joint pain, No muscle pain, No swelling, No calf pain Female : No dysuria, No urinary frequency, No hematuria, No incontinence Neurologic: No memory loss, No paralysis, No weakness, No numbness/tingling Psychiatric: No depression symptoms, No anhedonism, No anxiety, No insomnia Endo: No fatigue, No excessive thirst Skin: No rash, No itch Objective Vital Signs Date Time Temp Pulse Resp B/P (MAP) Pulse Ox O2 Delivery O2 Flow Rate FiO2 05/25/17 15:21 36.7 82 18 145/67 (93) 99 05/25/17 08:00 97 Room Air 05/25/17 07:26 36.6 59 20 149/72 (97) 97 05/25/17 00:00 Room Air 05/24/17 23:12 36.7 62 20 127/51 (76) 99 Room Air 05/24/17 21:16 67 123/68 (86) 97 Room Air 05/24/17 16:14 36.6 71 18 113/68 (83) 99 Room Air 05/24/17 16:00 99 Room Air Physical Exam General Appearance: WD/WN, no apparent distress Eyes: normal inspection, PERRL, EOMI, sclerae normal Neck: supple, no adenopathy, thyroid normal, no JVD Respiratory/Chest: chest non-tender, lungs clear, normal breath sounds, no respiratory distress Cardiovascular: regular rate, rhythm, no edema, no gallop, no JVD Abdomen: normal bowel sounds, non tender, soft, no organomegaly Neurologic/Psychiatric: no motor/sensory deficits, alert, normal mood/affect, oriented x 3 Laboratory Results Last 24 Hours Test 05/24/17 16:37 05/24/17 21:13 05/25/17 07:20 05/25/17 08:51 Bedside Glucose 124 mg/dl 140 mg/dl 114 mg/dl Sodium Level 133 mmol/L Potassium Level 4.3 mmol/L Chloride Level 101 mmol/L Carbon Dioxide Level 24 mmol/L Anion Gap 8.0 mmol/L Blood Urea Nitrogen 29 mg/dl Creatinine 0.92 mg/dl Est Creatinine Clear Calc Drug Dose 34.7 ml/min Estimated GFR () 65.3 Estimated GFR (Non- 56.4 BUN/Creatinine Ratio 31.8 Random Glucose 180 mg/dl Calcium Level 8.9 mg/dl Test 05/25/17 11:14 Bedside Glucose 208 mg/dl Assessment and Plan - Left lacunar ischemic infarct, stoney - stable, no further neuro deficits continue antiplatelet therapy with Plavix LDL controlled on statin HbA1c 7.1 on Lantus and Novolog BP control with Lisinopril , increased to 10mg BID, adequate control no further neurological testing recommended PT/OT and speech therapy - Hypertensive urgency: resolved, initially given Cardene in ICU, d/c quickly BP tends to go up with anxiety because only systolic pressures up increase lisinopril to 10mg BID, much better control over past 36 hours Hydralazine PRN treat anxiety with Buspar and PRN Ativan - Hyponatremia:resolving, continue NaCl 1gm BID, fluid restrict to 1500cc/day unclear if this is SIADH or a result of recent SSRI use if sodium continues to go up, would continue above treatment on discharge and follow up with PCP if sodium goes down again, would consult nephrology for recommendations - Anxiety: Ativan PRN in addition to Buspar feeling fatigued today, likely from above combination would try to limit Ativan to just HS but if needed, she can take during the day definitely working, less anxious and blood pressure is benefitting - DM, insulin dependent: Lantus 13 units and Novolog with meals (3, 9 and 11 units with BLD) sliding scale coverage with CF of 40 - Mild elevated in troponin, no EKG changes, continue antiplatelet therapy, likely demand ischemia from hypertension - Hypothyroidism: Synthroid Discharge planning: rehab hospital
[2017-05-25] MEDS: LORAZEPAM 0.5 MG TAB PO PRN (17:08)
[2017-05-25] MEDS: ATORVASTATIN 40 MG TAB PO SCH (20:50)
[2017-05-25] MEDS: INSULIN GLARGINE SOLOSTAR 100 UNITS/ML 3 ML PEN SC SCH (20:57)
[2017-05-25] MEDS: LORAZEPAM 0.5 MG TAB PO SCH (21:56)
[2017-05-26] VITALS (7 sets, daily range): BP systolic 118–194; BP diastolic 52–92; PULSE 59–73; TEMP 36.5–36.9; O2SAT 97–100
[2017-05-26] MEDS: HEPARIN SOD 5000 UNIT/0.5 ML CARP SQ SCH ×3 (06:00→22:16)
[2017-05-26] MEDS: LEVOTHYROXINE 25 MCG TAB PO SCH (06:21)
[2017-05-26] MEDS: SODIUM CHLORIDE 1 GM TAB PO SCH ×2 (07:51→21:17)
[2017-05-26] MEDS: LISINOPRIL 10 MG TAB PO SCH ×2 (07:51→21:21)
[2017-05-26] MEDS: INSULIN ASPART 100 UNITS/ML 3 ML PEN SC SCH ×7 (07:52→21:10)
[2017-05-26] MEDS: BusPIRone 15 MG TAB PO SCH ×2 (07:52→21:18)
[2017-05-26] MEDS: CHOLECALCIFEROL 1000 INTER.UNIT TAB PO SCH (07:52)
[2017-05-26] MEDS: BRINZOLAMIDE-BRIMONIDINE 1-0.2% OPH SUSP OPB SCH ×2 (07:55→19:28)
[2017-05-26] MEDS: CLOPIDOGREL BISULFATE 75 MG TAB PO SCH (07:55)
[2017-05-26 10:53] LABS: CREATININE 0.98 mg/dl (0.60-1.20)
[2017-05-26 10:54] LABS: POTASSIUM 4.1 mmol/L (3.5-5.1)
--- NOTE | 2017-05-26 12:17 | Medical Student: [facility] ---
Med Student Progress Note Date of Service May 26, 2017. Subjective Pt evaluation today including: conversation w/ patient, conversation w/ family , physical exam Michaela continues to feel well today. She has no concerns today. She says she continues to walk well but prefers to use the walker for safety. Otherwise denies chest pain, shortness of breath, confusion, and neurologic changes. Her daughter had discussed that there may be an insurance issue with discharging to [facility] and that they may have to go home without rehab. She was curious if they could get a home nurse if rehab facility is not doable. Patient says the buspirone continues to help and she feels less anxious. She wanted to know what she should do in the future following discharge when she has elevated blood pressures above 200. I explained that we will discuss this further come discharge, but generally: if she has associated symptoms to come to the hospital , if she is asymptomatic but feels that she is anxious then she may take lorazepam, otherwise I will discuss with Dr. Childs if we may plan to add acute and fast acting anti-hypertensive medication to her outpatient meds and will let her know at discharge. Review of Systems Constitutional: No problem reported Respiratory: No shortness of breath, No dyspnea on exertion, No dyspnea at rest , No problem reported Cardiac: No chest pain, No edema, No palpitations, No problem reported Abdomen: No nausea, No vomiting, No problem reported Psychiatric: + anxiety (continues to improve) Objective Vital Signs Date Time Temp Pulse Resp B/P (MAP) Pulse Ox O2 Delivery O2 Flow Rate FiO2 05/26/17 08:00 99 Room Air 05/26/17 07:14 36.8 73 18 163/73 (103) 99 Room Air 05/26/17 00:49 36.9 59 18 118/52 (74) 97 Room Air 05/26/17 00:00 Room Air 05/25/17 16:26 Room Air 05/25/17 15:21 36.7 82 18 145/67 (93) 99 Physical Exam General Appearance: WD/WN, no apparent distress ENT: hearing grossly normal Neck: no carotid bruits Respiratory/Chest: chest non-tender, lungs clear, normal breath sounds, no respiratory distress, no accessory muscle use Cardiovascular: regular rate, rhythm, no edema, no gallop, no JVD, + systolic murmur (grade 1/6 holosystolic murmur heard best over the aortic valve with faint radiation to the carotids. ) Extremities: non-tender, normal inspection, no pedal edema Neurologic/Psychiatric: alert, normal mood/affect Laboratory Results Last 24 Hours Test 05/25/17 15:57 05/25/17 20:19 05/26/17 07:38 05/26/17 10:14 Bedside Glucose 107 mg/dl 133 mg/dl 114 mg/dl Sodium Level 133 mmol/L Potassium Level 4.1 mmol/L Chloride Level 99 mmol/L Carbon Dioxide Level 28 mmol/L Anion Gap 5.0 mmol/L Blood Urea Nitrogen 31 mg/dl Creatinine 0.98 mg/dl Est Creatinine Clear Calc Drug Dose 32.6 ml/min Estimated GFR () 60.5 Estimated GFR (Non- 52.2 BUN/Creatinine Ratio 32.0 Random Glucose 208 mg/dl Calcium Level 9.0 mg/dl Test 05/26/17 11:24 Bedside Glucose 206 mg/dl Assessment and Plan Assessment and Plan: ASSESSMENT: Michaela is an 86 yo female who presented to the hospital following neurologic changes in the setting of hypertension. She has a history notable for Anxiety, and has had some anxiety during times of hypertension during her time inpatient but she says this has been improving during her stay. Her BP is under better control today with peaks in BP in the mornings prior to medication administration with normalization afterwards. The current plan is for discharge to [facility], but there may be issues with insurance and other options may need to be explored. 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 Neurology has recommended only one antiplatelet medication in the form of Plavix for treatment of her cerebrovascular disease. Plan: Continue Clopidogrel 75mg PO daily. Address risk factors (hypertension, vascular disease, and anxiety) Hypertensive urgency - Her blood pressure has been controlled in past 48 hours with peaks presenting prior to morning medication and resolving after. Remains asymptomatic. Previously had elevated anxiety around the times her BP is elevated, but anxiety is improving. Plan: Increase Lisinopril to 10mg BID, monitor BP closely. Add Clonidine 0.1mg BID as needed for hypertension spikes. Anxiety: May be underlying cause of fluctuating BP. Currently on Lorazepam 0.5 mg, added Buspirone 7.5mg PO BID. Will need to be on Buspirone longer to assess effects. Reports anxiety continues to improve. Plan: Continue with Buspirone and Lorazepam. Assess for symptom improvement on outpatient basis. S/P pericardial AVR - [place] an audible murmur today, asymptomatic however. Her most recent echo in September 2016 showed appropriate valve gradient. Plan: Monitor outpatient Carotid stenosis, CAD - She denies angina. She has no evidence of ACS. Plan: Continue atorvastatin 40 mg PO daily, d/c Aspirin per cardiology. Dyslipidemia - She is on high intensity statin therapy, and her lipid profile showed excellent control with LDL 63. Plan: Continue atorvastatin Diabetes mellitus: Varies in the low to high 100's. Asymptomatic. Plan: Continue with sliding scale insulin. Deconditioning: Per occupational therapy evaluation. Plan: Discharge to [facility] for rehab. If unable, may consider home nurse visits. Discharge planning: home with home health, rehab hospital
--- NOTE | 2017-05-26 15:45 | Progress Note ---
Subjective Date of Service: May 26, 2017. Subjective Pt evaluation today including: conversation w/ patient, conversation w/ family , physical exam, chart review, lab review, review of studies, review of inpatient medication list Pt resting upright in bed Daughter at bedside States feeling weak at times but not worsening Ambulating well No further concerns Problem List Medical Problems: (1) Abnormal ECG Status: Acute (2) Anxiety Status: Acute (3) Anxiety Status: Acute (4) Elevated troponin I level Status: Acute (5) Expressive aphasia Status: Acute (6) HTN (hypertension) Status: Acute (7) Hypertension Status: Acute (8) Hypertensive emergency Status: Acute (9) Hyponatremia Status: Acute (10) Poorly-controlled hypertension Status: Acute (11) TIA (transient ischemic attack) Status: Acute Review of Systems Constitutional: + weakness, + fatigue, No fever, No chills, No sweats, No weight loss ENT: + hearing loss, No unusual epistaxis, No nasal symptoms, No sore throat, No tinnitus Respiratory: No cough, No sputum, No wheezing, No shortness of breath, No dyspnea on exertion Cardiac: No chest pain, No orthopnea, No PND, No edema, No claudication Abdomen: No pain, No nausea, No vomiting, No diarrhea, No constipation Musculoskeletal: No joint pain, No muscle pain, No swelling, No calf pain Female : No dysuria, No urinary frequency, No hematuria, No incontinence Neurologic: No memory loss, No paralysis, No weakness, No numbness/tingling Psychiatric: + anxiety, No depression symptoms, No anhedonism, No insomnia Endo: No fatigue, No excessive thirst Skin: No rash, No itch Objective Vital Signs Date Time Temp Pulse Resp B/P (MAP) Pulse Ox O2 Delivery O2 Flow Rate FiO2 05/26/17 15:03 36.5 72 18 150/79 (102) 100 Room Air 05/26/17 08:00 99 Room Air 05/26/17 07:14 36.8 73 18 163/73 (103) 99 Room Air 05/26/17 00:49 36.9 59 18 118/52 (74) 97 Room Air 05/26/17 00:00 Room Air 05/25/17 16:26 Room Air Physical Exam General Appearance: WD/WN, no apparent distress Eyes: normal inspection, PERRL, EOMI, sclerae normal Neck: supple, no adenopathy, thyroid normal, no JVD Respiratory/Chest: chest non-tender, lungs clear, normal breath sounds, no respiratory distress Cardiovascular: regular rate, rhythm, no edema, no gallop, no JVD Abdomen: normal bowel sounds, non tender, soft, no organomegaly Extremities: normal range of motion, non-tender, normal inspection, no pedal edema Neurologic/Psychiatric: no motor/sensory deficits, alert, normal mood/affect, oriented x 3 Skin: normal color, warm/dry, no rash Lymphatic: no adenopathy Laboratory Results Last 24 Hours Test 05/25/17 15:57 05/25/17 20:19 05/26/17 07:38 05/26/17 10:14 Bedside Glucose 107 mg/dl 133 mg/dl 114 mg/dl Sodium Level 133 mmol/L Potassium Level 4.1 mmol/L Chloride Level 99 mmol/L Carbon Dioxide Level 28 mmol/L Anion Gap 5.0 mmol/L Blood Urea Nitrogen 31 mg/dl Creatinine 0.98 mg/dl Est Creatinine Clear Calc Drug Dose 32.6 ml/min Estimated GFR () 60.5 Estimated GFR (Non- 52.2 BUN/Creatinine Ratio 32.0 Random Glucose 208 mg/dl Calcium Level 9.0 mg/dl Test 05/26/17 11:24 Bedside Glucose 206 mg/dl Assessment and Plan - Left lacunar ischemic infarct, stoney - stable, no further neuro deficits continue antiplatelet therapy with Plavix LDL controlled on statin HbA1c 7.1 on Lantus and Novolog No further neurological testing recommended PT/OT and speech therapy, pt ambulating well and independant with all ADLS, denied SNF, can discharge to home tomorrow - Hypertensive urgency: resolved, initially given Cardene in ICU, d/c quickly BP tends to go up with anxiety because only systolic pressures up increase lisinopril to 10mg BID, much better control over past 36 hours Hydralazine PRN Treat anxiety with PRN Ativan, recently Reuben added, instructed pt that it will take time to work - Hyponatremia:resolving, continue NaCl 1gm BID, fluid restrict to 1500cc/day unclear if this is SIADH or a result of recent SSRI use if sodium continues to go up, can DC tablets on discharge and follow up with PCP if sodium goes down again, would consult nephrology for recommendations - Anxiety: Ativan PRN in addition to Buspar feeling fatigued today, likely from above combination would try to limit Ativan to just HS but if needed, she can take during the day definitely working, less anxious and blood pressure is benefitting - DM, insulin dependent: Lantus 13 units and Novolog with meals (3, 9 and 11 units with BLD) sliding scale coverage with CF of 40 - Mild elevated in troponin, no EKG changes, continue antiplatelet therapy, likely demand ischemia from hypertension - Hypothyroidism: Synthroid DVT ppx with heparin Pt is DNR Discharge planning: home with home health, rehab hospital
[2017-05-26] MEDS: LORAZEPAM 0.5 MG TAB PO PRN (15:55)
[2017-05-26] MEDS: INSULIN GLARGINE SOLOSTAR 100 UNITS/ML 3 ML PEN SC SCH (21:11)
[2017-05-26] MEDS: ATORVASTATIN 40 MG TAB PO SCH (21:18)
[2017-05-26] MEDS: LORAZEPAM 0.5 MG TAB PO SCH (22:16)
[2017-05-27] MEDS: LEVOTHYROXINE 25 MCG TAB PO SCH (05:36)
[2017-05-27] MEDS: HEPARIN SOD 5000 UNIT/0.5 ML CARP SQ SCH (05:36)
[2017-05-27 07:01] VITALS: BP 149/72; PULSE 89; TEMP 36.7; O2SAT 100
[2017-05-27] MEDS: INSULIN ASPART 100 UNITS/ML 3 ML PEN SC SCH ×4 (07:50→11:57)
[2017-05-27] MEDS: CLOPIDOGREL BISULFATE 75 MG TAB PO SCH (07:54)
[2017-05-27] MEDS: SODIUM CHLORIDE 1 GM TAB PO SCH (07:55)
[2017-05-27] MEDS: CHOLECALCIFEROL 1000 INTER.UNIT TAB PO SCH (07:55)
[2017-05-27] MEDS: BusPIRone 15 MG TAB PO SCH (07:56)
[2017-05-27] MEDS: LISINOPRIL 10 MG TAB PO SCH (07:56)
[2017-05-27] MEDS: BRINZOLAMIDE-BRIMONIDINE 1-0.2% OPH SUSP OPB SCH (07:58)
[2017-05-27] MEDS ORDERED: NVLG SC ×3 (09:50)
[2017-05-27] MEDS ORDERED: ATV5 PO ×2 (10:01)
[2017-05-27] MEDS ORDERED: LSN10 PO (10:01)
--- NOTE | 2017-05-27 10:25 | Discharge Instructions ---
Discharge Instructions Date of Service May 27, 2017. Admission Reason for Admission: Hypertensive Urgency, Malignant Discharge Discharge Diagnosis / Problem: Stroke, hypertensive urgency Discharge Goals Goal(s): Decrease discomfort, Improve function, Diagnostic testing, Therapeutic intervention Activity Recommendations Activity Limitations: resume your previous activity (as tolerated) . Instructions / Follow-Up Instructions / Follow-Up You were admitted to the hospital with elevated blood pressure and stroke like symptoms. A head CT scan was negative, however the brain MRI showed a small acute stroke. Neurology was consulted, and no further neurological testing or intervention was needed. Your blood pressure medication was increased, and there were also changes made to your anxiety medications to help better control your blood pressure. Medications: *Please take buspirone (Buspar) as directed: take 1.5 tablets (7.5 mg) by mouth twice daily for the first 3 days, then increase dose to 2 tablets (10 mg) by mouth twice daily. This medication is for your anxiety. *STOP escitalopram (Lexapro). *You may take lorazepam (Ativan) 0.5 mg by mouth at nighttime until you follow up with your primary care provider. You may also take this medication during the day, up to every 8 hours as needed for anxiety, however it is recommended to only take this when absolutely needed as this medication can be habit forming. *Your blood pressure medication, lisinopril, has been increased. STOP taking lisinopril 5 mg twice a day. Instead, please take lisinopril 10 mg by mouth twice a day. *Continue your other home medications as prescribed. Recommendations: *You may check your blood pressure 1-2 times a day at home. If your blood pressure is elevated (top number 180 or higher) and you are symptomatic with headache, changes in vision, increased dizziness/lightheadedness, chest pain, shortness of breath, nausea or vomiting, please call your primary care provider. If your blood pressure is elevated and you are feeling anxious, you may try taking an Ativan and rechecking your blood pressure. Follow up: *You have been scheduled to follow up at Dr. Shea's office with Gwendolyn Jose PA-C on May 28 at 11:15 am. Your primary care provider can follow up with your blood pressure and low blood sodium. Risk Factors for Stroke: You can reduce your chances of stroke by working with your medical provider to adopt a healthy lifestyle. Some specific ways to lower your chance of stroke are: * If you are a smoker, now is the time to stop smoking cigarettes * If you are diabetic, improve the control of your blood sugars * Avoid excessive amounts of alcohol * Control high blood pressure * Lose weight if you are overweight * Be sure to lead an active lifestyle * Eat a healthy diet low in salt, cholesterol and fat You should know about other risk factors for stroke that you are unable to control. These include: * Age 55 years or older * Male gender * Certain racial groups: , or / * Family History of Stroke, Mini stroke or Heart Attack * Sickle Cell Disease Follow Up: It is important for you to keep your follow up appointments with your medical provider. Current Hospital Diet Patient's current hospital diet: AHA Diet (Heart Healthy), Diabetes Type 2 Diet Discharge Diet Recommended Diet: AHA Diet (Heart Healthy), Diabetes Type 2 Diet Procedures Procedures Performed: CT head MRI head MRA head/neck Chest xray Pending Studies Studies pending at discharge: no Laboratory Results Hemoglobin A1c Test 05/18/17 12:00 Range/Units Estimated Average Glucose 157 mg/dl Hemoglobin A1c 7.1 H 4.5-5.6 % Lipid Panel Test 05/19/17 04:52 Range/Units Triglycerides Level 88 0-150 mg/dl Cholesterol Level 131 0-200 mg/dl HDL Cholesterol 50 mg/dl Cholesterol/HDL Ratio 2.6 LDL Cholesterol, Calculated 63 mg/dl Medical Emergencies . Who to Call and When: Medical Emergencies: Call 911 immediately if you experience any of the following warning signs and symptoms of Stroke: * Sudden numbness or weakness of the face, arm or leg, especially on one side of the body * Sudden confusion, trouble speaking or understanding * Sudden trouble seeing in one or both eyes * Sudden trouble walking, dizziness, loss of balance or coordination * Sudden severe headache with no cause Do not delay calling 911 if you experience any warning signs or symptoms of a stroke. Delay in seeking medical attention may affect what treatments can be given to you. . Non-Emergent Contact Non-Emergency issues call your: Primary Care Provider Call Non-Emergent contact if: you have a fever, you have any medication questions . Past History Medical & Surgical History: (1) CVA (cerebral vascular accident) (2) Hypertensive urgency, malignant . "Provider Documentation" section prepared by Hannah Flores. . Stroke Core Measures Reason no t-PA for Stroke: Treatment not indicated Reason no antithrom by day 2: Treatment not indicated Reason no antithrom at D/C: Treatment provided - N/A Reason no statin at D/C: Treatment provided - N/A Reason no anticoag w/a fib: Treatment not indicated VTE Core Measure Inpt VTE Proph given/why not?: Unfractionated heparin SQ
[2017-05-27 11:00] VITALS: BP 149/72; PULSE 89; TEMP 36.7; O2SAT 100
--- NOTE | 2017-05-27 11:13 | Discharge Summary ---
Discharge Summary Date of Service May 27, 2017. (Hannah Flores, CHARLY) Discharge Summary Admission Date: May 18, 2017 at 15:27 Discharge Date: May 20, 2017 Discharge Disposition: Home with services Principal Diagnosis: CVA, hypertensive urgency Problems/Secondary Diagnoses: Anxiety Hyponatremia DM II Hypothyroidism Procedures: CT SCAN OF THE BRAIN WITHOUT IV CONTRAST CLINICAL HISTORY: Right-sided facial droop. Stroke like symptoms. Weakness. COMPARISON STUDY: CT of the brain dated 10/17/2016. TECHNIQUE: Unenhanced axial CT scan of the brain is performed from the vertex to the skull base. CT DOSE: 729.78 mGycm FINDINGS: Brain parenchyma: There are age-related involutional changes noting mild subcortical and periventricular microangiopathic change. There is no hemorrhage, mass effect, or evidence of acute territorial ischemia by CT criteria. Collins-white matter is preserved. No extra-axial fluid collection is seen. Ventricles, sulci, cisterns: Prominent secondary to involutional change. Intracranial vasculature: There is atherosclerotic calcification of the cavernous carotid and vertebral arteries. Calvarium: Unremarkable. Sinuses and mastoids: The visualized paranasal sinuses are clear. The mastoid air cells are well pneumatized. Orbits: The bony orbits are grossly intact. There are bilateral ocular lens implants. IMPRESSION: There is no hemorrhage, mass effect, or evidence of acute territorial ischemia by CT criteria. SINGLE VIEW CHEST CLINICAL HISTORY: Strokelike symptoms. FINDINGS: An AP, portable, upright chest radiograph is compared to study dated 05/06/2017. The examination is degraded by portable technique and patient rotation. The patient is status post midline sternotomy. The heart is mildly enlarged and there is atherosclerotic calcification of the thoracic aorta. The pulmonary vasculature is noncongested. Chronic interstitial thickening is similar to previous. No airspace consolidation, large pleural effusion, or pneumothorax is seen. The skeletal structures are osteopenic. The bony thorax is grossly intact. Calcific tendinopathy is noted in the right shoulder. IMPRESSION: Mild cardiac enlargement with no acute cardiopulmonary abnormality. Brain MRI WITHOUT CONTRAST HISTORY: Slurred speech. Stroke TECHNIQUE: Multiplanar multisequence MRI of the brain was performed without the use of contrast. COMPARISON STUDY: Brain MRI 10/17/2016. FINDINGS: There is a punctate focus of restricted diffusion seen within the left stoney on image 7 consistent with an acute lacunar infarct. There is no mass, hematoma, midline shift. Age-related atrophy and microvascular ischemic changes are again noted. This is not significantly changed. Old lacunar infarct seen within the left caudate head. The major vascular flow-voids at the skull base are maintained. The paranasal sinuses and mastoid air cells are clear. IMPRESSION: A punctate acute lacunar infarct within the left stoney. Brain MRA HISTORY: Stroke - Attention to [place] TECHNIQUE: 3-D [id number] MRA of the brain was performed without contrast. COMPARISON STUDY: None. FINDINGS: Visualized intracranial internal carotid arteries, distal vertebral arteries, and basilar artery are widely patent. There is no significant stenosis, occlusion, or aneurysm seen within the bilateral ACAs, MCAs, or deicer tester. IMPRESSION: No significant stenosis, occlusion, or aneurysm within the [place]. NECK MRA HISTORY: Slurred speech. Stroke TECHNIQUE: [id number] and gadolinium-enhanced MRA of the neck was performed both before and after the intravenous administration of contrast. All measurements were calculated based on NASCET criteria. COMPARISON STUDY: Carotid Doppler 10/17/2016. FINDINGS: The aortic arch is not well visualized. The visualized portion of the proximal great vessels extending from the aortic arch appear patent. The bilateral common carotid and vertebral arteries are widely patent. There is approximate 50% focal stenosis at the right carotid bifurcation. There is high-grade/critical stenosis at the takeoff of the right external carotid artery. There is a 1.3 cm segment of approximately 50% stenosis within the proximal left internal carotid artery. The left external carotid artery is widely patent. IMPRESSION: 1. Approximately 50% focal stenosis at the right carotid bifurcation. 2. High-grade/critical stenosis at the takeoff of the right external carotid artery. 3. Approximately 50% stenosis involving a proximal 1.3 cm segment of the left internal carotid artery. Consultations: Neurology--Dr. Black Cardiology--Dr. Vogt (Hannah Flores ., PA-C) Medication Reconciliation New Medications: Buspirone Hcl (Buspirone Hcl) 5 Mg Tab 1.5 TAB PO BID for 30 Days, #117 TAB Take 1.5 tablets twice per day for 3 days then increase to two tablets twice per day Lisinopril (Zestril) 10 Mg Tab 10 MG PO BID for 30 Days, #60 TAB Lorazepam (Lorazepam) 0.5 Mg Tab 0.5 MG PO HS for 3 Days, #3 TAB Lorazepam (Lorazepam) 0.5 Mg Tab 0.5 MG PO Q8 PRN for Anxiety/Agitation for 3 Days, #9 TAB Continued Medications: Atorvastatin (Lipitor) 40 Mg Tab 40 MG PO HS, TAB Brinzolamide-Brimonidine Tartr (Simbrinza) 1 Anny Anny 1 DROP OPB BID Cholecalciferol (Vitamin D 1000 Unit) 1,000 Unit Cap 2000 UNITS PO DAILY 2,000 UNITS IN WINTER 1,000 UNITS IN SUMMER Clindamycin HCl (Clindamycin HCl) 300 Mg Cap 300 MG PO UD 2 CAPSULES 1 HOUR PRIOR TO DENTAL APPT. Clopidogrel Bisulfate (Clopidogrel) 75 Mg Tab 75 MG PO QAM for 30 Days, #30 TAB Fluorouracil (Topical) (Fluorouracil) 0.5 % Cre 1 APPLN TOP HS APPLY TO NOSE AT BEDTIME X 3 WEEKS. Insulin Aspart (Novolog) 100 Units/Ml Inj 3 UNITS SC QDB Insulin Aspart (Novolog) 100 Units/Ml Inj 9 UNITS SC QDL Insulin Aspart (Novolog) 100 Units/Ml Inj 11 UNITS SC QDD Insulin Glargine (Lantus Solostar) 100 Unit/Ml Inj 13 UNITS SC HS, PEN Levothyroxine Sodium (Levothyroxine Sodium) 25 Mcg Tab 25 MCG PO DAILY, TAB Discontinued Medications: Clonidine Hcl (Catapres) 0.1 Mg Tab 0.1 MG PO UD PRN for BLOOD PRESSURE TAKE 1 TABLET NEEDED FOR BLOOD PRESSURE 200 MM HG OR MORE. MAY TAKE UP TO 2 TABLETS A DAY. Escitalopram Oxalate (Lexapro) 5 Mg Tab 5 MG PO DAILY, TAB Lisinopril (Zestril) 20 Mg Tab 5 MG PO AMPM 1/4 OF A 20 MG TABLET, TWICE DAILY Lorazepam (Ativan) 0.5 Mg Tab 0.5 MG PO Q8 PRN for Anxiety/Agitation, #15 TAB Discharge Exam The patient reports feeling well. She does state she is fatigued, but she is used to being active normally and is feeling deconditioned since being in the hospital. She otherwise denies any complaints. The patient denies fevers, chills, sweats, chest pain, palpitations, claudication, cough, wheezing, shortness of breath, nausea, vomiting, abdominal pain, dysuria, hematuria, urinary retention, paralysis, weakness, numbness and tingling. Review of Systems: Constitutional: + fatigue, No fever, No chills, No sweats Eyes: No worsening of vision, No eye pain, No diplopia ENT: No hearing loss, No sore throat, No trouble swallowing Respiratory: No cough, No wheezing, No shortness of breath Cardiovascular: No chest pain, No claudication, No palpitations Abdomen: No pain, No nausea, No vomiting Musculoskeletal: No joint pain, No muscle pain, No calf pain Genitourinary - Female: No dysuria, No urinary retention, No hematuria Neurologic: No paralysis, No weakness, No numbness/tingling Integumentary: No rash, No itch, No color change Physical Exam: General Appearance: WD/WN, no apparent distress Eyes: normal inspection, PERRL, EOMI ENT: normal ENT inspection, hearing grossly normal, pharynx normal Neck: supple, no JVD, trachea midline Respiratory/Chest: lungs clear, normal breath sounds, no respiratory distress Cardiovascular: regular rate, rhythm, no gallop, no murmur Abdomen / GI: normal bowel sounds, non tender, soft Extremities: normal inspection, no calf tenderness, no pedal edema Neurologic/Psychiatric: alert, normal mood/affect, oriented x 3 Skin: normal color, warm/dry, no rash (Hannah Flores ., REYNAC) Hospital Course 86 y/o female with a history of HTN, HLD, CAD, DM II, anxiety and hypothyroidism who presents with stroke like symptoms. Acute left lacunar ischemic infarct, stoney--stable -Head CT negative -Punctate lacunar infarct on MRI -Head and neck MRA negative -Neurology consulted, appreciate recs: Antiplatelet therapy with Plavix, continue statin. No further neurological testing. -Lipid panel WNL, LDL well controlled -Continue atorvastatin 40 mg PO qd and Plavix 75 mg PO qd -HbgA1c 7.1 on Lantus and Novolog -PT/OT and speech therapy consulted, pt ambulating well and independent with all ADLS, denied SNF, can discharge to home w/home health Hypertensive urgency--resolved -Initially given Cardene in ICU, d/c'd quickly -Cardiology consulted, appreciate recs: BP adequately controlled with current regimen, stable for discharge -BP tends to go up with anxiety because only systolic pressures up, BP better controlled when less anxious -Increase lisinopril to 10mg BID -Hydralazine PRN -Treat anxiety with PRN Ativan, recently Busmargie added, instructed pt that it will take time to work Hyponatremia--resolving -Pt given NaCl 1 gm PO BID and 1500 cc fluid restriction, sodium up to 133. Will d/c salt tabs -May be secondary to previous SSRI use -F/u with PCP, continue to monitor periodically Anxiety--improving -Lexapro d/c'd -Buspar 7.5 mg PO BID initiated in hospital. D/C with buspar and can titrate up to 10 mg PO BID. F/u with PCP -Ativan 0.5 mg PO hs until f/u with PCP and q8h prn anxiety -Recommended pt try to limit Ativan to nighttime only as that's when her anxiety and BP are the worst. Advised to use during daytime sparingly DM II--HgbA1c 7.1 -Continue home Lantus 13 units SC hs and Novolog 3 units SC QDB, 9 units QDL and 11 units QDD -Insulin sliding scale -Check BSGs q ac and qhs Mild elevated troponin--resolved -No EKG changes, asymptomatic -Continue antiplatelet therapy, likely demand ischemia from hypertension -Troponin back down to <0.015 Hypothyroidism -Continue Synthroid 25 mcg PO qd DVT prophylaxis -Heparin 5000 units SC q8h Code Status -Level V, DO NOT RESUSCITATE Total Time Spent: Greater than 30 minutes This includes examination of the patient, discharge planning, medication reconciliation, and 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 with other providers. (Hannah Flores ., PAHoward) i personally examined pt and verified all winter points w Paola Flores PAC feeling better, discussed BP, safe for home vitals noted nad breathing unlabored no pallor or icterus stroke - med management, safe for home, extensively discussed BP meds/ management. outpt f/u (John Wilson D.Baltazar.) Discharge Instructions Please refer to the electronic Patient Visit Report (Discharge Instructions) for additional information. (Hannah Flores, REYNAC) Additional Copies To Gwendolyn Jose PA-C
--- NOTE | 2017-05-27 16:54 | Progress Note ---
Post ICU Progress Note Date & Time May 27, 2017 at 16:48 Vital Signs Vital Signs Past 12 Hours Date Time Temp Pulse Resp B/P (MAP) Pulse Ox O2 Delivery O2 Flow Rate FiO2 05/27/17 11:00 36.7 89 19 100 Room Air 05/27/17 08:00 Room Air 05/27/17 07:01 36.7 89 19 149/72 (97) 100 Room Air Notes Mental Status: alert / awake, participated in evaluation Nausea / Vomiting: adequately controlled Pain: adequately controlled Airway Patency, RR, SpO2: stable & adequate BP & HR: stable & adequate Patient seen in the ICU by Dr. Givens for hypertensive emergency. Patient reports that she has trouble with blood pressure at home. She does have a wrist monitor at home and checked it against a hospital sphygmomanometer and it was within 1-2 mmHg. She denies chest pain or tightness. No SOB. She states that blood pressure meds have been adjusted and she has follow up arranged for tomorrow. She feels ready for discharge and states that she is being discharged after lunch Consider outpatient follow up in 1 week Repeat imaging needed: None Follow up cultures: None Reviewed progress notes, labs, and inpatient medication list Continue current management Thank you for including us in the care of this patient Consults & Procedures Consultants: Neurology Cardiology Speech Therapy PT and OT Index Editor Procedures: None
--- NOTE | 2017-05-28 16:59 | Pharmacy Progress Note ---
Pharmacist Stroke Counseling Date of Service May 28, 2017. Scope Pharmacy has been consulted to provide medication discharge counseling for this patient admitted with ischemic stroke/hemorrhagic stroke/ transient ischemic attack as per the Pharmacist Discharge Counseling for Stroke Patients Protocol. Medications on Discharge New Medications: Buspirone Hcl (Buspirone Hcl) 5 Mg Tab 1.5 TAB PO BID for 30 Days, #117 TAB Take 1.5 tablets twice per day for 3 days then increase to two tablets twice per day Lisinopril (Zestril) 10 Mg Tab 10 MG PO BID for 30 Days, #60 TAB Lorazepam (Lorazepam) 0.5 Mg Tab 0.5 MG PO HS for 3 Days, #3 TAB Lorazepam (Lorazepam) 0.5 Mg Tab 0.5 MG PO Q8 PRN for Anxiety/Agitation for 3 Days, #9 TAB Continued Medications: Atorvastatin (Lipitor) 40 Mg Tab 40 MG PO HS, TAB Brinzolamide-Brimonidine Tartr (Simbrinza) 1 Anny Anny 1 DROP OPB BID Cholecalciferol (Vitamin D 1000 Unit) 1,000 Unit Cap 2000 UNITS PO DAILY 2,000 UNITS IN WINTER 1,000 UNITS IN SUMMER Clindamycin HCl (Clindamycin HCl) 300 Mg Cap 300 MG PO UD 2 CAPSULES 1 HOUR PRIOR TO DENTAL APPT. Clopidogrel Bisulfate (Clopidogrel) 75 Mg Tab 75 MG PO QAM for 30 Days, #30 TAB Fluorouracil (Topical) (Fluorouracil) 0.5 % Cre 1 APPLN TOP HS APPLY TO NOSE AT BEDTIME X 3 WEEKS. Insulin Aspart (Novolog) 100 Units/Ml Inj 3 UNITS SC QDB Insulin Aspart (Novolog) 100 Units/Ml Inj 9 UNITS SC QDL Insulin Aspart (Novolog) 100 Units/Ml Inj 11 UNITS SC QDD Insulin Glargine (Lantus Solostar) 100 Unit/Ml Inj 13 UNITS SC HS, PEN Levothyroxine Sodium (Levothyroxine Sodium) 25 Mcg Tab 25 MCG PO DAILY, TAB Discontinued Medications: Clonidine Hcl (Catapres) 0.1 Mg Tab 0.1 MG PO UD PRN for BLOOD PRESSURE TAKE 1 TABLET NEEDED FOR BLOOD PRESSURE 200 MM HG OR MORE. MAY TAKE UP TO 2 TABLETS A DAY. Escitalopram Oxalate (Lexapro) 5 Mg Tab 5 MG PO DAILY, TAB Lisinopril (Zestril) 20 Mg Tab 5 MG PO AMPM 1/4 OF A 20 MG TABLET, TWICE DAILY Lorazepam (Ativan) 0.5 Mg Tab 0.5 MG PO Q8 PRN for Anxiety/Agitation, #15 TAB Action The above medications, specifically ones for stroke treatment/prophylaxis, have been reviewed in detail with the patient and/or patient technical support representative(s) prior to discharge. This includes indication, common adverse reactions, drug interactions, and medication administration. Medication counseling has been employed using the teach-back method to ensure understanding. Outcome The patient and/or patient technical support representative(s) have demonstrated understanding of the medications. Please note, they are aware that the pharmacist will call them within 72 hours post-discharge to confirm that the appropriate medications are being taken and answer any further medication related questions the patient might have at that time. Contact information Individual to be contacted: Luann Relationship to patient (if applicable): daughter Phone number: Best time to call: 9-5 Additional comments: Spoke with pt and her daughter re: the continuation of Plavix and Lipitor. Inquired about the use of OTC Nexium/Prilosec, pt's daughter doesn't indorse the use of these PPI's. Pt and her daughter had a strong grasp of these medications Thank you for allowing pharmacy to be involved in the care of this patient. Please call [phone] with any additional questions
--- NOTE | 2017-05-31 14:01 | Pharmacy Progress Note ---
Pharmacist Post D/C Phone Note Date of phone call: May 31, 2017. Individual with whom pharmacist spoke to: Luann (daughter) The following questions were reviewed during the phone call with responses listed below each: Home Medications Medications Dose Route/Sig Max Daily Dose Days Date Category Dose Instructions Lorazepam 0.5 Mg Tab 0.5 Mg PO Q8 PRN 3 05/27/17 Rx Lorazepam 0.5 Mg Tab 0.5 Mg PO HS 3 05/27/17 Rx Zestril (Lisinopril) 10 Mg Tab 10 Mg PO BID 30 05/27/17 Rx Novolog (Insulin Aspart) 100 Units/Ml Inj 11 Units SC QDD 05/27/17 Reported Novolog (Insulin Aspart) 100 Units/Ml Inj 9 Units SC QDL 05/27/17 Reported Novolog (Insulin Aspart) 100 Units/Ml Inj 3 Units SC QDB 05/27/17 Reported Buspirone Hcl 5 Mg Tab 1.5 Tab PO BID 30 05/20/17 Rx Take 1.5 tablets twice per day for 3 days then increase to two tablets twice per day Fluorouracil (Fluorouracil (Topical)) 0.5 % Cre 1 Appln TOP HS 05/18/17 Reported APPLY TO NOSE AT BEDTIME X 3 WEEKS. Simbrinza (Brinzolamide-Brimonidine Tartr) 1 Anny Anny 1 Drop OPB BID 05/18/17 Reported Clindamycin HCl 300 Mg Cap 300 Mg PO UD 05/18/17 Reported 2 CAPSULES 1 HOUR PRIOR TO DENTAL APPT. Lantus Solostar (Insulin Glargine) 100 Unit/Ml Inj 13 Units SC HS 05/18/17 Reported Vitamin D 1000 Unit (Cholecalciferol) 1,000 Unit Cap 2,000 Units PO DAILY 05/06/17 Reported 2,000 UNITS IN WINTER 1,000 UNITS IN SUMMER Lipitor (Atorvastatin Calcium) 40 Mg Tab 40 Mg PO HS 05/06/17 Reported Clopidogrel (Clopidogrel Bisulfate) 75 Mg Tab 75 Mg PO QAM 30 10/18/16 Rx Levothyroxine Sodium 25 Mcg Tab 25 Mcg PO DAILY 10/17/16 Reported What problems are you having obtaining your medications? * None. * Luann noted that Michaela felt relief from using the lorazepam at night. Discussed that lorazepam was only prescribed for a 3 day supply and suggested contacting outpatient provider soon to discuss ongoing outpatient regimen. When is your next appointment with your primary care doctor? * Saw Dr. Shea the day after discharge. Also has another follow-up appointment today Additional comments: * Luann noted that [facility] came yesterday (Wednesday) and that an RN filled Michaela's medication box. She noted that Michaela was "doing pretty good" after discharge, with the exception of some anxiety. Discussed lorazepam use ( as above). * Luann confirmed that the buspirone dose was increased today, as prescribed. * Provided discharge pharmacist phone # should any questions arise from her appointment today Thank you for allowing us to be involved in the care of this patient.
== END 2017-05-27 12:35 | disposition home health service (06) | DRG 65 ==
LOC: EDBD 11:59 → C.EDA 12:00 → ENRESERV 15:21 → C.MSICU 15:27 → EDBEDREQ 15:37 → EDBEDREQSVC 15:37 → ENRESERV 15:46 → C.2T 05-19 18:47 → ENRESERV 05-20 13:09 → C.MS2W 05-20 14:09
PROVIDERS: ADMIT Internal Medicine; ATTEND Family Medicine
DX: I63.8 Other cerebral infarction (principal); E87.1 Hypo-osmolality and hyponatremia; R29.810 Facial weakness; R47.01 Aphasia; E11.40 Type 2 diabetes mellitus with diabetic neuropathy, unspecified; Z79.4 Long term (current) use of insulin; Z88.0 Allergy status to penicillin; I65.29 Occlusion and stenosis of unspecified carotid artery; I10 Essential (primary) hypertension; Z95.2 Presence of prosthetic heart valve; E03.9 Hypothyroidism, unspecified; I16.0 Hypertensive urgency; F41.8 Other specified anxiety disorders; I25.10 Atherosclerotic heart disease of native coronary artery without angina pectoris; Z88.2 Allergy status to sulfonamides; Z86.73 Personal history of transient ischemic attack (TIA), and cerebral infarction without residual deficits

== ENCOUNTER → 2017-08-06 | Outpatient (CLI) | payer BC ==
[~2017-08-06] MED LIST changes: +ATOR-26 PO; +ATV5 PO; -BRIN3SUS OP; +BRIN3SUS OPB; +BUSP5TAB59 PO; +CLC/300 PO; +CLOP1TAB15 PO; +CPR500 PO; -CTP/1 PO; +FLUO0.0220 TOP; -LISI-725 PO; +LISI-729 PO; +LISI-730 PO; +LISI10TA PO; -LORA-741 PO; +LORA0.5T12 PO; +LSN10 PO; +NVLG SC; -NVLGI/PEN SC; +VERA120T2 PO
[2017-08-07 07:43] LABS: HEMOGLOBIN A1C 7.6 % (4.5-5.6)
== END | disposition home or self-care (01) ==
LOC: C.LABBC 13:09
PROVIDERS: ATTEND Nurse Practitioner Family
DX: E10.9 Type 1 diabetes mellitus without complications (principal)

== ENCOUNTER 2017-08-30 09:03 | Emergency (ER) | payer BC ==
[~2017-08-30] VITALS: Ht 157.5 cm; Wt 60.4 kg
[~2017-08-30 09:03] MED LIST changes: -ATOR-26 PO; -CLOP1TAB15 PO; -CPR500 PO; -LISI-729 PO; -LISI-730 PO; -LISI10TA PO; -LORA0.5T12 PO; -VERA120T2 PO
[2017-08-30 09:11] VITALS: TEMP 36.5; Ht 157.5 cm; Wt 60.4 kg
[2017-08-30] MEDS ORDERED: LISINOPRIL 5 MG TAB PO ONE (09:30)
--- NOTE | 2017-08-30 09:39 | DIAGNOSTIC IMAGING REPORT ---
CHEST ONE VIEW PORTABLE CLINICAL HISTORY: 87 years-old Female presenting with Evaluate Fever/Sepsis. TECHNIQUE: Portable upright AP view of the chest was obtained. COMPARISON: 05/18/2017. FINDINGS: Median sternotomy wires intact. Atherosclerosis of aortic arch. Cardiac silhouette unchanged. Mild hyperinflation unchanged. No new focal infiltrate. Heterogeneity of lung parenchyma as on prior exam. Minimal bandlike opacity at the right lung base unchanged, likely scarring or atelectasis. No large effusion or pneumothorax. Osseous structures normal. Upper abdomen normal. IMPRESSION: 1. No new focal infiltrate. No convincing evidence of acute cardiopulmonary disease. 2. Chronic findings could suggest underlying emphysema. Electronically signed by: Shahid Gale M.D. 08/30/2017 9:38 AM Dictated Date/Time: 08/30/2017 9:36 AM
[2017-08-30 09:52] LABS: BASO % 0.5 %; BASO ABS # 0.02 K/uL (0-0.2); EOS % 1.9 %; EOS ABS # 0.07 K/uL (0-0.5); HEMATOCRIT 38.4 % (37-47); HEMOGLOBIN 12.4 g/dL (12.0-16.0); IG# 0.03 K/uL (0.00-0.02); LYMPH % 18.4 %; LYMPH ABS # 0.67 K/uL (1.2-3.4); MEAN CORPUSCULAR HEMOGLOBIN 27.4 pg (25-34); MEAN CORPUSCULAR HGB CONC 32.3 g/dl (32-36); MEAN PLATELET VOLUME 10.6 fL (7.4-10.4); MONO % 10.2 %; MONO ABS # 0.37 K/uL (0.11-0.59); NEUT % 68.2 %; NEUT ABS # 2.48 K/uL (1.4-6.5); PLATELET COUNT 163 K/uL (130-400); WHITE BLOOD COUNT 3.64 K/uL (4.8-10.8)
[2017-08-30 10:00] LABS: PTT PATIENT 29.1 SECONDS (21.0-31.0)
[2017-08-30 10:13] LABS: ALBUMIN 3.6 gm/dl (3.4-5.0); ALT/SGPT 18 U/L (12-78); BLOOD UREA NITROGEN 22 mg/dl (7-18); CALCIUM 9.3 mg/dl (8.5-10.1); CARBON DIOXIDE 26 mmol/L (21-32); CREATININE 0.87 mg/dl (0.60-1.20); GLUCOSE 161 mg/dl (70-99); LIPASE 50 U/L (73-393); POTASSIUM 4.3 mmol/L (3.5-5.1); SODIUM 138 mmol/L (136-145)
[2017-08-30] MEDS ORDERED: NovoLIN-R INSULIN PER UNIT CHARGE SC STA (10:18)
[2017-08-30] MEDS ORDERED: BUSP5TAB59 PO ×2 (10:22)
[2017-08-30] MEDS ORDERED: LSN5 PO (10:22)
[2017-08-30] MEDS ORDERED: CLOP1TAB15 PO (10:22)
[2017-08-30] MEDS ORDERED: ATOR-26 PO (10:22)
[2017-08-30] MEDS ORDERED: LISI10TA PO (10:22)
[2017-08-30 10:24] LABS: ALKALINE PHOSPHATASE 76 U/L (45-117); AST/SGOT 14 U/L (15-37); CKMB 2.1 ng/ml (0.5-3.6); TOTAL PROTEIN 7.3 gm/dl (6.4-8.2)
--- NOTE | 2017-08-30 11:29 | EMERGENCY ROOM VISIT NOTE ---
History First contact with patient: 09:16 Chief Complaint: HYPERTENSION Stated Complaint: HYPERTENSION History of Present Illness The patient is a 87 year old female who presents to the Emergency Room with complaints of elevated BP. 187/90 something. 10mg Lisinopril around 6:30am. 1.5 hours later was 223/119. No symptoms. Denies CP, SOB, recent illness. The patient states that her doctor has her on lisinopril. She checks her blood pressure and takes varying doses from 5-15 mg a day. Patient is currently a symptomatically. 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 (7) Foot deformity (8) HTN (hypertension) (9) Hypertensive urgency, malignant (10) Loss of sensation (11) Pre-ulcerative corn or callous (12) Troponin I above reference range Family History No pertinent family history Social History Smoking Status: Never Smoker Drug Use: none Marital Status: Occupation Status: retired Current/Historical Medications Scheduled Atorvastatin (Lipitor), 40 MG PO HS Brinzolamide-Brimonidine Tartr (Simbrinza), 1 DROP OPB BID Buspirone Hcl (Buspirone Hcl), 5 MG PO BID Buspirone Hcl (Buspirone Hcl), 10 MG PO HS Cholecalciferol (Vitamin D 1000 Unit), 2,000 UNITS PO DAILY Clopidogrel (Plavix), 75 MG PO DAILY Insulin Aspart (Novolog), 3 UNITS SC QDB Insulin Aspart (Novolog), 9 UNITS SC QDL Insulin Aspart (Novolog), 11 UNITS SC QDD Insulin Glargine (Lantus Solostar), 13 UNITS SC HS Levothyroxine Sodium (Levothyroxine Sodium), 25 MCG PO DAILY Lisinopril (Prinivil), 10 MG PO AMPM Lisinopril (Lisinopril), 5 MG PO HS Lorazepam (Lorazepam), 0.5 MG PO HS Physical Exam Vital Signs Date Time Temp Pulse Resp B/P (MAP) Pulse Ox O2 Delivery O2 Flow Rate FiO2 08/30/17 10:41 170/71 08/30/17 09:11 36.5 74 18 219/120 100 Room Air Physical Exam CONSTITUTIONAL/VITAL SIGNS: Reviewed / noted above. GENERAL: Non-toxic in appearance. INTEGUMENTARY: Warm, dry, and [place]. HEAD: Normocephalic. EYES: without scleral icterus or trauma. ENT/OROPHARYNX: clear and moist. LYMPHADENOPATHY/NECK: Is supple without lymphadenopathy or meningismus. RESPIRATORY: Lungs clear and equal. CARDIOVASCULAR: Regular rate and rhythm. GI/ABDOMEN: Soft and nontender. No organomegaly or pulsatile mass. No rebound or guarding. Normal bowel sounds. EXTREMITIES: Warm and well perfused. BACK: No CVA tenderness. NEUROLOGICAL: Intact without focal deficits. PSYCHIATRIC: normal affect. MUSCULOSKELETAL: Normally developed with good muscle tone. TRIAGE NURSING DOCUMENTATION REVIEWED. Medical Decision & Procedures ER Provider Diagnostic Interpretation: Chest x-ray: Per my review and the radiologist as negative for acute disease. Laboratory Results 08/30/17 09:36 Red Blood Count 4.52, Mean Corpuscular Volume 85.0, Mean Corpuscular Hemoglobin 27.4, Mean Corpuscular Hemoglobin Concent 32.3, Mean Platelet Volume 10.6, Neutrophils (%) (Auto) 68.2, Lymphocytes (%) (Auto) 18.4, Monocytes (%) (Auto) 10.2, Eosinophils (%) (Auto) 1.9, Basophils (%) (Auto) 0.5, Neutrophils # (Auto ) 2.48, Lymphocytes # (Auto) 0.67, Monocytes # (Auto) 0.37, Eosinophils # (Auto ) 0.07, Basophils # (Auto) 0.02 08/30/17 09:36 Test 08/30/17 09:35 08/30/17 09:36 Prothrombin Time 11.0 SECONDS (9.0-12.0) Prothromb Time International Ratio 1.0 (0.9-1.1) Activated Partial Thromboplast Time 29.1 SECONDS (21.0-31.0) Partial Thromboplastin Ratio 1.1 White Blood Count 3.64 K/uL (4.8-10.8) Red Blood Count 4.52 M/uL (4.2-5.4) Hemoglobin 12.4 g/dL (12.0-16.0) Hematocrit 38.4 % (37-47) Mean Corpuscular Volume 85.0 fL (80-100) Mean Corpuscular Hemoglobin 27.4 pg (25-34) Mean Corpuscular Hemoglobin Concent 32.3 g/dl (32-36) Platelet Count 163 K/uL (130-400) Mean Platelet Volume 10.6 fL (7.4-10.4) Neutrophils (%) (Auto) 68.2 % Lymphocytes (%) (Auto) 18.4 % Monocytes (%) (Auto) 10.2 % Eosinophils (%) (Auto) 1.9 % Basophils (%) (Auto) 0.5 % Neutrophils # (Auto) 2.48 K/uL (1.4-6.5) Lymphocytes # (Auto) 0.67 K/uL (1.2-3.4) Monocytes # (Auto) 0.37 K/uL (0.11-0.59) Eosinophils # (Auto) 0.07 K/uL (0-0.5) Basophils # (Auto) 0.02 K/uL (0-0.2) RDW Standard Deviation 47.0 fL (36.4-46.3) RDW Coefficient of Variation 15.0 % (11.5-14.5) Immature Granulocyte % (Auto) 0.8 % Immature Granulocyte # (Auto) 0.03 K/uL (0.00-0.02) Anion Gap 7.0 mmol/L (3-11) Est Creatinine Clear Calc Drug Dose 39.0 ml/min Estimated GFR () 69.4 Estimated GFR (Non- 59.9 BUN/Creatinine Ratio 25.6 (10-20) Calcium Level 9.3 mg/dl (8.5-10.1) Total Bilirubin 0.5 mg/dl (0.2-1) Direct Bilirubin 0.1 mg/dl (0-0.2) Aspartate Amino Transf (AST/SGOT) 14 U/L (15-37) Alanine Aminotransferase (ALT/SGPT) 18 U/L (12-78) Alkaline Phosphatase 76 U/L (45-117) Total Creatine Kinase 47 U/L (26-192) Creatine Kinase MB 2.1 ng/ml (0.5-3.6) Creatine Kinase MB Ratio 4.5 (0-3.0) Troponin I < 0.015 ng/ml (0-0.045) Total Protein 7.3 gm/dl (6.4-8.2) Albumin 3.6 gm/dl (3.4-5.0) Lipase 50 U/L (73-393) Thyroid Stimulating Hormone (TSH) 1.630 uIu/ml (0.300-4.500) Medications Administered Medications (Trade) Dose Ordered Sig/Bernadine Route Start Time Stop Time Status Last Admin Dose Admin Lisinopril (Zestril Tab) 10 mg NOW ONCE PO 08/30/17 09:30 08/30/17 09:31 DC 08/30/17 09:33 10 MG Insulin Human Regular (novoLIN-R U-100 PER UNIT) 4 units NOW STAT SC 08/30/17 10:18 08/30/17 10:19 DC 08/30/17 10:18 4 UNITS ED Course The patient was treated with lisinopril 10 mg by mouth. She was also given subcutaneous insulin 4 units for a meal that she had here. Medical Decision the differential that was considered includes acute myocardial infarction, acute coronary syndrome, myocarditis, pericarditis, pericardial effusions / tamponad, esophageal perforation, thoracic aortic dissection, pulmonary embolism , pneumonia, pneumothorax, pancreatitis, shingles, acute cholecystitis, perforated abdominal viscus. This is a 87-year-old female who presents to the ED with a chief complaint of hypertension. Details listed above. The patient's evaluation included blood work which was unremarkable. Cardiac enzymes are negative. Chest x-ray did not show acute disease. EKG shows a normal sinus rhythm without ectopy or acute injury. The patient was treated with fosinopril 10 mg by mouth. She was also fed and given her usual 4 units of subcutaneous insulin. She was told the results of the test per cheese felt to be stable for discharge and outpatient follow-up. Recommend follow-up with PCP for recheck of her blood pressure. Impression Primary Impression: HTN (hypertension) Departure Information Dispostion Home / Self-Care Referrals Shahid Shea M.D. (PCP) Patient Instructions My [facility] Additional Instructions Follow-up with your doctor for further care and evaluation in 1-2 days. Return to the emergency department for worsening or new symptoms or any concerns. You have been examined and treated today on an emergency basis only. This is not a substitute for, or an effort to provide, complete comprehensive medical care. It is impossible to recognize and treat all injuries or illnesses in a single emergency department visit. It is therefore important that you follow up closely with your doctor. Call as soon as possible for an appointment. See your doctor this week for recheck of your blood pressure.
[2017-08-30 11:42] VITALS: BP 157/81; PULSE 88; O2SAT 98
== END 2017-08-30 11:43 | disposition home or self-care (01) ==
LOC: EDBD 09:03 → C.EDA 09:04
DX: I10 Essential (primary) hypertension (principal); E11.42 Type 2 diabetes mellitus with diabetic polyneuropathy; F41.9 Anxiety disorder, unspecified; Z79.02 Long term (current) use of antithrombotics/antiplatelets; Z79.4 Long term (current) use of insulin; Z86.73 Personal history of transient ischemic attack (TIA), and cerebral infarction without residual deficits

== ENCOUNTER 2017-09-05 22:41 | Observation (INO) | payer BC ==
[~2017-09-05] VITALS: Ht 157.5 cm; Wt 54.7 kg
[~2017-09-05 22:41] MED LIST changes: -ATOR-24 PO; +ATOR-26 PO; -CLC/300 PO; +CLOP1TAB15 PO; -FLUO0.0220 TOP; +LISI10TA PO; -LSN10 PO; +LSN5 PO; -PLV75 PO
[2017-09-05] MEDS ORDERED: LISINOPRIL 5 MG TAB PO ONE (23:30)
[2017-09-05 23:39] LABS: BASO % 0.3 %; BASO ABS # 0.02 K/uL (0-0.2); EOS % 1.8 %; EOS ABS # 0.11 K/uL (0-0.5); HEMATOCRIT 38.3 % (37-47); HEMOGLOBIN 12.6 g/dL (12.0-16.0); IG# 0.04 K/uL (0.00-0.02); INR 1.1 (0.9-1.1); LYMPH % 31.3 %; LYMPH ABS # 1.87 K/uL (1.2-3.4); MEAN CELL VOLUME 84.9 fL (80-100); MEAN CORPUSCULAR HEMOGLOBIN 27.9 pg (25-34); MEAN CORPUSCULAR HGB CONC 32.9 g/dl (32-36); MEAN PLATELET VOLUME 10.7 fL (7.4-10.4); MONO % 13.7 %; MONO ABS # 0.82 K/uL (0.11-0.59); NEUT % 52.2 %; NEUT ABS # 3.11 K/uL (1.4-6.5); PLATELET COUNT 170 K/uL (130-400); RED CELL DISTRIBUTION WIDTH SD 46.2 fL (36.4-46.3); WHITE BLOOD COUNT 5.97 K/uL (4.8-10.8)
[2017-09-05 23:41] LABS: ALBUMIN 3.9 gm/dl (3.4-5.0); ALT/SGPT 19 U/L (12-78); AST/SGOT 13 U/L (15-37); BLOOD UREA NITROGEN 31 mg/dl (7-18); CALCIUM 9.1 mg/dl (8.5-10.1); CARBON DIOXIDE 26 mmol/L (21-32); CREATININE 1.34 mg/dl (0.60-1.20); GLUCOSE 129 mg/dl (70-99); POTASSIUM 4.1 mmol/L (3.5-5.1); SODIUM 135 mmol/L (136-145)
[2017-09-05 23:46] LABS: ALKALINE PHOSPHATASE 81 U/L (45-117); TOTAL PROTEIN 7.8 gm/dl (6.4-8.2)
[2017-09-05] MEDS ORDERED: LORA0.5T12 PO (23:53)
[2017-09-06] VITALS (12 sets, daily range): BP systolic 108–177; BP diastolic 67–97; PULSE 61–92; TEMP 36.3–36.9; O2SAT 90–99; Ht 157.5 cm; Wt 54.7 kg
[2017-09-06] MEDS ORDERED: ATOR-24 PO (00:01)
[2017-09-06] MEDS ORDERED: BUSP5TAB59 PO (00:03)
[2017-09-06] MEDS ORDERED: LISI10TA PO (00:07)
[2017-09-06] MEDS ORDERED: LISI-729 PO (00:07)
[2017-09-06] MEDS ORDERED: ASPIRIN/ALUM/MAGNES/CAL CARB 325 MG TAB PO STA (00:27)
[2017-09-06] MEDS ORDERED: AMLODIPINE BESYLATE 5 MG TAB PO ONE (00:30)
--- NOTE | 2017-09-06 00:53 | History and Physical ---
History & Physical Date & Time of Service: Sep 06, 2017 at 00:49 Chief Complaint: Confusion,Had Stroke In Oct,Slight Migraine Primary Care Physician: Shahid Shea M.D. History of Present Illness Source: patient, family, hospital records 86 y/o F Hx AVR, DM II, hypothyroidism, HTN, HPL, Grade I diastolic dysfunction , TIA 10/16, CVA 05/18. Pt presents with acute confusion and unsteady gate. The symptoms lasted > 30 minutes and gradually resolved. She states she was acutely unable to recall the names of her children and could not process the reading on her glucometer, which is unusual for her. She did not exhibit any slurred speech or unilateral weakness, similar to her previous CVA symptoms. She was aware that she was unable to process information and recall names. The pt also states that since departing the hospital in May, she has felt like her "head is full" and had recently visited an ENT specialist for wax impaction. She had visited the ER a few days prior due to an elevated BP as well, although she was not having related symptoms at the time. She denies fevers, CP, SOB, N/V or dysuria. Initial labs are WNL aside form a marginally (+) UA. A CT head is negative for acute findings. 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 - presented with facial droop and dysphasia - reports residual dysgraphia 8) BL carotid stenosis R > L Family History No pertinent family history Social History Smoking Status: Never Smoker Drug Use: none Marital Status: Housing status: lives with family Occupational Status: retired Multi-Drug Resistant Organisms History of MDRO: No Allergies Coded Allergies: Penicillins (Verified Allergy, Unknown, UNKNOWN, 08/30/17) Sulfa Antibiotics (Verified Allergy, Unknown, SEVERE HIVES, 08/30/17) Tramadol (Unverified Allergy, Unknown, UNKNOWN, 08/30/17) Home Medications Scheduled Atorvastatin (Lipitor), 40 MG PO DAILY Brinzolamide-Brimonidine Tartr (Simbrinza), 1 DROP OPB BID Buspirone Hcl (Buspirone Hcl), 2 TAB PO BID Cholecalciferol (Vitamin D 1000 Unit), 2,000 UNITS PO DAILY Clopidogrel (Plavix), 75 MG PO DAILY Insulin Aspart (Novolog), 3 UNITS SC QDB Insulin Aspart (Novolog), 10 UNITS SC QDL Insulin Aspart (Novolog), 10-12 UNITS SC QDD Insulin Glargine (Lantus Solostar), 13 UNITS SC HS Levothyroxine Sodium (Levothyroxine Sodium), 25 MCG PO DAILY Lisinopril (Prinivil), 10 MG PO AMPM Lisinopril (Prinivil), 5 MG PO QPM Scheduled PRN Lorazepam (Lorazepam), 0.5 TAB PO DAILY PRN for Sleep Review of Systems Constitutional: No fever, No chills, No sweats Eyes: No worsening of vision ENT: + hearing loss (chronic), No unusual epistaxis, No nasal symptoms Respiratory: No cough, No sputum, No wheezing Cardiovascular: No chest pain, No orthopnea, No PND Abdomen: No pain, No nausea, No vomiting Musculoskeletal: No joint pain Genitourinary - Female: No dysuria, No urinary frequency, No urinary urgency Neurologic: + memory loss Psychiatric: No depression symptoms Endocrine: No fatigue Hematologic / Lymphatic: No abnormal bleeding/bruising Integumentary: No rash Allergic / Immunologic: No environmental allergies Physical Exam Vital Signs Date Time Temp Pulse Resp B/P (MAP) Pulse Ox O2 Delivery O2 Flow Rate FiO2 09/06/17 00:22 71 20 185/98 99 Room Air 09/05/17 23:55 69 20 214/96 99 09/05/17 22:59 77 09/05/17 22:43 36.6 82 20 210/93 99 Room Air General Appearance: WD/WN, no apparent distress Head: normocephalic Eyes: normal inspection ENT: normal ENT inspection, pharynx normal Neck: supple, thyroid normal Respiratory/Chest: chest non-tender, lungs clear, normal breath sounds Cardiovascular: regular rate, rhythm, no edema, + systolic murmur Abdomen/GI: normal bowel sounds, non tender, soft Back: normal inspection, no CVA tenderness Extremities/Musculoskelatal: normal inspection, no calf tenderness, normal capillary refill Neurologic/Psych: aquatics specialist II-XII nml as tested, no motor/sensory deficits, alert, normal mood/affect, normal reflexes, oriented x 3, + pertinent finding (There are no focal deficits on full neuro exam at the time of admission) Skin: normal color Diagnostics Laboratory Results Results Past 24 Hours Test 09/05/17 22:55 09/05/17 23:50 Range/Units White Blood Count 5.97 4.8-10.8 K/uL Red Blood Count 4.51 4.2-5.4 M/uL Hemoglobin 12.6 12.0-16.0 g/dL Hematocrit 38.3 37-47 % Mean Corpuscular Volume 84.9 80-100 fL Mean Corpuscular Hemoglobin 27.9 25-34 pg Mean Corpuscular Hemoglobin Concent 32.9 32-36 g/dl Platelet Count 170 130-400 K/uL Mean Platelet Volume 10.7 7.4-10.4 fL Neutrophils (%) (Auto) 52.2 % Lymphocytes (%) (Auto) 31.3 % Monocytes (%) (Auto) 13.7 % Eosinophils (%) (Auto) 1.8 % Basophils (%) (Auto) 0.3 % Neutrophils # (Auto) 3.11 1.4-6.5 K/uL Lymphocytes # (Auto) 1.87 1.2-3.4 K/uL Monocytes # (Auto) 0.82 0.11-0.59 K/uL Eosinophils # (Auto) 0.11 0-0.5 K/uL Basophils # (Auto) 0.02 0-0.2 K/uL RDW Standard Deviation 46.2 36.4-46.3 fL RDW Coefficient of Variation 15.0 11.5-14.5 % Immature Granulocyte % (Auto) 0.7 % Immature Granulocyte # (Auto) 0.04 0.00-0.02 K/uL Prothrombin Time 11.2 9.0-12.0 SECONDS Prothromb Time International Ratio 1.1 0.9-1.1 Sodium Level 135 136-145 mmol/L Potassium Level 4.1 3.5-5.1 mmol/L Chloride Level 102 98-107 mmol/L Carbon Dioxide Level 26 21-32 mmol/L Anion Gap 7.0 3-11 mmol/L Blood Urea Nitrogen 31 7-18 mg/dl Creatinine 1.34 0.60-1.20 mg/dl Est Creatinine Clear Calc Drug Dose 23.4 ml/min Estimated GFR () 41.2 Estimated GFR (Non- 35.5 BUN/Creatinine Ratio 23.4 10-20 Random Glucose 129 70-99 mg/dl Calcium Level 9.1 8.5-10.1 mg/dl Magnesium Level 1.9 1.8-2.4 mg/dl Total Bilirubin 0.5 0.2-1 mg/dl Aspartate Amino Transf (AST/SGOT) 13 15-37 U/L Alanine Aminotransferase (ALT/SGPT) 19 12-78 U/L Alkaline Phosphatase 81 45-117 U/L Troponin I < 0.015 0-0.045 ng/ml Total Protein 7.8 6.4-8.2 gm/dl Albumin 3.9 3.4-5.0 gm/dl Globulin 3.9 2.5-4.0 gm/dl Albumin/Globulin Ratio 1.0 0.9-2 Urine Color YELLOW Urine Appearance CLEAR CLEAR Urine pH 7.0 4.5-7.5 Urine Specific [place] 1.010 1.000-1.030 Urine Protein NEG NEG Urine Glucose (UA) NEG NEG Urine Ketones NEG NEG Urine Occult Blood NEG NEG Urine Nitrite NEG NEG Urine Bilirubin NEG NEG Urine Urobilinogen NEG NEG Urine Leukocyte Esterase MODERATE NEG Urine WBC (Auto) 10-30 0-5 /hpf Urine RBC (Auto) 0-4 0-4 /hpf Urine Hyaline Casts (Auto) 0 0-5 /lpf Urine Epithelial Cells (Auto) 10-20 0-5 /lpf Urine Bacteria (Auto) NEG NEG Microbiology Results 09/05/17 Urine Culture, Received Pending Diagnostic Radiology CT head: No acute findings EKG NSR Impression Assessment and Plan 86 y/o F Hx AVR, DM II, hypothyroidism, HTN, HPL, Grade I diastolic dysfunction , TIA 10/16, CVA 05/18. Pt presents with acute confusion and unsteady gate. The symptoms lasted > 30 minutes and gradually resolved. She states she was acutely unable to recall the names of her children and could not process the reading on her glucometer, which is unusual for her. She did not exhibit any slurred speech or unilateral weakness. The pt also states that since departing the hospital in May, she has felt like her "head is full" and had recently visited an ENT specialist for wax impaction. She had visited the ER a few days prior due to an elevated BP as well, although she was not having related symptoms at the time. Initial labs are WNL aside form a marginally (+) UA. A CT head is negative for acute findings. 1) Acute receptive aphasia, acute unsteady gait - Based on her history, we would have to presume this was a TIA. We will repeat an MRI only and consult neurology. We will add ASA to he Plavix and Statin. The source of recurrent events may be her carotids, in which case, additional medical therapy may be less effective. 2) UTI - we will treat with oral Cipro pending cultures - it is not likely that her UTI contributed to her confusion. 3) HTN - Her SBP appears to be poorly controlled as she visited the ER 6 days ago due to an SBP > 200. Her SBP was 185 at the time of admission. Lisinopril is held in context of an acute TIA, however, it might make sense to pursue a more aggressive regimen on discharge. 4) DM II - Placed on a SS + Lantus 5) Hypothyroidism - cont Synthroid Full code Heparin prophylaxis Total time for this admission including review of labs, meds, imaging, EKG - discussion with pt and ER attending - 38 min
[2017-09-06] MEDS ORDERED: ACETAMINOPHEN 325 MG TAB PO PRN (01:00)
[2017-09-06] MEDS ORDERED: MAGNESIUM HYDROXIDE SUSP 30 ML UDC PO PRN (01:00)
[2017-09-06] MEDS ORDERED: POLYETHYLENE (MIRALAX) 17 GM PACK PO PRN (01:00)
[2017-09-06] MEDS ORDERED: PHARMACIST DISCHARGE MED REC CONSULT PRN (01:00)
[2017-09-06] MEDS ORDERED: ALUMINUM/MAGNESIUM/SIMETH (MAALOX MAX) 30 ML UDC PO PRN (01:00)
[2017-09-06] MEDS ORDERED: ONDANSETRON INJ 2 MG/ML 2 ML VIAL IV PRN (01:00)
--- NOTE | 2017-09-06 01:03 | EMERGENCY ROOM VISIT NOTE ---
History Report prepared by Valeri: Josue Stevens Under the Supervision of: Dr. Diana Bonilla D.O. First contact with patient: 22:56 Chief Complaint: STROKE SYMPTOMS Stated Complaint: CONFUSION,HAD STROKE IN OCT,SLIGHT MIGRAINE History of Present Illness The patient is a 87 year old female who presents to the Emergency Room with complaints of constant neurologic symptoms beginning today. Her symptoms include difficulty with speech, confusion, unsteady gait, and intermittent headache. She states "my head feels full". The patient had a previous TIA four months ago. She was seen in the ED six days ago for high blood pressure. She is on lisinopril, and had an additional PRN dose added six days ago. She took her medication today as normal. The patient was seen by ENT recently and was told she had a large amount of ear wax, but that it was likely not causing her symptoms. She notes that she is on lorazepam PRN for anxiety, as well as a medication for depression. Per son, the patient became confused one hour ago. He states that she could not name her children, or understand blood sugar readings. He states that her confusion has improved significantly, but she is still not back to her mental baseline. The patient's other symptoms were present before this. She denies numbness, tingling, nausea, vomiting, weakness, diarrhea, neck pain, chest pain, SOB, or urinary symptoms. She denies recent falls or injury. The patient does not use a walker at home. She has a history of Silent Migraines which involve visual changes without any headache. She states that she had one of her silent migraines tonight. The patient has no history of similar symptoms associated with hypoglycemia. She has noticed a correlation with the "fullness" in her head and her high blood pressure. Source of History: patient Onset: Today Quality: other (neurologic symptoms) Timing: constant Associated Symptoms: + headache (intermittent), No neck pain, No chest pain , No SOB, No nausea, No vomiting, No diarrhea, No urinary symptoms, No weakness , No numbness Note: Symptoms: difficulty with speech, unstable gait, and confusion. She denies tinging. Review of Systems See HPI for pertinent positives & negatives. A total of 10 systems reviewed and were otherwise negative. 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 (7) Foot deformity (8) HTN (hypertension) (9) Hypertensive urgency, malignant (10) Loss of sensation (11) Pre-ulcerative corn or callous (12) TIA (transient ischemic attack) (13) Troponin I above reference range (14) UTI (urinary tract infection) Family History No pertinent family history Social History Smoking Status: Never Smoker Drug Use: none Marital Status: Occupation Status: retired Current/Historical Medications Scheduled Atorvastatin (Lipitor), 40 MG PO DAILY Brinzolamide-Brimonidine Tartr (Simbrinza), 1 DROP OPB BID Buspirone Hcl (Buspirone Hcl), 2 TAB PO BID Cholecalciferol (Vitamin D 1000 Unit), 2,000 UNITS PO DAILY Clopidogrel (Plavix), 75 MG PO DAILY Insulin Aspart (Novolog), 3 UNITS SC QDB Insulin Aspart (Novolog), 10 UNITS SC QDL Insulin Aspart (Novolog), 10-12 UNITS SC QDD Insulin Glargine (Lantus Solostar), 13 UNITS SC HS Levothyroxine Sodium (Levothyroxine Sodium), 25 MCG PO DAILY Lisinopril (Prinivil), 10 MG PO AMPM Lisinopril (Prinivil), 5 MG PO QPM Scheduled PRN Lorazepam (Lorazepam), 0.5 TAB PO DAILY PRN for Sleep Allergies Coded Allergies: Penicillins (Verified Allergy, Unknown, UNKNOWN, 08/30/17) Sulfa Antibiotics (Verified Allergy, Unknown, SEVERE HIVES, 08/30/17) Tramadol (Unverified Allergy, Unknown, UNKNOWN, 08/30/17) Physical Exam Vital Signs Date Time Temp Pulse Resp B/P (MAP) Pulse Ox O2 Delivery O2 Flow Rate FiO2 09/06/17 00:22 71 20 185/98 99 Room Air 09/05/17 23:55 69 20 214/96 99 09/05/17 22:59 77 09/05/17 22:43 36.6 82 20 210/93 99 Room Air Physical Exam GENERAL: alert, well appearing, well nourished, no distress, non-toxic. Hard of hearing. EYE EXAM: normal conjunctiva, PERRL and EOM's grossly intact OROPHARYNX: no exudate, no erythema, lips, buccal mucosa, and tongue normal and mucous membranes are moist NECK: supple, no nuchal rigidity, no adenopathy, non-tender LUNGS: Clear to auscultation. Normal chest wall mechanics HEART: no murmurs, S1 normal and S2 normal ABDOMEN: abdomen soft, non-tender, normo-active bowel sounds, no masses, no rebound or guarding. BACK: Back is symmetrical on inspection and there is no deformity, no midline tenderness, no CVA tenderness. SKIN: no rashes and no bruising UPPER EXTREMITIES: upper extremities are grossly normal. LOWER EXTREMITIES: No pitting edema. NEURO EXAM: Normal sensorium, cranial nerves II-XII grossly intact, no gross weakness of arms, no gross weakness of legs. Difficulty finding words. Slight difficulty with speech. Slight difficulty with finger to nose on the right. No pronator drift. NIHSS < 4. Medical Decision & Procedures ER Provider Diagnostic Interpretation: CT results per statrad and my review. CT HEAD: Comparison with 05/18/17. No ICH, mass effect, or edema. No evidence of acute cortical stroke. Periventricular small vessel ischemic change. No midline shift or hydrocephalus. Diffuse parenchymal atrophy. Dense atherosclerotic calcifications of the carotid siphons and vertebrobasilar arteries. Visualized sinuses and mastoid air cells are clear. Laboratory Results 09/05/17 22:55 Red Blood Count 4.51, Mean Corpuscular Volume 84.9, Mean Corpuscular Hemoglobin 27.9, Mean Corpuscular Hemoglobin Concent 32.9, Mean Platelet Volume 10.7, Neutrophils (%) (Auto) 52.2, Lymphocytes (%) (Auto) 31.3, Monocytes (%) (Auto) 13.7, Eosinophils (%) (Auto) 1.8, Basophils (%) (Auto) 0.3, Neutrophils # (Auto ) 3.11, Lymphocytes # (Auto) 1.87, Monocytes # (Auto) 0.82, Eosinophils # (Auto ) 0.11, Basophils # (Auto) 0.02 09/05/17 22:55 Test 09/05/17 22:55 09/05/17 23:50 White Blood Count 5.97 K/uL (4.8-10.8) Red Blood Count 4.51 M/uL (4.2-5.4) Hemoglobin 12.6 g/dL (12.0-16.0) Hematocrit 38.3 % (37-47) Mean Corpuscular Volume 84.9 fL (80-100) Mean Corpuscular Hemoglobin 27.9 pg (25-34) Mean Corpuscular Hemoglobin Concent 32.9 g/dl (32-36) Platelet Count 170 K/uL (130-400) Mean Platelet Volume 10.7 fL (7.4-10.4) Neutrophils (%) (Auto) 52.2 % Lymphocytes (%) (Auto) 31.3 % Monocytes (%) (Auto) 13.7 % Eosinophils (%) (Auto) 1.8 % Basophils (%) (Auto) 0.3 % Neutrophils # (Auto) 3.11 K/uL (1.4-6.5) Lymphocytes # (Auto) 1.87 K/uL (1.2-3.4) Monocytes # (Auto) 0.82 K/uL (0.11-0.59) Eosinophils # (Auto) 0.11 K/uL (0-0.5) Basophils # (Auto) 0.02 K/uL (0-0.2) RDW Standard Deviation 46.2 fL (36.4-46.3) RDW Coefficient of Variation 15.0 % (11.5-14.5) Immature Granulocyte % (Auto) 0.7 % Immature Granulocyte # (Auto) 0.04 K/uL (0.00-0.02) Prothrombin Time 11.2 SECONDS (9.0-12.0) Prothromb Time International Ratio 1.1 (0.9-1.1) Anion Gap 7.0 mmol/L (3-11) Est Creatinine Clear Calc Drug Dose 23.4 ml/min Estimated GFR () 41.2 Estimated GFR (Non- 35.5 BUN/Creatinine Ratio 23.4 (10-20) Calcium Level 9.1 mg/dl (8.5-10.1) Magnesium Level 1.9 mg/dl (1.8-2.4) Total Bilirubin 0.5 mg/dl (0.2-1) Aspartate Amino Transf (AST/SGOT) 13 U/L (15-37) Alanine Aminotransferase (ALT/SGPT) 19 U/L (12-78) Alkaline Phosphatase 81 U/L (45-117) Troponin I < 0.015 ng/ml (0-0.045) Total Protein 7.8 gm/dl (6.4-8.2) Albumin 3.9 gm/dl (3.4-5.0) Globulin 3.9 gm/dl (2.5-4.0) Albumin/Globulin Ratio 1.0 (0.9-2) Urine Color YELLOW Urine Appearance CLEAR (CLEAR) Urine pH 7.0 (4.5-7.5) Urine Specific [place] 1.010 (1.000-1.030) Urine Protein NEG (NEG) Urine Glucose (UA) NEG (NEG) Urine Ketones NEG (NEG) Urine Occult Blood NEG (NEG) Urine Nitrite NEG (NEG) Urine Bilirubin NEG (NEG) Urine Urobilinogen NEG (NEG) Urine Leukocyte Esterase MODERATE (NEG) Urine WBC (Auto) 10-30 /hpf (0-5) Urine RBC (Auto) 0-4 /hpf (0-4) Urine Hyaline Casts (Auto) 0 /lpf (0-5) Urine Epithelial Cells (Auto) 10-20 /lpf (0-5) Urine Bacteria (Auto) NEG (NEG) Laboratory results per my review. Medications Administered Medications (Trade) Dose Ordered Sig/Bernadine Route Start Time Stop Time Status Last Admin Dose Admin Lisinopril (Zestril Tab) 5 mg NOW ONCE PO 09/05/17 23:30 09/05/17 23:31 DC 09/05/17 23:23 5 MG Amlodipine Besylate (Norvasc Tab) 5 mg NOW ONCE PO 09/06/17 00:30 09/06/17 00:31 DC 09/06/17 00:38 5 MG Aspirin/Aluminum/ Magnesium/Ca Carb (Ascriptin Tab) 325 mg NOW STAT PO 09/06/17 00:27 09/06/17 00:28 DC 09/06/17 01:05 325 MG Lorazepam (Ativan Tab) 0.25 mg DAILY PRN PO 09/06/17 01:00 10/06/17 00:59 09/06/17 02:22 0.25 MG Acetaminophen (Tylenol Tab) 650 mg Q4H PRN PO 09/06/17 01:00 10/06/17 00:59 09/06/17 03:15 650 MG ECG Indication: other (neurologic symptoms) Rate (beats per minute): 71 Rhythm: normal sinus Findings: no acute ischemic change, no ectopy, other (Normal axis. Normal intervals. ) ED Course 2257: The patient was evaluated in room B9. A complete history and physical exam was performed. 0025: I spoke with the patient's son. He states that the patient's symptoms continue to improve, but that she is not back to her mental baseline. The patient continues to complain of a headache. Her blood pressure is 185/98 currently. 0100: Upon reevaluation, the patient is resting comfortably. I discussed the findings and the treatment plan with the patient and her son. They express agreement and understanding. I spoke with Dr. Bran of the [facility] Hospitalist Service. The patient will be evaluated for further management. 0130: I reassessed the patient. She appears comfortable. Medical Decision Differential diagnosis: Etiologies such as metabolic, infection, hypo/hyperglycemia, electrolyte abnormalities, cardiac sources, intracerebral event, toxicologic, neurologic, as well as others were entertained. Pt here with acute confusion, difficulty word findings and with speech, different from her prior TIA symptoms in the fall, but associated with hypertension. Most like TIA, given improving symptoms although not yet back to baseline. I do not suspect related to glucose level. UA suboptimal specimen, sent for culture as a precaution, but I do not suspect UTI contributing to her confusion. Doubt occult infectious etiology otherwise. No evidence of other end organ damage. I do not suspect acs, dissection. CT negative. Discussed with patient additional evaluation with likely neuro consult and MRI. Pt given ASA in the ER. Pt with improving symptoms here, pt not a tPA candidate. Pt given her prn med here and additional norvasc to carefully bring down BP in the ER. Will need additional evaluation for control of htn. Medication Reconcilliation Current Medication List: was personally reviewed by me Blood Pressure Screening Patient's blood pressure: Elevated blood pressure Blood pressure disposition: Referred to PCP Consults Time Called: 49 Consulting Physician: Dr. Bran - [facility] Hospitalist Returned Call: [phone] I reviewed the patient's case with Dr. Bran. [facility] will evaluate the patient for further management. Impression Primary Impression: Confusion Additional Impressions: Hypertension Headache Scribe Attestation The scribe's documentation has been prepared under my direction and personally reviewed by me in its entirety. I confirm that the note above accurately reflects all work, treatment, procedures, and medical decision making performed by me. Departure Information Dispostion Being Evaluated By Hospitalist Referrals Shahid Shea M.D. (PCP) Patient Instructions My [facility] Problem Qualifiers Additional Impressions: Hypertension Hypertension type: essential hypertension Qualified Codes: I10 - Essential ( primary) hypertension Headache Headache type: unspecified Headache chronicity pattern: acute headache Intractability: not intractable Qualified Codes: R51 - Headache
[2017-09-06] MEDS ORDERED: CIPROFLOXACIN 250 MG TAB PO ONE (01:15)
[2017-09-06] MEDS: LORAZEPAM 0.5 MG TAB PO PRN ×2 (02:22→22:41)
[2017-09-06] MEDS ORDERED: IV FLUIDS COMPLETED PRN (02:30)
[2017-09-06] MEDS ORDERED: HEPARIN SOD 5000 UNIT/0.5 ML CARP SQ SCH (06:00)
[2017-09-06] MEDS: LEVOTHYROXINE 25 MCG TAB PO SCH (06:09)
[2017-09-06] MEDS: INSULIN ASPART 100 UNITS/ML 3 ML PEN SC SCH ×4 (06:30→21:00)
--- NOTE | 2017-09-06 06:39 | DIAGNOSTIC IMAGING REPORT ---
HEAD WITHOUT CONTRAST (CT) CT DOSE: 537.48 mGy.cm HISTORY: Hypertension. Mental status change. htn, banks, confusion TECHNIQUE: Multiaxial CT images of the head were performed without the use of intravenous contrast. A dose lowering technique was utilized adhering to the principles of ALARA. Comparison: 05/18/2017 Findings: The paranasal sinuses and mastoid air cells are clear. The calvarium and skull base are intact. The ventricles and sulci are within normal limits. There is no mass, hematoma, midline shift, or acute infarct. Moderate age-related atrophy and chronic small vessel change. Impression: No acute intracranial abnormality. Age-related atrophy and chronic small vessel change. The above report was generated using voice recognition software. It may contain grammatical, syntax or spelling errors. Electronically signed by: Oscar Cruz M.D. 09/06/2017 6:38 AM Dictated Date/Time: 09/06/2017 6:37 AM
[2017-09-06] MEDS: ATORVASTATIN 40 MG TAB PO SCH (07:41)
[2017-09-06] MEDS: CIPROFLOXACIN 500 MG TAB PO SCH (07:42)
[2017-09-06] MEDS: ASPIRIN 81 MG ECTAB PO SCH (07:42)
[2017-09-06] MEDS: CLOPIDOGREL BISULFATE 75 MG TAB PO SCH (07:42)
--- NOTE | 2017-09-06 08:53 | DIAGNOSTIC IMAGING REPORT ---
BRAIN WITHOUT CONTRAST HISTORY: Mental status change cva TECHNIQUE: Multiplanar multisequence MRI of the brain was performed without the use of contrast. COMPARISON STUDY: CT to 418. 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 Generalized cerebellar as well as cerebral atrophy. Chronic small vessel change throughout considered chronic. Internal auditory canals are symmetric. Ventricular system is midline. IMPRESSION: 1. 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 2. Generalized atrophy and chronic small vessel change. The above report was generated using voice recognition software. It may contain grammatical, syntax or spelling errors. Electronically signed by: Oscar Cruz M.D. 09/06/2017 8:52 AM Dictated Date/Time: 09/06/2017 8:47 AM
[2017-09-06 09:09] LABS: HEMOGLOBIN A1C 7.5 % (4.5-5.6)
[2017-09-06 09:48] LABS: HEMATOCRIT 36.1 % (37-47); MEAN CELL VOLUME 84.3 fL (80-100); MEAN CORPUSCULAR HGB CONC 33.2 g/dl (32-36); PLATELET COUNT 161 K/uL (130-400); RED CELL DISTRIBUTION WIDTH CV 14.6 % (11.5-14.5); RED CELL DISTRIBUTION WIDTH SD 45.3 fL (36.4-46.3); WHITE BLOOD COUNT 4.79 K/uL (4.8-10.8)
[2017-09-06 10:19] LABS: CREATININE 1.1 mg/dl (0.60-1.20); POTASSIUM 4.1 mmol/L (3.5-5.1)
--- NOTE | 2017-09-06 11:00 | Neurology Consultation ---
Neurology Consultation Date of Consultation: Sep 06, 2017. Attending Physician: Josue Longoria MD, PhD Primary Care Physician: Shahid Shea M.D. Reason for Consultation: Patient is an 87-year-old, who was asked to see the request of Dr. Bran, for neurologic consultation regarding stroke versus other. History of Present Illness Source: patient, caregiver, clinic records, hospital records I 1st saw this patient in 1998. At that time she was having dysesthesias in episodes in both arms the well already on aspirin. At that time, neurologic evaluation was largely unremarkable and an MRI of the brain showed a few tiny nonspecific white matter spots and no acute changes. MR angiography of the [place] was unremarkable as well. At that time, I put her on Plavix and discontinued aspirin. She did very well from a neurologic standpoint up until more recently. Patient has had diabetes since the mid . She is on insulin. She has had high blood pressure for probably 10 years as well. She had her aortic valve replaced at [facility] in 2005. She is followed closely by Cardiology. In September of 2016, she had an episode of word-finding difficulty lasting about [address] Grace. She was quite hypertensive at the time. MRI of the brain showed no acute changes. Carotid ultrasound revealed a 50-60% stenosis in the left internal carotid artery and a 40-50% stenosis in the right internal carotid artery. Echocardiogram was largely unremarkable and hemoglobin A1c was 7.7. At that time she was on aspirin 325 mg, 1/2 tablet daily. Again, Plavix was added and aspirin was stopped. Again, she did fairly well until May of 2017. At that time, she had an episode of right facial droop, slurred speech and poor balance lasting about 10 minutes and then it resolved. MRI of the brain showed a tiny, subtle left stoney lesion that was called an acute stroke. She saw Dr. Black at that time an MRA of the brain showed no significant stenoses and no aneurysms. MR angiography of the neck revealed 50% stenosis in the right and left internal carotid arteries bilaterally. She was put on both aspirin and Plavix. Since May of 2017 she has been fairly stable but has been on Plavix alone. In the evening of September 05, she had the sudden onset of colitis cope vision off to the right with a dilcia pattern lasting 10 minutes. Following this, she felt that her comprehension was poor and she was not understanding her glucose reading which turned out to be 90. This for her is a little bit low. In addition she had trouble getting words out. That lasted about an hour. She denies any new weakness or numbness of the limbs but felt that maybe her gait was a little bit unsteady. In addition, she had a dull bifrontal headache that lasted hours. She arrived to the emergency room on September 05 at 2243 hours with a blood pressure of 210/93, pulse 82 and regular, respiratory rate 20, temperature 36.6 , and O2 saturation 99%. She was described as being much improved with her comprehension but not quite baseline. She had a little bit of speech difficulties in getting some words out and she had a little bit of dysmetria with [id number] testing on the right. Her NIH stroke scale was deemed for the beginning but she improved. CT scan of the head was unremarkable. She was considered not to be a tPA candidate due to her rapidly improving symptoms. She has had no further events in the hospital the and feels fairly back to baseline this morning. Her blood pressure has been improved as well. Her mood is good. She does complain of some chronic bilateral facial flushing. She feels fullness in her ears and head at times. She has some urgency and frequency of urination. CBC was unremarkable. Chemistry profile was unremarkable except for a mildly elevated glucose and mildly elevated BUN and creatinine. There is a question of urinary tract infection as well. 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 She had mild generalized atrophy and mild old small vessel ischemic changes as well. I reviewed the MRI films with the radiologist today and we both feel that the changes seen on diffusion imaging are equivocal at best. In addition, we reviewed the films of May 2017 and believe that the left pontine lesion seen did not represent a stroke either. Past Medical/Surgical History Medical Problems: (1) Abnormal ECG Status: Acute (2) Anxiety Status: Acute (3) Anxiety Status: Acute (4) Confusion Status: Acute (5) Elevated troponin I level Status: Acute (6) Expressive aphasia Status: Acute (7) Headache Status: Acute (8) HTN (hypertension) Status: Acute (9) Hypertension Status: Acute (10) Hypertension Status: Acute (11) Hypertensive emergency Status: Acute (12) Hyponatremia Status: Acute (13) Poorly-controlled hypertension Status: Acute (14) TIA (transient ischemic attack) Status: Acute Hypertension, not adequately controlled on admission Diabetes, insulin dependent Anxiety depression, controlled on buspirone Hypothyroidism on levothyroxine History of migraine events with mostly migraine equivalents (aura without the headache) and occasionally aura with headache. She only rarely gets a headache without aura. History of aortic valve replacement 2006 Post tonsillectomy and tubal ligation Family History Mother age 75 of a stroke and had diabetes. Father age 47 of an NH and had diabetes and hypertension Father: diabetes, stroke Mother: stroke Sibling(s): heart disease, cancer, stroke Social History Patient has never smoked cigarettes or used tobacco products. She does not consume alcohol. 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 She has 7 grandchildren and 4 great-grandchildren Smoking Status: Never smoker Smokeless Tobacco Use: No Alcohol Use: none Drug Use: none Marital Status: Housing Status: lives alone Occupation Status: retired Allergies Coded Allergies: Penicillins (Verified Allergy, Unknown, UNKNOWN, 08/30/17) Sulfa Antibiotics (Verified Allergy, Unknown, SEVERE HIVES, 08/30/17) Tramadol (Unverified Allergy, Unknown, UNKNOWN, 08/30/17) Current Inpatient Medications Current Inpatient Medications Medications (Trade) Dose Ordered Sig/Bernadine Route Start Time Stop Time Status Last Admin Dose Admin Atorvastatin Calcium (Lipitor Tab) 40 mg DAILY PO 09/06/17 09:00 10/06/17 08:59 09/06/17 07:41 40 MG Buspirone HCl (Buspar Tab) 10 mg BID PO 09/06/17 09:00 10/06/17 08:59 09/06/17 07:42 10 MG Clopidogrel Bisulfate (plAVix TAB) 75 mg DAILY PO 09/06/17 09:00 10/06/17 08:59 09/06/17 07:42 75 MG Insulin Glargine (Lantus Solostar Pen) 13 units HS SC 09/06/17 21:00 10/06/17 20:59 Levothyroxine Sodium (Synthroid Tab) 25 mcg DAILYBB PO 09/06/17 06:30 10/06/17 06:29 09/06/17 06:09 25 MCG Lisinopril (Zestril Tab) 5 mg QPM PO 09/06/17 21:00 10/06/17 20:59 Lorazepam (Ativan Tab) 0.25 mg DAILY PRN PO 09/06/17 01:00 10/06/17 00:59 09/06/17 02:22 0.25 MG Miscellaneous Information (Order Awaiting Action) 1 ea QS N/A 09/06/17 08:00 10/06/17 07:59 Insulin Aspart (novoLOG ASPART) SLIDING SCALE G... ACHS SC 09/06/17 06:30 10/06/17 06:29 Aspirin (Ecotrin Tab) 81 mg QAM PO 09/06/17 09:00 10/06/17 08:59 09/06/17 07:42 81 MG Miscellaneous Information (Pharmacist Discharge Med Rec Consult) 1 ea UD PRN N/A 09/06/17 01:00 10/06/17 00:59 Heparin Sodium (Porcine) (Heparin Sq 5000 Unit/0.5ml) 5,000 unit Q8H SQ 09/06/17 06:00 10/06/17 05:59 09/06/17 06:12 5,000 UNIT Acetaminophen (Tylenol Tab) 650 mg Q4H PRN PO 09/06/17 01:00 10/06/17 00:59 09/06/17 03:15 650 MG Al Hydrox/Mg Hydrox/Simethicone (Maalox Max Susp) 15 ml Q4H PRN PO 09/06/17 01:00 10/06/17 00:59 Magnesium Hydroxide (Milk Of Magnesia Susp) 30 ml Q12H PRN PO 09/06/17 01:00 10/06/17 00:59 Ondansetron HCl (Zofran Inj) 4 mg Q6H PRN IV 09/06/17 01:00 10/06/17 00:59 Polyethylene (Miralax Powder Packet) 17 gm DAILY PRN PO 09/06/17 01:00 10/06/17 00:59 Ciprofloxacin (Cipro Tab) 500 mg DAILY PO 09/06/17 09:00 09/16/17 08:59 09/06/17 07:42 500 MG Miscellaneous (Iv Fluids Completed) 1 ea PRN PRN N/A 09/06/17 02:30 09/06/18 02:29 Review of Systems Constitutional: No fever, No weakness, No fatigue Eyes: No worsening of vision, No diplopia ENT: + hearing loss, No sore throat, No trouble swallowing Respiratory: No cough, No shortness of breath Cardiovascular: No chest pain, No palpitations Abdomen: No pain, No nausea Musculoskeletal: No joint pain, No muscle pain Genitourinary - Female: + urinary frequency, No dysuria Neurologic: + numbness/tingling, No memory loss, No weakness, No vertigo, No balance problems Psychiatric: + anxiety, No depression symptoms Endocrine: No fatigue Hematologic / Lymphatic: + abnormal bleeding/bruising Integumentary: + rash Allergic / Immunologic: No hives Physical Exam Vital Signs (Past 24 Hrs): Date Time Temp Pulse Resp B/P (MAP) Pulse Ox O2 Delivery O2 Flow Rate FiO2 09/06/17 08:00 97 Room Air 09/06/17 07:39 36.7 71 18 167/73 (104) 97 Room Air 09/06/17 04:00 Room Air 09/06/17 03:45 36.5 65 18 169/76 (107) 98 Room Air 09/06/17 03:00 36.8 75 18 177/97 99 Room Air 09/06/17 01:54 78 20 205/97 98 09/06/17 00:22 71 20 185/98 99 Room Air 09/05/17 23:55 69 20 214/96 99 09/05/17 22:59 77 09/05/17 22:43 36.6 82 20 210/93 99 Room Air Patient is right-handed. The patient is awake and alert. Speech is normal without aphasia or dysarthria. Mentation and thought processes are intact with orientation and normal fund of knowledge. Mood and affect are normal and appropriate. Appearance and grooming are normal. Long and short-term memory are intact. The discs are sharp with positive venous pulsations. There are no exudates, hemorrhages, or blood vessel changes seen. Pupils are 4mm bilaterally and reactive to light. Extraocular eye muscles are intact without nystagmus. Visual acuity and visual vail seem normal grossly to confrontation. There are no deficits to sensation of the face bilaterally. Corneal reflexes are positive bilaterally. Facial strength and symmetry is normal bilaterally. Hearing is decreased and she uses a hearing aid on the left. Palate moves well without asymmetry. There is normal sternocleidomastoid and trapezius strength bilaterally. Tongue is midline with good strength bilaterally. Neck is with full range of motion without discomfort. There bilateral right greater than left cervical bruits. There are no cranial or ocular bruits. Heart is without murmur. Cervical, thoracic, and lumbar spine are nontender to palpation. The patient can tandem walk without difficulty. With outstretched arms there is no drift. There are no resting, postural, or action tremors. There is no ataxia with [id number] testing. There is good facility in the hands. There are no abnormal involuntary movements noted. Motor strength is 5/5 diffusely in the arms bilaterally including deltoids, biceps, brachioradialis, wrist flexors and extensors, education liaison, and intrinsic hand muscles. Motor strength is 5/5 diffusely in the legs bilaterally including hip flexors, quadriceps, hamstring, gastrocnemius, tibialis anterior, tibialis posterior, and peroneii muscles bilaterally. Toe extensors are normal and there is good bulk in the extensor digitorum brevis muscle bilaterally. The limbs have good tone without rigidity or spasticity, and there is no atrophy noted. Muscle bulk is normal, there is no tenderness, no myotonia noted to percussion, and no fasciculations seen. Sensory examination reveals a stocking decreased sensation to pin/touch in the lower extremities to the mid lower legs bilaterally Reflexes are 2/4 in the biceps, triceps, and brachioradialis tendons bilaterally. Quadriceps and Achilles tendon reflexes are 0/4 bilaterally. Toes are downgoing with plantar stimulation bilaterally. Peripheral pulses are present and of normal quality distally in all four limbs. There is no peripheral edema noted. Laboratory Results Past 24 Hours: 09/06/17 09:15 09/06/17 09:15 Test 09/05/17 22:55 09/05/17 23:50 09/06/17 07:33 09/06/17 09:15 Immature Granulocyte % (Auto) 0.7 % White Blood Count 5.97 K/uL (4.8-10.8) Red Blood Count 4.51 M/uL (4.2-5.4) 4.28 M/uL (4.2-5.4) Hemoglobin 12.6 g/dL (12.0-16.0) Hematocrit 38.3 % (37-47) Mean Corpuscular Volume 84.9 fL (80-100) 84.3 fL (80-100) Mean Corpuscular Hemoglobin 27.9 pg (25-34) 28.0 pg (25-34) Mean Corpuscular Hemoglobin Concent 32.9 g/dl (32-36) 33.2 g/dl (32-36) Platelet Count 170 K/uL (130-400) Mean Platelet Volume 10.7 fL (7.4-10.4) 11.0 fL (7.4-10.4) Neutrophils (%) (Auto) 52.2 % Lymphocytes (%) (Auto) 31.3 % Monocytes (%) (Auto) 13.7 % Eosinophils (%) (Auto) 1.8 % Basophils (%) (Auto) 0.3 % Neutrophils # (Auto) 3.11 K/uL (1.4-6.5) Lymphocytes # (Auto) 1.87 K/uL (1.2-3.4) Monocytes # (Auto) 0.82 K/uL (0.11-0.59) Eosinophils # (Auto) 0.11 K/uL (0-0.5) Basophils # (Auto) 0.02 K/uL (0-0.2) Immature Granulocyte # (Auto) 0.04 K/uL (0.00-0.02) Prothrombin Time 11.2 SECONDS (9.0-12.0) Prothromb Time International Ratio 1.1 (0.9-1.1) Estimated Average Glucose 169 mg/dl Hemoglobin A1c 7.5 % (4.5-5.6) Magnesium Level 1.9 mg/dl (1.8-2.4) Total Bilirubin 0.5 mg/dl (0.2-1) Aspartate Amino Transf (AST/SGOT) 13 U/L (15-37) Alanine Aminotransferase (ALT/SGPT) 19 U/L (12-78) Alkaline Phosphatase 81 U/L (45-117) Troponin I < 0.015 ng/ml (0-0.045) Total Protein 7.8 gm/dl (6.4-8.2) Albumin 3.9 gm/dl (3.4-5.0) Globulin 3.9 gm/dl (2.5-4.0) Albumin/Globulin Ratio 1.0 (0.9-2) Urine Color YELLOW Urine Appearance CLEAR (CLEAR) Urine pH 7.0 (4.5-7.5) Urine Specific Loiza 1.010 (1.000-1.030) Urine Protein NEG (NEG) Urine Glucose (UA) NEG (NEG) Urine Ketones NEG (NEG) Urine Occult Blood NEG (NEG) Urine Nitrite NEG (NEG) Urine Bilirubin NEG (NEG) Urine Urobilinogen NEG (NEG) Urine Leukocyte Esterase MODERATE (NEG) Urine WBC (Auto) 10-30 /hpf (0-5) Urine RBC (Auto) 0-4 /hpf (0-4) Urine Hyaline Casts (Auto) 0 /lpf (0-5) Urine Epithelial Cells (Auto) 10-20 /lpf (0-5) Urine Bacteria (Auto) NEG (NEG) Bedside Glucose 155 mg/dl (70-90) RDW Standard Deviation 45.3 fL (36.4-46.3) RDW Coefficient of Variation 14.6 % (11.5-14.5) Anion Gap 5.0 mmol/L (3-11) Est Creatinine Clear Calc Drug Dose 28.5 ml/min Estimated GFR () 52.3 Estimated GFR (Non- 45.1 BUN/Creatinine Ratio 22.7 (10-20) Calcium Level 9.0 mg/dl (8.5-10.1) Imaging BRAIN WITHOUT CONTRAST HISTORY: Mental status change cva TECHNIQUE: Multiplanar multisequence MRI of the brain was performed without the use of contrast. COMPARISON STUDY: CT to 418. 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 Generalized cerebellar as well as cerebral atrophy. Chronic small vessel change throughout considered chronic. Internal auditory canals are symmetric. Ventricular system is midline. IMPRESSION: 1. 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 2. Generalized atrophy and chronic small vessel change. The above report was generated using voice recognition software. It may contain grammatical, syntax or spelling errors. Electronically signed by: Oscar Cruz M.D. 09/06/2017 8:52 AM Impression 1. New onset symptoms her last evening consistent best with vasospasm (migraine related). I have reviewed the MRI films both of May 2017 and yesterday and we are not convinced that the patient had actual strokes in the st[place]. Clinically, her symptoms fit best with vasospasm/migraine phenomenon. Her risk factor for this would be her significant hypertension, not adequately controlled on admission. This will trigger vasospasm. I think this is done this to her many times in the past as well. Nevertheless, I cannot entirely exclude a very small right pontine infarct. This would have occurred on Plavix. She does have chronic old small vessel ischemic changes of a mild nature seen on MRI. If she did have a small infarct would likely be thrombotic in nature secondary to hypertensive small vessel ischemic disease, and I doubt embolic phenomena. Other risk factors for cerebral vascular disease include diabetes with a glucose which is not optimally controlled. She has a history of dyslipidemia as well. 2. Bilateral carotid stenosis, approximately 50% bilaterally by testing in May 2017. 3. 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 4. History of anxiety depression, improved and stable on current medication. Plan 1. Keep blood pressure better controlled, but avoid over-correction. Strive for a mean arterial pressure of approximately 100. 2. Control glucose is best as possible. 3. Given her age, she would not be a candidate for high-dose statin therapy. 4. Continue Plavix for now. 5. Consider the addition of verapamil SR 180 mg daily for blood pressure control and prevention of vasospasm/migraine phenomenon (this is my drug of choice for preventing vasospasm) 6. Her carotid artery stenosis is not significant enough to consider surgery at this time. This should be followed over time I spoke with Dr. Longoria regarding this case including differential diagnosis and treatment options. I have also spoke to radiologist and reviewed films with the radiologist both the current ones and the ones from May. Overall I spent 100 minutes with this case including records review, discussion with clinicians, direct care at the bedside and discussion with the patient.
--- NOTE | 2017-09-06 13:54 | Progress Note ---
Progress Note Date of Service Sep 06, 2017. Progress Note Patient admitted after midnight. Seen and examined by me today. The patient reports feeling well. She states her confusion from yesterday is completely resolved and she feel herself again. She denies any other complaints. The patient denies fevers, chills, sweats, chest pain, palpitations , claudication, cough, wheezing, shortness of breath, nausea, vomiting, abdominal pain, dysuria, hematuria, urinary retention, paralysis, weakness, numbness and tingling. Physical exam pertinent for systolic murmur, otherwise unremarkable. Alert and oriented x 3. A/P: CVA vs vasospasm/migraine -No events on tele -MRI read as small punctate acute infarct right pontine medullary junction -Neuro consulted, appreciate recs: More likely vasospasm/migraine related, not an acute stroke upon review of images. Consider adding verapamil 180 mg for blood pressure control and vasospasm. -PT/OT clear to return home. Does not need further assessment ANGELIKA--resolved -Creatinine 1.1 on 09/06, down from 1.34 DM II--HgbA1c 7.5 on 09/05 -Lantus increased to 15 units qd -Insulin sliding scale -Check BSGs q ac and qhs Bleeding -Received SC heparin around 6 am, was still bleeding 4.5 hours later on my exam -D/C heparin, continue Rm Gee for DVT ppx
[2017-09-06] MEDS ORDERED: DOCUSATE SODIUM 100 MG CAP PO SCH (17:00)
[2017-09-06] MEDS ORDERED: LISINOPRIL 5 MG TAB PO SCH (21:00)
[2017-09-06] MEDS ORDERED: INSULIN GLARGINE SOLOSTAR 100 UNITS/ML 3 ML PEN SC SCH ×2 (21:00)
[2017-09-06] MEDS ORDERED: BRINZOLAMIDE-BRIMONIDINE 1-0.2% OPH SUSP OP SCH (21:00)
[2017-09-06] MEDS: BRINZOLAMIDE-BRIMONIDINE 1-0.2% OPH SUSP OP SCH (21:13)
[2017-09-06] MEDS: LISINOPRIL 5 MG TAB PO SCH (22:41)
[2017-09-07] MEDS: LEVOTHYROXINE 25 MCG TAB PO SCH (06:07)
[2017-09-07 06:57] LABS: BASO % 0.2 %; BASO ABS # 0.01 K/uL (0-0.2); EOS % 3.4 %; EOS ABS # 0.15 K/uL (0-0.5); HEMATOCRIT 36.7 % (37-47); IG# 0.02 K/uL (0.00-0.02); LYMPH % 29.5 %; LYMPH ABS # 1.31 K/uL (1.2-3.4); MEAN CELL VOLUME 84.2 fL (80-100); MEAN CORPUSCULAR HEMOGLOBIN 27.5 pg (25-34); MEAN CORPUSCULAR HGB CONC 32.7 g/dl (32-36); MEAN PLATELET VOLUME 10.2 fL (7.4-10.4); MONO % 13.1 %; MONO ABS # 0.58 K/uL (0.11-0.59); NEUT % 53.3 %; NEUT ABS # 2.37 K/uL (1.4-6.5); PLATELET COUNT 154 K/uL (130-400); RED CELL DISTRIBUTION WIDTH CV 14.6 % (11.5-14.5); RED CELL DISTRIBUTION WIDTH SD 45.3 fL (36.4-46.3); WHITE BLOOD COUNT 4.44 K/uL (4.8-10.8)
[2017-09-07 07:18] VITALS: BP 129/72; PULSE 60; TEMP 36.8; O2SAT 98
[2017-09-07 07:36] LABS: CALCIUM 9.1 mg/dl (8.5-10.1); CREATININE 0.95 mg/dl (0.60-1.20); POTASSIUM 4.1 mmol/L (3.5-5.1)
[2017-09-07 08:00] VITALS: O2SAT 98
[2017-09-07] MEDS: INSULIN ASPART 100 UNITS/ML 3 ML PEN SC SCH ×2 (08:00→12:12)
[2017-09-07] MEDS: CIPROFLOXACIN 500 MG TAB PO SCH (08:01)
--- NOTE | 2017-09-07 08:33 | Neurology Progress Notes ---
Neurology Progress Note Date of Service Sep 07, 2017. Subjective The patient is feeling well this morning with no symptoms of weakness, numbness , or headache Nursing reports no new events overnight. Laboratory studies were unremarkable including CBC and Chem profile. Lipid profile was unremarkable and cholesterol was 146. Glucose was 102. I reviewed these labs. Blood pressure is improved. Objective Date Time Temp Pulse Resp B/P (MAP) Pulse Ox O2 Delivery O2 Flow Rate FiO2 09/07/17 08:00 98 Room Air 09/07/17 07:18 36.8 60 20 129/72 (91) 98 Room Air 09/07/17 04:00 Room Air 09/07/17 00:00 Room Air 09/06/17 23:56 36.9 69 18 112/67 (82) 97 Room Air 09/06/17 20:00 96 Room Air 09/06/17 19:42 36.9 69 18 150/73 (98) 96 Room Air 09/06/17 16:00 98 Room Air 09/06/17 15:50 36.4 61 20 155/73 (100) 98 Room Air 09/06/17 12:00 97 Room Air 09/06/17 11:31 36.7 65 18 155/67 (96) 96 Room Air Last 24 Hours Test 09/06/17 09:15 09/06/17 11:13 09/06/17 16:32 09/06/17 20:29 White Blood Count 4.79 K/uL Red Blood Count 4.28 M/uL Hemoglobin 12.0 g/dL Hematocrit 36.1 % Mean Corpuscular Volume 84.3 fL Mean Corpuscular Hemoglobin 28.0 pg Mean Corpuscular Hemoglobin Concent 33.2 g/dl RDW Standard Deviation 45.3 fL RDW Coefficient of Variation 14.6 % Platelet Count 161 K/uL Mean Platelet Volume 11.0 fL Sodium Level 135 mmol/L Potassium Level 4.1 mmol/L Chloride Level 101 mmol/L Carbon Dioxide Level 29 mmol/L Anion Gap 5.0 mmol/L Blood Urea Nitrogen 25 mg/dl Creatinine 1.10 mg/dl Est Creatinine Clear Calc Drug Dose 28.5 ml/min Estimated GFR () 52.3 Estimated GFR (Non- 45.1 BUN/Creatinine Ratio 22.7 Random Glucose 244 mg/dl Calcium Level 9.0 mg/dl Bedside Glucose 186 mg/dl 128 mg/dl 239 mg/dl Test 09/07/17 06:45 09/07/17 07:27 White Blood Count 4.44 K/uL Red Blood Count 4.36 M/uL Hemoglobin 12.0 g/dL Hematocrit 36.7 % Mean Corpuscular Volume 84.2 fL Mean Corpuscular Hemoglobin 27.5 pg Mean Corpuscular Hemoglobin Concent 32.7 g/dl Platelet Count 154 K/uL Mean Platelet Volume 10.2 fL Neutrophils (%) (Auto) 53.3 % Lymphocytes (%) (Auto) 29.5 % Monocytes (%) (Auto) 13.1 % Eosinophils (%) (Auto) 3.4 % Basophils (%) (Auto) 0.2 % Neutrophils # (Auto) 2.37 K/uL Lymphocytes # (Auto) 1.31 K/uL Monocytes # (Auto) 0.58 K/uL Eosinophils # (Auto) 0.15 K/uL Basophils # (Auto) 0.01 K/uL RDW Standard Deviation 45.3 fL RDW Coefficient of Variation 14.6 % Immature Granulocyte % (Auto) 0.5 % Immature Granulocyte # (Auto) 0.02 K/uL Sodium Level 137 mmol/L Potassium Level 4.1 mmol/L Chloride Level 105 mmol/L Carbon Dioxide Level 27 mmol/L Anion Gap 6.0 mmol/L Blood Urea Nitrogen 25 mg/dl Creatinine 0.95 mg/dl Est Creatinine Clear Calc Drug Dose 33.0 ml/min Estimated GFR () 62.4 Estimated GFR (Non- 53.9 BUN/Creatinine Ratio 26.7 Random Glucose 102 mg/dl Calcium Level 9.1 mg/dl Triglycerides Level 90 mg/dl Cholesterol Level 146 mg/dl HDL Cholesterol 50 mg/dl LDL Cholesterol, Calculated 78 mg/dl VLDL Cholesterol, Calculated 18 mg/dl Cholesterol/HDL Ratio 2.9 Bedside Glucose 108 mg/dl Exam: She is awake and alert. Speech is without aphasia or dysarthria. Mood is pleasant and affect is appropriate. Thought processes are reasonable for conversation. Extraocular eye muscles are intact without nystagmus. There is no facial droop. Stance sitting up is normal. Motor is symmetrical in all 4 limbs. She is eating breakfast well. Current Inpatient Medications Medications (Trade) Dose Ordered Sig/Bernadine Route Start Time Stop Time Status Last Admin Dose Admin Atorvastatin Calcium (Lipitor Tab) 40 mg DAILY PO 09/06/17 09:00 10/06/17 08:59 09/06/17 07:41 40 MG Buspirone HCl (Buspar Tab) 10 mg BID PO 09/06/17 09:00 10/06/17 08:59 09/06/17 22:40 10 MG Clopidogrel Bisulfate (plAVix TAB) 75 mg DAILY PO 09/06/17 09:00 10/06/17 08:59 09/06/17 07:42 75 MG Levothyroxine Sodium (Synthroid Tab) 25 mcg DAILYBB PO 09/06/17 06:30 10/06/17 06:29 09/07/17 06:07 25 MCG Lorazepam (Ativan Tab) 0.25 mg DAILY PRN PO 09/06/17 01:00 10/06/17 00:59 09/06/17 22:41 0.25 MG Insulin Aspart (novoLOG ASPART) SLIDING SCALE G... ACHS SC 09/06/17 06:30 10/06/17 06:29 09/07/17 08:00 3 UNITS Aspirin (Ecotrin Tab) 81 mg QAM PO 09/06/17 09:00 10/06/17 08:59 09/06/17 07:42 81 MG Miscellaneous Information (Pharmacist Discharge Med Rec Consult) 1 ea UD PRN N/A 09/06/17 01:00 10/06/17 00:59 Acetaminophen (Tylenol Tab) 650 mg Q4H PRN PO 09/06/17 01:00 10/06/17 00:59 09/06/17 03:15 650 MG Al Hydrox/Mg Hydrox/Simethicone (Maalox Max Susp) 15 ml Q4H PRN PO 09/06/17 01:00 10/06/17 00:59 Magnesium Hydroxide (Milk Of Magnesia Susp) 30 ml Q12H PRN PO 09/06/17 01:00 10/06/17 00:59 Ondansetron HCl (Zofran Inj) 4 mg Q6H PRN IV 09/06/17 01:00 10/06/17 00:59 Polyethylene (Miralax Powder Packet) 17 gm DAILY PRN PO 09/06/17 01:00 10/06/17 00:59 Ciprofloxacin (Cipro Tab) 500 mg DAILY PO 09/06/17 09:00 09/16/17 08:59 09/07/17 08:01 500 MG Miscellaneous (Iv Fluids Completed) 1 ea PRN PRN N/A 09/06/17 02:30 09/06/18 02:29 Docusate Sodium (coLACE CAP) 100 mg Q2D PO 09/06/17 17:00 10/06/17 16:59 09/06/17 17:14 100 MG Lisinopril (Zestril Tab) PLEASE SEE DOSE INSTRUCTIO... BID PO 09/07/17 09:00 10/06/17 20:59 09/06/17 22:41 5 MG Insulin Glargine (Lantus Solostar Pen) 15 units HS SC 09/07/17 21:00 10/06/17 20:59 Impression 1. New onset symptoms September 05, consistent best with vasospasm (migraine related). I have reviewed the MRI films both of May 2017 and yesterday and we are not convinced that the patient had actual strokes in the stoney. Clinically, her symptoms fit best with vasospasm/migraine phenomenon. Her risk factor for this would be her significant hypertension, not adequately controlled on admission. This will trigger vasospasm. I think this is done this to her many times in the past as well. Nevertheless, I cannot entirely exclude a very small right pontine infarct. This would have occurred on Plavix. She does have chronic old small vessel ischemic changes of a mild nature seen on MRI. If she did have a small infarct would likely be thrombotic in nature secondary to hypertensive small vessel ischemic disease, and I doubt embolic phenomena. Other risk factors for cerebral vascular disease include diabetes with a glucose which is not optimally controlled. She has a history of dyslipidemia as well. 2. Bilateral carotid stenosis, approximately 50% bilaterally by testing in May 2017. 3. 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 4. History of anxiety depression, improved and stable on current medication. Plan 1. Continue with blood pressure control, as you are doing, as it is improved. 2. Control glucose is best as possible. 3. Given her age and cholesterol of 149, she would not be a candidate for high- dose statin therapy. 4. Continue Plavix for now. 5. Consider the addition of verapamil SR 180 mg daily for blood pressure control and prevention of vasospasm/migraine phenomenon (this is my drug of choice for preventing vasospasm) 6. Her carotid artery stenosis is not significant enough to consider surgery at this time. This should be followed over time, and can be done as an outpatient.
[2017-09-07] MEDS: ASPIRIN 81 MG ECTAB PO SCH (08:57)
[2017-09-07] MEDS: CLOPIDOGREL BISULFATE 75 MG TAB PO SCH (08:59)
[2017-09-07] MEDS: LISINOPRIL 5 MG TAB PO SCH (08:59)
[2017-09-07] MEDS: BRINZOLAMIDE-BRIMONIDINE 1-0.2% OPH SUSP OP SCH (08:59)
[2017-09-07] MEDS: ATORVASTATIN 40 MG TAB PO SCH (08:59)
[2017-09-07 11:18] VITALS: BP 109/66; PULSE 69; TEMP 36.9; O2SAT 99
[2017-09-07 12:00] VITALS: O2SAT 99
[2017-09-07] MEDS ORDERED: VERA120T2 PO (12:16)
[2017-09-07] MEDS ORDERED: CPR500 PO (12:16)
[2017-09-07] MEDS ORDERED: LISI-729 PO (12:16)
--- NOTE | 2017-09-07 12:19 | Discharge Instructions ---
Discharge Instructions Date of Service Sep 07, 2017. Admission Reason for Admission: Suspected TIA Discharge Discharge Diagnosis / Problem: Vasospasm from migraine Discharge Goals Goal(s): Improve disease control, Diagnostic testing, Therapeutic intervention Activity Recommendations Activity Limitations: resume your previous activity Exercise/Sports Limitations: gradually increase as tolerated Shower/Bathe: no limitations . Instructions / Follow-Up Instructions / Follow-Up Your lisinopril dose was lowered to 5mg twice a day. You were started on a new medication for migraine prevention and for blood pressure called Verapamil to be taken in the evening. Please follow up with your PCP within 1-2 weeks, and with Neurology, Dr. Chin, within 1 month. Current Hospital Diet Patient's current hospital diet: AHA Diet (Heart Healthy), Diabetes Type 2 Diet Discharge Diet Recommended Diet: AHA Diet (Heart Healthy), Diabetes Type 2 Diet Procedures Procedures Performed: MRI Brain CT Head Pending Studies Studies pending at discharge: yes List of pending studies: Urine culture result Laboratory Results Hemoglobin A1c Test 09/05/17 22:55 Range/Units Estimated Average Glucose 169 mg/dl Hemoglobin A1c 7.5 H 4.5-5.6 % Lipid Panel Test 09/07/17 06:45 Range/Units Triglycerides Level 90 0-150 mg/dl Cholesterol Level 146 0-200 mg/dl HDL Cholesterol 50 mg/dl Cholesterol/HDL Ratio 2.9 LDL Cholesterol, Calculated 78 mg/dl Medical Emergencies . Who to Call and When: Medical Emergencies: If at any time you feel your situation is an emergency, please call 911 immediately. . Non-Emergent Contact Non-Emergency issues call your: Primary Care Provider, Neurologist Call Non-Emergent contact if: you have any medication questions you have return of your symptoms, lightheadedness, or any other acute concerns. . . "Provider Documentation" section prepared by Alma Hough. . VTE Core Measure Inpt VTE Proph given/why not?: Unfractionated heparin SQ, SCD's
--- NOTE | 2017-09-07 12:27 | Discharge Summary ---
Discharge Summary Date of Service Sep 07, 2017. Discharge Summary Admission Date: Sep 06, 2017 at 01:02 Discharge Date: Sep 07, 2017 Discharge Disposition: Home Principal Diagnosis: Migraine-induced vasospasm Problems/Secondary Diagnoses: The patient reports feeling well. She states her confusion from yesterday is completely resolved and she feel herself again. She denies any other complaints. The patient denies fevers, chills, sweats, chest pain, palpitations , claudication, cough, wheezing, shortness of breath, nausea, vomiting, abdominal pain, dysuria, hematuria, urinary retention, paralysis, weakness, numbness and tingling. Physical exam pertinent for systolic murmur, otherwise unremarkable. Alert and oriented x 3. A/P: CVA vs vasospasm/migraine -No events on tele -MRI read as small punctate acute infarct right pontine medullary junction -Neuro consulted, appreciate recs: More likely vasospasm/migraine related, not an acute stroke upon review of images. Consider adding verapamil 180 mg for blood pressure control and vasospasm. -PT/OT clear to return home. Does not need further assessment ANGELIKA--resolved -Creatinine 1.1 on 09/06, down from 1.34 DM II--HgbA1c 7.5 on 09/05 -Lantus increased to 15 units qd -Insulin sliding scale -Check BSGs q ac and qhs Bleeding -Received SC heparin around 6 am, was still bleeding 4.5 hours later on my exam -D/C heparin, continue BRIAN hose, SCDs for DVT ppx 86 y/o F Hx AVR, DM II, hypothyroidism, HTN, HPL, Grade I diastolic dysfunction , TIA 10/16, CVA 05/18. Pt presents with acute confusion and unsteady gate. The symptoms lasted > 30 minutes and gradually resolved. She states she was acutely unable to recall the names of her children and could not process the reading on her glucometer, which is unusual for her. She did not exhibit any slurred speech or unilateral weakness. The pt also states that since departing the hospital in May, she has felt like her "head is full" and had recently visited an ENT specialist for wax impaction. She had visited the ER a few days prior due to an elevated BP as well, although she was not having related symptoms at the time. Initial labs are WNL aside form a marginally (+) UA. A CT head is negative for acute findings. 1) Acute receptive aphasia, acute unsteady gait - Based on her history, we would have to presume this was a TIA. We will repeat an MRI only and consult neurology. We will add ASA to he Plavix and Statin. The source of recurrent events may be her carotids, in which case, additional medical therapy may be less effective. 2) UTI - we will treat with oral Cipro pending cultures - it is not likely that her UTI contributed to her confusion. 3) HTN - Her SBP appears to be poorly controlled as she visited the ER 6 days ago due to an SBP > 200. Her SBP was 185 at the time of admission. Lisinopril is held in context of an acute TIA, however, it might make sense to pursue a more aggressive regimen on discharge. 4) DM II - Placed on a SS + Lantus 5) Hypothyroidism - cont Synthroid Procedures: MRI Brain CT Head Consultations: Neurology Medication Reconciliation New Medications: Verapamil Sust Rel (Calan Sr Ext Rel) 120 Mg Tabcr 120 MG PO QPM for 30 Days, #30 TAB Ciprofloxacin (Ciprofloxacin HCl) 500 Mg Tab 500 MG PO DAILY for 1 Day, #1 TAB Take on 09/08/17 Changed Medications: Lisinopril (Prinivil) 5 Mg Tab 5 MG PO BID for 30 Days (Changed from: QPM) Continued Medications: Atorvastatin (Lipitor) 40 Mg Tab 40 MG PO DAILY, TAB Brinzolamide-Brimonidine Tartr (Simbrinza) 1 Anny Anny 1 DROP OPB BID Buspirone Hcl (Buspirone Hcl) 5 Mg Tab 2 TAB PO BID for 30 Days, #120 TAB Cholecalciferol (Vitamin D 1000 Unit) 1,000 Unit Cap 2000 UNITS PO DAILY 2,000 UNITS IN WINTER 1,000 UNITS IN SUMMER Clopidogrel (Plavix) 75 Mg Tab 75 MG PO DAILY, TAB Insulin Aspart (Novolog) 100 Units/Ml Inj 3 UNITS SC QDB Insulin Aspart (Novolog) 100 Units/Ml Inj 10 UNITS SC QDL Insulin Aspart (Novolog) 100 Units/Ml Inj 10-12 UNITS SC QDD Insulin Glargine (Lantus Solostar) 100 Unit/Ml Inj 13 UNITS SC HS, PEN Levothyroxine Sodium (Levothyroxine Sodium) 25 Mcg Tab 25 MCG PO DAILY, TAB Lorazepam (Lorazepam) 0.5 Mg Tab 0.5 TAB PO DAILY PRN for Sleep, TAB Discontinued Medications: Lisinopril (Prinivil) 10 Mg Tab 10 MG PO AMPM Discharge Exam Doing very well. No residual headache, no vision changes, no problems with speech. No CP or SOB. Feels ready for discharge. Tele with SB in the 50s-60s, NSR and a few PVCs. Review of Systems: Constitutional: No problem reported Eyes: No problem reported ENT: No problem reported Respiratory: No problem reported Cardiovascular: No problem reported Abdomen: No problem reported Musculoskeletal: No problem reported Genitourinary - Female: No problem reported Neurologic: No problem reported Psychiatric: No problem reported Endocrine: No problem reported Hematologic / Lymphatic: No problem reported Integumentary: No problem reported Physical Exam: General Appearance: WD/WN, no apparent distress Eyes: normal inspection, EOMI, sclerae normal ENT: hearing grossly normal Neck: trachea midline Respiratory/Chest: lungs clear, normal breath sounds, no respiratory distress, no accessory muscle use Cardiovascular: regular rate, rhythm, no edema, no gallop, no murmur, normal peripheral pulses Abdomen / GI: normal bowel sounds, non tender, no pulsatile mass Extremities: no calf tenderness, normal capillary refill, no pedal edema, normal range of motion Neurologic/Psychiatric: transit mechanic II-XII nml as tested, alert, normal mood/affect , oriented x 3 Skin: normal color, warm/dry, no rash Lymphatic: no adenopathy Hospital Course 86 y/o F Hx AVR, DM II, hypothyroidism, HTN, HPL, Grade I diastolic dysfunction , TIA 10/16, CVA 05/18. Pt presents with acute confusion and unsteady gate, along with visual aura symptoms. The symptoms lasted > 30 minutes and gradually resolved. She states she was acutely unable to recall the names of her children and could not process the reading on her glucometer, which is unusual for her. She did not exhibit any slurred speech or unilateral weakness. The pt also states that since departing the hospital in May, she has felt like her "head is full" and had recently visited an ENT specialist for wax impaction. She had visited the ER a few days prior due to an elevated BP as well, although she was not having related symptoms at the time. Initial labs are WNL aside form a marginally (+) UA. A CT head is negative for acute findings. BP was quite elevated on admission and then improved. 1) Acute receptive aphasia, acute unsteady gait -admitted for suspected TIA/ CVA. An MRI of the brain was obtained which initially questioned a stoney infarct , but further review with Neurology and Radiology determined this to not be true. Neurology thinks this was vasospasm induced by migraine and recommended starting Verapamil to prevent migraines and better control BPs as well. She will continue on her Plavix and Statin. 2) UTI - we will treat with oral Cipro x 3 day course, urine cx is pending ta time of discharge - it is not likely that her UTI contributed to her confusion. 3) HTN - Her SBP appears to be poorly controlled as she visited the ER 6 days ago due to an SBP > 200. Her SBP was 185 at the time of admission. COntinue lisinopril 5mg po bid and adding Verapamil 120mg SR daily at time of discharge as above. 4) DM II - Placed on a SS + Lantus while here. A1C 7.5% here. 5) Hypothyroidism - cont Synthroid, TSH here normal ANGELIKA--resolved -Creatinine 0.95, down from 1.34 Stable for discharge to home, PT/OT evaluations were completed. Total Time Spent: Greater than 30 minutes This includes examination of the patient, discharge planning, medication reconciliation, and 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 with other providers. Discharge Instructions Please refer to the electronic Patient Visit Report (Discharge Instructions) for additional information. Follow-Up PCP within 1-2 weeks Neurology within 1 month Additional Copies To Shahid Shea M.D.; Seema Chin M.D.
[2017-09-07 12:49] VITALS: BP 109/66; PULSE 69; TEMP 36.9; O2SAT 99
[2017-09-07] MEDS ORDERED: INSULIN GLARGINE SOLOSTAR 100 UNITS/ML 3 ML PEN SC SCH ×2 (21:00)
== END 2017-09-07 15:35 | disposition home or self-care (01) ==
LOC: C.EDB 22:42 → C.MED 09-06 01:02 → ENRESERV 09-06 01:24
PROVIDERS: ADMIT Internal Medicine; ATTEND Family Medicine
DX: G43.909 Migraine, unspecified, not intractable, without status migrainosus (principal); N17.9 Acute kidney failure, unspecified; R47.01 Aphasia; N39.0 Urinary tract infection, site not specified; E03.9 Hypothyroidism, unspecified; I65.23 Occlusion and stenosis of bilateral carotid arteries; E11.40 Type 2 diabetes mellitus with diabetic neuropathy, unspecified; I10 Essential (primary) hypertension; Z79.82 Long term (current) use of aspirin; Z79.4 Long term (current) use of insulin; Z86.73 Personal history of transient ischemic attack (TIA), and cerebral infarction without residual deficits; Z87.440 Personal history of urinary (tract) infections; Z95.2 Presence of prosthetic heart valve; Z83.3 Family history of diabetes mellitus; Z82.3 Family history of stroke; Z82.49 Family history of ischemic heart disease and other diseases of the circulatory system

== ENCOUNTER → 2017-11-26 | Outpatient (CLI) | payer BC ==
[~2017-11-26] MED LIST changes: +ATOR-24 PO; -ATOR-26 PO; -ATV5 PO; +CPR500 PO; +LISI-729 PO; -LISI10TA PO; +LORA0.5T12 PO; -LSN5 PO
--- NOTE | 2017-11-26 14:11 | DIAGNOSTIC IMAGING REPORT ---
SINUSES WITH BRAIN LAB HISTORY: 87 years-old Female CHRONIC SINUSITIS COMPARISON: Head CT 09/05/2017 TECHNIQUE: Multiple axial CT images of the sinuses were obtained without the use of IV contrast. Axial BrainLab images were also submitted. A dose lowering technique was used consistent with the principals of FERMIN. FINDINGS: Moderate brain atrophy without acute intracranial abnormality identified. Ill-defined areas of low-attenuation within the periventricular white matter suggest chronic microvascular ischemic changes. Vascular calcifications are seen at the level of the skull base. Left mastoid air cells and bilateral middle ear cavities are clear. Small right mastoid effusion. No skull fracture identified. Orbits and soft tissues are unremarkable. Evaluation of the oral cavity is limited secondary to streak artifact from dental amalgam. Prominent calcifications of the hard palate are noted. Advanced degenerative changes of the imaged cervical spine. There is mild mucoperiosteal thickening about the bilateral maxillary sinuses. The bilateral sphenoid and frontal sinuses are generally clear. There is mild mucosal thickening throughout the ethmoid air cells. Mild leftward bowing and spurring of the nasal septum. No large malcolm bullosa. Small right-sided Vasquez cell. Bilateral maxillary ostemia units, frontoethmoidal and sphenoethmoidal recesses are patent. Mild mucosal thickening of the nasal turbinates. No mass lesion of the nasopharynx. Mariam nan appears normal. IMPRESSION: 1. Mild mucosal thickening of the maxillary and ethmoid sinuses with patency of the sinus outflow tracts. 2. Small right-sided Vasquez cell without significant narrowing of the right maxillary ostiomeatal unit. 3. Mild leftward bowing and spurring of the nasal septum. 4. Small right-sided mastoid effusion. The above report was generated using voice recognition software. It may contain grammatical, syntax or spelling errors. Electronically signed by: Ray Solorzano M.D. 11/26/2017 2:10 PM Dictated Date/Time: 11/26/2017 2:04 PM
== END | disposition home or self-care (01) ==
LOC: C.CTS 13:25
PROVIDERS: ATTEND Otolaryngology
DX: J32.9 Chronic sinusitis, unspecified (principal)

== ENCOUNTER → 2017-12-13 | Outpatient (CLI) | payer BC ==
[2017-12-14 06:47] LABS: HEMOGLOBIN A1C 7.4 % (4.5-5.6)
== END | disposition home or self-care (01) ==
LOC: C.LABBC 15:26
PROVIDERS: ATTEND Nurse Practitioner Family
DX: E10.42 Type 1 diabetes mellitus with diabetic polyneuropathy (principal)

== ENCOUNTER 2018-10-30 11:34 | Inpatient (IN) ==
[2018-10-30] MEDS ORDERED: ASPIRIN CHEW 324 MG PO STA (12:09)
--- NOTE | 2018-10-30 12:32 | XRay Report ---
XR chest 1V portable HISTORY: 88 years-old Female syncope acute syncope COMPARISON: Acute abdominal series radiographs 06/24/2018 TECHNIQUE: Portable AP view of the chest FINDINGS: Cardiac mediastinal and hilar silhouettes are unchanged. Prior median sternotomy. Calcification the t horacic aortic arch. No pneumothorax, pleural effusion or overt pulmonary edema. Mild chronic interst itial coarsening about the lung bases. Degenerative changes of the shoulders and spine. IMPRESSION: No acute process. The above report was generated using voice recognition software. It may contain grammatical, syntax o r spelling errors. Electronically signed by: Ray Solorzano M.D. 10/30/2018 12:31 PM
[2018-10-30 12:46] LABS: Basophils # (auto) 0.02 K/uL (0-0.2); Basophils % (auto) 0.4 %; Eosinophils # (auto) 0.11 K/uL (0-0.5); Eosinophils % (auto) 2.2 %; Hemoglobin 11.4 g/dL (12.0-16.0); Immature Granulocytes # (auto) 0.03 K/uL (0.00-0.02); Immature Granulocytes % (auto) 0.6 %; Lymphocytes % (auto) 23.7 %; Mean Corpuscular Hgb Conc 32.6 g/dL (32-36); Mean Corpuscular Volume 82.7 fL (80-100); Mean Platelet Volume 10.2 fL (7.4-10.4); Monocytes # (auto) 0.56 K/uL (0.11-0.59); Monocytes % (auto) 11.1 %; Neutrophils # (auto) 3.14 K/uL (1.4-6.5); Platelet Count 163 K/uL (130-400); RDW Coefficient of Variation 15.6 % (11.5-14.5); RDW Standard Deviation 47.5 fL (36.4-46.3); Red Blood Count 4.23 M/uL (4.2-5.4); White Blood Count 5.06 K/uL (4.8-10.8)
[2018-10-30 12:55] LABS: INR 1.1 (0.9-1.1); Prothrombin Time 11.5 Seconds (9.0-12.0)
[2018-10-30 13:05] LABS: Albumin Level 3.4 gm/dl (3.4-5.0); BUN Creatinine Ratio 23.2 (10-20); Calcium 8.8 mg/dl (8.5-10.1); Creatinine Clr Calc Pharmacy 25.3 ml/min; Est GFR (African American) 43.6; Est GFR (Non-African American) 37.6; Magnesium 1.9 mg/dl (1.8-2.4); Potassium 4.3 mmol/L (3.5-5.1)
[2018-10-30] MEDS ORDERED: SODIUM CHLORIDE 0.9% 1000ML 500 ML IV ONE (13:09)
[2018-10-30 13:16] LABS: Albumin Globulin Ratio 0.9 (0.9-2); Bilirubin,Total 0.5 mg/dl (0.2-1); Globulin 3.6 gm/dl (2.5-4.0); Troponin I 0.029 ng/ml (0-0.045)
[2018-10-30] MEDS ORDERED: OPTIRAY 320 125ml IV PRN (13:16)
--- NOTE | 2018-10-30 13:29 | CT Scan Report ---
CT head/brain wo con CLINICAL HISTORY: 88 years-old Female with syncope aphasia. Acute syncope with dizziness TECHNIQUE: Multiple axial CT images of the head were obtained without contrast. A dose lowering tech nique was utilized adhering to the principles of ALARA. CT DOSE: 986.49 mGy.cm COMPARISON: CT head and brain MRI 05/18/2017. FINDINGS: No acute intracranial hemorrhage, midline shift, intracranial mass, hydrocephalus, territorial ischem ia or abnormal extra-axial collection. Senescent calcifications of the lentiform nuclei. Age-related involutional changes. Ill-defined hypodensities about the white matter are suggestive of chronic micr ovascular ischemic changes. Vascular calcifications noted. The calvarium is intact. Mild exostosis about the left frontal calvarium. Prior bilateral cataract re pair. Prominent calcifications about the hard palate. The paranasal sinuses, mastoid air cells, and m iddle ear cavities are clear. IMPRESSION: No acute intracranial abnormality. The above report was generated using voice recognition software. It may contain grammatical, syntax o r spelling errors. Electronically signed by: Ray Solorzano M.D. 10/30/2018 1:27 PM
--- NOTE | 2018-10-30 13:46 | CT Scan Report ---
CT angio neck with con, CT angio head w con CLINICAL HISTORY: 88 years-old Female with syncope, aphasia. Acute strokelike symptoms with syncop e COMPARISON STUDY: CT head of same day, brain MRI 09/06/2017, MRA head and neck 05/18/2017 TECHNIQUE: Following the IV administration of 118 mL of Optiray 320, CT angiogram of the head and nec k was performed from the aortic arch to the skull apex. Images are reviewed in the axial, sagittal, a nd coronal planes. 3-D MIPS images are created and assessed. IV contrast was administered without com plication. All measurements were calculated based on NASCET criteria. A dose lowering technique was utilized adhering to the principles of ALARA. FINDINGS: Prior median sternotomy. Moderate mixed plaque formation of the visualized thoracic aortic arch. Ther e is patency of the imaged bilateral subclavian arteries. Moderate mixed plaque formation of the left common carotid artery with severe mixed plaque formation of the left carotid bulb. This results in 6 5% luminal narrowing about the proximal left ICA. Moderate calcified plaque about the left cavernous, clinoid and supraclinoid segments. Extensive mixed plaque formation of the right carotid bulb and proximal right ICA results in approxim ately 50% luminal narrowing of the proximal right ICA. Mixed plaque formation about the cavernous, cl inoid and supraclinoid segments right ICA without high-grade stenosis. The bilateral middle and anterior cerebral arteries are widely patent and within normal limits. Calcified plaque formation at the origin of the left vertebral artery causes 50% luminal narrowing, i mage 53 series 5. The vertebral arteries appear to be codominant. Calcified plaque formation is noted about the bilateral V3 and V4 segments. Calcified plaque at the origin of the right vertebral artery causes less than 50% luminal narrowing. There is long segment mild luminal narrowing about the dista l V4 segment right vertebral artery of less than 50%. Basilar artery appears patent. The bilateral po sterior cerebral arteries are widely patent and within normal limits. Cerebral venous sinuses are pat ent and within normal limits. No pneumothorax. Mild biapical pleural-parenchymal scarring. Soft tissues are unremarkable. No prever tebral soft tissue swelling or adenopathy. Mild mucosal thickening of the maxillary sinuses. Multilev el degenerative changes of the spine. IMPRESSION: 1. Extensive mixed plaque formation about the bilateral carotid bulbs results in 65% luminal narrowin g about the proximal left ICA and 50% luminal narrowing about the proximal right ICA. 2. Calcified plaque formation at the origin of the left vertebral artery results in 50% stenosis. 3. Additional findings as above. No aneurysm , dissection or proximal branch occlusion. The above report was generated using voice recognition software. It may contain grammatical, syntax o r spelling errors. Electronically signed by: Ray Solorzano M.D. 10/30/2018 1:43 PM
--- NOTE | 2018-10-30 15:26 | Emergency Department Note ---
Entered by Florecita Julian acting as a scribe for History of Present Illness General Chief complaint: Syncope Stated complaint: syncope Source: patient and family Mode of arrival: ambulatory Limitations: no limitations History of Present Illness Onset (ago): hour(s) 1 Location: head Radiation: non-radiation Pain Consistency: + now resolved Relieved By: + none Exacerbated By: + none Associated symptoms: + other (-changes in vision); no diaphoresis and no shortness of breath Treatments prior to arrival: other (Glucose tablet) The patient is an 88 year old female who presents to the Emergency Room with complaints of a syncopal episode that occurred this morning at [place]. She is accompanied by several family members. The patient states she felt fine this morning and ate breakfast as usual. Her last known well time was around 0930 this morning. At [place], she had low blood sugar and "slumped over" around 1045. She states she does not remember the episode. She denies any difficulty moving or speaking currently but notes she can't quite get out the words that she wants to say. Her family states her BSG was around 165 this morning and her blood pressure was low. She was given a glucose tablet after the episode. The patient takes a daily Aspirin but no other blood thinners. She denies any recent changes in vision. She denies any recent shortness of breath or diaphoresis. The patient has seen Dr. Chin in the past and her family states Dr. Chin thought she may have experienced a TIA in the past. Home Medications Home Medications Medication Instructions Recorded Confirmed Type aspirin [Aspirin Low Dose] 81 mg PO QAM 10/30/18 10/30/18 History atorvastatin 40 mg PO PM 10/30/18 10/30/18 History brinzolamide-brimonidine 1 drp OPB BID 10/30/18 10/30/18 History [Simbrinza] cholecalciferol (vitamin D3) 1,000 unit PO PM 10/30/18 10/30/18 History [Vitamin D3] clindamycin HCl 300 mg PO UD 10/30/18 10/30/18 History docusate sodium 100 mg PO DAILY PRN 10/30/18 10/30/18 History escitalopram oxalate 10 mg PO DAILY 10/30/18 10/30/18 History insulin aspart U-100 [Novolog 0 unit SUBCUT UD 10/30/18 10/30/18 History Flexpen U-100 Insulin] insulin glargine [Lantus Solostar 0 unit SUBCUT DAILY 10/30/18 10/30/18 History U-100 Insulin] levothyroxine 25 mcg PO QAM 10/30/18 10/30/18 History lisinopril 5 mg PO DAILY 10/30/18 10/30/18 History lorazepam 0.5 mg PO DAILY PRN 10/30/18 10/30/18 History verapamil 120 mg PO HS 10/30/18 10/30/18 History Allergies Allergy/AdvReac Type Severity Reaction Status Date / Time Penicillins Allergy Unknown UNKNOWN Verified 10/30/18 12:23 Sulfa (Sulfonamide Allergy Unknown SEVERE Verified 10/30/18 12:23 Antibiotics) HIVES tramadol Allergy Unknown UNKNOWN Unverified 10/30/18 12:23 Past Med/Surg History Medical History Atrial fibrillation Diabetes (Chronic) HTN (hypertension) (Chronic) 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) Acquired claw toe of right foot (Chronic) Callus (Chronic) Diabetes mellitus with neuropathy (Chronic) Diabetic peripheral neuropathy (Chronic) Hallux abducto valgus, bilateral (Chronic) Social History Preferred Language: Azeri Communication Ability: Effective Manager Of Network Required: No Beliefs That Will Affect Care: None Current Living Situation: Family Current Living Situation Comment: lives with son and family Other Information That Helps Us Care for You: No Feels Safe at Home: Yes Safety Concerns: Feels Safe At This Time Smoking Status: Never smoker Hx Alcohol Use: No Hx Substance Use: No Review of Systems See HPI for pertinent positives & negatives. and A total of 10 systems reviewed and were otherwise negative Physical Exam Vital Signs Vital Signs - 24 hr 10/30/18 11:39 10/30/18 12:12 10/30/18 12:43 Temperature Temperature Source Oral Sepsis Recent Fever Within 48 Hours No Sepsis New/Unexplained Change in Mental Status No Sepsis Action Taken by Nursing No Action Required Pulse Rate 64 Pulse Rate [Left Finger] 62 Pulse Rhythm Regular Pulse Rhythm [Left Finger] Pulse Strength Normal Pulse Strength [Left Finger] Respiratory Rate 18 18 Respiratory Effort / Characteristics Non-Labored Spontaneous Non-Labored Respiratory Depth Normal Normal Respiratory Pattern Regular Blood Pressure 120/64 Blood Pressure [Left Arm] 109/55 L Blood Pressure Mean 82 Blood Pressure Mean [Left Arm] 73 Blood Pressure Position Lying Blood Pressure Position [Left Arm] Pulse Oximetry 96 97 98 Oxygen Delivery Method Room Air Room Air Room Air 10/30/18 13:32 10/30/18 15:25 10/30/18 16:16 Temperature Temperature Source Sepsis Recent Fever Within 48 Hours Sepsis New/Unexplained Change in Mental Status Sepsis Action Taken by Nursing Pulse Rate Pulse Rate [Left Finger] 61 67 63 Pulse Rhythm Pulse Rhythm [Left Finger] Regular Pulse Strength Pulse Strength [Left Finger] Normal Respiratory Rate 16 18 19 Respiratory Effort / Characteristics Non-Labored Spontaneous Non-Labored Non-Labored Respiratory Depth Normal Normal Normal Respiratory Pattern Regular Blood Pressure Blood Pressure [Left Arm] 137/69 155/71 H 155/73 H Blood Pressure Mean Blood Pressure Mean [Left Arm] 91 99 100 Blood Pressure Position Blood Pressure Position [Left Arm] Lying Pulse Oximetry 98 100 99 Oxygen Delivery Method Room Air Room Air Room Air 10/30/18 16:45 Temperature 37 C Temperature Source Oral Sepsis Recent Fever Within 48 Hours Sepsis New/Unexplained Change in Mental Status Sepsis Action Taken by Nursing Pulse Rate Pulse Rate [Left Finger] 88 Pulse Rhythm Pulse Rhythm [Left Finger] Regular Pulse Strength Pulse Strength [Left Finger] Normal Respiratory Rate 18 Respiratory Effort / Characteristics Non-Labored Spontaneous Respiratory Depth Normal Respiratory Pattern Regular Blood Pressure Blood Pressure [Left Arm] 205/90 H Blood Pressure Mean Blood Pressure Mean [Left Arm] 128 Blood Pressure Position Blood Pressure Position [Left Arm] Lying Pulse Oximetry 99 Oxygen Delivery Method Room Air GENERAL: Awake, alert, well appearing, no distress HENT: Normocephalic, atraumatic. EYES: PERRL. EOMI. Normal conjunctiva. Sclera non-icteric. NECK: Supple. No nuchal rigidity. RESPIRATORY: Breath sounds equal. No wheezes.Normal respiratory effort. CARDIAC: Normal rate. Regular rhythm. No murmurs. GI: Soft, non distended. No tenderness to palpation. No rebound or guarding. No masses. RECTAL: Deferred. MUSCULOSKELETAL: Unremarkable. No edema. No discoloration. Gross motor strength symmetric. NEURO: Mild aphasia. Cranial nerves 2-12 grossly intact. No sensory or motor deficits noted. No finger to nose ataxia. No pronator drift. 5/5 strength in extremities. Does not well remember events at [place] today. SKIN: No rash or jaundice noted. LYMPH: No adenopathy. Course 1155: The patient was evaluated in room C8, and a complete history and physical examination were performed. 1400: I reevaluated the patient. She is resting comfortably. I discussed her results and my recommendation she remain in the hospital for further evaluation and she and her family verbalized complete understanding and agreement. 1408: I discussed the patients case with Dr. Henry, [facility]. The patient will be further evaluated. Consultations Consultation #1: I discussed the patients case with Dr. Henry, [facility]. The patient will be further evaluated. Time: 14:08 Administered Medications Ioversol (Optiray 320 125ml) 118 ml IV ONCE PRN PRN Reason: Interaction Checking Stop: 11/03/18 13:15 Last Admin: 10/30/18 13:16 Dose: 118 ml Documented by: [id number] Discontinued Medications Aspirin (Aspirin) 324 mg PO NOW STA Stop: 10/30/18 12:10 Last Admin: 10/30/18 12:45 Dose: 324 mg Documented by: [id number] Sodium Chloride (Nss 1000ml) 500 mls @ 999 mls/hr IV .Q31M ONE Stop: 10/30/18 13:39 Last Infusion: 10/30/18 14:03 Dose: 0 mls/hr Documented by: [id number] Admin: 10/30/18 13:32 Dose: 999 mls/hr Documented by: [id number] Medical Decision Making Differential Diagnosis Differential diagnoses includes but is not limited to toxic, metabolic, infectious, traumatic, cardiac, neurologic, hematologic, psychiatric and inflammatory etiologies. Medical Records Attestation: I reviewed the patient's medical records. Home Medications Current Medication List: was personally reviewed by me Laboratory Data Attestation: I reviewed the patient's lab results. Result diagrams: 10/30/18 12:33 10/30/18 12:33 Lab Results 10/30/18 10/30/18 10/30/18 Range/Units 12:33 12:33 12:33 WBC 5.06 (4.8-10.8) K/uL RBC 4.23 (4.2-5.4) M/uL Hgb 11.4 L (12.0-16.0) g/dL Hct 35.0 L (37-47) % MCV 82.7 (80-100) fL MCH 27.0 (25-34) pg MCHC 32.6 (32-36) g/dL RDW Std Deviation 47.5 H (36.4-46.3) fL RDW Coeff of Nolan 15.6 H (11.5-14.5) % Plt Count 163 (130-400) K/uL MPV 10.2 (7.4-10.4) fL Immature Gran % (Auto) 0.6 % Neut % (Auto) 62.0 % Lymph % (Auto) 23.7 % [place] % (Auto) 11.1 % Eos % (Auto) 2.2 % Baso % (Auto) 0.4 % Immature Gran # (Auto) 0.03 H (0.00-0.02) K/uL Neut # (Auto) 3.14 (1.4-6.5) K/uL Lymph # (Auto) 1.20 (1.2-3.4) K/uL [place] # (Auto) 0.56 (0.11-0.59) K/uL Eos # (Auto) 0.11 (0-0.5) K/uL Baso # (Auto) 0.02 (0-0.2) K/uL PT 11.5 (9.0-12.0) Seconds INR 1.1 (0.9-1.1) Sodium 137 (136-145) mmol/L Potassium 4.3 (3.5-5.1) mmol/L Chloride 103 (98-107) mmol/L Carbon Dioxide 26 (21-32) mmol/L Anion Gap 8.0 (3-11) BUN 30 H (7-18) mg/dl Creatinine 1.27 H (0.6-1.2) mg/dl Est Cr Clr Drug Dosing 25.3 ml/min Est GFR ( Amer) 43.6 Est GFR (Non-Af Amer) 37.6 BUN/Creatinine Ratio 23.2 H (10-20) Glucose 235 H (70-99) mg/dl POC Glucose (70-99) Calcium 8.8 (8.5-10.1) mg/dl Magnesium 1.9 (1.8-2.4) mg/dl Total Bilirubin 0.5 (0.2-1) mg/dl AST 11 L (15-37) U/L ALT 20 (12-78) U/L Alkaline Phosphatase 86 (45-117) U/L Troponin I 0.029 (0-0.045) ng/ml Total Protein 7.0 (6.4-8.2) gm/dl Albumin 3.4 (3.4-5.0) gm/dl Globulin 3.6 (2.5-4.0) gm/dl Albumin/Globulin Ratio 0.9 (0.9-2) TSH 3.740 (0.300-4.500) uIu/ml Blood Type Antibody Screen 10/30/18 10/30/18 Range/Units 13:23 18:39 WBC (4.8-10.8) K/uL RBC (4.2-5.4) M/uL Hgb (12.0-16.0) g/dL Hct (37-47) % MCV (80-100) fL MCH (25-34) pg MCHC (32-36) g/dL RDW Std Deviation (36.4-46.3) fL RDW Coeff of Nolan (11.5-14.5) % Plt Count (130-400) K/uL MPV (7.4-10.4) fL Immature Gran % (Auto) % Neut % (Auto) % Lymph % (Auto) % [place] % (Auto) % Eos % (Auto) % Baso % (Auto) % Immature Gran # (Auto) (0.00-0.02) K/uL Neut # (Auto) (1.4-6.5) K/uL Lymph # (Auto) (1.2-3.4) K/uL [place] # (Auto) (0.11-0.59) K/uL Eos # (Auto) (0-0.5) K/uL Baso # (Auto) (0-0.2) K/uL PT (9.0-12.0) Seconds INR (0.9-1.1) Sodium (136-145) mmol/L Potassium (3.5-5.1) mmol/L Chloride (98-107) mmol/L Carbon Dioxide (21-32) mmol/L Anion Gap (3-11) BUN (7-18) mg/dl Creatinine (0.6-1.2) mg/dl Est Cr Clr Drug Dosing ml/min Est GFR ( Amer) Est GFR (Non-Af Amer) BUN/Creatinine Ratio (10-20) Glucose (70-99) mg/dl POC Glucose 144 H (70-99) Calcium (8.5-10.1) mg/dl Magnesium (1.8-2.4) mg/dl Total Bilirubin (0.2-1) mg/dl AST (15-37) U/L ALT (12-78) U/L Alkaline Phosphatase (45-117) U/L Troponin I (0-0.045) ng/ml Total Protein (6.4-8.2) gm/dl Albumin (3.4-5.0) gm/dl Globulin (2.5-4.0) gm/dl Albumin/Globulin Ratio (0.9-2) TSH (0.300-4.500) uIu/ml Blood Type A Positive Antibody Screen NEGATIVE Imaging Data Radiologist's Impression: Radiology results as stated below per my review and the radiologist's interpretation: XR chest 1V portable HISTORY: 88 years-old Female syncope acute syncope COMPARISON: Acute abdominal series radiographs 06/24/2018 TECHNIQUE: Portable AP view of the chest FINDINGS: Cardiac mediastinal and hilar silhouettes are unchanged. Prior median sternoto my. Calcification the thoracic aortic arch. No pneumothorax, pleural effusion or overt pulmonary edema. Mild chronic interstitial coarsening about the lung bases. Degenerative changes of the shoulders and spine. IMPRESSION: No acute process. The above report was generated using voice recognition software. It may contain grammatical, syntax or spelling errors. Electronically signed by: Ray Solorzano M.D. 10/30/2018 12:[address] angio neck with con, CT angio head w con CLINICAL HISTORY: 88 years-old Female with syncope, aphasia. Acute strokelike symptoms with syncope COMPARISON STUDY: CT head of same day, brain MRI 09/06/2017, MRA head and neck 05/18/2017 TECHNIQUE: Following the IV administration of 118 mL of Optiray 320, CT angiogram of the head and neck was performed from the aortic arch to the skull apex. Images are reviewed in the axial, sagittal, and coronal planes. 3-D MIPS images are created and assessed. IV contrast was administered without complication. All measurements were calculated based on NASCET criteria. A dose lowering technique was utilized adhering to the principles of ALARA. FINDINGS: Prior median sternotomy. Moderate mixed plaque formation of the visualized thoracic aortic arch. There is patency of the imaged bilateral subclavian arteries. Moderate mixed plaque formation of the left common carotid artery with severe mixed plaque formation of the left carotid bulb. This results in 65% luminal narrowing about the proximal left ICA. Moderate calcified plaque about the left cavernous, clinoid and supraclinoid segments. Extensive mixed plaque formation of the right carotid bulb and proximal right ICA results in approximately 50% luminal narrowing of the proximal right ICA. Mixed plaque formation about the cavernous, clinoid and supraclinoid segments right ICA without high-grade stenosis. The bilateral middle and anterior cerebral arteries are widely patent and within normal limits. Calcified plaque formation at the origin of the left vertebral artery causes 50% luminal narrowing, image 53 series 5. The vertebral arteries appear to be codominant. Calcified plaque formation is noted about the bilateral V3 and V4 segments. Calcified plaque at the origin of the right vertebral artery causes less than 50% luminal narrowing. There is long segment mild luminal narrowing about the distal V4 segment right vertebral artery of less than 50%. Basilar artery appears patent. The bilateral posterior cerebral arteries are widely patent and within normal limits. Cerebral venous sinuses are patent and within normal limits. No pneumothorax. Mild biapical pleural-parenchymal scarring. Soft tissues are unremarkable. No prevertebral soft tissue swelling or adenopathy. Mild mucosal thickening of the maxillary sinuses. Multilevel degenerative changes of the spine. IMPRESSION: 1. Extensive mixed plaque formation about the bilateral carotid bulbs results in 65% luminal narrowing about the proximal left ICA and 50% luminal narrowing about the proximal right ICA. 2. Calcified plaque formation at the origin of the left vertebral artery results in 50% stenosis. 3. Additional findings as above. No aneurysm , dissection or proximal branch occlusion. The above report was generated using voice recognition software. It may contain grammatical, syntax or spelling errors. Electronically signed by: Ray Solorzano M.D. 10/30/2018 1:[address] head/brain wo con CLINICAL HISTORY: 88 years-old Female with syncope aphasia. Acute syncope with dizziness TECHNIQUE: Multiple axial CT images of the head were obtained without contrast. A dose lowering technique was utilized adhering to the principles of ALARA. CT DOSE: 986.49 mGy.cm COMPARISON: CT head and brain MRI 05/18/2017. FINDINGS: No acute intracranial hemorrhage, midline shift, intracranial mass, hydrocephalus, territorial ischemia or abnormal extra-axial collection. S enescent calcifications of the lentiform nuclei. Age-related involutional changes. Ill-defined hypodensities about the white matter are suggestive of chronic microvascular ischemic changes. Vascular calcifications noted. The calvarium is intact. Mild exostosis about the left frontal calvarium. Prior bilateral cataract repair. Prominent calcifications about the hard palate. The paranasal sinuses, mastoid air cells, and middle ear cavities are clear. IMPRESSION: No acute intracranial abnormality. The above report was generated using voice recognition software. It may contain grammatical, syntax or spelling errors. Electronically signed by: Ray Solorzano M.D. 10/30/2018 1:[address] angio neck with con, CT angio head w con CLINICAL HISTORY: 88 years-old Female with syncope, aphasia. Acute strokelike symptoms with syncope COMPARISON STUDY: CT head of same day, brain MRI 09/06/2017, MRA head and neck 05/18/2017 TECHNIQUE: Following the IV administration of 118 mL of Optiray 320, CT angiogram of the head and neck was performed from the aortic arch to the skull apex. Images are reviewed in the axial, sagittal, and coronal planes. 3-D MIPS images are created and assessed. IV contrast was administered without complication. All measurements were calculated based on NASCET criteria. A dose lowering technique was utilized adhering to the principles of ALARA. FINDINGS: Prior median sternotomy. Moderate mixed plaque formation of the visualized thoracic aortic arch. There is patency of the imaged bilateral subclavian arteries. Moderate mixed plaque formation of the left common carotid artery with severe mixed plaque formation of the left carotid bulb. This results in 65% luminal narrowing about the proximal left ICA. Moderate calcified plaque about the left cavernous, clinoid and supraclinoid segments. Extensive mixed plaque formation of the right carotid bulb and proximal right ICA results in approximately 50% luminal narrowing of the proximal right ICA. Mixed plaque formation about the cavernous, clinoid and supraclinoid segments right ICA without high-grade stenosis. The bilateral middle and anterior cerebral arteries are widely patent and within normal limits. Calcified plaque formation at the origin of the left vertebral artery causes 50% luminal narrowing, image 53 series 5. The vertebral arteries appear to be codominant. Calcified plaque formation is noted about the bilateral V3 and V4 segments. Calcified plaque at the origin of the right vertebral artery causes less than 50% luminal narrowing. There is long segment mild luminal narrowing about the distal V4 segment right vertebral artery of less than 50%. Basilar artery appears patent. The bilateral posterior cerebral arteries are widely patent and within normal limits. Cerebral venous sinuses are patent and within normal limits. No pneumothorax. Mild biapical pleural-parenchymal scarring. Soft tissues are unremarkable. No prevertebral soft tissue swelling or adenopathy. Mild mucosal thickening of the maxillary sinuses. Multilevel degenerative changes of the spine. IMPRESSION: 1. Extensive mixed plaque formation about the bilateral carotid bulbs results in 65% luminal narrowing about the proximal left ICA and 50% luminal narrowing about the proximal right ICA. 2. Calcified plaque formation at the origin of the left vertebral artery results in 50% stenosis. 3. Additional findings as above. No aneurysm , dissection or proximal branch occlusion. The above report was generated using voice recognition software. It may contain grammatical, syntax or spelling errors. Electronically signed by: Ray Solorzano M.D. 10/30/2018 1:43 PM ECG Data Attestation: I personally reviewed and interpreted this ECG as follows: Indication: syncope Rate (beats per minute): 68 Rhythm: atrial fibrillation Findings: + other (normal axis); no ST elevation Blood Pressure Blood Pressure Findings: Elevated blood pressure Blood Pressure Disposition: further management by hospitalist CANELO Gardner Patient is an 88-year-old female with a past medical evidence for diabetes, TIA, hypertension, and reported afib presenting today after syncopal episode while [place]. Evidently seemed a little sluggish today and son reports her blood pressure is 90 systolic at home. Was talking okay and moving everything okay. [place] arrived all right around [id number] seem to improve a little bit and over the next hour had a decline with more difficulty speaking and more sluggishness. Patient has no facial droop or change in sensation. Denies any visual change. Denies any motor weakness and no apparent significant ataxia. Patient does on my exam have some mild aphasia but is alert and oriented. Given full dose aspirin here. CT the head and neck were completed. No acute intracranial bleed is noted. Did discuss initially with family that given minimal symptoms do not believe that TPA would be best indicated at this time given the minimal symptoms and did not feel stroke alert was required. Review of chart last year did have questional TIA CVA versus vasospasm episode possibly somewhat similar to previous. Has seen Dr. Chin before. Laboratory studies here show no significant leukocytosis. No significant electrolyte abnormality. Patient may be slightly dehydrated but no evidence of liver dysfunction or significant thyroid dysfunction. Glucose is slightly elevated after receiving sugar tab earlier. Chest x-ray is unremarkable. Reevaluation the patient's is doing better and her aphasia is almost improved entirely. States she still does not quite feel normal. And this could be possible TIA versus small stroke and discussed the patient admission for further evaluation. Hospitalist contacted. Impression & Plan Syncope, Aphasia Discharge Plan Visit Data *Final* Discharge Date/Time: 10/30/18 16:36 Chief Complaint: Syncope Stated Complaint: syncope ED Provider: Jose Steel Discharge Problem: Syncope, Aphasia Patient Disposition: Admitted As Inpatient Discharge Instructions Interventions: ED Discharge Assessment Last Done: 10/30/18 16:36 The edmond's documentation has been prepared under my direction and personally reviewed by me in its entirety. I confirm that the note above accurately reflects all work, treatment, procedures, and medical decision making performed by me.
--- NOTE | 2018-10-30 15:51 | History & Physical Report ---
Date of Service October 30, 2018 Assessment & Plan (1) Syncope: Uncertain dx, new onset afib vs dehydration vs ACS vs hypoTN other arrhythmia seem most likely CT head: neg for acute CTA head and neck as noted, pt with known stenosis prior but this is not noted to be significant BS WNL CBC, PRP otherwise WNL Feeling improved s/p IVF Will hold on MRI for now ECHO pending given new onset afib noted Trop neg x1, serials pending (2) ARF (acute renal failure): Does not appear to be a chronic issue for pt Possibly stemming from dehydration in the setting of dry winter ?? mild rhabdo from increased outdoor activity yesterday Monitor with gentle IVF (3) Atrial fibrillation: No prior hx of same ?? related to hypoTN vs dehydration vs other ECHO pending Will hold on anticoagulation other than aspirin 81mg for now until workup completed Follows with Dr. Martínez if needed (4) Diabetes: A1c pending Lantus + SSI (5) Accelerated hypertension: continue home meds as BP allows (6) Anxiety: continue home meds (7) TIA (transient ischemic attack): Hx noted Had been on plavix but was dropped to aspirin 81mg (8) Constipation: Has been on colace regularly but not improving Suggested replacement with MOM and senna (9) DVT prophylaxis: SCDs History of Present Illness Primary Care Provider: Shahid Shea MD 88 y/o F who was brought to the ED after an unresponsive episode this AM. Pt states that yesterday was a normal day for her. She was out working in the yard pulling weeds and had no issues with the increased activity. She felt that it was more than she has done recently due to weather, but she had no issues with this. She felt her usual self. This AM she woke up and had breakfast. It was noted that her BP was 99 systolic, which is low for her, so she did not take her BP meds. Her BS was 163, which is a usual reading for her. She states that she felt light her brain "wasn't right", but was able to get ready for yarsani. She states her brain felt "fuzzy" and "busy" today, which is unusual, although she states she has eustachian tube dysfunction that causes her head to frequently feel "full". Today's feelings were different though. Her son lives with her and dropped her at the door while he parked. He states that she walked in without issue. She was noted to be less interactive during Wednesday School around 9:30. They thought it was possibly due to her lower BP earlier in the day, so her daughter suggested that she stand up to "get her blood moving". Pt stood, but then dropped immediately back to the chair. She was not really herself after this and was noted to be falling asleep during yarsani, which is not normal for her. Around 10:45 it was noted that pt had slumped forward and was drooling. Her eyes were open, but she was not looking at anyone and not talking. She was not responding to commands. She was given a dextrose tablet out of concern for possible hypoglycemia, but there was no improvement so EMT was called. Daughter states that pt had a L facial droop episode about 1.5 yrs ago for which she was worked up and dx with TIA. She had been on plavix, but this has been switched to aspirin 81mg and no recurrence of facial droop. Pt follows with cardiology, Dr. Martínez. She was to have a carotid US done for monitoring of known stenosis. She has no prior hx of afib. Pt states she still feels a bit "fuzzy" but better than she did this AM. Allergies Allergy/AdvReac Type Severity Reaction Status Date / Time Penicillins Allergy Unknown UNKNOWN Verified 10/30/18 12:23 Sulfa (Sulfonamide Allergy Unknown SEVERE Verified 10/30/18 12:23 Antibiotics) HIVES tramadol Allergy Unknown UNKNOWN Unverified 10/30/18 12:23 Home Medications Home Medications Medication Instructions Recorded Confirmed Type aspirin [Aspirin Low Dose] 81 mg PO QAM 10/30/18 10/30/18 History atorvastatin 40 mg PO PM 10/30/18 10/30/18 History brinzolamide-brimonidine 1 drp OPB BID 10/30/18 10/30/18 History [Simbrinza] cholecalciferol (vitamin D3) 1,000 unit PO PM 10/30/18 10/30/18 History [Vitamin D3] clindamycin HCl 300 mg PO UD 10/30/18 10/30/18 History docusate sodium 100 mg PO DAILY PRN 10/30/18 10/30/18 History escitalopram oxalate 10 mg PO DAILY 10/30/18 10/30/18 History insulin aspart U-100 [Novolog 0 unit SUBCUT UD 10/30/18 10/30/18 History Flexpen U-100 Insulin] insulin glargine [Lantus Solostar 0 unit SUBCUT DAILY 10/30/18 10/30/18 History U-100 Insulin] levothyroxine 25 mcg PO QAM 10/30/18 10/30/18 History lisinopril 5 mg PO DAILY 10/30/18 10/30/18 History lorazepam 0.5 mg PO DAILY PRN 10/30/18 10/30/18 History verapamil 120 mg PO HS 10/30/18 10/30/18 History Past Med/Surg History Medical History Atrial fibrillation Diabetes (Chronic) HTN (hypertension) (Chronic) 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) Acquired claw toe of right foot (Chronic) Callus (Chronic) Diabetes mellitus with neuropathy (Chronic) Diabetic peripheral neuropathy (Chronic) Hallux abducto valgus, bilateral (Chronic) Family History Mother Heart attack Father Stroke Heart attack Other Atrial fibrillation No significant family history Social History Preferred Language: Vietnamese Communication Ability: Effective Gang Rider Required: No Beliefs That Will Affect Care: None Current Living Situation: Family Current Living Situation Comment: lives with son and family Other Information That Helps Us Care for You: No Feels Safe at Home: Yes Safety Concerns: Feels Safe At This Time Smoking Status: Never smoker Hx Alcohol Use: No Hx Substance Use: No Review of Systems Pertinent positives and negatives reviewed in HPI--all others negative Physical Exam Vital Signs (Past 24 Hours): Last Vital Signs Pulse 67 10/30/18 15:25 Resp 18 10/30/18 15:25 BP 155/71 H 10/30/18 15:25 Pulse Ox 100 10/30/18 15:25 Constitutional: WD/WN, vitals as above Eyes: normal visual vail by confrontation and + anicteric sclerae Neck: normal visual inspection and trachea midline Respiratory: normal respiratory effort, lungs clear to auscultation Cardiovascular: Rate/Rhythm: regular rate and regular rhythm Gastrointestinal (Abdomen): Inspection/Auscultation: abdomen not distended Percussion/Palpation: abdomen soft; abdomen nontender Musculoskeletal: Head/Neck/Chest: normocephalic and head atraumatic negative for edema, peripheral pulses intact Skin: no rashes, warm and dry Neurologic: awake; not confused Speech / Cognition: normal speech Psychiatric: A+Ox3, euthymic affect Results & Data Diagnostic Findings CXR: neg for acute CT head: neg for acute CTA head/neck: 1. Extensive mixed plaque formation about the bilateral carotid bulbs results in 65% luminal narrowing about the proximal left ICA and 50% luminal narrowing about the proximal right ICA. 2. Calcified plaque formation at the origin of the left vertebral artery results in 50% stenosis. 3. Additional findings as above. No aneurysm , dissection or proximal branch occlusion. ECG Rhythm: atrial fibrillation Code Status & VTE Plan Code Status DNR/DNI per pt request. Son and daughter are present and agree. VTE Prophylaxis Plan VTE Prophylaxis will be ordered: Yes
[2018-10-30] MEDS ORDERED: GLUCAGON FOR INJ 1 MG VIAL SQ PRN (18:05)
[2018-10-30] MEDS ORDERED: GLUCOSE 10 TABS/TUBE PO PRN (18:05)
[2018-10-30] MEDS ORDERED: DEXTROSE 50% 50 ML SYRINGE IV PRN (18:05)
[2018-10-30] MEDS ORDERED: GLUCOSE 40% GEL 15 GM TUBE PO PRN (18:05)
[2018-10-30] MEDS ORDERED: ONDANSETRON INJ 2 MG/ML 2 ML VIAL IV PRN (18:05)
[2018-10-30] MEDS ORDERED: ACETAMINOPHEN 325 MG TAB PO PRN (18:05)
[2018-10-30] MEDS ORDERED: CARBOHYDRATES FOR HYPOGLYCEMIA PO PRN (18:05)
[2018-10-30] MEDS ORDERED: LORazepam 0.5 MG TAB PO PRN (18:05)
[2018-10-30] MEDS: MAGNESIUM HYDROXIDE SUSP 30 ML UDC PO SCH (19:03)
[2018-10-30] MEDS: VERAPAMIL HCL 120 MG TABCR PO SCH (19:04)
[2018-10-30] MEDS: SENNA 8.6 MG TAB PO SCH (19:04)
[2018-10-30] MEDS: ATORVASTATIN 40 MG TAB PO SCH (19:05)
[2018-10-30] MEDS: INSULIN ASPART 100 UNITS/ML 3 ML PEN SC SCH ×2 (19:05→21:13)
[2018-10-30] MEDS: CHOLECALCIFEROL 1,000 UNITS TAB PO SCH (19:06)
[2018-10-30] MEDS: SODIUM CHLORIDE 0.45 % 1,000 ML IV SCH (19:06)
[2018-10-30] MEDS: INSULIN GLARGINE SOLOSTAR 100 UNITS/ML 3 ML PEN SQ SCH (21:10)
[2018-10-31 02:30] LABS: Appearance Urine Clear (Clear); Bilirubin Urine Negative (Negative); Blood Urine Negative (Negative); Color Urine Yellow; Glucose Urine UA Negative (Negative); Ketones Urine Negative (Negative); Leukocyte Esterase Urine 1+ (Negative); Nitrite Urine Negative (Negative); Protein Urine Negative (Negative); Specific Gravity Urine <= 1.005 (1.000-1.030); Urobilinogen Urine Negative (Negative); pH Urine 6.5 (4.5-7.5)
[2018-10-31 02:35] LABS: Epithelial Cell Urine >30 /lpf (0-5); RBC Urine 0-4 /hpf (0-4)
[2018-10-31 02:36] LABS: Bacteria Urine 1+ (Negative); WBC Urine >30 /hpf (0-5)
[2018-10-31 06:16] LABS: BUN Creatinine Ratio 27.2 (10-20); Calcium 8.5 mg/dl (8.5-10.1); Creatinine Clr Calc Pharmacy 34.2 ml/min; Est GFR (African American) 62.8; Est GFR (Non-African American) 54.2; Potassium 4.1 mmol/L (3.5-5.1)
[2018-10-31] MEDS: LEVOTHYROXINE SODIUM 25 MCG TABLET PO SCH (06:33)
[2018-10-31] MEDS: INSULIN ASPART 100 UNITS/ML 3 ML PEN SC SCH ×4 (07:32→20:43)
[2018-10-31] MEDS: ASPIRIN 81 MG ECTAB PO SCH (07:32)
[2018-10-31] MEDS: MAGNESIUM HYDROXIDE SUSP 30 ML UDC PO SCH ×2 (07:33→07:40)
[2018-10-31] MEDS: SENNA 8.6 MG TAB PO SCH (07:33)
[2018-10-31 08:17] LABS: Estimated Average Glucose 186 mg/dl; Hemoglobin A1C 8.1 % (4.5-5.6)
[2018-10-31] MEDS ORDERED: LISINOPRIL 5 MG TAB PO SCH (09:00)
[2018-10-31] MEDS: ESCITALOPRAM OXALATE 10 MG TAB PO SCH ×4 (10:04→20:34)
[2018-10-31] MEDS ORDERED: Nursing to Pharmacy Communication ONE (10:17)
[2018-10-31] MEDS: SODIUM CHLORIDE 0.45 % 1,000 ML IV SCH (14:27)
[2018-10-31] MEDS ORDERED: LISINOPRIL 5 MG TAB PO ONE (16:25)
--- NOTE | 2018-10-31 19:14 | Magnetic Resonance Report ---
MRI OF THE BRAIN WITHOUT IV CONTRAST CLINICAL HISTORY: Syncope. COMPARISON STUDY: CT of the brain dated 10/30/2018. TECHNIQUE: MRI of the brain was performed utilizing various T1 and T2-weighted sequences in the axial , sagittal, and coronal planes. IV contrast was not administered for this examination. FINDINGS: Brain parenchyma: There is age-related involutional change noting moderate subcortical and periventri cular microangiopathic disease. There is no hemorrhage or mass effect. There is no restricted diffusi on to suggest acute ischemia. Collins-white matter differentiation is preserved. No extra-axial fluid co llection is seen. The cerebellar tonsils are normal in configuration. Ventricles, sulci, and cisterns: Prominent secondary to involutional change. Pituitary and sella: Unremarkable. Intracranial vasculature: Normal flow voids are maintained at the skull base. Orbits: The bony orbits are grossly intact. Orbital contents are normal in appearance, noting bilater al ocular lens implants. Sinuses and mastoids: Clear. 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 Calvarium is otherwise normal a s imaged. Cervical cord: Partially visualized cervical spinal cord is normal in morphology and signal intensity . IMPRESSION: No acute intracranial abnormality. Electronically signed by: Julio Cano M.D. 10/31/2018 7:13 PM
[2018-10-31] MEDS: VERAPAMIL HCL 120 MG TABCR PO SCH (20:26)
[2018-10-31] MEDS: ATORVASTATIN 40 MG TAB PO SCH (20:26)
[2018-10-31] MEDS: CHOLECALCIFEROL 1,000 UNITS TAB PO SCH (20:27)
--- NOTE | 2018-10-31 20:28 | Hospitalist Progress Note ---
Date of Service October 31, 2018 Assessment & Plan (1) Atrial fibrillation: Presented in rate-controlled a.fib to the ER. Fortunately converted back to NSR by the time she got to the tele unit. No prior h/o PAF. She did not have obvious symptoms related to the PAF. With that said I cannot say with certainty that it played a role in her syncopal episode. She has remained in NSR since admission. CHADS VASC score is 8 -- >10% risk of stroke per year. Anticoagulation recommendation. Has bioprosthetic aortic valve -- I spoke with Dr. Martínez and coumadin is preferred. I don't see any obvious contraindication to anticoagulation. Patient to speak with her family today and let us know her thoughts on this come tomorrow. Of note -TSH, K, mag all normal. Present on Admission?: Yes (2) Syncope: Suspect dehydration leading to vasovagal type etiology for her syncope. Cannot exclude a. fib contributing but there was no documentation at ER presentation of slow a.fib, pauses, AV block, etc. Echo findings noted - good bioprosthetic aortic valve function and preserved EF. Tele stable since yesterday. Although has carotid disease her vertebral basilar system is adequate (50% stenosis left vertebral artery only). Doubt seizure. TIA is possible but felt to be less likely (never had focal neurological signs on exam by multiple providers). MRI brain obtained to r/o stroke process -- negative for such. Present on Admission?: Yes (3) ARF (acute renal failure): Resolved with fluids. 2nd to dehydration. Stop IV Fluids later today. Present on Admission?: Yes (4) Chronic kidney disease, stage 3a: Baseline CrCl <40. BMP in am for stability. 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 echo today with intact valve function. followed by Dr. Martínez. Present on Admission?: Yes (6) History of stroke: 2018 MRI brain documented small right-sided pontine stroke. MRI brain today w/o acute findings or acute/subacute stroke. CHADS VASC score is very high. In light of PAF discovered anticoagulation recommendation. Would try to continue aspirin therapy as well in light of carotid stenosis and h/o CAD. Would need GI proph with PPI. Present on Admission?: No (7) Diabetes: a1c 8.1% Lantus + SSI w/ novolog adequate control while hospitalized thus far Present on Admission?: Yes (8) Accelerated hypertension: increase lisinopril to 10mg daily continue verapamil anxiety playing a role?? Present on Admission?: Yes (9) Anxiety: continue home meds Present on Admission?: Yes (10) CAD (coronary artery disease): no evidence of ACS with neg troponin x 3. never had ischemic symptoms. cont asa, statin. uncertain why she is not on beta lalo. Present on Admission?: Yes (11) Carotid artery stenosis: imaging this admission -50% stenosis on right, 65% stenosis on left. this is similar to scantly worse than previous. would continue asa, statin. no indication for surgical evaluation/management at this time. doubt left vertebral artery disease contributed to presentation. (12) Constipation: Would recommend combo of miralax daily +/- senna daily. Present on Admission?: Yes (13) DVT prophylaxis: to consider systemic anticoagulation in light of PAF daughter/son both updated PT eval prior to d/c -- hopefully tomorrow Subjective patient feeling well today. denies dizziness, lightheadedness, or presyncope. denies any recent palpitations at home. lives independently and performs all ADLs. reports she follows with Dr. Martínez for carotid stenosis and valvular heart disease. denies any new neuro symptom today. denies any prior h/o GI bleeding. denies any recent falls. daughter at bedside during the visit. Constitutional: no fever and no chills Respiratory: no cough and no dyspnea Cardiovascular: no chest pain, no orthopnea and no paroxysmal nocturnal dyspnea Gastrointestinal: + constipation; no abdominal pain, no nausea, no vomiting and no diarrhea/loose stools Genitourinary (Female): no dysuria and no urinary incontinence Physical Exam Vital Signs (Past 24 Hours): Last Vital Signs Temp 36.5 C 10/31/18 19:42 Pulse 78 10/31/18 19:42 Resp 19 10/31/18 19:42 BP 204/102 H 10/31/18 19:42 Pulse Ox 97 10/31/18 19:42 Constitutional: well developed and well nourished; no acute distress and not ill appearing ENMT: external ear and nose normal, oropharynx normal Respiratory: no respiratory distress Auscultation: lungs clear to auscultation bilaterally (minimal dry rales bases) Cardiovascular: Rate/Rhythm: regular rate Heart Sounds: normal S1, normal S2 and + murmur (1/6 LSB) Vessels: posterior tibial pulses present and dorsalis pedis pulses present; no JVD Extremities: no edema Gastrointestinal (Abdomen): normal bowel sounds, soft, nontender, no hepatosplenomegaly Skin: midline sternal scar Neurologic: deep tendon reflexes 2+ bilaterally and moves all extremities; no focal motor deficits no pronator drift; no facial droop; speech clear and fluent Psychiatric: A+Ox3, euthymic affect Results & Data Laboratory Results Laboratory Results - last 24 hr 10/31/18 10/31/18 10/31/18 05:14 05:14 07:13 Sodium 141 Potassium 4.1 Chloride 109 H Carbon Dioxide 25 Anion Gap 7.0 BUN 25 H Creatinine 0.94 D Est Cr Clr Drug Dosing 34.2 Est GFR ( Amer) 62.8 Est GFR (Non-Af Amer) 54.2 BUN/Creatinine Ratio 27.2 H Glucose 119 H POC Glucose 112 H Estimat Average Glucose 186 Hemoglobin A1c 8.1 H Calcium 8.5 10/31/18 10/31/18 10/31/18 11:08 16:29 18:32 Sodium Potassium Chloride Carbon Dioxide Anion Gap BUN Creatinine Est Cr Clr Drug Dosing Est GFR ( Amer) Est GFR (Non-Af Amer) BUN/Creatinine Ratio Glucose POC Glucose 119 H 88 179 H Estimat Average Glucose Hemoglobin A1c Calcium 10/31/18 20:39 Sodium Potassium Chloride Carbon Dioxide Anion Gap BUN Creatinine Est Cr Clr Drug Dosing Est GFR ( Amer) Est GFR (Non-Af Amer) BUN/Creatinine Ratio Glucose POC Glucose 150 H Estimat Average Glucose Hemoglobin A1c Calcium (1) Syncope Syncope type: unspecified Qualified Code(s): R55 - Syncope and collapse (2) ARF (acute renal failure) Acute renal failure type: unspecified Qualified Code(s): N17.9 - Acute kidney failure, unspecified (3) Atrial fibrillation Atrial fibrillation type: paroxysmal Qualified Code(s): I48.0 - Paroxysmal atrial fibrillation (4) Diabetes Diabetes mellitus type: type 2 Diabetes mellitus prison insulin use: with joint terminal attack controller use Diabetes mellitus complication status: with unspecified complications Qualified Code(s): E11.8 - Type 2 diabetes mellitus with unspecified complications; Z79.4 - MCFP (current) use of insulin (5) Constipation Constipation type: other constipation type Qualified Code(s): K59.09 - Other constipation (6) CAD (coronary artery disease) Coronary Disease-Associated Artery/Lesion type: false pass artery [place] vs. transplanted heart: false pass heart Associated angina: without angina Qualified Code(s): I25.10 - Atherosclerotic heart disease of false pass coronary artery without angina pectoris (7) Carotid artery stenosis Laterality: bilateral Qualified Code(s): I65.23 - Occlusion and stenosis of bilateral carotid arteries
[2018-10-31] MEDS: INSULIN GLARGINE SOLOSTAR 100 UNITS/ML 3 ML PEN SQ SCH (20:44)
[2018-11-01] MEDS: LEVOTHYROXINE SODIUM 25 MCG TABLET PO SCH (06:20)
[2018-11-01 06:21] LABS: BUN Creatinine Ratio 26.3 (10-20); Calcium 9.1 mg/dl (8.5-10.1); Est GFR (African American) 64.4; Est GFR (Non-African American) 55.6; Potassium 4.2 mmol/L (3.5-5.1)
[2018-11-01] MEDS: INSULIN ASPART 100 UNITS/ML 3 ML PEN SC SCH ×2 (08:02→11:50)
[2018-11-01] MEDS: SENNA 8.6 MG TAB PO SCH (08:03)
[2018-11-01] MEDS: ASPIRIN 81 MG ECTAB PO SCH (08:03)
[2018-11-01] MEDS: MAGNESIUM HYDROXIDE SUSP 30 ML UDC PO SCH (08:04)
[2018-11-01] MEDS ORDERED: LISINOPRIL 10 MG TAB PO SCH (09:00)
[2018-11-01] MEDS ORDERED: WARFARIN SOD 2.5 MG TAB PO ONE (10:50)
--- NOTE | 2018-11-06 19:55 | Discharge Summary ---
Date of Service date of admission - October 30, 2018 date of discharge - November 01, 2018 Admission HPI Per Admitting Provider 88 y/o F who was brought to the ED after an unresponsive episode this AM. Pt states that yesterday was a normal day for her. She was out working in the yard pulling weeds and had no issues with the increased activity. She felt that it was more than she has done recently due to weather, but she had no issues with this. She felt her usual self. This AM she woke up and had breakfast. It was noted that her BP was 99 systolic, which is low for her, so she did not take her BP meds. Her BS was 163, which is a usual reading for her. She states that she felt light her brain "wasn't right", but was able to get ready for latter day. She states her brain felt "fuzzy" and "busy" today, which is unusual, although she states she has eustachian tube dysfunction that causes her head to frequently feel "full". Today's feelings were different though. Her son lives with her and dropped her at the door while he parked. He states that she walked in without issue. She was noted to be less interactive during Wednesday School around 9:30. They thought it was possibly due to her lower BP earlier in the day, so her daughter suggested that she stand up to "get her blood moving". Pt stood, but then dropped immediately back to the chair. She was not really herself after this and was noted to be falling asleep during latter day, which is not normal for her. Around 10:45 it was noted that pt had slumped forward and was drooling. Her eyes were open, but she was not looking at anyone and not talking. She was not responding to commands. She was given a dextrose tablet out of concern for possible hypoglycemia, but there was no improvement so EMT was called. Daughter states that pt had a L facial droop episode about 1.5 yrs ago for which she was worked up and dx with stroke. She had been on plavix, but this has been switched to aspirin 81mg and no recurrence of facial droop. Pt follows with cardiology, Dr. Martínez. She was to have a carotid US done for monitoring of known stenosis. She has no prior hx of afib. Pt states she still feels a bit "fuzzy" but better than she did this AM. Principal Diagnosis syncope likely due to volume depletion Discharge Exam Constitutional well developed and well nourished; no acute distress and not ill appearing ENMT external ear and nose normal, oropharynx normal Respiratory no respiratory distress Auscultation: lungs clear to auscultation bilaterally (minimal dry rales bases) Cardiovascular Rate/Rhythm: regular rate and regular rhythm Heart Sounds: normal S1, normal S2 and + murmur (1/6 LSB) Vessels: posterior tibial pulses present and dorsalis pedis pulses present; no JVD Extremities: no edema Gastrointestinal (Abdomen) normal bowel sounds, soft, nontender, no hepatosplenomegaly Neurologic deep tendon reflexes 2+ bilaterally and moves all extremities; no focal motor deficits Psychiatric A+Ox3, euthymic affect Discharge Data Allergies Allergy/AdvReac Type Severity Reaction Status Date / Time Penicillins Allergy Unknown UNKNOWN Verified 10/30/18 12:23 Sulfa (Sulfonamide Allergy Unknown SEVERE Verified 10/30/18 12:23 Antibiotics) HIVES tramadol Allergy Unknown UNKNOWN Unverified 10/30/18 12:23 Consultations PT, OT Ordered Studies 1. echocardiogram: * EF 65-70% * grade 2 diastolic dysfunction * bioprosthetic aortic valve well-seated with normal gradient * moderate MR * moderate TR 2. CTA head/neck - IMPRESSION: 1. Extensive mixed plaque formation about the bilateral carotid bulbs results in 65% luminal narrowing about the proximal left ICA and 50% luminal narrowing about the proximal right ICA. 2. Calcified plaque formation at the origin of the left vertebral artery results in 50% stenosis. 3. Additional findings as above. No aneurysm , dissection or proximal branch occlusion. 3. CT head - no acute process. 4. MRI brain - no acute process. Hospital Course (1) Syncope: Suspect dehydration leading to vasovagal type etiology for her syncope. Cannot exclude a. fib contributing to the event but there was no documentation at ER presentation of slow a.fib, pauses, AV block, etc. Echo with good bioprosthetic aortic valve function and preserved EF. Tele stable during her stay. Although she has carotid disease her vertebral basilar system is adequate (50% stenosis left vertebral artery only). Doubt seizure. TIA was possible but felt to be less likely (never had focal neurological signs on exam by multiple providers). MRI brain obtained to r/o stroke process -- negative for such. Following IV fluids her symptoms improved and she never had presyncope or dizziness for the remainder of her stay. (2) Atrial fibrillation: Presented in rate-controlled a.fib to the ER at time of admission. Fortunately converted back to NSR by the time she got to the telemetry unit. No prior h/o PAF. She did not have obvious symptoms related to the PAF directly. Unlikely that the a.fib caused her syncope but I cannot rule it out entirely. CHADS VASC score was 8 -- >10% risk of stroke per year. Anticoagulation was recommendation. TSH was normal. Echo with preserved EF. Due to the presence of her bioprosthetic aortic valve coumadin was recommended over a novel agent. I did not see any obvious contraindication to anticoagulation. Initiated on coumadin 2.5mg daily on day of discharge. She will follow-up with the [facility] Anticoagulation clinic after discharge. (3) ARF (acute renal failure): Resolved with fluids. 2nd to dehydration. Peak creatinine was 1.2, improving to 0.9 at discharge. (4) Chronic kidney disease, stage 3a: Baseline CrCl <40. Discharge creatinine was 0.9. (5) History of aortic valve replacement with bioprosthetic valve: 2007, in conjunction with single-vessel CABG per records. echo with intact valve function. followed by Dr. Alfred Martínez. (6) History of stroke: 2018 MRI brain documented small right-sided pontine stroke. MRI brain this admission w/o acute findings or acute/subacute stroke. CHADS VASC score was very high. Coumadin was initiated this admission due to new-onset PAF. Would try to continue aspirin therapy in addition to coumadin in light of carotid stenosis and h/o CAD. GI prophylaxis with PPI advised. (7) Diabetes: a1c 8.1% adequate control while hospitalized. (8) Accelerated hypertension: BPs were quite labile during the stay. She was continued on her verapamil and lisinopril. I recommended she check her BPs daily at home and if her systolic BP readings remained greater than 150 to increase her lisinopril to 5mg BID. (9) Anxiety: She will continue her usual home meds. (10) CAD (coronary artery disease): no evidence of ACS with neg troponin x 3. never had ischemic symptoms. cont asa, statin. uncertain why she is not on beta lalo. (11) Carotid artery stenosis: imaging this admission - 50% stenosis on right, 65% stenosis on left. this is similar (or just slightly worse) than previous. continue asa, statin. no indication for surgical evaluation/management at this time. doubt left vertebral artery disease contributed to presentation. (12) Constipation: Would recommend combo of miralax daily +/- senna daily. Total Time Total Time Spent Total Time Spent (In Minutes): 45 Total Time Includes: Examination of the Patient, Discharge Planning and Medication Reconciliation Discharge Plan Discharge Items Patient Disposition: Home - Self-Care Reason For Visit: syncope (passing out spell); dehydration Discharge Diagnosis: Syncope - likely due to dehydration. I cannot rule out that atrial fibrillation played a role in this. No evidence of stroke or heart attack causing the event. Discharge Goals: Diagnostic testing and Therapeutic intervention Activity: As commented below Activity Comment: take it easy for 2-3 days then can gradually resume normal activities Driving/Machine Use: Resume 3 days after discharge Non-emergency contact: Primary Care Provider and Pattern Fitter Call non-emergency contact if: you have any medication questions, your symptoms worsen and your temperature is above 100.5 Follow-up/Referrals: [facility] [Provider Group] - 11/02/18 8:45 am (Please, follow up at The [facility] Physician [facility] TOMORROW on WednesdayNovember 02 at 9:00 am (arrive 8:45 am). *This office is located at the rear of this [facility] in [facility]. Park behind the hospital in [facility]. If you need to change this appointment, call the clinic at [phone].) Shahid Shea MD [Primary Care Provider] - 11/08/18 3:45 pm (Please, follow up with Dr. Shahid Shea on WednesdayNovember 08 at 3:45 pm. *If you need to change this appointment, call the office at [phone].) Alfred Martínez MD [Physician] - 11/15/18 1:00 pm (Please, follow up at The [facility] Office with Dr. Martínez's professional nursing assistant, Flip Weeks PA-C, WednesdayNovember 15 at 1:00 pm. *If you need to change this appointment, call the office at [phone].) Diet: Carb Consistent or DM2 Addtl Provider Instructions: From Jose Alfredo Hubbard - Hospitalist - You were admitted after an episode of syncope (passing out) at [facility]. Upon arrival in our ER at [facility] you were in atrial fibrillation. You appeared mildly dehydrated as well. The "a. fib" resolved within a few short hours and you have been in normal rhythm since then. At the very least your dehydration played a role in your passing out spell. Additional work-up did NOT show evidence of any stroke or heart attack. At this time we recommend - 1. Starting warfarin (coumadin) blood thinner to reduce the risk of stroke as a result of atrial fibrillation. You have already received your warfarin today. Start the warfarin TOMORROW. I have given you a prescription for 2.5mg tablets. You will be followed in the [facility] Anticoagulation Clinic ("Coumadin clinic") located near the cancer center in the back of the hospital. 2. continue on your aspirin for now (81mg daily). 3. start pantoprazole 40mg every morning for prevention of stomach irritation from taking aspirin and warfarin. 4. blood pressure -- please check your blood pressures at home. If the top number is consistently greater than 150 please INCREASE your lisinopril to 5mg TWICE A DAY. If the top number stays less than 150 simply continue that medication once daily as previous. 5. follow-up - see separate section. 6. return to [facility] if - * you have fevers over 100.5 degrees * you have bleeding from your nose, rectum, bladder, etc * you are feeling lightheaded or dizzy * you have rapid heart rate or palpitations * any other concerns Warfarin (coumadin) Instructions: * Warfarin is a medicine prescribed to prevent blood clots in your heart * Warfarin will thin your blood * Take your medications exactly as directed * Never skip a dose. Never take a double dose. If you miss a dose, take it as soon as you remember * It is important for your doctor to monitor your "INR". This is a lab test that the coumadin clinic will check each time. * Keep your appointment for lab tests Risk of Adverse Drug Reactions and Interactions: * Warfarin increases your risk of bleeding * The food you eat and other medications you take can affect how Warfarin works in your body * Ask your doctor about daily aspirin therapy * It is very important to talk with your doctor about all of the other medicines, antibiotics, vitamins or herbal products that you are taking * All of your medication must be approved by your doctor, including new medicines, as well as medicines you have taken before you started taking Warfarin Diet: * In order for Warfarin to work properly, it is important to keep your intake of Vitamin K as consistent as possible * You should avoid any sudden change in Vitamin K intake * Report any significant changes in your diet or weight to your doctor Call your Primary Care doctor if you experience any of the following: * Rapid or pounding heart beat * Fainting * Dizziness * Cough with blood or bloody sputum * Sweating more than normal * Bruises * Heavy or uncontrolled bleeding * Blood in your urine, stool or vomit * Black or tarry stools Prescriptions: New warfarin [Coumadin] 2.5 mg tablet 2.5 mg PO DAILY Qty: 30 RF: 2 pantoprazole [Protonix] 40 mg tablet,delayed release (DR/EC) 40 mg PO DAILY Qty: 30 RF: 2 Continued atorvastatin 40 mg tablet 40 mg PO PM RF: 0 clindamycin HCl 300 mg capsule 300 mg PO UD RF: 0 aspirin [Aspirin Low Dose] 81 mg Tablet,Delayed Release (Dr/Ec) 81 mg PO QAM RF: 0 levothyroxine 25 mcg tablet 25 mcg PO QAM RF: 0 lorazepam 0.5 mg Tablet 0.5 mg PO DAILY PRN (Reason: Anxiety) RF: 0 docusate sodium 100 mg Capsule 100 mg PO DAILY PRN (Reason: Constipation) RF: 0 lisinopril 5 mg Tablet 5 mg PO DAILY RF: 0 verapamil 120 mg capsule,ext rel. pellets 24 hr 120 mg PO HS RF: 0 escitalopram oxalate 10 mg tablet 10 mg PO DAILY RF: 0 Novolog Flexpen U-100 Insulin 100 unit/mL (3 mL) insulin pen subcut UD RF: 0 cholecalciferol (vitamin D3) [Vitamin D3] 1,000 unit Tablet 1,000 unit PO PM RF: 0 Simbrinza 1-0.2 % drops,suspension 1 drp OPB BID RF: 0 Changed Lantus Solostar U-100 Insulin 100 unit/mL (3 mL) insulin pen 12 unit subcut DAILY Qty: 0 RF: 0 Stand-Alone Forms: [facility]/Other Patient Handouts: ED Afib Discharge Orders: Discharge Order (Routine); Ordered 11/01/18 Ordered By: Jose Alfredo Hubbard Admission Data Admit Date/Time: 10/30/18 15:40 Attending Provider: Jose Alfredo Hubbard Admit Provider: Gwendolyn Henry Primary Care Provider: Shahid Shea Other Providers: Gwendolyn Henry Service: Telemetry Other Interventions: Discharge Summary Assessment (RN) Last Done: 11/01/18 15:13 Pending Studies at Discharge: No DC Date/Time DO NOT enter until pt leaves facility: 11/01/18 15:47
== END 2018-11-01 15:47 | disposition home or self-care (01) | DRG 309 ==
LOC: ED 11:34 → 2E 15:40 → SUATTDRO 15:40 → 2E 16:36

== ENCOUNTER 2018-12-26 11:27 | Observation (INO) ==
[2018-12-26] MEDS ORDERED: ACETAMINOPHEN 500 MG TAB PO STA (11:45)
--- NOTE | 2018-12-26 11:54 | Emergency Department Note ---
Entered by Louise Farrell acting as a scribe for Klaus Grullon DO History of Present Illness General Chief complaint: Lethargic Stated complaint: LETHARGIC- HX AFIB Source: patient and family History of Present Illness Onset (ago): hour(s) (today) Location: head (Fall) Severity: similar to prior episodes Pain Consistency: + other (episode) Maximum Pain Intensity: 0 Quality: + other (Fall) Exacerbated By: + movement Associated symptoms: + shortness of breath and + weakness; no fever/chills, no headaches, no nausea/vomiting and no rash The patient is an 88-year-old female who presented to the emergency department for difficulty ambulating. The patient presented to the emergency department with her family members. The patient states that approximately 24 hours ago she started having difficulty ambulating and feeling as though she was unsteady on her feet. She had similar symptoms recently and was diagnosed with atrial fibrillation. The patient called her primary care physician and the on-call physician asked the family to bring the patient to the emergency department for further evaluation. The patient also relates that she had a tick bite a few months ago and was concerned about this. She denies having any headache. She denied having any fevers. She states that she felt as though her hands were "out of my control". The patient denied any lower extremity pain or swelling. She denies having any rashes. She is not experience any nausea vomiting or diarrhea. Her son states that she was trying to ambulate and had a fall today. She denies any traumatic injury but states that she felt dizzy and out of control of her body when she tried to stand. Home Medications Home Medications Medication Instructions Recorded Confirmed Type Shaguftainza 1 drp OPB BID 10/30/18 12/26/18 History aspirin [Aspirin Low Dose] 81 mg PO QAM 10/30/18 12/26/18 History atorvastatin 40 mg PO HS 10/30/18 12/26/18 History cholecalciferol (vitamin D3) 1,000 unit PO DAILY 10/30/18 12/26/18 History [Vitamin D3] docusate sodium 100 mg PO DAILY PRN 10/30/18 12/26/18 History escitalopram oxalate 5 mg PO HS 10/30/18 12/26/18 History levothyroxine 25 mcg PO QAM 10/30/18 12/26/18 History lisinopril 5 mg PO QAM 10/30/18 12/26/18 History lorazepam 0.5 mg PO HS PRN 10/30/18 12/26/18 History verapamil 120 mg PO HS 10/30/18 12/26/18 History insulin aspart U-100 [Novolog See Rx Instructions .ROUTE .COMPLEX 12/26/18 12/26/18 History Flexpen U-100 Insulin] insulin glargine [Lantus Solostar 12 unit SUBCUT HS 12/26/18 12/26/18 History U-100 Insulin] pantoprazole [Protonix] 40 mg PO DAILY 12/26/18 12/26/18 History warfarin 2.5 mg PO QPM 12/26/18 12/26/18 History Allergies Allergy/AdvReac Type Severity Reaction Status Date / Time Penicillins Allergy Unknown UNKNOWN Verified 12/26/18 12:28 Sulfa (Sulfonamide Allergy Unknown SEVERE Verified 12/26/18 12:28 Antibiotics) HIVES tramadol Allergy Unknown UNKNOWN Unverified 12/26/18 12:28 Past Med/Surg History Medical History PAF (paroxysmal atrial fibrillation) Atrial fibrillation (Acute) Diabetes (Chronic) HTN (hypertension) (Chronic) 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) Acquired claw toe of right foot (Chronic) Callus (Chronic) Diabetes mellitus with neuropathy (Chronic) Diabetic peripheral neuropathy (Chronic) Hallux abducto valgus, bilateral (Chronic) Family History Mother Myocardial infarction Father Stroke Myocardial infarction Other Atrial fibrillation No significant family history Social History Preferred Language: Syriac Communication Ability: Effective 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 and A total of 10 systems reviewed and were otherwise negative Additional history was obtained from the patient's family members Physical Exam Vital Signs Vital Signs - 24 hr 12/26/18 11:32 12/26/18 12:45 12/26/18 13:26 Temperature 39.2 C H 38.1 C H Temperature Source Oral Oral Sepsis Recent Fever Within 48 Hours No Sepsis New/Unexplained Change in Mental Status No Sepsis Action Taken by Nursing No Action Required Pulse Rate 89 Pulse Rate [Apical] 73 76 Respiratory Rate 18 18 18 Respiratory Effort / Characteristics Non-Labored Spontaneous Non-Labored Spontaneous Non-Labored Spontaneous Respiratory Depth Normal Normal Normal Respiratory Pattern Regular Regular Regular Blood Pressure 131/64 Blood Pressure [Left Arm] 108/53 L 122/56 L Blood Pressure Mean 86 Blood Pressure Mean [Left Arm] 71 78 Blood Pressure Position Sitting Blood Pressure Position [Left Arm] Sitting Sitting Pulse Oximetry 96 95 95 Oxygen Delivery Method Room Air Room Air Room Air GENERAL: Patient is awake alert in no acute distress patient is resting comfortably and showing no signs of anxiety EYES: The conjunctivae are clear. The pupils are round and reactive. EARS, NOSE, MOUTH AND THROAT: The nose is without any evidence of any deformity. Mucous membranes are moist tongue is midline NECK: The neck is nontender and supple. RESPIRATORY: Normal respiratory effort is noted there is no evidence of wheezing rhonchi or rales CARDIOVASCULAR: Regular rate and rhythm noted there no murmurs rubs or gallops normal S1 normal S2 GASTROINTESTINAL: The abdomen is soft. Bowel sounds are present in all quadrants. Abdomen is nontender MUSCULOSKELETAL/EXTREMITIES: There is no evidence of gross deformity full range of motion is noted in the hips and shoulders SKIN: There is no obvious evidence of any rash. Trace pedal edema was noted bilaterally. NEUROLOGIC: Patient is awake alert and oriented x3. There is no facial droop noted. Speech is clear. There is no drift in the upper extremities. Strength was symmetric in both lower extremities. Course 1145: The patient was evaluated in room C4, and a complete history and physical examination were performed. 1436: I reevaluated the patient at this time. 1446: I discussed the patient's case with Dr. Kwadwo VALLEJO hospitalist. He will evaluate the patient for further management. Consultations Consultation #1: I discussed the patient's case with Dr. Kwadwo VALLEJO hospitalist. He will evaluate the patient for further management. Time: 14:46 Administered Medications Sodium Chloride (Nss 1000ml) 1,000 mls @ 80 mls/hr IV .[id number] ISAURO Stop: 01/25/19 16:44 Last Admin: 12/26/18 17:38 Dose: 80 mls/hr Documented by: [id number] Insulin Aspart (Novolog Flexpen) 0 units SC ACHS ISAURO Stop: 01/25/19 16:44 Last Admin: 12/26/18 17:35 Dose: 8 units Documented by: [id number] Cosigned by: [id number] Discontinued Medications Acetaminophen (Tylenol) 1,000 mg PO NOW STA Stop: 12/26/18 11:46 Last Admin: 12/26/18 11:59 Dose: 1,000 mg Documented by: [id number] Doxycycline Hyclate (Vibramycin) 100 mg PO NOW STA Stop: 12/26/18 14:15 Last Admin: 12/26/18 14:59 Dose: 100 mg Documented by: [id number] Magnesium Sulfate/Dextrose (Magnesium Sulfate / D5w) 1 gm in 100 mls @ 100 mls/hr IV Q1H ISAURO Stop: 12/26/18 14:44 Last Infusion: 12/26/18 15:03 Dose: 0 mls/hr Documented by: [id number] Admin: 12/26/18 13:53 Dose: 100 mls/hr Documented by: [id number] Infusion: 12/26/18 13:53 Dose: 0 mls/hr Documented by: [id number] Admin: 12/26/18 12:46 Dose: 100 mls/hr Documented by: [id number] Ceftriaxone Sodium (Rocephin) 1,000 mg in 50 mls @ 100 mls/hr IV NOW STA Stop: 12/26/18 14:43 Last Infusion: 12/26/18 15:31 Dose: 0 mls/hr Documented by: [id number] Admin: 12/26/18 14:59 Dose: 100 mls/hr Documented by: [id number] Medical Decision Making Differential Diagnosis Etiologies such as metabolic, infection, hypo/hyperglycemia, electrolyte abnormalities, cardiac sources, intracerebral event, toxicologic, neurologic, as well as others were entertained. Medical Records Attestation: I reviewed the patient's medical records. Home Medications Current Medication List: was personally reviewed by me Laboratory Data Attestation: I reviewed the patient's lab results. Result diagrams: 12/26/18 12:01 12/26/18 12:01 Lab Results 05/27/19 05/27/19 05/27/19 Range/Units 12:01 12:01 12:01 WBC 2.96 L (4.8-10.8) K/uL RBC 3.78 L (4.2-5.4) M/uL Hgb 10.0 L (12.0-16.0) g/dL Hct 30.5 L (37-47) % MCV 80.7 (80-100) fL MCH 26.5 (25-34) pg MCHC 32.8 (32-36) g/dL RDW Std Deviation 44.8 (36.4-46.3) fL RDW Coeff of Nolan 15.2 H (11.5-14.5) % Plt Count 115 L (130-400) K/uL MPV 10.6 H (7.4-10.4) fL Immature Gran % (Auto) 0.7 % Neut % (Auto) 87.5 % Lymph % (Auto) 6.4 % [place] % (Auto) 5.1 % Eos % (Auto) 0.0 % Baso % (Auto) 0.3 % Immature Gran # (Auto) 0.02 (0.00-0.02) K/uL Neut # (Auto) 2.59 (1.4-6.5) K/uL Lymph # (Auto) 0.19 L (1.2-3.4) K/uL [place] # (Auto) 0.15 (0.11-0.59) K/uL Eos # (Auto) 0.00 (0-0.5) K/uL Baso # (Auto) 0.01 (0-0.2) K/uL ESR (0-21) mm/hr PT 20.3 H (9.0-12.0) Seconds INR 2.1 H (0.9-1.1) APTT 36.2 H (21.0-31.0) Seconds PTT Ratio 1.3 Sodium 133 L (136-145) mmol/L Potassium 3.4 L (3.5-5.1) mmol/L Chloride 102 (98-107) mmol/L Carbon Dioxide 23 (21-32) mmol/L Anion Gap 8.0 (3-11) BUN 25 H (7-18) mg/dl Creatinine 1.26 H (0.6-1.2) mg/dl Est Cr Clr Drug Dosing 26.7 ml/min Est GFR ( Amer) 44.1 Est GFR (Non-Af Amer) 38.0 BUN/Creatinine Ratio 19.9 (10-20) Glucose 140 H (70-99) mg/dl Lactate (0.4-2.0) mmol/L Calcium 8.1 L (8.5-10.1) mg/dl Magnesium 1.7 L (1.8-2.4) mg/dl Total Bilirubin 0.6 (0.2-1) mg/dl AST 24 (15-37) U/L ALT 21 (12-78) U/L Alkaline Phosphatase 79 (45-117) U/L Troponin I 0.035 (0-0.045) ng/ml C-Reactive Protein 3.22 H (0-0.29) mg/dl Total Protein 6.8 (6.4-8.2) gm/dl Albumin 3.2 L (3.4-5.0) gm/dl Globulin 3.6 (2.5-4.0) gm/dl Albumin/Globulin Ratio 0.9 (0.9-2) Procalcitonin (0-0.5) ng/ml TSH 0.425 (0.300-4.500) uIu/ml Lyme Disease IgG Ab (Negative) Lyme Disease IgM Ab (Negative) 12/26/18 12/26/18 12/26/18 Range/Units 12:01 12:01 12:01 WBC (4.8-10.8) K/uL RBC (4.2-5.4) M/uL Hgb (12.0-16.0) g/dL Hct (37-47) % MCV (80-100) fL MCH (25-34) pg MCHC (32-36) g/dL RDW Std Deviation (36.4-46.3) fL RDW Coeff of Nolan (11.5-14.5) % Plt Count (130-400) K/uL MPV (7.4-10.4) fL Immature Gran % (Auto) % Neut % (Auto) % Lymph % (Auto) % [place] % (Auto) % Eos % (Auto) % Baso % (Auto) % Immature Gran # (Auto) (0.00-0.02) K/uL Neut # (Auto) (1.4-6.5) K/uL Lymph # (Auto) (1.2-3.4) K/uL [place] # (Auto) (0.11-0.59) K/uL Eos # (Auto) (0-0.5) K/uL Baso # (Auto) (0-0.2) K/uL ESR 31 H (0-21) mm/hr PT (9.0-12.0) Seconds INR (0.9-1.1) APTT (21.0-31.0) Seconds PTT Ratio Sodium (136-145) mmol/L Potassium (3.5-5.1) mmol/L Chloride (98-107) mmol/L Carbon Dioxide (21-32) mmol/L Anion Gap (3-11) BUN (7-18) mg/dl Creatinine (0.6-1.2) mg/dl Est Cr Clr Drug Dosing ml/min Est GFR ( Amer) Est GFR (Non-Af Amer) BUN/Creatinine Ratio (10-20) Glucose (70-99) mg/dl Lactate 1.6 (0.4-2.0) mmol/L Calcium (8.5-10.1) mg/dl Magnesium (1.8-2.4) mg/dl Total Bilirubin (0.2-1) mg/dl AST (15-37) U/L ALT (12-78) U/L Alkaline Phosphatase (45-117) U/L Troponin I (0-0.045) ng/ml C-Reactive Protein (0-0.29) mg/dl Total Protein (6.4-8.2) gm/dl Albumin (3.4-5.0) gm/dl Globulin (2.5-4.0) gm/dl Albumin/Globulin Ratio (0.9-2) Procalcitonin 0.44 (0-0.5) ng/ml TSH (0.300-4.500) uIu/ml Lyme Disease IgG Ab Positive A (Negative) Lyme Disease IgM Ab Negative (Negative) Imaging Data Radiologist's Impression: Radiology results as stated below per my review and the radiologist's interpretation: CT head/brain wo con CT DOSE: 614.27 mGy.cm HISTORY: Mental status change weakness TECHNIQUE: Multiaxial CT images of the head were performed without the use of intravenous contrast. A dose lowering technique was utilized adhering to the principles of ALARA. Comparison: 10/30/2018 Findings: The paranasal sinuses and mastoid air cells are clear. The calvarium and skull base are intact. The ventricles and sulci are within normal limits. There is no mass, hematoma, midline shift, or acute infarct. Chronic small vessel change. Atrophy. Impression: No acute intracranial abnormality. The above report was generated using voice recognition software. It may contain grammatical, syntax or spelling errors. Electronically signed by: Oscar Cruz M.D. 12/26/2018 1:18 PM XR chest 1V portable CLINICAL HISTORY: Sepsis dyspnea COMPARISON STUDY: 10/30/2018 FINDINGS: Mild stable cardia megaly. Prior median sternotomy. Mild emphysematous change. Mild chronic basilar interstitial prominence. IMPRESSION: No acute process. The above report was generated using voice recognition software. It may contain grammatical, syntax or spelling errors. Electronically signed by: Oscar Cruz M.D. 12/26/2018 12:18 PM ECG Data Attestation: I personally reviewed and interpreted this ECG as follows: Indication: weakness Rate (beats per minute): 83 Rhythm: normal sinus Findings: + ST depression (Laterally); no PVC and no ectopy Comparison ECG Date: from (10/30/18) Change: the following changes noted (Normal sinus has replaced A-fib.) Blood Pressure Blood Pressure Findings: Low blood pressure Blood Pressure Disposition: further management by hospitalist MDM Narrative The patient is a 88-year-old female who presented to the emergency department with family members for an evaluation of generalized weakness and difficulty ambulating. The patient was found to have a fever in the emergency department. She was treated with IV fluids and IV antibiotics in the emergency department. She does relate that she had a tick bite recently. Given her history and physical exam as well as her laboratory findings I feel this could be consistent with a tickborne illness. The patient was treated with IV antibiotics. She was also reevaluated multiple times. I discussed patient's laboratory and radiographic studies with her. She was found to have very significant difficulty with ambulation. I felt for her safety at home so I discussed her c ase with the on-call [facility] hospitalist group. They have agreed to evaluate the patient in the emergency department for further management and disposition. Impression & Plan Pancytopenia, Fever, Weakness Discharge Plan Visit Data *Final* Discharge Date/Time: 12/26/18 15:57 Chief Complaint: Lethargic Stated Complaint: LETHARGIC- HX AFIB ED Provider: Klaus Grullon Discharge Problem: Pancytopenia, Fever, Weakness Patient Disposition: Admitted As Inpatient Discharge Instructions Interventions: ED Discharge Assessment Last Done: 12/26/18 15:57 Discharge Problem: Fever Qualifiers: Fever type: unspecified Qualified Code(s): R50.9 - Fever, unspecified The scribe's documentation has been prepared under my direction and personally reviewed by me in its entirety. I confirm that the note above accurately reflects all work, treatment, procedures, and medical decision making performed by me.
[2018-12-26 12:13] LABS: Basophils # (auto) 0.01 K/uL (0-0.2); Basophils % (auto) 0.3 %; Hematocrit (blood only) 30.5 % (37-47); Immature Granulocytes # (auto) 0.02 K/uL (0.00-0.02); Immature Granulocytes % (auto) 0.7 %; Lymphocytes # (auto) 0.19 K/uL (1.2-3.4); Lymphocytes % (auto) 6.4 %; Mean Corpuscular Hgb Conc 32.8 g/dL (32-36); Mean Corpuscular Volume 80.7 fL (80-100); Mean Platelet Volume 10.6 fL (7.4-10.4); Monocytes # (auto) 0.15 K/uL (0.11-0.59); Monocytes % (auto) 5.1 %; Neutrophils # (auto) 2.59 K/uL (1.4-6.5); Neutrophils % (auto) 87.5 %; Platelet Count 115 K/uL (130-400); RDW Coefficient of Variation 15.2 % (11.5-14.5); RDW Standard Deviation 44.8 fL (36.4-46.3); Red Blood Count 3.78 M/uL (4.2-5.4); White Blood Count 2.96 K/uL (4.8-10.8)
--- NOTE | 2018-12-26 12:19 | XRay Report ---
XR chest 1V portable CLINICAL HISTORY: Sepsis dyspnea COMPARISON STUDY: 10/30/2018 FINDINGS: Mild stable cardia megaly. Prior median sternotomy. Mild emphysematous change. Mild chronic basilar interstitial prominence. IMPRESSION: No acute process. The above report was generated using voice recognition software. It may contain grammatical, syntax or spelling errors. Electronically signed by: Oscar Cruz M.D. 12/26/2018 12:18 PM
[2018-12-26 12:31] LABS: Albumin Level 3.2 gm/dl (3.4-5.0); BUN Creatinine Ratio 19.9 (10-20); Calcium 8.1 mg/dl (8.5-10.1); Creatinine Clr Calc Pharmacy 26.7 ml/min; Est GFR (African American) 44.1; Magnesium 1.7 mg/dl (1.8-2.4); Potassium 3.4 mmol/L (3.5-5.1)
[2018-12-26 12:36] LABS: Albumin Globulin Ratio 0.9 (0.9-2); Bilirubin,Total 0.6 mg/dl (0.2-1); C Reactive Protein 3.22 mg/dl (0-0.29); Globulin 3.6 gm/dl (2.5-4.0); Total Protein 6.8 gm/dl (6.4-8.2); Troponin I 0.035 ng/ml (0-0.045)
[2018-12-26 12:41] LABS: INR 2.1 (0.9-1.1); Partial Thromboplastin Ratio 1.3; Partial Thromboplastin Time 36.2 Seconds (21.0-31.0); Prothrombin Time 20.3 Seconds (9.0-12.0)
[2018-12-26] MEDS: MAGNESIUM SULFATE / D5W 1 GM/100 ML BAG IV SCH ×2 (12:46→13:53)
[2018-12-26 13:04] LABS: Procalcitonin 0.44 ng/ml (0-0.5)
[2018-12-26 13:12] LABS: Lyme Ab IgM w/WB Rflx Negative (Negative)
--- NOTE | 2018-12-26 13:19 | CT Scan Report ---
CT head/brain wo con CT DOSE: 614.27 mGy.cm HISTORY: Mental status change weakness TECHNIQUE: Multiaxial CT images of the head were performed without the use of intravenous contrast. A dose lowering technique was utilized adhering to the principles of ALARA. Comparison: 10/30/2018 Findings: The paranasal sinuses and mastoid air cells are clear. The calvarium and skull base are int act. The ventricles and sulci are within normal limits. There is no mass, hematoma, midline shift, or acute infarct. Chronic small vessel change. Atrophy. Impression: No acute intracranial abnormality. The above report was generated using voice recognition software. It may contain grammatical, syntax or spelling errors. Electronically signed by: Oscar Cruz M.D. 12/26/2018 1:18 PM
[2018-12-26 13:34] LABS: Lyme Ab IgG w/WB Rflx Positive (Negative)
[2018-12-26] MEDS ORDERED: DOXYCYCLINE HYCLATE 100 MG CAP PO STA (14:14)
[2018-12-26] MEDS ORDERED: cefTRIAXone SODIUM 1,000 MG/50 ML BAG IV STA (14:14)
--- NOTE | 2018-12-26 15:31 | History & Physical Report ---
Date of Service December 26, 2018 Assessment & Plan (1) Weakness: Provide supportive care. Administer IV fluids. Rule out occult infection. Tickborne illness work-up underway. Check urine culture. Check TSH. Obtain Occupational Therapy and physical therapy assessments tomorrow Present on Admission?: Yes (2) Fever: This may simply be a viral illness. Tickborne illness work-up underway. Continue Rocephin and doxycycline for now. Await test results. Urine analysis pending. Serial lab studies Present on Admission?: Yes (3) History of aortic valve replacement with bioprosthetic valve: Stable. Currently on Coumadin therapy (4) Chronic kidney disease, stage 3a: Stable. Monitor daily lab studies (5) Pancytopenia: Mild. Will follow (6) Diabetes: Diabetic diet. Continue Lantus. Sliding scale coverage as needed (7) PAF (paroxysmal atrial fibrillation): Currently in normal sinus rhythm. Will follow History of Present Illness Chief Complaint: 24 hours of lethargy, fever, weakness Primary Care Provider: Shahid Shea MD 88-year-old female with 24 hours of low-grade fever, lethargy, weakness. She was brought to the ED by family members. At the time of my examination she is alert and oriented x3 without any acute distress but she does state that she is weak and is having trouble with ambulating. She did suffer to tick bites approximately 1 month ago but she denies developing any target lesions. She has had Lyme disease in the past. The ED has ordered a tickborne disease work-up and administer doxycycline and Rocephin. Blood cultures have been done. Urine is still pending. Chest x-ray is negative. She is on chronic Coumadin therapy for paroxysmal atrial fibrillation and bioprosthetic aortic valve. INR is 2.1. She is placed in observation for further assessment and treatment. Allergies Allergy/AdvReac Type Severity Reaction Status Date / Time Penicillins Allergy Unknown UNKNOWN Verified 12/26/18 12:28 Sulfa (Sulfonamide Allergy Unknown SEVERE Verified 12/26/18 12:28 Antibiotics) HIVES tramadol Allergy Unknown UNKNOWN Unverified 12/26/18 12:28 Home Medications Home Medications Medication Instructions Recorded Confirmed Type Simbrinza 1 drp OPB BID 10/30/18 12/26/18 History aspirin [Aspirin Low Dose] 81 mg PO QAM 10/30/18 12/26/18 History atorvastatin 40 mg PO HS 10/30/18 12/26/18 History cholecalciferol (vitamin D3) 1,000 unit PO DAILY 10/30/18 12/26/18 History [Vitamin D3] docusate sodium 100 mg PO DAILY PRN 10/30/18 12/26/18 History escitalopram oxalate 5 mg PO HS 10/30/18 12/26/18 History levothyroxine 25 mcg PO QAM 10/30/18 12/26/18 History lisinopril 5 mg PO QAM 10/30/18 12/26/18 History lorazepam 0.5 mg PO HS PRN 10/30/18 12/26/18 History verapamil 120 mg PO HS 10/30/18 12/26/18 History insulin aspart U-100 [Novolog See Rx Instructions .ROUTE .COMPLEX 12/26/18 12/26/18 History Flexpen U-100 Insulin] insulin glargine [Lantus Solostar 12 unit SUBCUT HS 12/26/18 12/26/18 History U-100 Insulin] pantoprazole [Protonix] 40 mg PO DAILY 12/26/18 12/26/18 History warfarin 2.5 mg PO QPM 12/26/18 12/26/18 History Past Med/Surg History Medical History Atrial fibrillation (Acute) Diabetes (Chronic) HTN (hypertension) (Chronic) 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) Acquired claw toe of right foot (Chronic) Callus (Chronic) Diabetes mellitus with neuropathy (Chronic) Diabetic peripheral neuropathy (Chronic) Hallux abducto valgus, bilateral (Chronic) Family History Mother Myocardial infarction Father Stroke Myocardial infarction Other Atrial fibrillation No significant family history Social History Preferred Language: Turkish Communication Ability: Effective Beliefs That Will Affect Care: None Current Living Situation: Family Current Living Situation Comment: lives with son and family Feels Safe at Home: Yes Smoking Status: Never smoker Second Hand Exposure: No Hx Alcohol Use: No Hx Substance Use: No Review of Systems Review of Systems: All systems reviewed & are unremarkable except as noted in HPI & below Constitutional: + fever and + weakness Physical Exam Constitutional: WD/WN, vitals as above Eyes: PERRL, conjunctivae normal, anicteric sclerae ENMT: external ear and nose normal, oropharynx normal Neck: trachea midline, no thyromegaly Respiratory: normal respiratory effort, lungs clear to auscultation Cardiovascular: Rate/Rhythm: regular rate and regular rhythm Heart Sounds: normal S1, normal S2 and + murmur (Grade 1/6 systolic murmur at the left sternal border) Gastrointestinal (Abdomen): normal bowel sounds, soft, nontender, no hepatosplenomegaly Musculoskeletal: Extremities: extremities normal to inspection; no muscle atrophy, no cyanosis and no clubbing Mild generalized weakness. 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
[2018-12-26] MEDS ORDERED: POLYETHYLENE (MIRALAX) 17 GM PACK PO PRN (16:45)
[2018-12-26] MEDS ORDERED: LORazepam 0.5 MG TAB PO PRN (16:45)
[2018-12-26] MEDS ORDERED: ALUMINUM/MAGNESIUM SUSP 30 ML UDC PO PRN (16:45)
[2018-12-26] MEDS ORDERED: ONDANSETRON INJ 2 MG/ML 2 ML VIAL IV PRN (16:45)
[2018-12-26] MEDS ORDERED: DOCUSATE SODIUM 100 MG CAP PO PRN (16:45)
[2018-12-26] MEDS ORDERED: ACETAMINOPHEN 325 MG TAB PO PRN (16:45)
[2018-12-26] MEDS ORDERED: MAGNESIUM HYDROXIDE SUSP 30 ML UDC PO PRN (16:45)
[2018-12-26] MEDS: INSULIN ASPART 100 UNITS/ML 3 ML PEN SC SCH ×2 (17:35→21:10)
[2018-12-26] MEDS: SODIUM CHLORIDE 0.9% 1000ML 1,000 ML IV SCH (17:38)
[2018-12-26 18:56] LABS: Appearance Urine Clear (Clear); Bacteria Urine Automated Negative (Negative); Bilirubin Urine Negative (Negative); Blood Urine Negative (Negative); Cast Urine Automated 0 /lpf (0-5); Color Urine Yellow; Glucose Urine UA Negative (Negative); Ketones Urine Negative (Negative); Leukocyte Esterase Urine 1+ (Negative); Nitrite Urine Negative (Negative); Protein Urine Negative (Negative); RBC Urine Automated 0-4 /hpf (0-4); Specific Gravity Urine 1.015 (1.000-1.030); Urobilinogen Urine Negative (Negative)
[2018-12-26] MEDS: INSULIN GLARGINE SOLOSTAR 100 UNITS/ML 3 ML PEN SQ SCH (20:55)
[2018-12-26] MEDS: ATORVASTATIN 40 MG TAB PO SCH (20:58)
[2018-12-26] MEDS: VERAPAMIL HCL 120 MG TABCR PO SCH (20:59)
[2018-12-26] MEDS: WARFARIN SOD 2.5 MG TAB PO SCH (20:59)
[2018-12-26] MEDS: ESCITALOPRAM OXALATE 10 MG TAB PO SCH (21:08)
[2018-12-26] MEDS: SIMBRINZA~ORDER AWAITING ACTION SCH (23:47)
[2018-12-27] MEDS: DOXYCYCLINE HYCLATE 100 MG in DEXTROSE 5% 100 ML IV SCH ×2 (04:08→15:56)
[2018-12-27] MEDS: SODIUM CHLORIDE 0.9% 1000ML 1,000 ML IV SCH ×2 (05:58→18:12)
[2018-12-27] MEDS: LEVOTHYROXINE SODIUM 25 MCG TABLET PO SCH (05:59)
[2018-12-27 06:51] LABS: Hemoglobin 9.1 g/dL (12.0-16.0); Mean Corpuscular Hgb Conc 33.7 g/dL (32-36); Mean Corpuscular Volume 79.9 fL (80-100); RDW Coefficient of Variation 15.3 % (11.5-14.5); RDW Standard Deviation 44.9 fL (36.4-46.3); Red Blood Count 3.38 M/uL (4.2-5.4); White Blood Count 1.78 K/uL (4.8-10.8)
[2018-12-27 06:56] LABS: INR 1.8 (0.9-1.1)
[2018-12-27 07:24] LABS: BUN Creatinine Ratio 26.5 (10-20); Calcium 7.6 mg/dl (8.5-10.1); Creatinine Clr Calc Pharmacy 31.5 ml/min; Est GFR (African American) 51.3; Est GFR (Non-African American) 44.3; Potassium 3.3 mmol/L (3.5-5.1)
[2018-12-27 07:25] LABS: Basophils # (auto) 0.01 K/uL (0-0.2); Basophils % (auto) 0.6 %; Giant Platelets 1+; Immature Granulocytes # (auto) 0.01 K/uL (0.00-0.02); Immature Granulocytes % (auto) 0.6 %; Lymphocytes # (auto) 0.29 K/uL (1.2-3.4); Lymphocytes % (auto) 16.3 %; Mean Platelet Volume 10.3 fL (7.4-10.4); Monocytes % (auto) 5.6 %; Neutrophils # (auto) 1.37 K/uL (1.4-6.5); Neutrophils % (auto) 76.9 %; Platelet Count 72 K/uL (130-400); Platelet Estimate Decreased (Normal)
[2018-12-27] MEDS ORDERED: POTASSIUM CHLORIDE 20 MEQ TABCR PO STA (08:16)
[2018-12-27] MEDS: INSULIN ASPART 100 UNITS/ML 3 ML PEN SC SCH ×4 (08:45→20:45)
[2018-12-27] MEDS: SIMBRINZA~ORDER AWAITING ACTION SCH ×2 (08:47→16:00)
[2018-12-27] MEDS: PANTOprazole 40 MG TAB PO SCH (08:48)
[2018-12-27] MEDS: CHOLECALCIFEROL 1,000 UNITS TAB PO SCH (08:48)
[2018-12-27] MEDS: LISINOPRIL 5 MG TAB PO SCH (08:48)
[2018-12-27] MEDS ORDERED: ASPIRIN 81 MG ECTAB PO SCH (09:00)
[2018-12-27] MEDS ORDERED: cefTRIAXone SODIUM 1,000 MG in DEXTROSE 5% 50 ML IV SCH (14:00)
--- NOTE | 2018-12-27 14:38 | Hospitalist Progress Note ---
Date of Service December 27, 2018 Assessment & Plan (1) Weakness: Continue IVF BC ngtd - will dc Rocephin and continue doxycycline Tickborne illness work-up underway. TSH wnl PT/OT (2) Fever: Virus vs tick born illness. Peripheral smear without evidence of aniplasmosis or other tick born illness. Labs pending. Fevers resolved (3) History of aortic valve replacement with bioprosthetic valve: Stable. Currently on Coumadin therapy - subtherapeutic INR of 1.8, will give normal dose for today and trend for tomorrow. Will avoid increasing dose for today given platelet count. Per outpatient notes, patient usually eats quite a bit of leafy greens and she will not likely be eating her normal diet while in the hospital so INR may trend upward tomorrow anyhow. (4) Chronic kidney disease, stage 3a: Stable. Monitor daily lab studies (5) Pancytopenia: Further decreased today - continue to trend, platelets 72,000 so will continue Coumadin but will hold aspirin for now. WBCs, h&h also trending down Viral illness vs tick born illness (6) Diabetes: Diabetic diet. Continue Lantus. Sliding scale coverage as needed (7) PAF (paroxysmal atrial fibrillation): Currently in normal sinus rhythm. Will follow. Continue Coumadin, hold A SA for now as above (8) DVT prophylaxis: Coumadin Subjective Ms. Saleh is feeling much better this morning. Afebrile overnight. No further aches or chills. Review of Systems Review of Systems: All systems reviewed & are unremarkable except as noted in HPI & below Physical Exam Physical Exam: General: no distress Eyes: normal inspection, PERLL Respiratory: chest non tender, clear to auscultation, normal breath sounds, no respiratory distress, no accessory muscle use Cardiac: regular rate and rhythm, no rub or gallop, no murmur, no edema, no jvd GI/: active bowel sounds, no abd pain or tenderness, soft, non distended Extremities: normal range of motion, normal strength, non tender Neuro/Psych: alert and oriented x 3, normal mood and affect Skin: normal color, dry Results & Data Vital Signs (Past 12 Hours) Vital Signs Temp Pulse Resp BP Pulse Ox 12/27/18 06:45 37.1 C 61 18 113/58 L 96 (1) Fever Fever type: unspecified Qualified Code(s): R50.9 - Fever, unspecified (2) Diabetes Diabetes mellitus type: type 2 Diabetes mellitus custodial insulin use: with manager long term care use Diabetes mellitus complication status: with unspecified complications Qualified Code(s): E11.8 - Type 2 diabetes mellitus with unspecified complications; 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
[2018-12-27] MEDS ORDERED: WARFARIN SOD 1 MG TAB PO SCH (16:00)
[2018-12-27] MEDS: ATORVASTATIN 40 MG TAB PO SCH (20:37)
[2018-12-27] MEDS: VERAPAMIL HCL 120 MG TABCR PO SCH (20:38)
[2018-12-27] MEDS: WARFARIN SOD 2.5 MG TAB PO SCH (20:39)
[2018-12-27] MEDS: ESCITALOPRAM OXALATE 10 MG TAB PO SCH (20:43)
[2018-12-27] MEDS: INSULIN GLARGINE SOLOSTAR 100 UNITS/ML 3 ML PEN SQ SCH (20:43)
[2018-12-27] MEDS: SIMBRINZA OP SCH (20:49)
[2018-12-28] MEDS: DOXYCYCLINE HYCLATE 100 MG in DEXTROSE 5% 100 ML IV SCH ×2 (04:31→15:59)
[2018-12-28] MEDS: LEVOTHYROXINE SODIUM 25 MCG TABLET PO SCH (05:51)
[2018-12-28] MEDS: SODIUM CHLORIDE 0.9% 1000ML 1,000 ML IV SCH ×2 (05:54→18:08)
[2018-12-28 07:08] LABS: Hematocrit (blood only) 29.2 % (37-47); Hemoglobin 9.7 g/dL (12.0-16.0); Mean Corpuscular Hgb Conc 33.2 g/dL (32-36); Mean Corpuscular Volume 79.8 fL (80-100); RDW Coefficient of Variation 15.4 % (11.5-14.5); RDW Standard Deviation 45.2 fL (36.4-46.3); Red Blood Count 3.66 M/uL (4.2-5.4); White Blood Count 2.26 K/uL (4.8-10.8)
[2018-12-28 07:18] LABS: INR 1.5 (0.9-1.1); Prothrombin Time 14.8 Seconds (9.0-12.0)
[2018-12-28 07:39] LABS: Mean Platelet Volume 11.3 fL (7.4-10.4); Platelet Count 66 K/uL (130-400)
[2018-12-28 07:43] LABS: Calcium 7.9 mg/dl (8.5-10.1); Creatinine Clr Calc Pharmacy 35.3 ml/min; Est GFR (Non-African American) 50.9; Potassium 3.9 mmol/L (3.5-5.1)
[2018-12-28 07:57] LABS: ALC (manual) 0.75 K/uL (1.2-3.4); Basophils # (manual) 0.02 K/uL (0-0.2); Basophils % (manual) 0.9 %; Eosinophils # (manual) 0.02 K/uL (0-0.5); Eosinophils % (manual) 0.9 %; Lymphocytes # (manual) 0.75 K/uL (1.2-3.4); Lymphocytes % (manual) 33.3 %; Monocytes % (manual) 4.4 %; Neutrophils % (manual) 60.5 %; Poikilocytosis Present
[2018-12-28] MEDS: SIMBRINZA OP SCH ×2 (08:41→20:19)
[2018-12-28] MEDS: INSULIN ASPART 100 UNITS/ML 3 ML PEN SC SCH ×4 (08:42→20:16)
[2018-12-28] MEDS: CHOLECALCIFEROL 1,000 UNITS TAB PO SCH (08:42)
[2018-12-28] MEDS: PANTOprazole 40 MG TAB PO SCH (08:42)
[2018-12-28] MEDS: LISINOPRIL 5 MG TAB PO SCH (08:42)
[2018-12-28] MEDS: FERROUS SULFATE 325 MG TAB PO SCH (09:37)
--- NOTE | 2018-12-28 10:38 | Hospitalist Progress Note ---
Date of Service December 28, 2018 Assessment & Plan (1) Weakness: Continue IVF BC growing gram positive cocci in clusters in one vial which likely represents contamination if nothing grows in the other vial - will follow Tickborne illness work-up underway. TSH wnl PT/OT - recommend return home, no further PT/OT needs (2) Fever: Virus vs tick born illness. Peripheral smear without evidence of aniplasmosis or other tick born illness. Labs pending. Fevers resolved BC as above Continue IV doxycycline (3) History of aortic valve replacement with bioprosthetic valve: Stable. Currently on Coumadin therapy - subtherapeutic INR of 1.5, will continue to give normal home dose. Platelets today were continuing to decrease at 66,000 so I'm hesitant to give her an increased dose to get her back to a therapeutic level given her age. I think if her platelets begin to rebound tomorrow and she remains subtherapeutic I will give her an extra dose of Coumadin to help boost her back to therapeutic. She has a CHADS-Vasc of 6 so is higher risk however she also has a HAS-BLED of 3 and so is a higher bleeding risk as well. I did explain all of this to the patient and she agreed though 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 is somewhat hampered by her difficulty hearing. (4) Chronic kidney disease, stage 3a: Stable. Monitor daily lab studies (5) Pancytopenia: Further decreased today - continue to trend, platelets 66,000 - continue to hold aspirin, Coumadin as above. WBCs rebounding. Viral illness vs tick born illness (6) Diabetes: Diabetic diet. Continue Lantus. Sliding scale coverage as needed (7) PAF (paroxysmal atrial fibrillation): Currently in normal sinus rhythm. Will follow. Continue Coumadin, hold ASA for now as above (8) DVT prophylaxis: Coumadin (9) Anemia: microcytic - will start iron supplementation daily. Subjective Ms. Saleh is up to a chair, eating breakfast, continues to feel better but still weak. Review of Systems Review of Systems: All systems reviewed & are unremarkable except as noted in HPI & below Physical Exam Physical Exam: General: no distress Eyes: normal inspection, PERLL Respiratory: chest non tender, clear to auscultation, normal breath sounds, no respiratory distress, no accessory muscle use Cardiac: regular rate and rhythm, no rub or gallop, no murmur, no edema, no jvd GI/: active bowel sounds, no abd pain or tenderness, soft, non distended Extremities: normal range of motion, normal strength, non tender Neuro/Psych: alert and oriented x 3, normal mood and affect Skin: normal color, dry Results & Data Vital Signs (Past 12 Hours) Vital Signs Temp Pulse Resp BP BP Pulse Ox 12/28/18 07:31 37.2 C 69 18 166/76 H 173/69 H 95 12/27/18 23:41 37.1 C 76 18 165/71 H 95 (1) Fever Fever type: unspecified Qualified Code(s): R50.9 - Fever, unspecified (2) Diabetes Diabetes mellitus complication status: with unspecified complications Diabetes mellitus intermediate designer insulin use: with intermediate designer use Diabetes mellitus type: type 2 Qualified Code(s): E11.8 - Type 2 diabetes mellitus with unspecified complications; Z79.4 - USP (current) use of insulin
--- NOTE | 2018-12-28 13:39 | CT Scan Report ---
CT head/brain wo con CT DOSE: 537.48 mGy.cm HISTORY: Mental status change slurred speech TECHNIQUE: Multiaxial CT images of the head were performed without the use of intravenous contrast. A dose lowering technique was utilized adhering to the principles of ALARA. Comparison: 12/26/2018 Findings: The paranasal sinuses and mastoid air cells are clear. The calvarium and skull base are int act. The ventricles and sulci are within normal limits. There is no mass, hematoma, midline shift, or acute infarct. Findings of age-related atrophy and chronic small vessel change. This is unaltered fr om the prior study. Impression: No acute intracranial abnormality. Age-related change. No change from the prior exam. The above report was generated using voice recognition software. It may contain grammatical, syntax or spelling errors. Electronically signed by: Oscar Cruz M.D. 12/28/2018 1:38 PM
[2018-12-28] MEDS: INSULIN GLARGINE SOLOSTAR 100 UNITS/ML 3 ML PEN SQ SCH (20:16)
[2018-12-28] MEDS: VERAPAMIL HCL 120 MG TABCR PO SCH (20:17)
[2018-12-28] MEDS: WARFARIN SOD 2.5 MG TAB PO SCH (20:17)
[2018-12-28] MEDS: ESCITALOPRAM OXALATE 10 MG TAB PO SCH (20:18)
[2018-12-28] MEDS: ATORVASTATIN 40 MG TAB PO SCH (20:18)
[2018-12-29] MEDS: SODIUM CHLORIDE 0.9% 1000ML 1,000 ML IV SCH (06:07)
[2018-12-29] MEDS: LEVOTHYROXINE SODIUM 25 MCG TABLET PO SCH (06:07)
[2018-12-29 07:16] LABS: Hemoglobin 9.8 g/dL (12.0-16.0); Mean Corpuscular Hgb Conc 32.7 g/dL (32-36); Mean Corpuscular Volume 80.6 fL (80-100); RDW Coefficient of Variation 15.3 % (11.5-14.5); RDW Standard Deviation 45.7 fL (36.4-46.3); Red Blood Count 3.72 M/uL (4.2-5.4); White Blood Count 3.38 K/uL (4.8-10.8)
[2018-12-29 07:24] LABS: INR 1.5 (0.9-1.1); Prothrombin Time 15.4 Seconds (9.0-12.0)
[2018-12-29 07:49] LABS: BUN Creatinine Ratio 21.3 (10-20); Calcium 8.2 mg/dl (8.5-10.1); Creatinine Clr Calc Pharmacy 38.5 ml/min; Est GFR (African American) 65.3; Est GFR (Non-African American) 56.3; Mean Platelet Volume 11.4 fL (7.4-10.4); Platelet Count 94 K/uL (130-400); Potassium 3.9 mmol/L (3.5-5.1)
[2018-12-29 08:13] LABS: ALC (manual) 1.11 K/uL (1.2-3.4); Echinocytes 1+; Eosinophils # (manual) 0.18 K/uL (0-0.5); Eosinophils % (manual) 5.3 %; Lymphocytes # (manual) 1.11 K/uL (1.2-3.4); Lymphocytes % (manual) 32.7 %; Monocytes # (manual) 0.09 K/uL (0.11-0.59); Monocytes % (manual) 2.7 %; Neutrophils % (manual) 59.3 %; Ovalocytes 1+
[2018-12-29] MEDS: INSULIN ASPART 100 UNITS/ML 3 ML PEN SC SCH ×2 (08:30→12:31)
[2018-12-29] MEDS: CHOLECALCIFEROL 1,000 UNITS TAB PO SCH (08:35)
[2018-12-29] MEDS: PANTOprazole 40 MG TAB PO SCH (08:35)
[2018-12-29] MEDS: FERROUS SULFATE 325 MG TAB PO SCH (08:35)
[2018-12-29] MEDS: LISINOPRIL 5 MG TAB PO SCH (08:35)
[2018-12-29] MEDS: SIMBRINZA OP SCH (08:37)
[2018-12-29] MEDS ORDERED: DOXYCYCLINE HYCLATE 100 MG CAP PO SCH (12:45)
--- NOTE | 2018-12-29 13:04 | Discharge Summary ---
Date of Service December 29, 2018 Admission HPI Per Admitting Provider 88-year-old female with 24 hours of low-grade fever, lethargy, weakness. She was brought to the ED by family members. At the time of my examination she is alert and oriented x3 without any acute distress but she does state that she is weak and is having trouble with ambulating. She did suffer to tick bites approximately 1 month ago but she denies developing any target lesions. She has had Lyme disease in the past. The ED has ordered a tickborne disease work-up and administer doxycycline and Rocephin. Blood cultures have been done. Urine is still pending. Chest x-ray is negative. She is on chronic Coumadin therapy for paroxysmal atrial fibrillation and bioprosthetic aortic valve. INR is 2.1. She is placed in observation for further assessment and treatment. Principal Diagnosis Febrile illness - tick born vs viral Discharge Exam Constitutional WD/WN, vitals as above Respiratory normal respiratory effort, lungs clear to auscultation Cardiovascular RRR, no murmur, no edema Gastrointestinal (Abdomen) normal bowel sounds, soft, nontender, no hepatosplenomegaly Discharge Data Allergies Allergy/AdvReac Type Severity Reaction Status Date / Time Penicillins Allergy Unknown UNKNOWN Verified 12/26/18 12:28 Sulfa (Sulfonamide Allergy Unknown SEVERE Verified 12/26/18 12:28 Antibiotics) HIVES tramadol Allergy Unknown UNKNOWN Unverified 12/26/18 12:28 Consultations 12/26/18 14:46 ED Decision to Admit Stat Ordered Studies 12/26/18 11:48 CT head/brain wo con Stat 12/28/18 12:24 CT head/brain wo con Urgent Hospital Course (1) Weakness: provided IVF BC growing gram positive cocci in clusters in one vial which likely represents contamination Tickborne illness work-up underway. TSH wnl PT/OT - recommend return home, no further PT/OT needs (2) Fever: Virus vs tick born illness. Peripheral smear without evidence of aniplasmosis or other tick born illness. Tick born illness panel pending. Fevers resolved BC as above Continue doxycycline (3) History of aortic valve replacement with bioprosthetic valve: Stable. Currently on Coumadin therapy - subtherapeutic INR of 1.5, will give 5 mg total today and then have patient continue her home dose and see the coagulation clinic on Wednesday now that her platelets have started rebounding. She has a CHADS-Vasc of 6 so is higher risk however she also has a HAS-BLED of 3 and so is a higher bleeding risk as well so I will allow for INR to drift back up as platelets rebound. Will also need to monitor in light of antibiotic administration. She can resume her ASA tomorrow. (4) Chronic kidney disease, stage 3a: Stable. Monitor daily lab studies (5) Pancytopenia: Platelets as low as 66,000 but now rebounding - restart ASA tomorrow, will give Coumadin as above Viral illness vs tick born illness (6) Diabetes: Diabetic diet. Continue Lantus. Sliding scale coverage as needed (7) PAF (paroxysmal atrial fibrillation): Currently in normal sinus rhythm. Will follow. Continue Coumadin, hold ASA for now as above (8) DVT prophylaxis: Coumadin (9) Anemia: microcytic - initiated iron supplementation daily. (10) HTN (hypertension): elevated systolically at times 170s, 180s. Asymptomatic. Continue lisinopril and verapamil. I did discuss with patient's pcp as it appears she is often elevated in the hospital, goes home with increased blood pressure medicine, and then has it reduced in the office. Dr. Shea confirmed this pattern and preferred no adjustments to her regimen at this time which I think is reasonable. Diastolic pressures have been wnl. Patient does monitor her pressure at home. Total Time Total Time Spent Total Time Spent (In Minutes): greater than 30 minutes. Discharge Plan Discharge Items Patient Disposition: Home - Self-Care Reason For Visit: WEAKNESS Discharge Diagnosis: febrile illness - likely tick born Discharge Goals: Improve disease control Activity: Resume your previous activity Non-emergency contact: Primary Care Provider Call non-emergency contact if: you have any medication questions, your symptoms worsen and you have a fever Follow-up/Referrals: Shahid Shea MD [Primary Care Provider] - Meg Johnson MD, PhD [Pathologist] - 01/02/19 1:30 pm (Please keep your previously scheduled appointment with the Anticoagulation Clinic for Wednesday, 01/02 at 1:30pm. ) Diet: Carb Consistent or DM2 Addtl Provider Instructions: Please see your primary care provider within the next week. Please have blood work done at the anticoagulation clinic on Wednesday. You will take 5 mg of Warfarin total today at the hospital and then resume your normal home dosing tomorrow. Please complete your entire antibiotic regimen unless instructed otherwise by your primary care provider based on the results of your tick born disease labs. Doxycycline can cause photosensitivity so please use sunscreen or cover ups and sunglasses when outside until you have finished your course. You should also avoid taking the medication with dairy products. Doxycycline can cause gastrointestinal discomfort and nausea, you can try taking the medication with food to avoid this effect. Do not take bismuth (Pepto-Bismol), calcium, iron, magnesium, zinc, multivitamins with minerals, colestipol, cholestyramine, d idanosine, or antacids within 2 hours of this drug.Take with a full glass of water. Do not lie down for at least 30 minutes after taking this drug. You can resume taking your aspirin tomorrow. Your blood pressure was running a bit high while you were here. You have been asymptomatic so no adjustments to your home regimen have been made. Please check your blood pressure daily at home and keep a log to take to your primary care provider. Prescriptions: New doxycycline hyclate 100 mg Capsule 100 mg PO BID Qty: 24 RF: 0 ferrous sulfate 325 mg (65 mg iron) Tablet,Delayed Release (Dr/Ec) 325 mg PO QAM Qty: 30 RF: 0 Continued atorvastatin 40 mg tablet 40 mg PO HS RF: 0 aspirin [Aspirin Low Dose] 81 mg Tablet,Delayed Release (Dr/Ec) 81 mg PO QAM RF: 0 levothyroxine 25 mcg tablet 25 mcg PO QAM RF: 0 lorazepam 0.5 mg Tablet 0.5 mg PO HS PRN (Reason: Anxiety) RF: 0 docusate sodium 100 mg Capsule 100 mg PO DAILY PRN (Reason: Constipation) RF: 0 lisinopril 5 mg Tablet 5 mg PO QAM RF: 0 verapamil 120 mg capsule,ext rel. pellets 24 hr 120 mg PO HS RF: 0 escitalopram oxalate 10 mg tablet 5 mg PO HS RF: 0 cholecalciferol (vitamin D3) [Vitamin D3] 1,000 unit Tablet 1,000 unit PO DAILY RF: 0 Simbrinza 1-0.2 % drops,suspension 1 drp OPB BID RF: 0 Novolog Flexpen U-100 Insulin 100 unit/mL (3 mL) insulin pen See Rx Instructions .ROUTE .COMPLEX RF: 0 Lantus Solostar U-100 Insulin 100 unit/mL (3 mL) insulin pen 12 unit subcut HS RF: 0 warfarin 2.5 mg tablet 2.5 mg PO QPM RF: 0 pantoprazole [Protonix] 40 mg tablet,delayed release (DR/EC) 40 mg PO DAILY RF: 0 Stand-Alone Forms: [facility] Discharge Orders: Discharge Order (Routine); Ordered 12/29/18 Ordered By: Janett Shea Admission Data Admit Date/Time: 12/26/18 15:25 Attending Provider: Mj Tejada Admit Provider: Ashutosh Burkett Primary Care Provider: Shahid Shea Other Providers: Ashutosh Burkett Service: Medical Other Interventions: Discharge Summary Assessment (RN) Last Done: 12/29/18 16:19 Pending Studies at Discharge: Yes Studies:: Tick born disease panel.
[2018-12-29] MEDS ORDERED: WARFARIN SOD 2.5 MG TAB PO ONE (16:00)
[2018-12-29 19:30] LABS: Anaplasma phagocytophila IgM <1:20 (<1:20); Ehrlichia chaff IgG Ab <1:64 (<1:64); Ehrlichia chaff IgM Ab <1:20 (<1:20)
[2019-01-02 09:45] LABS: 18KDIGG Band NONREACTIVE (NONREACTIVE); 23KDIGG Band NONREACTIVE (NONREACTIVE); 23KDIGM Band NONREACTIVE (NONREACTIVE); 28KDIGG Band NONREACTIVE (NONREACTIVE); 30KDIGG Band NONREACTIVE (NONREACTIVE); 39KDIGG Band NONREACTIVE (NONREACTIVE); 39KDIGM Band NONREACTIVE (NONREACTIVE); 41KDIGG Band REACTIVE (NONREACTIVE); 41KDIGM Band NONREACTIVE (NONREACTIVE); 45KDIGG Band REACTIVE (NONREACTIVE); 58KDIGG Band NONREACTIVE (NONREACTIVE); 66KDIGG Band NONREACTIVE (NONREACTIVE); 93KDIGG Band NONREACTIVE (NONREACTIVE); Lyme Antibodies, WB IgG NEGATIVE (NEGATIVE); Lyme Antibodies, WB IgM NEGATIVE (NEGATIVE)
== END 2018-12-29 17:41 | disposition home or self-care (01) ==
LOC: ED 11:27 → 4W 11:27 → SUATTDRO 15:25 → 4W 15:57

== ENCOUNTER 2019-12-11 15:56 | Observation (INO) ==
[2019-12-11] MEDS ORDERED: LABETALOL HCL IV 5 MG/ML 20ML IV STA ×3 (16:36→20:07)
--- NOTE | 2019-12-11 16:44 | Emergency Department Note ---
ED Visit Note I contributed to the care of this patient under the supervision of Dr. Camilo. See his note for full documentation. . Resident Activity Tracking Resident Involvement: Resident Care Provided Care Provided: Adult ED
[2019-12-11 16:50] LABS: Basophils # (auto) 0.01 K/uL (0-0.2); Basophils % (auto) 0.2 %; Eosinophils # (auto) 0.08 K/uL (0-0.5); Eosinophils % (auto) 1.5 %; Hematocrit (blood only) 40.8 % (37-47); Hemoglobin 13.3 g/dL (12.0-16.0); Immature Granulocytes # (auto) 0.02 K/uL (0.00-0.02); Immature Granulocytes % (auto) 0.4 %; Lymphocytes # (auto) 1.46 K/uL (1.2-3.4); Lymphocytes % (auto) 27.9 %; Mean Corpuscular Hgb Conc 32.6 g/dL (32-36); Mean Corpuscular Volume 82.9 fL (80-100); Mean Platelet Volume 10.4 fL (7.4-10.4); Monocytes # (auto) 0.47 K/uL (0.11-0.59); Neutrophils # (auto) 3.19 K/uL (1.4-6.5); Platelet Count 221 K/uL (130-400); RDW Coefficient of Variation 15.8 % (11.5-14.5); RDW Standard Deviation 48.1 fL (36.4-46.3); Red Blood Count 4.92 M/uL (4.2-5.4); White Blood Count 5.23 K/uL (4.8-10.8)
--- NOTE | 2019-12-11 16:51 | XRay Report ---
XR chest 1V portable CLINICAL HISTORY: Hypertension. COMPARISON STUDY: Chest radiograph December 26, 2018. FINDINGS: Median sternotomy wires are noted. Note is made of mild cardiomegaly without evidence for p ulmonary edema. Mild right lower lung opacity is present. No pneumothorax or pleural effusion is note d. IMPRESSION: Mild right lower lung opacity which may reflect an infectious process or atelectasis. Ra diographic follow up to ensure resolution is recommended. ACT 112: Negative or not required by law. Electronically signed by: Jean Paul Salcedo M.D. 12/11/2019 4:50 PM
--- NOTE | 2019-12-11 17:00 | Emergency Department Note ---
Impression & Plan Hypertensive urgency, Hypertension, Failure of outpatient treatment ED Provider Note NAME: JEFFERSON LOUIS AGE: 89 SEX: F : 1930 ARRIVES VIA: Walk-In INFORMANT: [Patient] ED PROVIDER(S): [Julio Camilo MD] CHIEF COMPLAINT: Hypertension HISTORY OF PRESENT ILLNESS: The patient is an 89-year-old female who presents to the ED with very high blood pressure. Nothing makes the blood pressure better or worse. The patient states that she took her blood pressure today and it was high, repeat testing did not show a lowering. She was referred to the ED. Patient denies any headache or chest pain. She is not short of breath. She states that she is taking all of her medications as prescribed. She has a history of high blood pressure. The patient states that sometimes anxiety makes her blood pressure run higher. There has been no vomiting or diarrhea. There has been no recent medication changes. The patient states that sometimes her blood pressure is quite high, other times, it seems quite low. She seems to fluctuate from high to low depending on the day. REVIEW OF SYSTEMS: See HPI for pertinent positives and negatives. A total of ten systems were reviewed and were otherwise negative. PMHx/PSHx: See Below SOCIAL HISTORY: See Below. PHYSICAL EXAM: GENERAL: Patient is in no acute distress. HEENT: No acute trauma, normocephalic atraumatic, mucous membranes moist, no nasal congestion, no scleral icterus. NECK: No stridor, no adenopathy, no meningismus, trachea is midline. She does have some bilateral bruits, worse on the right. LUNGS: Clear to auscultation bilaterally, no wheeze, no rhonchi, breath sounds equal. HEART: There is a 2/6 systolic murmur heard best at the right sternal border, there is a regular rate and rhythm. ABDOMEN: Soft, nontender, bowel sounds positive, no hernias, no peritonitis. EXTREMITIES: No cyanosis or edema, full range of motion of all the joints without pain or difficulty, no signs for acute trauma. NEUROLOGIC: Oriented x 3, no acute motor or sensory deficits, no focal weakness. SKIN: No rash, no jaundice, no diaphoresis. DIFFERENTIAL DIAGNOSIS: Infection, dehydration, metabolic abnormality, renal failure, hypo/hyperglycemia, medication noncompliance electrolyte disturbance, anemia, hypoxia, cardiac sources, intracerebral event, toxicologic, neurologic, as well as other pathologies. EMERGENCY DEPARTMENT COURSE/PROCEDURES: ECG: Indication was hypertension. The EKG shows a normal sinus rhythm. The rate is 89. The QTc is 433. There is no ST elevation, no PVCs. Some nonspecific ST change was noted. When compared to an ECG from 04 October 2019, there is no significant change. Continuous Cardiac Monitoring: An order was placed for continuous cardiac monitoring. The monitor shows a rate of 69 with normal sinus rhythm. MEDICAL DECISION MAKING: There is no leukocytosis or concerning anemia. No significant electrolyte abnormality or kidney failure. No concerning liver enzyme elevation. Urinalysis does not show infection or significant hematuria. Chest film does no t CHF, some presumed atelectasis was seen-of note, the patient is not short of breath, she is not coughing or febrile. EKG shows a sinus rhythm, there is no acute ischemia. Cardiac enzyme testing x1 is not consistent with acute cardiac injury. On exam, the patient is not toxic, she is not febrile. She really has no complaints. The patient was given IV labetalol. She received 2 separate doses IV. She was given a dose of oral lisinopril and then her typical dose of oral verapamil. The patient's primary doctor's office was consulted and the initial plan was to send her home on lisinopril plus the verapamil that she is already taking. Upon discharge, the patient's blood pressure was noted to be quite high once again. Other dose of IV labetalol was given. Given the persistently high blood pressure, given the lack of improvement with several different medications both oral and IV, a hospital stay was felt warranted. The patient is in need of blood pressure medication adjustment i npatient. I did speak to the patient, case management has been consulted. The on-call hospitalist was consulted. Past Med/Surg History Medical History Accelerated hypertension Acquired claw toe of left foot Acquired claw toe of right foot Adult situational stress disorder (Inactive) Anemia (Inactive) Anxiety (Inactive) Callus Carpal tunnel syndrome (Resolved) CVA (cerebral vascular accident) (Inactive 2018) ?"very small right pontine infarct" Dyslipidemia (Inactive) Foot deformity (Inactive) Glaucoma (Inactive) Hallux abducto valgus, bilateral Edward's thyroiditis (Inactive) Hearing loss (Inactive) History of basal cell carcinoma (Resolved) History of TIA (transient ischemic attack) (Resolved 2017) Left lumbar radiculopathy (Inactive) Loss of protective sensation of skin of foot (Resolved) Low back pain (Inactive) Migraine syndrome (Inactive 2017) Moderate tricuspid regurgitation Osteopenia (Inactive) Pancytopenia (Inactive 2019) 2020: resolved Sensation of fullness in both ears (Inactive) Single vessel coronary artery disease Tinnitus (Inactive) Surgical History History of aortic valve replacement with bioprosthetic valve History of Mohs micrographic surgery for skin cancer S/P CABG (coronary artery bypass graft) S/P cataract extraction S/P tonsillectomy S/P tubal ligation Family History Mother Myocardial infarction Stroke Heart disease Hypertension Father Stroke Myocardial infarction Heart disease Diabetes Sister Breast cancer Stroke Daughter Breast cancer Other specified hearing loss, bilateral Brother Stroke Other Atrial fibrillation Denies family history of Ovarian cancer Prostate cancer Lung cancer Colorectal cancer Social History Preferred Language: Citizen Of [place] Communication Ability: Effective Visual Impairment: Limited Hearing Ability: Use of Hearing Aid Soil Conservation Technician Required: No Beliefs That Will Affect Care: None marital status: Single Current Living Situation: Family Current Living Situation Comment: lives with son and family current occupational status: retired Feels Safe at Home: Yes Smoking Status: Never smoker Second Hand Exposure: No ; Hx Alcohol Use: No Hx Substance Use: No Childhood Exposure to Second-Hand Smoke: No caffeine: Yes Dental Care, Regularly: No Physical Activity Frequency: 1-2 Times per Week Seatbelt Use: always Sunscreen Use: No Allergies Allergies Allergy/AdvReac Type Severity Reaction Status Date / Time Penicillins Allergy Unknown UNKNOWN Verified 12/11/19 17:26 Sulfa (Sulfonamide Allergy Unknown SEVERE Verified 12/11/19 17:26 Antibiotics) HIVES tramadol Allergy Unknown UNKNOWN Verified 12/11/19 17:26 Home Meds Home Medications Medication Instructions Recorded Confirmed Simbrinza 1 drp OPB BID 10/30/18 12/11/19 aspirin [Aspirin Low Dose] 81 mg PO QAM 10/30/18 12/11/19 cholecalciferol (vitamin D3) 1,000 unit PO DAILY@1200 10/30/18 12/11/19 [Vitamin D3] levothyroxine 25 mcg PO QAM 10/30/18 12/11/19 docusate sodium 100 mg capsule 100 mg PO QAM 03/21/19 12/11/19 lancets 33 gauge #100 ea 08/16/19 10/10/19 pen needle, diabetic 32 gauge x #50 ea 08/16/19 10/10/19 1/" pantoprazole [Protonix] 40 mg PO QAM 12/11/19 12/11/19 Previous Rx's Medication Instructions Recorded atorvastatin 40 mg tablet 40 mg PO HS #90 tab 01/30/19 blood sugar diagnostic #450 ea 03/16/19 verapamil 120 mg 24 hr 120 mg PO HS #90 cap 03/16/19 capsule,extended release Novolog Flexpen U-100 Insulin 100 See Rx Instructions .ROUTE DAILY 04/06/19 unit/mL (3 mL) subcutaneous #75 ml NS warfarin 2.5 mg tablet See Rx Instructions PO UD 90 Days 07/04/19 #120 tab Lantus Solostar U-100 Insulin 100 13 units SUBCUT HS #15 ml NS 08/31/19 unit/mL (3 mL) subcutaneous pen lisinopril 5 mg tablet 2.5 mg PO DAILY PRN #30 tab 10/10/19 lisinopril 2.5 mg PO DAILY #30 tab 12/11/19 Results & Data (ED) Vital Signs Vital Signs - 24 hr 12/11/19 15:57 12/11/19 16:09 12/11/19 16:18 Temperature 36.4 C L Temperature Source Oral Pulse Rate 96 H 82 81 Pulse Rate from SpO2 Sensor Pulse Rhythm Regular Pulse Strength Normal Respiratory Rate 20 20 22 Respiratory Effort / Characteristics Non-Labored Respiratory Depth Normal Respiratory Pattern Regular Blood Pressure 243/108 H 251/112 H Blood Pressure Mean 153 165 Blood Pressure Position Sitting Pulse Oximetry 100 Oxygen Delivery Method Room Air Sepsis Recent Fever Within 48 Hours No Sepsis New/Unexplained Change in Mental Status No Sepsis Action Taken by Nursing No Action Required 12/11/19 16:20 12/11/19 16:30 12/11/19 16:47 Temperature Temperature Source Pulse Rate 78 81 Pulse Rate from SpO2 Sensor Pulse Rhythm Pulse Strength Respiratory Rate 17 18 Respiratory Effort / Characteristics Respiratory Depth Respiratory Pattern Blood Pressure 249/104 H 257/117 H Blood Pressure Mean 179 160 Blood Pressure Position Pulse Oximetry 97 Oxygen Delivery Method Room Air Sepsis Recent Fever Within 48 Hours Sepsis New/Unexplained Change in Mental Status Sepsis Action Taken by Nursing 12/11/19 16:56 12/11/19 17:00 12/11/19 17:01 Temperature Temperature Source Pulse Rate 69 71 70 Pulse Rate from SpO2 Sensor 69 71 68 Pulse Rhythm Pulse Strength Respiratory Rate 17 22 17 Respiratory Effort / Characteristics Respiratory Depth Respiratory Pattern Blood Pressure 197/82 H 197/84 H Blood Pressure Mean 127 119 Blood Pressure Position Pulse Oximetry 100 99 99 Oxygen Delivery Method Sepsis Recent Fever Within 48 Hours Sepsis New/Unexplained Change in Mental Status Sepsis Action Taken by Nursing 12/11/19 17:09 12/11/19 17:30 12/11/19 17:47 Temperature Temperature Source Pulse Rate 69 70 75 Pulse Rate from SpO2 Sensor 69 70 Pulse Rhythm Pulse Strength Respiratory Rate 17 17 23 Respiratory Effort / Characteristics Respiratory Depth Respiratory Pattern Blood Pressure 200/119 H 214/92 H 197/80 H Blood Pressure Mean 156 153 125 Blood Pressure Position Pulse Oximetry 100 100 Oxygen Delivery Method Sepsis Recent Fever Within 48 Hours Sepsis New/Unexplained Change in Mental Status Sepsis Action Taken by Nursing 12/11/19 18:00 12/11/19 18:14 12/11/19 18:17 Temperature Temperature Source Pulse Rate 67 72 70 Pulse Rate from SpO2 Sensor Pulse Rhythm Pulse Strength Respiratory Rate 15 17 15 Respiratory Effort / Characteristics Respiratory Depth Respiratory Pattern Blood Pressure 195/78 H 204/89 H 199/79 H Blood Pressure Mean 107 141 124 Blood Pressure Position Pulse Oximetry Oxygen Delivery Method Sepsis Recent Fever Within 48 Hours Sepsis New/Unexplained Change in Mental Status Sepsis Action Taken by Nursing 12/11/19 18:18 12/11/19 18:30 12/11/19 19:00 Temperature Temperature Source Pulse Rate 69 74 69 Pulse Rate from SpO2 Sensor Pulse Rhythm Pulse Strength Respiratory Rate 15 15 21 Respiratory Effort / Characteristics Respiratory Depth Respiratory Pattern Blood Pressure Blood Pressure Mean Blood Pressure Position Pulse Oximetry Oxygen Delivery Method Sepsis Recent Fever Within 48 Hours Sepsis New/Unexplained Change in Mental Status Sepsis Action Taken by Nursing 12/11/19 19:19 12/11/19 19:30 12/11/19 19:40 Temperature Temperature Source Pulse Rate 70 71 73 Pulse Rate from SpO2 Sensor Pulse Rhythm Pulse Strength Respiratory Rate 15 17 24 Respiratory Effort / Characteristics Respiratory Depth Respiratory Pattern Blood Pressure 197/85 H 195/105 H 203/90 H Blood Pressure Mean 134 152 142 Blood Pressure Position Pulse Oximetry Oxygen Delivery Method Sepsis Recent Fever Within 48 Hours Sepsis New/Unexplained Change in Mental Status Sepsis Action Taken by Nursing 12/11/19 20:00 12/11/19 20:02 12/11/19 20:24 Temperature Temperature Source Pulse Rate 78 78 71 Pulse Rate from SpO2 Sensor Pulse Rhythm Pulse Strength Respiratory Rate 18 18 18 Respiratory Effort / Characteristics Respiratory Depth Respiratory Pattern Blood Pressure 215/96 H 232/101 H 194/74 H Blood Pressure Mean 118 154 105 Blood Pressure Position Pulse Oximetry Oxygen Delivery Method Sepsis Recent Fever Within 48 Hours Sepsis New/Unexplained Change in Mental Status Sepsis Action Taken by Nursing 12/11/19 20:30 Temperature Temperature Source Pulse Rate 64 Pulse Rate from SpO2 Sensor Pulse Rhythm Pulse Strength Respiratory Rate 18 Respiratory Effort / Characteristics Respiratory Depth Respiratory Pattern Blood Pressure 179/71 H Blood Pressure Mean 92 Blood Pressure Position Pulse Oximetry Oxygen Delivery Method Sepsis Recent Fever Within 48 Hours Sepsis New/Unexplained Change in Mental Status Sepsis Action Taken by Alf Medications Current Medication List: was personally reviewed by me Laboratory Data Attestation: I reviewed the patient's lab results. Result diagrams: 12/11/19 16:39 12/11/19 16:39 Lab Results 12/11/19 12/11/19 12/11/19 Range/Units 16:39 16:39 17:40 WBC 5.23 (4.8-10.8) K/uL RBC 4.92 (4.2-5.4) M/uL Hgb 13.3 (12.0-16.0) g/dL Hct 40.8 (37-47) % MCV 82.9 (80-100) fL MCH 27.0 (25-34) pg MCHC 32.6 (32-36) g/dL RDW Std Deviation 48.1 H (36.4-46.3) fL RDW Coeff of Nolan 15.8 H (11.5-14.5) % Plt Count 221 (130-400) K/uL MPV 10.4 (7.4-10.4) fL Immature Gran % (Auto) 0.4 % Neut % (Auto) 61.0 % Lymph % (Auto) 27.9 % Mclean % (Auto) 9.0 % Eos % (Auto) 1.5 % Baso % (Auto) 0.2 % Immature Gran # (Auto) 0.02 (0.00-0.02) K/uL Neut # (Auto) 3.19 (1.4-6.5) K/uL Lymph # (Auto) 1.46 (1.2-3.4) K/uL Mclean # (Auto) 0.47 (0.11-0.59) K/uL Eos # (Auto) 0.08 (0-0.5) K/uL Baso # (Auto) 0.01 (0-0.2) K/uL Sodium 137 (136-145) mmol/L Potassium 3.7 (3.5-5.1) mmol/L Chloride 104 (98-107) mmol/L Carbon Dioxide 26 (21-32) mmol/L Anion Gap 7.0 (3-11) BUN 23 H (7-18) mg/dl Creatinine 0.97 (0.6-1.2) mg/dl Est Cr Clr Drug Dosing 32.5 ml/min Est GFR ( Amer) 60.0 Est GFR (Non-Af Amer) 51.8 BUN/Creatinine Ratio 23.8 H (10-20) Glucose 185 H (70-99) mg/dl POC Glucose (70-99) mg/dl Calcium 9.5 (8.5-10.1) mg/dl Total Bilirubin 0.6 (0.2-1) mg/dl AST 15 (15-37) U/L ALT 23 (12-78) U/L Alkaline Phosphatase 99 (45-117) U/L Troponin I < 0.015 (0-0.045) ng/ml Total Protein 8.6 H (6.4-8.2) gm/dl Albumin 4.2 (3.4-5.0) gm/dl Globulin 4.4 H (2.5-4.0) gm/dl Albumin/Globulin Ratio 1.0 (0.9-2) Urine Color Yellow Urine Appearance Clear (Clear) Urine pH 7.0 (4.5-7.5) Ur Specific [place] 1.008 (1.000-1.030) Urine Protein 1+ H (Negative) Urine Glucose (UA) Trace H (Negative) Urine Ketones Negative (Negative) Urine Blood Negative (Negative) Urine Nitrite Negative (Negative) Urine Bilirubin Negative (Negative) Urine Urobilinogen Negative (Negative) Ur Leukocyte Esterase Negative (Negative) Urine WBC (Auto) 1-5 (0-5) /hpf Urine RBC (Auto) 0-4 (0-4) /hpf U Hyaline Cast (Auto) 0 (0-5) /lpf U Epithel Cells (Auto) 0-5 (0-5) /lpf Urine Bacteria (Auto) Negative (Negative) 12/11/19 Range/Units 20:36 WBC (4.8-10.8) K/uL RBC (4.2-5.4) M/uL Hgb (12.0-16.0) g/dL Hct (37-47) % MCV (80-100) fL MCH (25-34) pg MCHC (32-36) g/dL RDW Std Deviation (36.4-46.3) fL RDW Coeff of Nolan (11.5-14.5) % Plt Count (130-400) K/uL MPV (7.4-10.4) fL Immature Gran % (Auto) % Neut % (Auto) % Lymph % (Auto) % Mclean % (Auto) % Eos % (Auto) % Baso % (Auto) % Immature Gran # (Auto) (0.00-0.02) K/uL Neut # (Auto) (1.4-6.5) K/uL Lymph # (Auto) (1.2-3.4) K/uL Mclean # (Auto) (0.11-0.59) K/uL Eos # (Auto) (0-0.5) K/uL Baso # (Auto) (0-0.2) K/uL Sodium (136-145) mmol/L Potassium (3.5-5.1) mmol/L Chloride (98-107) mmol/L Carbon Dioxide (21-32) mmol/L Anion Gap (3-11) BUN (7-18) mg/dl Creatinine (0.6-1.2) mg/dl Est Cr Clr Drug Dosing ml/min Est GFR ( Amer) Est GFR (Non-Af Amer) BUN/Creatinine Ratio (10-20) Glucose (70-99) mg/dl POC Glucose 153 H (70-99) mg/dl Calcium (8.5-10.1) mg/dl Total Bilirubin (0.2-1) mg/dl AST (15-37) U/L ALT (12-78) U/L Alkaline Phosphatase (45-117) U/L Troponin I (0-0.045) ng/ml Total Protein (6.4-8.2) gm/dl Albumin (3.4-5.0) gm/dl Globulin (2.5-4.0) gm/dl Albumin/Globulin Ratio (0.9-2) Urine Color Urine Appearance (Clear) Urine pH (4.5-7.5) Ur Specific [place] (1.000-1.030) Urine Protein (Negative) Urine Glucose (UA) (Negative) Urine Ketones (Negative) Urine Blood (Negative) Urine Nitrite (Negative) Urine Bilirubin (Negative) Urine Urobilinogen (Negative) Ur Leukocyte Esterase (Negative) Urine WBC (Auto) (0-5) /hpf Urine RBC (Auto) (0-4) /hpf U Hyaline Cast (Auto) (0-5) /lpf U Epithel Cells (Auto) (0-5) /lpf Urine Bacteria (Auto) (Negative) Administered Medications Discontinued Medications Labetalol HCl (Normodyne) 10 mg IV NOW STA Stop: 12/11/19 16:37 Last Admin: 12/11/19 16:50 Dose: 10 mg Documented by: [id number] Cosigned by: [id number] Labetalol HCl (Normodyne) 5 mg IV NOW STA Stop: 12/11/19 17:21 Last Admin: 12/11/19 17:36 Dose: 5 mg Documented by: [id number] Cosigned by: [id number] Labetalol HCl (Normodyne) 10 mg IV NOW STA Stop: 12/11/19 20:08 Last Admin: 12/11/19 20:22 Dose: 10 mg Documented by: [id number] Cosigned by: [id number] Lisinopril (Zestril) 2.5 mg PO NOW ONE Stop: 12/11/19 17:47 Last Admin: 12/11/19 18:28 Dose: 2.5 mg Documented by: [id number] Verapamil HCl (Calan Sr) 180 mg PO NOW STA Stop: 12/11/19 18:33 Last Admin: 12/11/19 19:31 Dose: 180 mg Documented by: [id number] Imaging Data Radiologist's Impression: XR chest 1V portable CLINICAL HISTORY: Hypertension. COMPARISON STUDY: Chest radiograph December 26, 2018. FINDINGS: Median sternotomy wires are noted. Note is made of mild cardiomegaly without evidence for pulmonary edema. Mild right lower lung opacity is present. No pneumothorax or pleural effusion is noted. IMPRESSION: Mild right lower lung opacity which may reflect an infectious proce ss or atelectasis. Radiographic follow up to ensure resolution is recommended. Blood Pressure Blood Pressure Findings: Elevated blood pressure Blood Pressure Disposition: further management by hospitalist Discharge Plan Visit Data Chief Complaint: Hypertension Stated Complaint: HTN ED Provider: Julio Camilo ED Midlevel Provider: Shahid Daniels Discharge Problem: Hypertensive urgency, Hypertension, Failure of outpatient treatment Patient Disposition: Being Evaluated by Hospitalist Condition: Good Discharge Instructions Krames/Other Patient Handouts: Hypertension Dc Activity Restrictions/Additional Instructions: You were seen in the hospital for high blood pressure without other symptoms. Your blood pressure improved with IV medications and lisinopril. You have had medication adjustments as noted below. You have been restarted on lisinopril, a blood pressure medication. You recei nicholas a dose of this medicine while you are in the hospital. Please continue to take lisinopril 2.5 mg daily in the morning. Please follow-up with your primary care provider regarding this medication. If you develop any lightheadedness, dizziness, passing out or nearly passing out, rash, lip swelling, or other new or concerning symptoms please stop taking this medicine and contact her primary care provider or return to the emergency department if you are very concerned. You will need to schedule a followup appointment with your PCP Dr. Shea. Please call his office tomorrow to set up and appointment and let him know you were seen in the ED with medication changes made on discharge. You should be seen within 24-48 hours. If you develop any new or worsening symptoms including fever, chills, sweats, chest pain, chest pressure, difficulty breathing, uncontrolled nausea/vomiting, rash, wheezing, passing out or nearly passing out, bleeding, black/bloody bowel movements, or other new or concerning symptoms please call your primary care physician, or call 911 for re-evaluation in the emergency department if you are very concerned. Forms Stand Alone Forms: My [facility] E96, Important Visit Information Prescriptions Prescriptions: New lisinopril 2.5 mg tablet 2.5 mg PO DAILY Qty: 30 RF: 0 No Action atorvastatin 40 mg tablet 40 mg PO HS Qty: 90 RF: 3 verapamil 120 mg capsule,ext rel. pellets 24 hr 120 mg PO HS Qty: 90 RF: 3 (DME) OneTouch Verio strip See Dose Instructions .ROUTE .MEDSUPPLY Qty: 450 RF: 3 Novolog Flexpen U-100 Insulin 100 unit/mL (3 mL) insulin pen See Rx Instructions .ROUTE DAILY Qty: 75 RF: 3 warfarin 2.5 mg tablet See Rx Instructions PO UD 90 Days Qty: 120 RF: 1 Lantus Solostar U-100 Insulin 100 unit/mL (3 mL) insulin pen 13 units subcut HS Qty: 15 RF: 3 (DME) lancets [OneTouch Delica Lancets] 33 gauge misc See Dose Instructions .ROUTE .MEDSUPPLY Qty: 100 RF: 0 (DME) pen needle, diabetic [Novofine 32] 32 gauge x 1/4" needle See Dose Instructions .ROUTE .MEDSUPPLY Qty: 50 RF: 0 docusate sodium 100 mg capsule 100 mg PO QAM RF: 0 lisinopril 5 mg tablet 2.5 mg PO DAILY PRN (Reason: only take when B/P goes up ) Qty: 30 RF: 0 aspirin [Aspirin Low Dose] 81 mg Tablet,Delayed Release (Dr/Ec) 81 mg PO QAM RF: 0 levothyroxine 25 mcg tablet 25 mcg PO QAM RF: 0 cholecalciferol (vitamin D3) [Vitamin D3] 1,000 unit Tablet 1,000 unit PO DAILY@1200 RF: 0 Simbrinza 1-0.2 % drops,suspension 1 drp OPB BID RF: 0 pantoprazole [Protonix] 40 mg tablet,delayed release (DR/EC) 40 mg PO QAM RF: 0 Referrals Referrals: Shahid Shea MD [Primary Care Provider] - Discharge Problem: Hypertension Qualifiers: Hypertension type: unspecified Qualified Code(s): I10 - Essential (primary) hypertension
[2019-12-11 17:19] LABS: Alanine Aminotransferase 23 U/L (12-78); Albumin Level 4.2 gm/dl (3.4-5.0); Aspartate Aminotransferase 15 U/L (15-37); BUN Creatinine Ratio 23.8 (10-20); Blood Urea Nitrogen 23 mg/dl (7-18); Calcium 9.5 mg/dl (8.5-10.1); Carbon Dioxide 26 mmol/L (21-32); Chloride 104 mmol/L (98-107); Creatinine Clr Calc Pharmacy 32.5 ml/min; Est GFR (Non-African American) 51.8; Glucose 185 mg/dl (70-99); Potassium 3.7 mmol/L (3.5-5.1); Sodium 137 mmol/L (136-145)
[2019-12-11 17:24] LABS: Alkaline Phosphatase 99 U/L (45-117); Bilirubin,Total 0.6 mg/dl (0.2-1); Globulin 4.4 gm/dl (2.5-4.0); Total Protein 8.6 gm/dl (6.4-8.2); Troponin I < 0.015 ng/ml (0-0.045)
[2019-12-11] MEDS ORDERED: lisinopriL 5 MG TAB PO ONE (17:46)
[2019-12-11 17:59] LABS: Appearance Urine Clear (Clear); Bacteria Urine Automated Negative (Negative); Bilirubin Urine Negative (Negative); Blood Urine Negative (Negative); Cast Urine Automated 0 /lpf (0-5); Color Urine Yellow; Epithelial Cell Urine Auto 0-5 /lpf (0-5); Glucose Urine UA Trace (Negative); Ketones Urine Negative (Negative); Leukocyte Esterase Urine Negative (Negative); Nitrite Urine Negative (Negative); Protein Urine 1+ (Negative); RBC Urine Automated 0-4 /hpf (0-4); Specific Gravity Urine 1.008 (1.000-1.030); Urobilinogen Urine Negative (Negative)
[2019-12-11] MEDS ORDERED: VERAPAMIL HCL 180 MG TABCR PO STA (18:32)
--- NOTE | 2019-12-11 23:12 | History & Physical Report ---
Date of Service December 11, 2019 Assessment & Plan (1) Hypertensive urgency: 89-year-old female with a past medical history of controlled type 1 diabetes, labile hypertension, status post aortic valve replacement, pulmonary hypertension, paroxysmal A. fib, chronic kidney disease stage IIIa who presented to the emergency department for evaluation of elevated blood pressure. 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 - takes 13 units of lantus at bedtime, with sliding scale novolog at meals (usually 3 units, 7 units, 3 units with breakfast, lunch, dinner) - A1c ordered for AM, last 8.3 in 2018 - SSI per unit 3) Paroxysmal Afib on Warfarin - 3.75 mg Warfarin on //, 2.5 mg on ///Reddy - PT/INR ordered for AM 4) GERD without esophagitis - continued home pantoprazole 40 mg daily 5) Hypothyroidism - continued home levothyroxine 25 mcg DVT ppx: SCDs, on warfarin FEN/GI: DM1 diet Dispo: Med/surg with tele Code Status: DNR/DNI (2) Failure of outpatient treatment: (3) Anticoagulant long-term use: (4) Asymptomatic carotid artery stenosis: (5) 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 fib, chronic kidney disease stage IIIa who presented to the emergency department for evaluation of elevated blood pressure. She states that she was on the phone with her daughter earlier today talking for an extended amount of time and feels that she got overly excited during the phone call and noted that her blood pressure was very high. After this she brought herself to the emergency department for evaluation where her BP was 250/117. She received multiple doses of IV labetalol, 180 mg verapamil and 2.5 mg lisinopril in the emergency department. Her blood pressure did eventually slowly come down with the medications and after extensive discussion with the emergency department resident. She denies any blurring of vision, headache, nausea, weakness, tingling, stomach pain, chest pain with the elevated blood pressures. She states her blood pressure has a history of going up quickly as well as a history of hypotension. She denies any pain or discomfort at this time. Primary Care Provider: Shahid Shea MD Allergies Allergy/AdvReac Type Severity Reaction Status Date / Time Penicillins Allergy Unknown UNKNOWN Verified 12/11/19 17:26 Sulfa (Sulfonamide Allergy Unknown SEVERE Verified 12/11/19 17:26 Antibiotics) HIVES tramadol Allergy Unknown UNKNOWN Verified 12/11/19 17:26 Home Medications Home Medications Medication Instructions Recorded Confirmed Type Simbrinza 1 drp OPB BID 10/30/18 12/11/19 History aspirin [Aspirin Low Dose] 81 mg PO QAM 10/30/18 12/11/19 History cholecalciferol (vitamin D3) 1,000 unit PO DAILY@1200 10/30/18 12/11/19 History [Vitamin D3] levothyroxine 25 mcg PO QAM 10/30/18 12/11/19 History atorvastatin 40 mg tablet 40 mg PO HS #90 tab 01/30/19 12/11/19 Rx blood sugar diagnostic #450 ea 03/16/19 10/10/19 Rx verapamil 120 mg 24 hr 120 mg PO HS #90 cap 03/16/19 12/11/19 Rx capsule,extended release docusate sodium 100 mg capsule 100 mg PO QAM 03/21/19 12/11/19 History Novolog Flexpen U-100 Insulin 100 See Rx Instructions .ROUTE DAILY 04/06/19 12/11/19 Rx unit/mL (3 mL) subcutaneous #75 ml NS warfarin 2.5 mg tablet See Rx Instructions PO UD 90 Days 07/04/19 12/11/19 Rx #120 tab lancets 33 gauge #100 ea 08/16/19 10/10/19 History pen needle, diabetic 32 gauge x #50 ea 08/16/19 10/10/19 History 1/4" Lantus Solostar U-100 Insulin 100 13 units SUBCUT HS #15 ml NS 08/31/19 12/11/19 Rx unit/mL (3 mL) subcutaneous pen lisinopril 5 mg tablet 2.5 mg PO DAILY PRN #30 tab 10/10/19 12/11/19 Rx lisinopril 2.5 mg PO DAILY #30 tab 12/11/19 Rx pantoprazole [Protonix] 40 mg PO QAM 12/11/19 12/11/19 History Past Med/Surg History Medical History Accelerated hypertension Acquired claw toe of left foot Acquired claw toe of right foot Adult situational stress disorder (Inactive) Anemia (Inactive) Anxiety (Inactive) Callus Carpal tunnel syndrome (Resolved) CVA (cerebral vascular accident) (Inactive 2018) ?"very small right pontine infarct" Dyslipidemia (Inactive) Foot deformity (Inactive) Glaucoma (Inactive) Hallux abducto valgus, bilateral Edward's thyroiditis (Inactive) Hearing loss (Inactive) History of basal cell carcinoma (Resolved) History of TIA (transient ischemic attack) (Resolved 2017) Left lumbar radiculopathy (Inactive) Loss of protective sensation of skin of foot (Resolved) Low back pain (Inactive) Migraine syndrome (Inactive 2017) Moderate tricuspid regurgitation Osteopenia (Inactive) Pancytopenia (Inactive 2019) 2020: resolved Sensation of fullness in both ears (Inactive) Single vessel coronary artery disease Tinnitus (Inactive) Surgical History History of aortic valve replacement with bioprosthetic valve History of Mohs micrographic surgery for skin cancer S/P CABG (coronary artery bypass graft) S/P cataract extraction S/P tonsillectomy S/P tubal ligation Family History Mother Myocardial infarction Stroke Heart disease Hypertension Father Stroke Myocardial infarction Heart disease Diabetes Sister Breast cancer Stroke Daughter Breast cancer Other specified hearing loss, bilateral Brother Stroke Other Atrial fibrillation Denies family history of Ovarian cancer Prostate cancer Lung cancer Colorectal cancer Social History Preferred Language: Hebrew Communication Ability: Effective Visual Impairment: Limited Hearing Ability: Use of Hearing Aid 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 current occupational status: retired Other Information That Helps Us Care for You: No Feels Safe at Home: Yes Safety Concerns: Feels Safe At This Time Smoking Status: Never smoker Second Hand Exposure: No ; Hx Alcohol Use: No Hx Substance Use: No Childhood Exposure to Second-Hand Smoke: No caffeine: Yes Dental Care, Regularly: No Physical Activity Frequency: 1-2 Times per Week Seatbelt Use: always Sunscreen Use: No Review of Systems Review of Systems: All systems reviewed & are unremarkable except as noted in Subjective Constitutional: no fever, no body aches, no fatigue and no weakness Eyes: no diplopia, no photophobia and no worsening vision Ear, Nose, Mouth, Throat: + hearing loss (chronic); no dizziness and no facial pain Respiratory: no cough, no dyspnea and no pain on inspiration Cardiovascular: no chest pain, no dyspnea at rest, no palpitations, no lightheadedness, no syncope and no calf pain Gastrointestinal: + constipation; no abdominal pain, no nausea, no vomiting, no hematemesis, no change in stools and no diarrhea/loose stools Neurologic: no unsteadiness, no generalized weakness, no tingling, no numbness, no radiating pain, no dizziness, no headache(s) and no abnormal speech Physical Exam Constitutional: well developed, well nourished and + thin; no acute distress Eyes: PERRL, conjunctivae normal, anicteric sclerae ENMT: external ear and nose normal, oropharynx normal Neck: trachea midline, no thyromegaly Respiratory: normal respiratory effort, lungs clear to auscultation Auscultation: no crackles, no rales, no rhonchi and no wheezes Cardiovascular: Rate/Rhythm: regular rate and regular rhythm Heart Sounds: + murmur (3/6 crescendo decrescendo murmur at left upper sternal border); no gallop radiation of murmur to left carotid, no bruits bilaterally auscultated Gastrointestinal (Abdomen): Inspection/Auscultation: abdomen normal to inspection and normal bowel sounds; abdomen not distended Percussion/Palp ation: abdomen soft; abdomen nontender and no guarding Skin: no rashes, warm and dry Psychiatric: Orientation: alert and oriented x 3 Speech: normal rate/rhythm/volume of speech Lymphatic: no cervical lymphadenopathy Results & Data Results & Data ([facility]) Vital Signs (Past 12 Hours) Vital Signs Temp Pulse Resp BP Pulse Ox 12/11/19 22:30 60 16 126/60 12/11/19 22:00 62 15 157/63 H 12/11/19 21:30 60 20 151/66 H 12/11/19 21:00 62 18 166/67 H 12/11/19 20:30 64 18 179/71 H 12/11/19 20:24 71 18 194/74 H 12/11/19 20:02 78 18 232/101 H 12/11/19 20:00 78 18 215/96 H 12/11/19 19:40 73 24 203/90 H 12/11/19 19:30 71 17 195/105 H 12/11/19 19:19 70 15 197/85 H 12/11/19 19:00 69 21 12/11/19 18:30 74 15 12/11/19 18:18 69 15 12/11/19 18:17 70 15 199/79 H 12/11/19 18:14 72 17 204/89 H 12/11/19 18:00 67 15 195/78 H 12/11/19 17:47 75 23 197/80 H 12/11/19 17:30 70 17 214/92 H 100 12/11/19 17:09 69 17 200/119 H 100 12/11/19 17:01 70 17 197/84 H 99 12/11/19 17:00 71 22 99 12/11/19 16:56 69 17 197/82 H 100 12/11/19 16:47 97 12/11/19 16:30 81 18 257/117 H 12/11/19 16:20 78 17 249/104 H 12/11/19 16:18 81 22 12/11/19 16:09 82 20 251/112 H 12/11/19 15:57 36.4 C L 96 H 20 243/108 H 100 12/11/19 12/11/19 12/11/19 Range/Units 20:36 17:40 16:39 WBC (4.8-10.8) K/uL RBC (4.2-5.4) M/uL Hgb (12.0-16.0) g/dL Hct (37-47) % MCV (80-100) fL MCH (25-34) pg MCHC (32-36) g/dL RDW Std Deviation (36.4-46.3) fL RDW Coeff of Nolan (11.5-14.5) % Plt Count (130-400) K/uL MPV (7.4-10.4) fL Immature Gran % (Auto) % Neut % (Auto) % Lymph % (Auto) % [place] % (Auto) % Eos % (Auto) % Baso % (Auto) % Immature Gran # (Auto) (0.00-0.02) K/uL Neut # (Auto) (1.4-6.5) K/uL Lymph # (Auto) (1.2-3.4) K/uL [place] # (Auto) (0.11-0.59) K/uL Eos # (Auto) (0-0.5) K/uL Baso # (Auto) (0-0.2) K/uL Sodium 137 (136-145) mmol/L Potassium 3.7 (3.5-5.1) mmol/L Chloride 104 (98-107) mmol/L Carbon Dioxide 26 (21-32) mmol/L Anion Gap 7.0 (3-11) BUN 23 H (7-18) mg/dl Creatinine 0.97 (0.6-1.2) mg/dl Est Cr Clr Drug Dosing 32.5 ml/min Est GFR ( Amer) 60.0 Est GFR (Non-Af Amer) 51.8 BUN/Creatinine Ratio 23.8 H (10-20) Glucose 185 H (70-99) mg/dl POC Glucose 153 H (70-99) mg/dl Calcium 9.5 (8.5-10.1) mg/dl Total Bilirubin 0.6 (0.2-1) mg/dl AST 15 (15-37) U/L ALT 23 (12-78) U/L Alkaline Phosphatase 99 (45-117) U/L Troponin I < 0.015 (0-0.045) ng/ml Total Protein 8.6 H (6.4-8.2) gm/dl Albumin 4.2 (3.4-5.0) gm/dl Globulin 4.4 H (2.5-4.0) gm/dl Albumin/Globulin Ratio 1.0 (0.9-2) Urine Color Yellow Urine Appearance Clear (Clear) Urine pH 7.0 (4.5-7.5) Ur Specific [place] 1.008 (1.000-1.030) Urine Protein 1+ H (Negative) Urine Glucose (UA) Trace H (Negative) Urine Ketones Negative (Negative) Urine Blood Negative (Negative) Urine Nitrite Negative (Negative) Urine Bilirubin Negative (Negative) Urine Urobilinogen Negative (Negative) Ur Leukocyte Esterase Negative (Negative) Urine WBC (Auto) 1-5 (0-5) /hpf Urine RBC (Auto) 0-4 (0-4) /hpf U Hyaline Cast (Auto) 0 (0-5) /lpf U Epithel Cells (Auto) 0-5 (0-5) /lpf Urine Bacteria (Auto) Negative (Negative) 12/11/19 Range/Units 16:39 WBC 5.23 (4.8-10.8) K/uL RBC 4.92 (4.2-5.4) M/uL Hgb 13.3 (12.0-16.0) g/dL Hct 40.8 (37-47) % MCV 82.9 (80-100) fL MCH 27.0 (25-34) pg MCHC 32.6 (32-36) g/dL RDW Std Deviation 48.1 H (36.4-46.3) fL RDW Coeff of Nolan 15.8 H (11.5-14.5) % Plt Count 221 (130-400) K/uL MPV 10.4 (7.4-10.4) fL Immature Gran % (Auto) 0.4 % Neut % (Auto) 61.0 % Lymph % (Auto) 27.9 % [place] % (Auto) 9.0 % Eos % (Auto) 1.5 % Baso % (Auto) 0.2 % Immature Gran # (Auto) 0.02 (0.00-0.02) K/uL Neut # (Auto) 3.19 (1.4-6.5) K/uL Lymph # (Auto) 1.46 (1.2-3.4) K/uL [place] # (Auto) 0.47 (0.11-0.59) K/uL Eos # (Auto) 0.08 (0-0.5) K/uL Baso # (Auto) 0.01 (0-0.2) K/uL Sodium (136-145) mmol/L Potassium (3.5-5.1) mmol/L Chloride (98-107) mmol/L Carbon Dioxide (21-32) mmol/L Anion Gap (3-11) BUN (7-18) mg/dl Creatinine (0.6-1.2) mg/dl Est Cr Clr Drug Dosing ml/min Est GFR ( Amer) Est GFR (Non-Af Amer) BUN/Creatinine Ratio (10-20) Glucose (70-99) mg/dl POC Glucose (70-99) mg/dl Calcium (8.5-10.1) mg/dl Total Bilirubin (0.2-1) mg/dl AST (15-37) U/L ALT (12-78) U/L Alkaline Phosphatase (45-117) U/L Troponin I (0-0.045) ng/ml Total Protein (6.4-8.2) gm/dl Albumin (3.4-5.0) gm/dl Globulin (2.5-4.0) gm/dl Albumin/Globulin Ratio (0.9-2) Urine Color Urine Appearance (Clear) Urine pH (4.5-7.5) Ur Specific [place] (1.000-1.030) Urine Protein (Negative) Urine Glucose (UA) (Negative) Urine Ketones (Negative) Urine Blood (Negative) Urine Nitrite (Negative) Urine Bilirubin (Negative) Urine Urobilinogen (Negative) Ur Leukocyte Esterase (Negative) Urine WBC (Auto) (0-5) /hpf Urine RBC (Auto) (0-4) /hpf U Hyaline Cast (Auto) (0-5) /lpf U Epithel Cells (Auto) (0-5) /lpf Urine Bacteria (Auto) (Negative) Supervising Physician Co-Signing Physician Notes Attending addendum: I have physically seen this patient, have supervised the medical residents activities, and agree with the H&P unless as otherwise noted. Assessment and Plan: Hypertensive urgency/paroxysmal atrial fibrillation- Improved after administration of labetalol IV, oral lisinopril and verapamil. Anxiety component as well. Continue home verapamil 120 mg p.o., would increase to twice daily, which is also used to manage headaches. Follow PT/INR to administer warfarin level. Anxiety- Patient has been on Lexapro in the past, but stopped due to "feeling better". Would suggest she resume Lexapro 10 mg p.o. daily, and consideration of PRN Ativan or Xanax low-dose. Diabetes mellitus- Check hemoglobin A1c. Hold home Lantus. Place on Accu-Cheks before meals and at bedtime Remainder of orders and notations as noted. Resident Activity Tracking Resident Involvement: Resident Care Provided Care Provided: Adult Hospital Medicine
[2019-12-11] MEDS ORDERED: DEXTROSE 50% 50 ML SYRINGE IV PRN (23:25)
[2019-12-11] MEDS ORDERED: CARBOHYDRATES FOR HYPOGLYCEMIA PO PRN (23:25)
[2019-12-11] MEDS ORDERED: GLUCAGON FOR INJ 1 MG VIAL SQ PRN (23:25)
[2019-12-11] MEDS ORDERED: GLUCOSE 40% GEL 15 GM TUBE PO PRN (23:25)
[2019-12-11] MEDS ORDERED: GLUCOSE 10 TABS/TUBE PO PRN (23:25)
[2019-12-11] MEDS ORDERED: WARFARIN SOD 1.25 MG TAB PO SCH (23:30)
[2019-12-12] MEDS: LEVOTHYROXINE SODIUM 25 MCG TABLET PO SCH (06:00)
[2019-12-12 07:07] LABS: INR 2.1 (0.9-1.1); Prothrombin Time 21.2 Seconds (9.0-12.0)
[2019-12-12 08:03] LABS: Estimated Average Glucose 189 mg/dl; Hemoglobin A1C 8.2 % (4.5-5.6)
[2019-12-12] MEDS: INSULIN ASPART 100 UNITS/ML 3 ML PEN SC SCH ×4 (08:18→21:30)
[2019-12-12] MEDS: PANTOprazole 40 MG TAB PO SCH (08:19)
[2019-12-12] MEDS: ASPIRIN 81 MG ECTAB PO SCH (08:19)
[2019-12-12] MEDS ORDERED: DOCUSATE SODIUM 100 MG CAP PO SCH (09:00)
[2019-12-12] MEDS: CHOLECALCIFEROL 1,000 UNITS 25 MCG TAB PO SCH (12:27)
[2019-12-12] MEDS ORDERED: INSULIN GLARGINE SOLOSTAR 100 UNITS/ML 3 ML PEN SC ONE (15:15)
[2019-12-12] MEDS: WARFARIN SOD 2.5 MG TAB PO SCH (15:43)
--- NOTE | 2019-12-12 19:08 | Hospitalist Progress Note ---
Date of Service December 12, 2019 Assessment & Plan (1) Hypertensive urgency: Known labile blood pressure although no previous pheochromocytoma workup (lability but no symptoms would suggest this). Since it is longstanding will defer current workup for this. - resolved with multiple doses of IV labetalol therefore reluctant to discharge since likely will rebound. - Despite lability with hypotension and occasional lightheadedness noticed by family she has had no syncopal events therefore will increase her anti- hypertensives with lisinopril 5mg HS in addition to her verapamil. Noted pattern of increased anti-hypertensives required during prior hospitalizations however and usually is reduced in office, previously discussed with her PCP. Therefore reluctant to increase above this. Appreciate physician relations specialist note from Dr Sauceda. - Noted syncopal event in October 2018 but she was in a. fib at that time although was rate controlled possibly her perfusion is worse while in a. fib - there was also some dehydration related to this episode. - suspect wide pulse pressure related to stiffness of arteries. 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 Give 5 units lantus now, reduce dose tonight to 8 units to make her usual 13. Changed insulin sliding scale as patient concerned she was not getting her usual doses. (3) GERD without esophagitis: Continue PO pantoprazole 40 mg daily (4) PAF (paroxysmal atrial fibrillation): - 3.75 mg Warfarin on //, 2.5 mg on ///Reddy - PT/INR 2.1 therefore will continue her usual dosing. (5) Chronic kidney disease, stage 3a: Stable. Avoid NSAIDs (6) Hypothyroidism: TSH WNL Continue levothyroxine 25 mcg daily Admission and Anticipated Discharge Date Admission Date: December 11, 2019 Subjective Patient currently feels well with no headache, vision changes. She notes occasional symptoms when her blood pressure gets quite high. Review of Systems Review of Systems: All systems reviewed & are unremarkable except as noted in HPI & below Physical Exam Constitutional: well developed, well nourished and + thin; no acute distress Eyes: PERRL, conjunctivae normal, anicteric sclerae ENMT: external ear and nose normal, oropharynx normal Neck: trachea midline, no thyromegaly Respiratory: normal respiratory effort, lungs clear to auscultation Auscultation: no crackles, no rales, no rhonchi and no wheezes Cardiovascular: Rate/Rhythm: regular rate and regular rhythm Heart Sounds: + murmur (LUSB systolic) Gastrointestinal (Abdomen): Inspection/Auscultation: abdomen normal to inspection and normal bowel sounds; abdomen not distended Percussio n/Palpation: abdomen soft; abdomen nontender and no guarding Skin: no rashes, warm and dry Psychiatric: Orientation: alert and oriented x 3 Results & Data Results & Data ([facility]) Vital Signs (Past 12 Hours) Vital Signs Temp Pulse Pulse Resp BP Pulse Ox 12/12/19 18:55 36.6 C 65 18 214/78 H 98 12/12/19 16:08 67 12/12/19 15:30 36.6 C 61 16 193/78 H 99 12/12/19 11:27 67 18 174/56 H 100 12/12/19 07:29 62 12/12/19 07:10 36.8 C 68 18 152/77 H 98 PG Care Time/CCT Total # of Minutes Spent Total Time Spent with Patient: Total time spent is greater than 50% in coordination of care (as documented) at patient's floor/unit and/or counseling patient: Coding Level of Care Code 76896 Subseq Hosp Care Lvl 2 Diagnoses Hypertensive urgency I16.0 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
[2019-12-12] MEDS ORDERED: LABETALOL HCL IV 5 MG/ML 20ML IV STA (19:11)
[2019-12-12] MEDS ORDERED: LABETALOL HCL IV 5 MG/ML 20ML IV ONE (19:20)
[2019-12-12] MEDS ORDERED: HydrALAZINE HCL 20 MG/ML VIAL IV ONE (20:21)
[2019-12-12] MEDS ORDERED: INSULIN GLARGINE SOLOSTAR 100 UNITS/ML 3 ML PEN SQ SCH ×2 (21:00)
[2019-12-12] MEDS ORDERED: VERAPAMIL HCL 120 MG TABCR PO SCH (21:00)
[2019-12-12] MEDS ORDERED: ATORVASTATIN 40 MG TAB PO SCH (21:00)
[2019-12-12] MEDS: DOCUSATE SODIUM 100 MG CAP PO SCH (21:27)
--- NOTE | 2019-12-12 22:05 | Electrocardiogram Report ---
Test Reason : Blood Pressure : / mmHG Vent. Rate : 089 BPM Atrial Rate : 089 BPM P-R Int : 172 ms QRS Dur : 088 ms QT Int : 356 ms P-R-T Axes : 040 038 067 degrees QTc Int : 433 ms Normal sinus rhythm Nonspecific ST abnormality Abnormal ECG Confirmed by Matias Mccoy ([id number]) on 12/12/2019 10:04:54 PM Referred By: REFERRED SELF Confirmed By:Matias Mccoy
[2019-12-13] MEDS ORDERED: LABETALOL HCL IV 5 MG/ML 20ML IV STA (02:07)
--- NOTE | 2019-12-13 05:13 | Billing Data ---
Date of Service December 13, 2019 Coding Level of Care Code 78314 OBS Care - Level 3
[2019-12-13] MEDS: LEVOTHYROXINE SODIUM 25 MCG TABLET PO SCH (05:37)
[2019-12-13 06:20] LABS: INR 3.1 (0.9-1.1); Prothrombin Time 30.8 Seconds (9.0-12.0)
[2019-12-13 06:40] LABS: Albumin Level 3.5 gm/dl (3.4-5.0); BUN Creatinine Ratio 22.5 (10-20); Creatinine Clr Calc Pharmacy 33.2 ml/min; Est GFR (African American) 61.5; Est GFR (Non-African American) 53.1; Potassium 3.9 mmol/L (3.5-5.1)
[2019-12-13 06:45] LABS: Bilirubin,Total 0.4 mg/dl (0.2-1); Globulin 3.6 gm/dl (2.5-4.0); Total Protein 7.1 gm/dl (6.4-8.2)
[2019-12-13] MEDS: INSULIN ASPART 100 UNITS/ML 3 ML PEN SC SCH ×3 (08:35→17:25)
[2019-12-13] MEDS: PANTOprazole 40 MG TAB PO SCH (08:37)
[2019-12-13] MEDS: ASPIRIN 81 MG ECTAB PO SCH (08:37)
[2019-12-13] MEDS: DOCUSATE SODIUM 100 MG CAP PO SCH (08:37)
[2019-12-13] MEDS: CHOLECALCIFEROL 1,000 UNITS 25 MCG TAB PO SCH (12:23)
[2019-12-13] MEDS ORDERED: WARFARIN SOD 1.25 MG TAB PO SCH (16:00)
[2019-12-13] MEDS: WARFARIN SOD 2.5 MG TAB PO SCH (16:33)
--- NOTE | 2019-12-13 18:53 | Discharge Summary ---
Date of Service December 13, 2019 Principal Diagnosis Hypertensive urgency Discharge Exam Constitutional well developed, well nourished and + thin; no acute distress Eyes PERRL, conjunctivae normal, anicteric sclerae ENMT external ear and nose normal, oropharynx normal Neck trachea midline, no thyromegaly Respiratory normal respiratory effort, lungs clear to auscultation Auscultation: no crackles, no rales, no rhonchi and no wheezes Cardiovascular Rate/Rhythm: regular rate and regular rhythm Heart Sounds: + murmur (LUSB systolic) Gastrointestinal (Abdomen) Inspection/Auscultation: abdomen normal to inspection and normal bowel sounds; abdomen not distended Percussion/Palpation: abdomen soft; abdomen nontender and no guarding Skin no rashes, warm and dry Psychiatric Orientation: alert and oriented x 3 Discharge Data Allergies Allergy/AdvReac Type Severity Reaction Status Date / Time Penicillins Allergy Unknown UNKNOWN Verified 12/11/19 17:26 Sulfa (Sulfonamide Allergy Unknown SEVERE Verified 12/11/19 17:26 Antibiotics) HIVES tramadol Allergy Unknown UNKNOWN Verified 12/11/19 17:26 Consultations 12/11/19 20:12 ED Decision to Admit Stat 12/11/19 20:21 ED Decision to Admit Stat Hospital Course (1) Hypertensive urgency: Michaela Saleh is an 89 year old female admitted to [facility] from December 10 to 2019 due to hypertensive urgency. She required multiple doses of IV labetalol initially to bring this down. She reported no symptoms related to this blood pressure. She is known to have a labile blood pressure especially rising while in hospital or with anxiety. On previous discharge summaries it had been noted she would be prescribed extra medications while admitted but then this would be discontinued as outpatient therefore I am reluctant to significant increase her medications as clearly some concern for hypotension episode although the only syncopal event I am aware of was when she was in atrial fibrillation at the same time. Unfortunately I was unable to contact her PCP prior to discharge but her daughter did manage to contact both her PCP and software writer. Appreciate note from Dr Martínez in chart. Based on notes from Dr Sauceda and Dr Martínez she will be discharged with advice to take her lisinopril regularly in addition to a clonidine PRN sent prescribed by Dr Martínez. Recommended she contacts her PCP tomorrow for ongoing advice regarding management of her blood pressure. I advised her daughter to bring her mother back to the ER if she has any chest pain, vision changes, dizziness or headache. 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, with long- term current use of insulin: (3) GERD without esophagitis: (4) PAF (paroxysmal atrial fibrillation): (5) Chronic kidney disease, stage 3a: (6) Hypothyroidism: Total Time Total Time Spent Total Time Spent (In Minutes): 35 Total Time Includes: Examination of the Patient, Discharge Planning and Medication Reconciliation Discharge Plan Discharge Items Patient Disposition: Home - Self-Care Reason For Visit: UNCONTROLLED HTN Discharge Diagnosis: Hypertensive urgency Condition on Discharge: Good Activity: Resume your previous activity Non-emergency contact: Primary Care Provider Call non-emergency contact if: you have any medication questions and your symptoms worsen Follow-up/Referrals: Shahid Shea MD [Primary Care Provider] - Diet: Carb Count or DM1 Addtl Attending Provider Instructions: You were admitted to [facility] from December 10 to 2019 due to hypertensive urgency. This was treated with multiple intravenous medications on admission and is an ongoing issue related to anxiety. Recommend taking your lisinopril 2.5mg PO daily regularly until further advice from your primary care physician and software writer. As per your software writer recommendation a clonidine prescription was sent to your pharmacy. Recommend taking clonidine 0.1mg 1-2 times daily PRN for systolic blood pressure greater than 180. Pending Studies at Discharge: No Stand-Alone Forms: My [facility], Smoking Cessation Medications and DC Order Prescriptions: New lisinopril 2.5 mg tablet 2.5 mg PO DAILY Qty: 30 RF: 0 Continued atorvastatin 40 mg tablet 40 mg PO HS Qty: 90 RF: 3 verapamil 120 mg capsule,ext rel. pellets 24 hr 120 mg PO HS Qty: 90 RF: 3 (DME) OneTouch Verio strip See Dose Instructions .ROUTE .MEDSUPPLY Qty: 450 RF: 3 Novolog Flexpen U-100 Insulin 100 unit/mL (3 mL) insulin pen See Rx Instructions .ROUTE DAILY Qty: 75 RF: 3 warfarin 2.5 mg tablet See Rx Instructions PO UD 90 Days Qty: 120 RF: 1 Lantus Solostar U-100 Insulin 100 unit/mL (3 mL) insulin pen 13 units subcut HS Qty: 15 RF: 3 clonidine HCl 0.1 mg tablet 0.1 mg PO .COMPLEX Qty: 60 RF: 11 (DME) lancets [OneTouch Delica Lancets] 33 gauge misc See Dose Instructions .ROUTE .MEDSUPPLY Qty: 100 RF: 0 (DME) pen needle, diabetic [Novofine 32] 32 gauge x 1/4" needle See Dose Instructions .ROUTE .MEDSUPPLY Qty: 50 RF: 0 docusate sodium 100 mg capsule 100 mg PO QAM RF: 0 lisinopril 5 mg tablet 2.5 mg PO DAILY PRN (Reason: only take when B/P goes up ) Qty: 30 RF: 0 aspirin [Aspirin Low Dose] 81 mg Tablet,Delayed Release (Dr/Ec) 81 mg PO QAM RF: 0 levothyroxine 25 mcg tablet 25 mcg PO QAM RF: 0 cholecalciferol (vitamin D3) [Vitamin D3] 1,000 unit Tablet 1,000 unit PO DAILY@1200 RF: 0 Simbrinza 1-0.2 % drops,suspension 1 drp OPB BID RF: 0 No Action pantoprazole [Protonix] 40 mg tablet,delayed release (DR/EC) 40 mg PO QAM Qty: 90 RF: 1 Discharge Orders: Discharge Order (Routine); Ordered 12/13/19 Ordered By: Jose Alfredo Hussein Admission Data Admit Date/Time: 12/11/19 22:31 Attending Provider: Jose Alfredo Hussein Admit Provider: Meagan Connell Primary Care Provider: Shahid Shea Other Providers: Rogers Estevez Other Interventions: Discharge Summary Assessment (RN) Last Done: 12/13/19 19:21 DC Date/Time DO NOT enter until pt leaves facility: 12/13/19 20:08 Coding Level of Care Code D/C Day Management >30 mins Diagnoses Hypertensive urgency I16.0 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
[2019-12-16 12:30] LABS: Metanephrine, Plasma 42 pg/mL (<=57); Normetanephrine Plasma 82 pg/mL (<=148); Total Metanephrine Plasma 124 pg/mL (<=205)
== END 2019-12-13 20:08 | disposition home or self-care (01) ==
LOC: ED 15:56 → 2N 22:31 → SUATTDRO 22:31 → INTOOBSV 22:31 → 2N 23:09

== ENCOUNTER 2020-07-02 19:19 | Inpatient (IN) ==
[2020-07-02] MEDS ORDERED: OPTIRAY 320 125ml IV ONE (19:23)
--- NOTE | 2020-07-02 19:34 | CT Scan Report ---
CT head/brain wo con CLINICAL HISTORY: 89 years-old Female with Stroke evaluation . Acute strokelike symptoms TECHNIQUE: Multiple axial CT images of the head were obtained without contrast. A dose lowering tech nique was utilized adhering to the principles of ALARA. COMPARISON: Head CT 12/28/2018. FINDINGS: No acute intracranial hemorrhage, midline shift, intracranial mass, hydrocephalus, territorial ischem ia or abnormal extra-axial collection. Age-related involutional changes. Patchy white matter hypodens ities suggest chronic microvascular ischemic disease. Cerebral vascular calcifications. The calvarium is intact. 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 Prior bilateral lens replacement. Streak artifact from dental amalgam hardware. The paranasal sinuses, mastoid air cells, and middle ear cavities are clear. IMPRESSION: No acute intracranial abnormality. ACT 112: Negative or not required by law. The above report was generated using voice recognition software. It may contain grammatical, syntax o r spelling errors. Electronically signed by: Ray Solorzano M.D. 07/02/2020 7:32 PM
--- NOTE | 2020-07-02 19:45 | CT Scan Report ---
CT angio neck with con, CT angio head w con CLINICAL HISTORY: 89 years-old Female with Stroke evaluation. Acute strokelike symptoms COMPARISON STUDY: Head CT of same day, CTA head and neck 10/30/2018 TECHNIQUE: Following the IV administration of 119 mL of Optiray 320, CT angiogram of the head and nec k was performed from the aortic arch to the skull base. Images are reviewed in the axial, sagittal, a nd coronal planes. 3-D MIPS images are created and assessed. IV contrast was administered without com plication. All measurements were calculated based on NASCET criteria. A dose lowering technique was utilized adhering to the principles of ALARA. CT DOSE: 1134.31 mGy.cm FINDINGS: Prior median sternotomy. The imaged opacified pulmonary artery is unremarkable. Mixed plaque of the t horacic aorta with patency of the innominate and imaged subclavian arteries. Common carotid arteries are patent. Extensive mixed plaque of the carotid bulbs and proximal internal carotid arteries redemo nstrated. Again, this results in approximately 50% stenosis of the proximal cervical segment right IC A and high-grade greater than 70% luminal narrowing of the proximal cervical segment left ICA on imag e 219 series 4. Calcified plaque of the cavernous and supraclinoid segments. The middle and anterior superior arteries are patent. Calcified plaque at the origin of the left vertebral artery is again no kim resulting in at least 50% luminal narrowing. Codominant vertebral arteries. Calcified plaque of t he V4 segments without high-grade stenosis. Patent basilar and posterior cerebral arteries. Cerebral venous sinuses are patent. There is no abnormal intracranial enhancement. Subpleural reticular opacities of the lung apices without pneumothorax. Degenerative changes are note d throughout the spine. No acute fracture. IMPRESSION: 1. Stable exam from 10/30/2018. 2. Severe mixed plaque of the carotid bulbs and proximal cervical segments of the internal carotid ar teries is redemonstrated resulting in at least 50% luminal narrowing on the right and high-grade narr owing with at least 70% stenosis on the left. 3. Calcified plaque at the origin of the left vertebral artery is again noted to result in 50% lumina l narrowing. 4. Additional findings as above. ACT 112: Negative or not required by law. The above report was generated using voice recognition software. It may contain grammatical, syntax o r spelling errors. Electronically signed by: Ray Solorzano M.D. 07/02/2020 7:44 PM
[2020-07-02 19:48] LABS: Basophils # (auto) 0.02 K/uL (0-0.2); Basophils % (auto) 0.2 %; Eosinophils # (auto) 0.09 K/uL (0-0.5); Eosinophils % (auto) 0.7 %; Hematocrit (blood only) 38.3 % (37-47); Hemoglobin 12.4 g/dL (12.0-16.0); Immature Granulocytes # (auto) 0.04 K/uL (0.00-0.02); Immature Granulocytes % (auto) 0.3 %; Lymphocytes # (auto) 2.12 K/uL (1.2-3.4); Lymphocytes % (auto) 17.1 %; Mean Corpuscular Hemoglobin 27.3 pg (25-34); Mean Corpuscular Hgb Conc 32.4 g/dL (32-36); Mean Corpuscular Volume 84.2 fL (80-100); Mean Platelet Volume 10.6 fL (7.4-10.4); Monocytes # (auto) 1.34 K/uL (0.11-0.59); Monocytes % (auto) 10.8 %; Neutrophils # (auto) 8.79 K/uL (1.4-6.5); Neutrophils % (auto) 70.9 %; Platelet Count 203 K/uL (130-400); RDW Coefficient of Variation 14.8 % (11.5-14.5); RDW Standard Deviation 45.8 fL (36.4-46.3); Red Blood Count 4.55 M/uL (4.2-5.4)
[2020-07-02 20:07] LABS: Albumin Level 4.1 gm/dl (3.4-5.0); Aspartate Aminotransferase 16 U/L (15-37); Blood Urea Nitrogen 24 mg/dl (7-18); Calcium 9.4 mg/dl (8.5-10.1); Carbon Dioxide 25 mmol/L (21-32); Chloride 104 mmol/L (98-107); Creatinine Clr Calc Pharmacy 35.6 ml/min; Est GFR (African American) 63.2; Est GFR (Non-African American) 54.5; Glucose 116 mg/dl (70-99); Magnesium 1.9 mg/dl (1.8-2.4); Potassium 3.7 mmol/L (3.5-5.1); Sodium 136 mmol/L (136-145)
[2020-07-02 20:10] LABS: INR 1.2 (0.9-1.1); Partial Thromboplastin Ratio 1.4; Partial Thromboplastin Time 37.8 Seconds (21.0-31.0); Prothrombin Time 12.4 Seconds (9.0-12.0)
--- NOTE | 2020-07-02 20:10 | XRay Report ---
XR chest 1V portable HISTORY: 89 years-old Female cva acute strokelike symptoms COMPARISON: CTA neck of same day, chest radiograph 12/11/2019. TECHNIQUE: Portable AP view of the chest FINDINGS: Prior median sternotomy. Cardiomediastinal and hilar silhouettes are unchanged. Chronic interstitial coarsening. No pneumothorax, pleural effusion, airspace consolidation or overt pulmonary edema. 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 IMPRESSION: Chronic findings as above without acute process. ACT 112: Negative or not required by law. The above report was generated using voice recognition software. It may contain grammatical, syntax o r spelling errors. Electronically signed by: Ray Solorzano M.D. 07/02/2020 8:08 PM
[2020-07-02 20:12] LABS: Alanine Aminotransferase 19 U/L (12-78); Alkaline Phosphatase 111 U/L (45-117); Bilirubin,Total 0.6 mg/dl (0.2-1); Globulin 4.3 gm/dl (2.5-4.0); Total Protein 8.4 gm/dl (6.4-8.2); Troponin I < 0.015 ng/ml (0-0.045)
[2020-07-02] MEDS ORDERED: MAGNESIUM SULFATE / D5W 1 GM/100 ML BAG IV STA (20:37)
[2020-07-02] MEDS ORDERED: cloNIDine HCL 0.1 MG TAB PO ONE (20:37)
--- NOTE | 2020-07-02 20:43 | Emergency Department Note ---
Impression & Plan Acute CVA (cerebrovascular accident), HTN (hypertension) ED Provider Note NAME: JEFFERSON LOUIS AGE: 89 SEX: F : 1930 ARRIVES VIA: Ambulance INFORMANT: Patient ED PROVIDER(S): John Faye DO CHIEF COMPLAINT: Right-sided facial droop and expressive aphasia HPI: Patient is an 89-year-old female with a past medical history of a TIA, CVA, diabetes, hypertension and bioprosthetic heart valve on Eliquis. Patient around 615 had expressive aphasia with a right-sided facial droop. EMS was called and patient was brought into the ER. She had right facial droop and resolved in route. She was found to be hypertensive. Patient denies any headache or change in vision. No chest pain, shortness of breath, nausea, vomiting or diarrhea. She notes she did not take her nighttime medications. She does not believe that she took her Eliquis either. ROS: See above HPI for pertinent positives & negatives. A total of 10 systems reviewed and were otherwise negative. PAST MEDICAL HISTORY:See Below PAST SURGICAL HISTORY:See Below FAMILY HISTORY:See Below SOCIAL HISTORY:See Below HOME MEDICATIONS:See Below ALLERGIES:See Below VITALS:See Below PHYSICAL EXAMINATION: GENERAL: Sitting up in bed, alert, shoveled, nontoxic EYE EXAM: normal conjunctiva. PERRL and EOM's grossly intact. OROPHARYNX: no exudate, no erythema, lips, buccal mucosa, and tongue normal and mucous membranes are moist NECK: supple, no nuchal rigidity, no adenopathy, non-tender LUNGS: Clear to auscultation. Normal chest wall mechanics HEART: no murmurs, S1 normal and S2 normal ABDOMEN: abdomen soft, non-tender, normo-active bowel sounds, no masses, no rebound or guarding. BACK: Back is symmetrical on inspection and there is no deformity, no midline tenderness, no CVA tenderness. SKIN: no rashes and no bruising UPPER EXTREMITIES: upper extremities are grossly normal. LOWER EXTREMITIES: No pitting edema. NEURO EXAM: Normal sensorium, cranial nerves II-XII intact, normal speech but with an expressive aphasia, no weakness of arms, no weakness of legs. No drift. Finger to nose intact. Gross sensation intact. MEDICAL DECISION MAKING: Patient is an 89-year-old female who presents the ER for right-sided facial droop associated with expressive aphasia. Upon arrival the facial droop has resolved. IV was established blood work was obtained. She significantly hypertensive with systolic pressures in the 200s. Stroke alert was called prior to arrival. Labs show a mild leukocytosis of 12,000. No significant anemia BMP on LFTs bilirubin and troponin was negative. UA was contaminated. Patient was febrile and consequently Covid was ordered but negative. Discussed with telestroke and they recommended giving her her oral clonidine in combination with IV magnesium [address] Rogers Curiel for admission. He recommended holding on the clonidine at this time. Patient was updated bedside. Triage Nursing notes reviewed. Prior medical records reviewed Vital Signs: reviewed and remarkable for HTN Differential diagnosis: Differential Diagnosis includes but is not limited to ischemic Stroke, hemorrhagic stroke, bells palsy, mass, neoplasm, migraine headache, seizure, sub arachnoid hemorrhage, TIA, and transient global amnesia. ER treatment provided: See below Diagnostics interpreted by me: ECG: sinus rate 83 Normal axis PVCs present ST wave changes in the lateral leads Cardiac Monitoring: An order was placed for continuous cardiac monitoring. The monitor shows a rate of 85 with sinus rhythm. Laboratory studies: As stated above and show below. Imaging studies: CT angios as well as CT head shows no acute pathology Chest x-ray was unremarkable Consultation(s): Discussed with Kate [facility] recommended treating as a stroke at this time and holding on TPA. ED COURSE: Procedures: none Critical Care: None Past Med/Surg History Medical History (Updated 07/02/20 @ 22:50 by John Faye DO) Accelerated hypertension Acquired claw toe of left foot Acquired claw toe of right foot Adult situational stress disorder Anemia Anxiety Callus Carpal tunnel syndrome CVA (cerebral vascular accident) (2018) ?"very small right pontine infarct" Dyslipidemia Foot deformity Glaucoma Hallux abducto valgus, bilateral Edward's thyroiditis Hearing loss History of basal cell carcinoma History of TIA (transient ischemic attack) (2017) Hypertensive urgency Left lumbar radiculopathy Loss of protective sensation of skin of foot Low back pain Migraine syndrome (2017) Moderate tricuspid regurgitation Osteopenia Pancytopenia (2019) 2020: resolved Sensation of fullness in both ears Single vessel coronary artery disease Tinnitus Surgical History History of aortic valve replacement with bioprosthetic valve History of Mohs micrographic surgery for skin cancer S/P CABG (coronary artery bypass graft) S/P cataract extraction S/P tonsillectomy S/P tubal ligation Family History Mother Myocardial infarction Stroke Heart disease Hypertension Father Stroke Myocardial infarction Heart disease Diabetes Sister Breast cancer Stroke Daughter Breast cancer Other specified hearing loss, bilateral Brother Stroke Other Atrial fibrillation Denies family history of Ovarian cancer Prostate cancer Lung cancer Colorectal cancer Social History (Updated 06/12/20 @ 13:49 by Elaina Hwang) Smoking Status: Never smoker Second Hand Exposure: No; Hx Alcohol Use: No Hx Substance Use: No Preferred Language: Turkmen Communication Ability: Effective Visual Impairment: Limited Hearing Ability: Use of Hearing Aid Wafer Cleaner Required: No Beliefs That Will Affect Care: None marital status: / Current Living Situation: Family Current Living Situation Comment: Lives with son. current occupational status: retired How many Children do You have: 6 Feels Safe at Home: Yes Childhood Exposure to Second-Hand Smoke: No caffeine: Yes Dental Care, Regularly: No Physical Activity Frequency: Daily Physical Activity Frequency Comment: work outdoors Seatbelt Use: always Sunscreen Use: No (wears a hat) Do you think of yourself as: straight/heterosexual Assistive Devices: Hearing Aid - Left Allergies Allergies Allergy/AdvReac Type Severity Reaction Status Date / Time Penicillins Allergy Unknown UNKNOWN Verified 07/02/20 20:35 Sulfa (Sulfonamide Allergy Unknown SEVERE Verified 07/02/20 20:35 Antibiotics) HIVES tramadol Allergy Unknown UNKNOWN Verified 07/02/20 20:35 Home Meds Home Medications Medication Instructions Recorded Confirmed Simbrinza 1 drp OPB BID 10/30/18 07/02/20 aspirin [Aspirin Low Dose] 81 mg PO QAM 10/30/18 07/02/20 cholecalciferol (vitamin D3) 1,000 unit PO DAILY@1200 10/30/18 07/02/20 [Vitamin D3] docusate sodium 100 mg capsule 100 mg PO QAM 03/21/19 07/02/20 lorazepam 0.5 mg tablet 0.25 mg PO DAILY PRN tab 01/26/20 07/02/20 anastrozole 1 mg tablet 1 mg PO DAILY 03/12/20 07/02/20 insulin glargine 100 unit/mL (3 12 unit SUBCUT HS ml 03/14/20 07/02/20 mL) subcutaneous pen clonidine HCl 0.1 mg tablet 0.1 mg PO DAILY PRN tab 04/11/20 07/02/20 Previous Rx's Medication Instructions Recorded atorvastatin 40 mg tablet 40 mg PO HS #90 tab 02/05/20 pantoprazole 40 mg tablet,delayed 40 mg PO QAM #90 tab 03/14/20 release levothyroxine 25 mcg tablet 25 mcg PO QAM #90 tab 04/10/20 escitalopram oxalate 5 mg tablet 5 mg PO DAILY #90 tab 05/21/20 verapamil 40 mg tablet 40 mg PO .COMPLEX #225 tab 05/28/20 apixaban 5 mg tablet 5 mg PO BID #60 tab 06/06/20 Novolog Flexpen U-100 Insulin 100 See Rx Instructions .ROUTE DAILY 06/21/20 unit/mL (3 mL) subcutaneous #75 ml NS Results & Data (ED) Vital Signs Vital Signs - 24 hr 07/02/20 19:20 07/02/20 19:51 07/02/20 20:03 Temperature 37.9 C H Temperature Source Oral Pulse Rate 90 89 85 Pulse Rate from SpO2 Sensor 90 83 Respiratory Rate 18 18 18 Blood Pressure 213/99 H 200/124 H 204/118 H Blood Pressure Mean 137 133 173 Pulse Oximetry 96 98 98 Oxygen Delivery Method Room Air Sepsis Recent Fever Within 48 Hours Yes Sepsis New/Unexplained Change in Mental Status N/A Sepsis Action Taken by Nursing No Action Required 07/02/20 20:30 07/02/20 20:45 07/02/20 21:15 Temperature Temperature Source Pulse Rate 91 H 83 77 Pulse Rate from SpO2 Sensor 91 H 85 74 Respiratory Rate 18 18 19 Blood Pressure 208/94 H 213/76 H 194/77 H Blood Pressure Mean 163 139 128 Pulse Oximetry 99 99 97 Oxygen Delivery Method Sepsis Recent Fever Within 48 Hours Sepsis New/Unexplained Change in Mental Status Sepsis Action Taken by Nursing 07/02/20 21:30 07/02/20 21:45 07/02/20 22:00 Temperature Temperature Source Pulse Rate 77 76 76 Pulse Rate from SpO2 Sensor 76 76 76 Respiratory Rate 18 18 22 Blood Pressure 195/96 H 183/80 H 189/78 H Blood Pressure Mean 156 143 128 Pulse Oximetry 98 98 97 Oxygen Delivery Method Sepsis Recent Fever Within 48 Hours Sepsis New/Unexplained Change in Mental Status Sepsis Action Taken by Nursing 07/02/20 22:30 Temperature Temperature Source Pulse Rate 83 Pulse Rate from SpO2 Sensor 85 Respiratory Rate 18 Blood Pressure 208/126 H Blood Pressure Mean 171 Pulse Oximetry 98 Oxygen Delivery Method Sepsis Recent Fever Within 48 Hours Sepsis New/Unexplained Change in Mental Status Sepsis Action Taken by Nursing Laboratory Data Result diagrams: 07/02/20 19:34 07/02/20 19:34 Lab Results 07/02/20 07/02/20 07/02/20 Range/Units 19:34 19:34 19:34 WBC 12.40 H (4.8-10.8) K/uL RBC 4.55 (4.2-5.4) M/uL Hgb 12.4 (12.0-16.0) g/dL Hct 38.3 (37-47) % MCV 84.2 (80-100) fL MCH 27.3 (25-34) pg MCHC 32.4 (32-36) g/dL RDW Std Deviation 45.8 (36.4-46.3) fL RDW Coeff of Nolan 14.8 H (11.5-14.5) % Plt Count 203 (130-400) K/uL MPV 10.6 H (7.4-10.4) fL Immature Gran % (Auto) 0.3 % Neut % (Auto) 70.9 % Lymph % (Auto) 17.1 % Bond % (Auto) 10.8 % Eos % (Auto) 0.7 % Baso % (Auto) 0.2 % Neut # (Auto) 8.79 H (1.4-6.5) K/uL Lymph # (Auto) 2.12 (1.2-3.4) K/uL Bond # (Auto) 1.34 H (0.11-0.59) K/uL Eos # (Auto) 0.09 (0-0.5) K/uL Baso # (Auto) 0.02 (0-0.2) K/uL Immature Gran # (Auto) 0.04 H (0.00-0.02) K/uL PT 12.4 H (9.0-12.0) Seconds INR 1.2 H (0.9-1.1) APTT 37.8 H (21.0-31.0) Seconds PTT Ratio 1.4 Sodium 136 (136-145) mmol/L Potassium 3.7 (3.5-5.1) mmol/L Chloride 104 (98-107) mmol/L Carbon Dioxide 25 (21-32) mmol/L Anion Gap 7.0 (3-11) BUN 24 H (7-18) mg/dl Creatinine 0.93 (0.6-1.2) mg/dl Est Cr Clr Drug Dosing 35.6 ml/min Est GFR ( Amer) 63.2 Est GFR (Non-Af Amer) 54.5 BUN/Creatinine Ratio 26.0 H (10-20) Glucose 116 H (70-99) mg/dl Calcium 9.4 (8.5-10.1) mg/dl Magnesium 1.9 (1.8-2.4) mg/dl Total Bilirubin 0.6 (0.2-1) mg/dl AST 16 (15-37) U/L ALT 19 (12-78) U/L Alkaline Phosphatase 111 (45-117) U/L Troponin I < 0.015 (0-0.045) ng/ml Total Protein 8.4 H (6.4-8.2) gm/dl Albumin 4.1 (3.4-5.0) gm/dl Globulin 4.3 H (2.5-4.0) gm/dl Albumin/Globulin Ratio 1.0 (0.9-2) Urine Color Urine Appearance (Clear) Urine pH (4.5-7.5) Ur Specific [place] (1.000-1.030) Urine Protein (Negative) Urine Glucose (UA) (Negative) Urine Ketones (Negative) Urine Blood (Negative) Urine Nitrite (Negative) Urine Bilirubin (Negative) Urine Urobilinogen (Negative) Ur Leukocyte Esterase (Negative) Urine WBC (Auto) (0-5) /hpf Urine RBC (Auto) (0-4) /hpf U Hyaline Cast (Auto) (0-5) /lpf U Epithel Cells (Auto) (0-5) /lpf Urine Bacteria (Auto) (Negative) Ur Renal Epithelial Cell (0-5) /lpf COVID-19 Eval Order COVID-19 PCR (Negative) Nasopharyn COVID-19 PCR Influenza Type A (PCR) (Neg) Influenza Type B (PCR) (Neg) RSV (RT-PCR) (Neg) Blood Type Antibody Screen 07/02/20 07/02/20 07/02/20 Range/Units 19:51 20:29 20:29 WBC (4.8-10.8) K/uL RBC (4.2-5.4) M/uL Hgb (12.0-16.0) g/dL Hct (37-47) % MCV (80-100) fL MCH (25-34) pg MCHC (32-36) g/dL RDW Std Deviation (36.4-46.3) fL RDW Coeff of Nolan (11.5-14.5) % Plt Count (130-400) K/uL MPV (7.4-10.4) fL Immature Gran % (Auto) % Neut % (Auto) % Lymph % (Auto) % Bond % (Auto) % Eos % (Auto) % Baso % (Auto) % Neut # (Auto) (1.4-6.5) K/uL Lymph # (Auto) (1.2-3.4) K/uL Bond # (Auto) (0.11-0.59) K/uL Eos # (Auto) (0-0.5) K/uL Baso # (Auto) (0-0.2) K/uL Immature Gran # (Auto) (0.00-0.02) K/uL PT (9.0-12.0) Seconds INR (0.9-1.1) APTT (21.0-31.0) Seconds PTT Ratio Sodium (136-145) mmol/L Potassium (3.5-5.1) mmol/L Chloride (98-107) mmol/L Carbon Dioxide (21-32) mmol/L Anion Gap (3-11) BUN (7-18) mg/dl Creatinine (0.6-1.2) mg/dl Est Cr Clr Drug Dosing ml/min Est GFR ( Amer) Est GFR (Non-Af Amer) BUN/Creatinine Ratio (10-20) Glucose (70-99) mg/dl Calcium (8.5-10.1) mg/dl Magnesium (1.8-2.4) mg/dl Total Bilirubin (0.2-1) mg/dl AST (15-37) U/L ALT (12-78) U/L Alkaline Phosphatase (45-117) U/L Troponin I (0-0.045) ng/ml Total Protein (6.4-8.2) gm/dl Albumin (3.4-5.0) gm/dl Globulin (2.5-4.0) gm/dl Albumin/Globulin Ratio (0.9-2) Urine Color Urine Appearance (Clear) Urine pH (4.5-7.5) Ur Specific [place] (1.000-1.030) Urine Protein (Negative) Urine Glucose (UA) (Negative) Urine Ketones (Negative) Urine Blood (Negative) Urine Nitrite (Negative) Urine Bilirubin (Negative) Urine Urobilinogen (Negative) Ur Leukocyte Esterase (Negative) Urine WBC (Auto) (0-5) /hpf Urine RBC (Auto) (0-4) /hpf U Hyaline Cast (Auto) (0-5) /lpf U Epithel Cells (Auto) (0-5) /lpf Urine Bacteria (Auto) (Negative) Ur Renal Epithelial Cell (0-5) /lpf COVID-19 Eval Order Covid19 Sent to [facility] COVID-19 PCR (Negative) Nasopharyn COVID-19 PCR Cancelled Influenza Type A (PCR) (Neg) Influenza Type B (PCR) (Neg) RSV (RT-PCR) (Neg) Blood Type A Positive Antibody Screen NEGATIVE 07/02/20 07/02/20 Range/Units 20:38 21:21 WBC (4.8-10.8) K/uL RBC (4.2-5.4) M/uL Hgb (12.0-16.0) g/dL Hct (37-47) % MCV (80-100) fL MCH (25-34) pg MCHC (32-36) g/dL RDW Std Deviation (36.4-46.3) fL RDW Coeff of Nolan (11.5-14.5) % Plt Count (130-400) K/uL MPV (7.4-10.4) fL Immature Gran % (Auto) % Neut % (Auto) % Lymph % (Auto) % Bond % (Auto) % Eos % (Auto) % Baso % (Auto) % Neut # (Auto) (1.4-6.5) K/uL Lymph # (Auto) (1.2-3.4) K/uL Bond # (Auto) (0.11-0.59) K/uL Eos # (Auto) (0-0.5) K/uL Baso # (Auto) (0-0.2) K/uL Immature Gran # (Auto) (0.00-0.02) K/uL PT (9.0-12.0) Seconds INR (0.9-1.1) APTT (21.0-31.0) Seconds PTT Ratio Sodium (136-145) mmol/L Potassium (3.5-5.1) mmol/L Chloride (98-107) mmol/L Carbon Dioxide (21-32) mmol/L Anion Gap (3-11) BUN (7-18) mg/dl Creatinine (0.6-1.2) mg/dl Est Cr Clr Drug Dosing ml/min Est GFR ( Amer) Est GFR (Non-Af Amer) BUN/Creatinine Ratio (10-20) Glucose (70-99) mg/dl Calcium (8.5-10.1) mg/dl Magnesium (1.8-2.4) mg/dl Total Bilirubin (0.2-1) mg/dl AST (15-37) U/L ALT (12-78) U/L Alkaline Phosphatase (45-117) U/L Troponin I (0-0.045) ng/ml Total Protein (6.4-8.2) gm/dl Albumin (3.4-5.0) gm/dl Globulin (2.5-4.0) gm/dl Albumin/Globulin Ratio (0.9-2) Urine Color Yellow Urine Appearance Clear (Clear) Urine pH 7.0 (4.5-7.5) Ur Specific [place] 1.028 (1.000-1.030) Urine Protein Negative (Negative) Urine Glucose (UA) Negative (Negative) Urine Ketones Trace H (Negative) Urine Blood Negative (Negative) Urine Nitrite Negative (Negative) Urine Bilirubin Negative (Negative) Urine Urobilinogen Negative (Negative) Ur Leukocyte Esterase 2+ H (Negative) Urine WBC (Auto) >30 H (0-5) /hpf Urine RBC (Auto) 0-4 (0-4) /hpf U Hyaline Cast (Auto) 1-5 (0-5) /lpf U Epithel Cells (Auto) >30 H (0-5) /lpf Urine Bacteria (Auto) Negative (Negative) Ur Renal Epithelial Cell 10-20 H (0-5) /lpf COVID-19 Eval Order COVID-19 PCR NEGATIVE (Negative) Nasopharyn COVID-19 PCR Influenza Type A (PCR) Negative (Neg) Influenza Type B (PCR) Negative (Neg) RSV (RT-PCR) Negative (Neg) Blood Type Antibody Screen Administered Medications Discontinued Medications Clonidine HCl (Clonidine Hcl 0.1 Mg Tab) 0.1 mg PO NOW ONE Stop: 07/02/20 20:38 Last Admin: 07/02/20 21:22 Dose: Not Given Documented by: [id number] Magnesium Sulfate/Dextrose (Magnesium Sulfate / D5w) 1 gm in 100 mls @ 50 mls/hr IV Q2H STA Stop: 07/02/20 22:36 Last Admin: 07/02/20 21:01 Dose: 50 mls/hr Documented by: [id number] Ioversol (Optiray 320 125ml) 119 ml IV ONCE ONE Stop: 07/02/20 19:24 Last Admin: 07/02/20 19:23 Dose: 119 ml Documented by: [id number] Discharge Plan Visit Data Chief Complaint: Stroke Alert ED Provider: John Faye Discharge Problem: Acute CVA (cerebrovascular accident), HTN (hypertension) Forms Stand Alone Forms: My [facility] Prescriptions Prescriptions: No Action anastrozole [Arimidex] 1 mg tablet 1 mg PO DAILY RF: 0 atorvastatin 40 mg tablet 40 mg PO HS Qty: 90 RF: 3 levothyroxine 25 mcg tablet 25 mcg PO QAM Qty: 90 RF: 0 escitalopram oxalate [Lexapro] 5 mg tablet 5 mg PO DAILY Qty: 90 RF: 1 verapamil 40 mg tablet 40 mg PO .COMPLEX Qty: 225 RF: 1 apixaban 5 mg tablet 5 mg PO BID Qty: 60 RF: 10 Novolog Flexpen U-100 Insulin 100 unit/mL (3 mL) insulin pen See Rx Instructions .ROUTE DAILY Qty: 75 RF: 3 Lantus Solostar U-100 Insulin 100 unit/mL (3 mL) insulin pen 12 unit subcut HS RF: 0 pantoprazole [Protonix] 40 mg tablet,delayed release (DR/EC) 40 mg PO QAM Qty: 90 RF: 3 clonidine HCl 0.1 mg tablet 0.1 mg PO DAILY PRN (Reason: Hypertension) RF: 0 docusate sodium 100 mg capsule 100 mg PO QAM RF: 0 lorazepam 0.5 mg tablet 0.25 mg PO DAILY PRN (Reason: Anxiety) RF: 0 aspirin [Aspirin Low Dose] 81 mg Tablet,Delayed Release (Dr/Ec) 81 mg PO QAM RF: 0 cholecalciferol (vitamin D3) [Vitamin D3] 1,000 unit Tablet 1,000 unit PO DAILY@1200 RF: 0 Simbrinza 1-0.2 % drops,suspension 1 drp OPB BID RF: 0 Discharge Problem: HTN (hypertension) Qualifiers: Hypertension type: unspecified Qualified Code(s): I10 - Essential (primary) hypertension
[2020-07-02 21:16] LABS: Appearance Urine Clear (Clear); Bacteria Urine Automated Negative (Negative); Bilirubin Urine Negative (Negative); Blood Urine Negative (Negative); Color Urine Yellow; Epithelial Cell Urine Auto >30 /lpf (0-5); Glucose Urine UA Negative (Negative); Ketones Urine Trace (Negative); Leukocyte Esterase Urine 2+ (Negative); Nitrite Urine Negative (Negative); Protein Urine Negative (Negative); RBC Urine Automated 0-4 /hpf (0-4); Specific Gravity Urine 1.028 (1.000-1.030); Urobilinogen Urine Negative (Negative); WBC Urine Automated >30 /hpf (0-5)
[2020-07-02 22:00] LABS: Influenza A virus by PCR Negative (Neg); Influenza B virus by PCR Negative (Neg); RSV by PCR Negative (Neg); SARS CoV2 RNA(COVID-19) InHosp NEGATIVE (Negative)
--- NOTE | 2020-07-02 23:14 | History & Physical Report ---
Date of Service July 02, 2020 Assessment & Plan (1) Acute CVA (cerebrovascular accident): Acute CVA- Right facial droop resolved in route to the hospital. While in the emergency department the expressive aphasia resolved. CT of head showed no acute intracranial abnormality CTA head and neck was stable compared to 10/30/2018. SANTI with at least 50% luminal narrowing. LICA with at least 70% stenosis. Left vertebral artery with 50% narrowing. The patient was felt to not be a candidate for TPA due to rapid improvement symptoms Stroke without TPA protocol order set. Consult PT/OT/neurology Order MRI brain Order complete echocardiogram Present on Admission?: Yes (2) History of aortic valve replacement with bioprosthetic valve: History of AVR with bioprosthetic valve/CAD/PAF- Patient had recently been converted from Coumadin to Eliquis in the outpatient setting at her request due to ease of use Will continue Eliquis for now, and discussed with consultants. Present on Admission?: Yes (3) Invasive ductal carcinoma of breast, female: Relatively recent diagnosis, and has been placed on anastrozole 1 mg daily. Question potential contribution to CVA symptoms Present on Admission?: Yes (4) HTN (hypertension): Allow permissive hypertension overnight Present on Admission?: Yes (5) Single vessel coronary artery disease: (6) Anticoagulant long-term use: See above Present on Admission?: Yes (7) Asymptomatic carotid artery stenosis: Stable since previous imaging of 2018 Present on Admission?: Yes (8) Hypothyroidism: Continue levothyroxine 25 mcg daily Present on Admission?: Yes (9) GERD without esophagitis: continue pantoprazole 40 mg daily Present on Admission?: Yes (10) PAF (paroxysmal atrial fibrillation): See above Present on Admission?: Yes (11) 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 Place on Accu-Cheks before meals and at bedtime with NovoLog coverage for scale Present on Admission?: Yes History of Present Illness Chief Complaint: The patient was made a Stroke Alert due to presentation to the emergency department with right-sided facial droop and expressive aphasia Primary Care Provider: Shahid Shea MD The patient is an 89-year-old female with a past medical history including hypertension, invasive ductal carcinoma of the breast, anxiety, status post aortic valve replacement with bioprosthetic valve, single-vessel coronary disease, and long-term anticoagulant use, moderate mitral vegetation, asymptomatic carotid stenosis, hypothyroidism, diabetes mellitus with long-term insulin use, GERD without esophagitis, pulmonary hypertension, paroxysmal atrial fibrillation, CKD stage III OA, TIA and CVA. Patient presented to the emergency department via EMS due to acute development of right facial droop, which resolved in route, and an expressive aphasia which gradually resolved while she was in the emergency department. She has been on Coumadin for anticoagulation for a long time, and reports recently being changed to Eliquis in June. Allergies Allergy/AdvReac Type Severity Reaction Status Date / Time Penicillins Allergy Unknown UNKNOWN Verified 07/02/20 20:35 Sulfa (Sulfonamide Allergy Unknown SEVERE Verified 07/02/20 20:35 Antibiotics) HIVES tramadol Allergy Unknown UNKNOWN Verified 07/02/20 20:35 Home Medications Medication Instructions Recorded Confirmed Type Simbrinza 1 drp OPB BID 10/30/18 07/02/20 History aspirin [Aspirin Low Dose] 81 mg PO QAM 10/30/18 07/02/20 History cholecalciferol (vitamin D3) 1,000 unit PO DAILY@1200 10/30/18 07/02/20 History [Vitamin D3] docusate sodium 100 mg capsule 100 mg PO QAM 03/21/19 07/02/20 History lorazepam 0.5 mg tablet 0.25 mg PO DAILY PRN tab 01/26/20 07/02/20 History atorvastatin 40 mg tablet 40 mg PO HS #90 tab 02/05/20 07/02/20 Rx anastrozole 1 mg tablet 1 mg PO DAILY 03/12/20 07/02/20 History insulin glargine 100 unit/mL (3 12 unit SUBCUT HS ml 03/14/20 07/02/20 History mL) subcutaneous pen pantoprazole 40 mg tablet,delayed 40 mg PO QAM #90 tab 03/14/20 07/02/20 Rx release levothyroxine 25 mcg tablet 25 mcg PO QAM #90 tab 04/10/20 07/02/20 Rx clonidine HCl 0.1 mg tablet 0.1 mg PO DAILY PRN tab 04/11/20 07/02/20 History escitalopram oxalate 5 mg tablet 5 mg PO DAILY #90 tab 05/21/20 07/02/20 Rx verapamil 40 mg tablet 40 mg PO .COMPLEX #225 tab 05/28/20 07/02/20 Rx apixaban 5 mg tablet 5 mg PO BID #60 tab 06/06/20 07/02/20 Rx Novolog Flexpen U-100 Insulin 100 See Rx Instructions .ROUTE DAILY 06/21/20 07/02/20 Rx unit/mL (3 mL) subcutaneous #75 ml NS Past Med/Surg History Medical History (Updated 07/02/20 @ 22:50 by John Faye DO) Accelerated hypertension Acquired claw toe of left foot Acquired claw toe of right foot Adult situational stress disorder Anemia Anxiety Callus Carpal tunnel syndrome CVA (cerebral vascular accident) (2018) ?"very small right pontine infarct" Dyslipidemia Foot deformity Glaucoma Hallux abducto valgus, bilateral Edward's thyroiditis Hearing loss History of basal cell carcinoma History of TIA (transient ischemic attack) (2017) Hypertensive urgency Left lumbar radiculopathy Loss of protective sensation of skin of foot Low back pain Migraine syndrome (2017) Moderate tricuspid regurgitation Osteopenia Pancytopenia (2019) 2020: resolved Sensation of fullness in both ears Single vessel coronary artery disease Tinnitus Surgical History History of aortic valve replacement with bioprosthetic valve History of Mohs micrographic surgery for skin cancer S/P CABG (coronary artery bypass graft) S/P cataract extraction S/P tonsillectomy S/P tubal ligation Family History Mother Myocardial infarction Stroke Heart disease Hypertension Father Stroke Myocardial infarction Heart disease Diabetes Sister Breast cancer Stroke Daughter Breast cancer Other specified hearing loss, bilateral Brother Stroke Other Atrial fibrillation Denies family history of Ovarian cancer Prostate cancer Lung cancer Colorectal cancer Social History (Updated 06/12/20 @ 13:49 by Elaina Hwang) Smoking Status: Never smoker Second Hand Exposure: No; Do You Dip or Chew Tobacco: No; Tobacco Cessation Education Requested by Patient: No Hx Alcohol Use: No Hx Substance Use: No Preferred Language: Palestinian Communication Ability: Effective Visual Impairment: Limited Hearing Ability: Use of Hearing Aid 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 Beliefs That Will Affect Care: None marital status: / Current Living Situation: Family Current Living Situation Comment: Lives with son current occupational status: retired How many Children do You have: 6 Other Information That Helps Us Care for You: No Feels Safe at Home: Yes Safety Concerns: Feels Safe At This Time Childhood Exposure to Second-Hand Smoke: No caffeine: Yes Dental Care, Regularly: No Physical Activity Frequency: Daily Physical Activity Frequency Comment: work outdoors Seatbelt Use: always Sunscreen Use: No (wears a hat) Do you think of yourself as: straight/heterosexual Assistive Devices: Cane, Glasses and Hearing Aid - Left Review of Systems Review of Systems: The patient denies chest pain, palpitations, shortness of breath, dyspnea on exertion, cough, lower extremity swelling, sore throat, fevers, chills, sweats, weight change, fatigue, nausea, vomiting, diarrhea , constipation, abdominal pain, pelvic pain, blood in urine or stool, dysuria, urinary frequency or urgency, lightheadedness, dizziness, headache, loss of consciousness, rash, abnormal bruising or bleeding, imbalance, focal or generalized weakness, numbness or tingling in arms or legs, generalized arthralgias or myalgias, back or neck pain, or night sweats. The review of systems is otherwise negative other than for that already noted above, and at least 10 systems have been reviewed. By the time of my assessment, the patient's facial droop had resolved completely, as had her expressive aphasia Physical Exam Physical Exam: The patient is awake, alert and oriented 3, well developed and well nourished, normocephalic and atraumatic, lying in bed and in no acute distress. HEENT--PERRL, EOMI, mucous membranes and oropharynx dry. Neck--supple. No JVD. No bruits. Thyroid normal, trachea midline, no adenopathy. Heart--normal S1 and S2. No murmurs, rubs or gallops. Lungs--clear bilaterally, no respiratory distress, no accessory muscle use. Abdomen--normal bowel sounds and soft. Nontender. Nondistended, no hernias or masses, no organomegaly. Extremities--no cyanosis or clubbing. No edema. Dermatologic--normal skin turgor, normal color, no abnormal lymph nodes, no rash. Neurologic--cranial nerves II through XII grossly intact. Rheumatologic--normal range of motion. Psychiatric--normal affect. Results & Data Results & Data ([facility]) Vital Signs (Past 12 Hours) Vital Signs Temp Pulse Resp BP Pulse Ox 07/02/20 22:30 83 18 208/126 H 98 07/02/20 22:00 76 22 189/78 H 97 07/02/20 21:45 76 18 183/80 H 98 07/02/20 21:30 77 18 195/96 H 98 07/02/20 21:15 77 19 194/77 H 97 07/02/20 20:45 83 18 213/76 H 99 07/02/20 20:30 91 H 18 208/94 H 99 07/02/20 20:03 85 18 204/118 H 98 07/02/20 19:51 89 18 200/124 H 98 07/02/20 19:20 100.2 F H 90 18 213/99 H 96 Laboratory Results Laboratory Results WBC 12.40 K/uL (4.8-10.8) H 07/02/20 19:34 RBC 4.55 M/uL (4.2-5.4) 07/02/20 19:34 Hgb 12.4 g/dL (12.0-16.0) 07/02/20 19:34 Hct 38.3 % (37-47) 07/02/20 19:34 MCV 84.2 fL (80-100) 07/02/20 19:34 MCH 27.3 pg (25-34) 07/02/20 19:34 MCHC 32.4 g/dL (32-36) 07/02/20 19:34 RDW Std Deviation 45.8 fL (36.4-46.3) 07/02/20 19:34 RDW Coeff of Nolan 14.8 % (11.5-14.5) H 07/02/20 19:34 Plt Count 203 K/uL (130-400) 07/02/20 19:34 MPV 10.6 fL (7.4-10.4) H 07/02/20 19:34 Immature Gran % (Auto) 0.3 % 07/02/20 19:34 Neut % (Auto) 70.9 % 07/02/20 19:34 Lymph % (Auto) 17.1 % 07/02/20 19:34 [place] % (Auto) 10.8 % 07/02/20 19:34 Eos % (Auto) 0.7 % 07/02/20 19:34 Baso % (Auto) 0.2 % 07/02/20 19:34 Neut # (Auto) 8.79 K/uL (1.4-6.5) H 07/02/20 19:34 Lymph # (Auto) 2.12 K/uL (1.2-3.4) 07/02/20 19:34 [place] # (Auto) 1.34 K/uL (0.11-0.59) H 07/02/20 19:34 Eos # (Auto) 0.09 K/uL (0-0.5) 07/02/20 19:34 Baso # (Auto) 0.02 K/uL (0-0.2) 07/02/20 19:34 Immature Gran # (Auto) 0.04 K/uL (0.00-0.02) H 07/02/20 19:34 PT 12.4 Seconds (9.0-12.0) H 07/02/20 19:34 INR 1.2 (0.9-1.1) H 07/02/20 19:34 APTT 37.8 Seconds (21.0-31.0) H 07/02/20 19:34 PTT Ratio 1.4 07/02/20 19:34 Sodium 136 mmol/L (136-145) 07/02/20 19:34 Potassium 3.7 mmol/L (3.5-5.1) 07/02/20 19:34 Chloride 104 mmol/L (98-107) 07/02/20 19:34 Carbon Dioxide 25 mmol/L (21-32) 07/02/20 19:34 Anion Gap 7.0 (3-11) 07/02/20 19:34 BUN 24 mg/dl (7-18) H 07/02/20 19:34 Creatinine 0.93 mg/dl (0.6-1.2) 07/02/20 19:34 Est Cr Clr Drug Dosing 35.6 ml/min 07/02/20 19:34 Est GFR ( Amer) 63.2 07/02/20 19:34 Est GFR (Non-Af Amer) 54.5 07/02/20 19:34 BUN/Creatinine Ratio 26.0 (10-20) H 07/02/20 19:34 Glucose 116 mg/dl (70-99) H 07/02/20 19:34 POC Glucose 151 mg/dl (70-99) H 07/03/20 01:10 Calcium 9.4 mg/dl (8.5-10.1) 07/02/20 19:34 Magnesium 1.9 mg/dl (1.8-2.4) 07/02/20 19:34 Total Bilirubin 0.6 mg/dl (0.2-1) 07/02/20 19:34 AST 16 U/L (15-37) 07/02/20 19:34 ALT 19 U/L (12-78) 07/02/20 19:34 Alkaline Phosphatase 111 U/L (45-117) 07/02/20 19:34 Troponin I < 0.015 ng/ml (0-0.045) 07/02/20 19:34 Total Protein 8.4 gm/dl (6.4-8.2) H 07/02/20 19:34 Albumin 4.1 gm/dl (3.4-5.0) 07/02/20 19:34 Globulin 4.3 gm/dl (2.5-4.0) H 07/02/20 19:34 Albumin/Globulin Ratio 1.0 (0.9-2) 07/02/20 19:34 Urine Color Yellow 07/02/20 20:38 Urine Appearance Clear (Clear) 07/02/20 20:38 Urine pH 7.0 (4.5-7.5) 07/02/20 20:38 Ur Specific [place] 1.028 (1.000-1.030) 07/02/20 20:38 Urine Protein Negative (Negative) 07/02/20 20:38 Urine Glucose (UA) Negative (Negative) 07/02/20 20:38 Urine Ketones Trace (Negative) H 07/02/20 20:38 Urine Blood Negative (Negative) 07/02/20 20:38 Urine Nitrite Negative (Negative) 07/02/20 20:38 Urine Bilirubin Negative (Negative) 07/02/20 20:38 Urine Urobilinogen Negative (Negative) 07/02/20 20:38 Ur Leukocyte Esterase 2+ (Negative) H 07/02/20 20:38 Urine WBC (Auto) >30 /hpf (0-5) H 07/02/20 20:38 Urine RBC (Auto) 0-4 /hpf (0-4) 07/02/20 20:38 U Hyaline Cast (Auto) 1-5 /lpf (0-5) 07/02/20 20:38 U Epithel Cells (Auto) >30 /lpf (0-5) H 07/02/20 20:38 Urine Bacteria (Auto) Negative (Negative) 07/02/20 20:38 Ur Renal Epithelial Cell 10-20 /lpf (0-5) H 07/02/20 20:38 COVID-19 Eval Order Covid19 Sent to [facility] 07/02/20 20:29 COVID-19 PCR NEGATIVE (Negative) 07/02/20 21:21 Nasopharyn COVID-19 PCR Cancelled 07/02/20 20:29 Influenza Type A (PCR) Negative (Neg) 07/02/20 21:21 Influenza Type B (PCR) Negative (Neg) 07/02/20 21:21 RSV (RT-PCR) Negative (Neg) 07/02/20 21:21 Blood Type A Positive 07/02/20 19:51 Antibody Screen NEGATIVE 07/02/20 19:51 Diagnostic Findings [facility] [place], [phone] CT Scan Report Patient: JEFFERSON LOUIS Date: 07/02/20MR#: [id number]: [address] DRAcct ID:[id number]: [facility]: [facility] Zip: [place], [place] [address]Hpx: 89Location: EDSex: FRoom/Bed:Att Phy:Diagnosis: NAPri Phy: Shahid Shea MDService Date: 07/02/20Fam Phy:Interpreting Phy: Donis SolorzanoAdmguanaco Phy: Ordering Phy: John Faye DO cc: ~ CT head/brain wo con CLINICAL HISTORY: 89 years-old Female with Stroke evaluation . Acute strokelike symptoms TECHNIQUE: Multiple axial CT images of the head were obtained without contrast. A dose lowering technique was utilized adhering to the principles of ALARA. COMPARISON: Head CT 12/28/2018. FINDINGS: No acute intracranial hemorrhage, midline shift, intracranial mass, hydrocephalus, territorial ischemia or abnormal extra-axial collection. Age- related involutional changes. Patchy white matter hypodensities suggest chronic microvascular ischemic disease. Cerebral vascular calcifications. The calvarium is intact. 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 Prior bilateral lens replacement. Streak artifact from dental amalgam hardware. The paranasal sinuses, mastoid air cells, and middle ear cavities are clear. IMPRESSION: No acute intracranial abnormality. ACT 112: Negative or not required by law. The above report was generated using voice recognition software. It may contain grammatical, syntax or spelling errors. Electronically signed by: Ray Solorzano M.D. 07/02/2020 7:32 PM Dictated: 07/02/201929Transcribed: 07/02/201929 [facility] [place], [phone] CT Scan Report Patient: JEFFERSON LOUIS Date: 07/02/20#: [id number]: [address] Acct ID:[id number]: Date: [address] [place] [address] Zip: [place], [place] [address]Gzx: 89Location: EDSex: FRoom/Bed:Att Phy:Diagnosis: NAPri Phy: Shahid Shea MDService Date: 07/02/20Fa Phy:Interpreting Phy: Donis SolorzanoAdmit Phy: Ordering Phy: John Faye DO cc: ~ CT angio neck with con, CT angio head w con CLINICAL HISTORY: 89 years-old Female with Stroke evaluation. Acute strokelike symptoms COMPARISON STUDY: Head CT of same day, CTA head and neck 10/30/2018 TECHNIQUE: Following the IV administration of 119 mL of Optiray 320, CT angiogram of the head and neck was performed from the aortic arch to the skull base. Images are reviewed in the axial, sagittal, and coronal planes. 3-D MIPS images are created and assessed. IV contrast was administered without complication. All measurements were calculated based on NASCET criteria. A dose lowering technique was utilized adhering to the principles of ALARA. CT DOSE: 1134.31 mGy.cm FINDINGS: Prior median sternotomy. The imaged opacified pulmonary artery is unremarkable. Mixed plaque of the thoracic aorta with patency of the innominate and imaged subclavian arteries. Common carotid arteries are patent. Extensive mixed plaque of the carotid bulbs and proximal internal carotid arteries redemonstrated. Again, this results in approximately 50% stenosis of the proximal cervical segment right ICA and high-grade greater than 70% luminal narrowing of the pr oximal cervical segment left ICA on image 219 series 4. Calcified plaque of the cavernous and supraclinoid segments. The middle and anterior superior arteries are patent. Calcified plaque at the origin of the left vertebral artery is again noted resulting in at least 50% luminal narrowing. Codominant vertebral arteries. Calcified plaque of the V4 segments without high-grade stenosis. Patent basilar and posterior cerebral arteries. Cerebral venous sinuses are patent. There is no abnormal intracranial enhancement. Subpleural reticular opacities of the lung apices without pneumothorax. Degenera tive changes are noted throughout the spine. No acute fracture. IMPRESSION: 1. Stable exam from 10/30/2018. 2. Severe mixed plaque of the carotid bulbs and proximal cervical segments of the internal carotid arteries is redemonstrated resulting in at least 50% luminal narrowing on the right and high-grade narrowing with at least 70% stenosis on the left. 3. Calcified plaque at the origin of the left vertebral artery is again noted to result in 50% luminal narrowing. 4. Additional findings as above. ACT 112: Negative or not required by law. The above report was generated using voice recognition software. It may contain grammatical, syntax or spelling errors. Electronically signed by: Ray Solorzano M.D. 07/02/2020 7:44 PM Dictated: 07/02/201933Transcribed: 07/02/201933 [place], [phone] XRay Report Patient: JEFFERSON LOUIS Date: 07/02/20MR#: [id number]: [address] AGUILARAcct ID:[id number]: Date: [address] [place] [address] Zip: [place], [place] [address]Wnb: 89Location: EDSex: FRoom/Bed:Att Phy:Diagnosis: NAPri Phy: Shahid Shea MDService Date: 07/02/20Fam Phy:Interpreting Phy: Donis SolorzanoAdmit Phy: Ordering Phy: John Faye, cc: ~ XR chest 1V portable HISTORY: 89 years-old Female cva acute strokelike symptoms COMPARISON: CTA neck of same day, chest radiograph 12/11/2019. TECHNIQUE: Portable AP view of the chest FINDINGS: Prior median sternotomy. Cardiomediastinal and hilar silhouettes are unchanged. Chronic interstitial coarsening. No pneumothorax, pleural effusion, airspace consolidation or overt pulmonary edema. 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 IMPRESSION: Chronic findings as above without acute process. ACT 112: Negative or not required by law. The above report was generated using voice recognition software. It may contain grammatical, syntax or spelling errors. Electronically signed by: Ray Solorzano M.D. 07/02/2020 8:08 PM Dictated: 07/02/202006Transcribed: 07/02/202006 Code Status & VTE Plan Code Status Full code VTE Prophylaxis Plan VTE Prophylaxis will be ordered: Yes PG Care Time/CCT Total # of Minutes Spent Total Time Spent with Patient: Total time spent is greater than 50% in coordination of care (as documented) at patient's floor/unit and/or counseling patient: Coding Level of Care Code 48087 Initial Inpt Care Lvl 3 Diagnoses Acute CVA (cerebrovascular accident) I63.9 History of aortic valve replacement with bioprosthetic valve Z95.3 Invasive ductal carcinoma of breast, female C50.919 HTN (hypertension) I10 Hypertension type: unspecified Single vessel coronary artery disease I25.10 Anticoagulant long-term use Z79.01 Asymptomatic carotid artery stenosis I65.29 Hypothyroidism E03.9 GERD without esophagitis K21.9 PAF (paroxysmal atrial fibrillation) I48.0 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
[2020-07-03] MEDS ORDERED: CARBOHYDRATES FOR HYPOGLYCEMIA PO PRN (01:02)
[2020-07-03] MEDS ORDERED: DEXTROSE 50% 50 ML SYRINGE IV PRN (01:02)
[2020-07-03] MEDS ORDERED: PHARMACIST DISCHARGE MED REC CONSULT PRN (01:02)
[2020-07-03] MEDS ORDERED: GLUCOSE 10 TABS/TUBE PO PRN (01:02)
[2020-07-03] MEDS ORDERED: GLUCOSE 40% GEL 15 GM TUBE PO PRN (01:02)
[2020-07-03] MEDS ORDERED: ONDANSETRON INJ 2 MG/ML 2 ML VIAL IV PRN (01:02)
[2020-07-03] MEDS ORDERED: GLUCAGON FOR INJ 1 MG VIAL SQ PRN (01:02)
[2020-07-03] MEDS ORDERED: ACETAMINOPHEN 325 MG TAB PO PRN (01:02)
[2020-07-03] MEDS: APIXABAN 5 MG TABLET PO SCH ×2 (03:02→08:09)
[2020-07-03] MEDS ORDERED: LEVOTHYROXINE SODIUM 25 MCG TABLET PO SCH (06:30)
[2020-07-03 07:16] LABS: Basophils # (auto) 0.01 K/uL (0-0.2); Basophils % (auto) 0.1 %; Eosinophils # (auto) 0.06 K/uL (0-0.5); Eosinophils % (auto) 0.8 %; Hematocrit (blood only) 33.9 % (37-47); Immature Granulocytes # (auto) 0.01 K/uL (0.00-0.02); Immature Granulocytes % (auto) 0.1 %; Lymphocytes # (auto) 1.46 K/uL (1.2-3.4); Lymphocytes % (auto) 19.7 %; Mean Corpuscular Hemoglobin 27.1 pg (25-34); Mean Corpuscular Hgb Conc 32.4 g/dL (32-36); Mean Corpuscular Volume 83.5 fL (80-100); Mean Platelet Volume 10.8 fL (7.4-10.4); Monocytes # (auto) 0.96 K/uL (0.11-0.59); Monocytes % (auto) 12.9 %; Neutrophils # (auto) 4.92 K/uL (1.4-6.5); Neutrophils % (auto) 66.4 %; Platelet Count 174 K/uL (130-400); RDW Coefficient of Variation 14.9 % (11.5-14.5); RDW Standard Deviation 45.7 fL (36.4-46.3); Red Blood Count 4.06 M/uL (4.2-5.4); White Blood Count 7.42 K/uL (4.8-10.8)
--- NOTE | 2020-07-03 07:30 | Magnetic Resonance Report ---
MRI OF THE BRAIN WITHOUT CONTRAST CLINICAL HISTORY: CVA, expressive aphasia BREAST CARCINOMA COMPARISON STUDY: CT scan dated 07/02/2020 FINDINGS: Sagittal T1, axial diffusion, proton density and T2 weighted axial, coronal FLAIR, and axial T1-weigh kim images were acquired. No intra or extra-axial mass lesions are visualized Axial diffusion-weighted images reveal no evidence of acute or subacute infarction. There is no evidence of ventricular dilatation. Proton density T2-weighted and FLAIR images reveal scattered foci of increased T2 signal within the w luis matter, likely on a small vessel basis. There are no abnormal flow voids. IMPRESSION: 1. No acute intracranial findings 2. No evidence of acute or subacute infarction 3. No evidence of intracranial mass on this noncontrast study ACT 112: Negative or not required by law. Electronically signed by: Thierry Meza M.D. 07/03/2020 7:28 AM
[2020-07-03 07:31] LABS: INR 1.2 (0.9-1.1); Partial Thromboplastin Ratio 1.4; Partial Thromboplastin Time 38.9 Seconds (21.0-31.0)
[2020-07-03 07:45] LABS: Albumin Level 3.2 gm/dl (3.4-5.0); BUN Creatinine Ratio 26.6 (10-20); Calcium 8.5 mg/dl (8.5-10.1); Est GFR (African American) 72.5; Est GFR (Non-African American) 62.5; Magnesium 2.3 mg/dl (1.8-2.4); Potassium 3.8 mmol/L (3.5-5.1)
[2020-07-03 07:50] LABS: Albumin Globulin Ratio 0.9 (0.9-2); Bilirubin,Total 0.5 mg/dl (0.2-1); Globulin 3.6 gm/dl (2.5-4.0); Total Protein 6.8 gm/dl (6.4-8.2); Troponin I 0.02 ng/ml (0-0.045)
[2020-07-03] MEDS: INSULIN ASPART 100 UNITS/ML 3 ML PEN SC SCH ×2 (08:08→12:04)
[2020-07-03] MEDS ORDERED: ANASTROZOLE 1 MG TAB PO SCH (09:00)
[2020-07-03] MEDS ORDERED: ASPIRIN 81 MG ECTAB PO SCH (09:00)
[2020-07-03] MEDS ORDERED: ESCITALOPRAM OXALATE 10 MG TAB PO SCH (09:00)
[2020-07-03] MEDS ORDERED: PANTOprazole 40 MG TAB PO SCH (09:00)
[2020-07-03] MEDS ORDERED: DOCUSATE SODIUM 100 MG CAP PO SCH (09:00)
[2020-07-03] MEDS ORDERED: VERAPAMIL HCL 40 MG TAB PO SCH ×2 (09:00→14:00)
[2020-07-03] MEDS ORDERED: BRINZOLAMIDE BRIMONIDINE OP SCH (09:00)
[2020-07-03 09:32] LABS: Estimated Average Glucose 183 mg/dl
--- NOTE | 2020-07-03 09:54 | Hospitalist Progress Note ---
Date of Service July 03, 2020 Assessment & Plan Admission and Anticipated Discharge Date Admission Date: July 02, 2020 Results & Data Results & Data ([facility]) Vital Signs (Past 12 Hours) Vital Signs Temp Pulse Pulse Resp BP BP BP 07/03/20 08:32 37.0 C 74 18 161/78 H 07/03/20 03:55 37.1 C 70 19 190/74 H 07/03/20 01:00 37.2 C 82 18 174/71 H 07/03/20 00:00 77 19 203/87 H 07/02/20 23:45 77 18 197/89 H 07/02/20 23:30 78 21 197/86 H 07/02/20 23:15 77 20 196/84 H 07/02/20 23:00 76 20 181/84 H 07/02/20 22:45 79 20 189/84 H 07/02/20 22:30 83 18 208/126 H 07/02/20 22:00 76 22 189/78 H Pulse Ox 07/03/20 08:32 96 07/03/20 03:55 99 07/03/20 01:00 98 07/03/20 00:00 96 07/02/20 23:45 97 07/02/20 23:30 97 07/02/20 23:15 97 07/02/20 23:00 97 07/02/20 22:45 97 07/02/20 22:30 98 07/02/20 22:00 97 PG Care Time/CCT Total # of Minutes Spent Total Time Spent with Patient: Total time spent is greater than 50% in coordination of care (as documented) at patient's floor/unit and/or counseling patient: Coding
--- NOTE | 2020-07-03 10:08 | Neurology Consultation ---
Date of Consultation July 03, 2020 Assessment & Plan (1) HTN (hypertension): (2) Expressive aphasia: (3) Facial droop: (4) Carotid stenosis, bilateral: patient had the onset of expressive aphasia and right facial droop which quickly resolved and currently has no neurologic deficits of a focal nature. She has no encephalopathy or meningeal signs. The etiology of her transient neurologic symptoms is likely secondary to severe hypertension leading to vasospasm. She did not have a stroke by MRI. This is much like her other admissions in 2018 in 2017 (hypertension leading to vasospasm giving temporary neurologic symptoms without stroke). Patient has bilateral carotid stenosis a little bit worse on the left than the right. She has been treated with 81 milligram aspirin and Eliquis. Recommendations: 1. Consider increasing verapamil to 120 milligrams long-acting once daily, and titrating from there as needed. Verapamil is my drug of choice to prevent cerebral vasospasm. 2. keep atorvastatin the same. She is not a dose statin candidate. 3. strive for better glucose control aiming for a hemoglobin A1c closer to 7. 4. I have no further neurologic testing or treatment recommendations at this time. Overall, I spent a total of 60 minutes with this case including review of records, review of MRI films, direct evaluation the patient at bedside, and discussion of the case with the patient at bedside, Aisha Segal PA-C and Dr. Tejada, including differential diagnosis and treatment options. History of Present Illness Reason for Consultation: patient is an 89-year-old, who I was asked to see at the request of Dr. Estevez, for neurologic consultation regarding stroke- like symptoms. Requesting Physician: Dr. Estevez Attending Physician: Mj Tejada MD History of Present Illness I 1st saw this patient in 1998 for upper extremity dysesthesias. Neurologic evaluation was unremarkable and MRI of the brain showed a few nonspecific white matter spots. MR angiography of the [place] was unremarkable as well. She remained on Plavix and was stable. She has had diabetes since . She is on insulin. She has had hypertension for at least 12 years. In 2005 she had an aortic valve replaced at [facility]. Patient had word-finding difficulty for 60 minutes in September of 2016. She had significant hypertension. MRI of the brain was unremarkable. Carotid ultrasound revealed stenosis bilaterally, of approximately 50 percent bilaterally. At that time she was on aspirin and was put back on Plavix. In September of 2019 she had the onset of vision changes and poor comprehension with trouble getting words out. Again she was significantly hypertensive. MRI of the brain showed a possible subacute right pontine stroke. After considerable deliberation week came to the conclusion that she did not have a pontine stroke and actually had transient neurologic symptoms secondary to vasospasm from hypertension. She was discharged on Plavix. Patient had been switched to Eliquis this year from Coumadin. She remains on 81 milligram aspirin. She is on verapamil 40 milligrams twice daily. on July 02, at approximately 1815 she had the sudden onset of expressive aphasia and right facial droop. By the time she arrived to the emergency room the right facial droop had resolved but she still had some expressive aphasia and slight confusion she fell. She arrived to the emergency room at 1920 with a temperature of 37.9, pulse 90, respiratory rate 18, blood pressure 213/99, and O2 saturation 96 percent. Her blood pressure remained quite high in the emergency room. She was Covid-19 negative and clonidine help bring her pressure down. Because of her rapidly resolving symptoms she was not a tPA candidate. CT scan of the head was unremarkable. CT angiography of the head and neck revealed 50 percent stenosis in the right ICA and 70 percent stenosis in the left ICA. The left vertebral has [address] angiography overall was not much different from the previous studies of September,. Hemoglobin A1c was 8. Triglycerides 91 and cholesterol 124. CBC and Chem profile were largely unremarkable. MRI of the brain revealed no stroke. There was generalized atrophy and old small vessel ischemia as before. This morning the patient feels well with no speech or mentation problems. She has no pain, headache, weakness, or numbness. Allergies Allergy/AdvReac Type Severity Reaction Status Date / Time Penicillins Allergy Unknown UNKNOWN Verified 07/02/20 20:35 Sulfa (Sulfonamide Allergy Unknown SEVERE Verified 07/02/20 20:35 Antibiotics) HIVES tramadol Allergy Unknown UNKNOWN Verified 07/02/20 20:35 Home Medications Medication Instructions Recorded Confirmed Type Simbrinza 1 drp OPB BID 10/30/18 07/02/20 History aspirin [Aspirin Low Dose] 81 mg PO QAM 10/30/18 07/02/20 History cholecalciferol (vitamin D3) 1,000 unit PO DAILY@1200 10/30/18 07/02/20 History [Vitamin D3] docusate sodium 100 mg capsule 100 mg PO QAM 03/21/19 07/02/20 History lorazepam 0.5 mg tablet 0.25 mg PO DAILY PRN tab 01/26/20 07/02/20 History atorvastatin 40 mg tablet 40 mg PO HS #90 tab 02/05/20 07/02/20 Rx anastrozole 1 mg tablet 1 mg PO DAILY 03/12/20 07/02/20 History insulin glargine 100 unit/mL (3 12 unit SUBCUT HS ml 03/14/20 07/02/20 History mL) subcutaneous pen pantoprazole 40 mg tablet,delayed 40 mg PO QAM #90 tab 03/14/20 07/02/20 Rx release levothyroxine 25 mcg tablet 25 mcg PO QAM #90 tab 04/10/20 07/02/20 Rx clonidine HCl 0.1 mg tablet 0.1 mg PO DAILY PRN tab 04/11/20 07/02/20 History escitalopram oxalate 5 mg tablet 5 mg PO DAILY #90 tab 05/21/20 07/02/20 Rx verapamil 40 mg tablet 40 mg PO .COMPLEX #225 tab 05/28/20 07/02/20 Rx apixaban 5 mg tablet 5 mg PO BID #60 tab 06/06/20 07/02/20 Rx Novolog Flexpen U-100 Insulin 100 See Rx Instructions .ROUTE DAILY 06/21/20 07/02/20 Rx unit/mL (3 mL) subcutaneous #75 ml NS Patient History Medical History (Updated 07/03/20 @ 10:26 by Jose Chin MD) Accelerated hypertension Acquired claw toe of left foot Acquired claw toe of right foot Adult situational stress disorder Anemia Anxiety Callus Carpal tunnel syndrome CVA (cerebral vascular accident) (2018) ?"very small right pontine infarct" Dyslipidemia Foot deformity Glaucoma Hallux abducto valgus, bilateral Edward's thyroiditis Hearing loss History of basal cell carcinoma History of TIA (transient ischemic attack) (2017) Hypertensive urgency Left lumbar radiculopathy Loss of protective sensation of skin of foot Low back pain Migraine syndrome (2017) Moderate tricuspid regurgitation Osteopenia Pancytopenia (2019) 2020: resolved Sensation of fullness in both ears Single vessel coronary artery disease Tinnitus Surgical History History of aortic valve replacement with bioprosthetic valve History of Mohs micrographic surgery for skin cancer S/P CABG (coronary artery bypass graft) S/P cataract extraction S/P tonsillectomy S/P tubal ligation Family History Mother Myocardial infarction Stroke Heart disease Hypertension Father Stroke Myocardial infarction Heart disease Diabetes Sister Breast cancer Stroke Daughter Breast cancer Other specified hearing loss, bilateral Brother Stroke Other Atrial fibrillation Denies family history of Ovarian cancer Prostate cancer Lung cancer Colorectal cancer Social History Smoking Status: Never smoker Second Hand Exposure: No; Do You Dip or Chew Tobacco: No; Tobacco Cessation Education Requested by Patient: No Hx Alcohol Use: No Hx Substance Use: No Preferred Language: French Communication Ability: Effective Visual Impairment: Limited Hearing Ability: Use of Hearing Aid Director Cost Required: No Beliefs That Will Affect Care: None marital status: / Current Living Situation: Family Current Living Situation Comment: Lives with son current occupational status: retired How many Children do You have: 6 Other Information That Helps Us Care for You: No Feels Safe at Home: Yes Safety Concerns: Feels Safe At This Time Childhood Exposure to Second-Hand Smoke: No caffeine: Yes Dental Care, Regularly: No Physical Activity Frequency: Daily Physical Activity Frequency Comment: work outdoors Seatbelt Use: always Sunscreen Use: No (wears a hat) Do you think of yourself as: straight/heterosexual Assistive Devices: Cane Review of Systems Constitutional: no fever, no fatigue and no weakness Eyes: no diplopia, no eye pain and no worsening vision Ear, Nose, Mouth, Throat: + hearing loss; no ear pain, no tinnitus, no dizziness, no hoarseness and no dysphagia Respiratory: no cough and no dyspnea Cardiovascular: no chest pain, no palpitations and no lightheadedness Gastrointestinal: no abdominal pain, no nausea and no vomiting Genitourinary: no dysuria, no urinary frequency and no urinary incontinence Musculoskeletal: no back pain, no neck pain, no radicular pain, no joint pain and no myalgia Integumentary: no rash and no lesions Neurologic: no gait abnormality, no localized weakness, no generalized weakness, no tingling, no numbness, no tremor(s), no abnormal movements, no headache(s), no abnormal speech, no confusion and no memory loss Psychiatric: no depression, no irritability, no anxiety, no difficulty concentrating, no confusion and no hallucinations Endocrine: no fatigue and no flushing Hematologic / Lymphatic: no easy bleeding and no easy bruising Allergy / Immunological: no urticaria and no problem reported Exam (Neuro) Physical Exam: The patient is right-handed. The patient is awake, alert, and attentive. Speech is normal without any aphasia or dysarthria. She can name objects, repeat phrases, and has normal spontaneous speech. Mentation and thought processes are intact, with orientation to person, place and time, and normal fund of knowledge. Attention and concentration are normal. Mood and affect are normal and appropriate. General appearance and grooming are normal. Short and long-term memory are intact. The discs are sharp with positive venous pulsations bilaterally. There are no exudates, hemorrhages, or blood vessel changes seen. Pupils are 4 mm bilaterally and reactive to light. Extraocular eye muscles are intact without nystagmus. Visual acuity and visual vail seem normal grossly to confrontation. There are no deficits to sensation in the face in all 3 distributions of the fifth cranial nerve bilaterally. Corneal reflexes are positive bilaterally. Facial strength and symmetry was normal bilaterally. Hearing Is decreased bilaterally particularly on the right. Palate moves well without asymmetry. There is normal sternocleidomastoid and trapezius (shoulder shrug) strength bilaterally. Tongue is midline with good strength bilaterally. Neck has a full range of motion without discomfort. There are no cervical bruits bilaterally. There are no cranial or ocular bruits. Heart is without murmur. There is a regular rhythm and rate. Cervical, thoracic, and lumbar spine are nontender to palpation. Gait was not tested but stance sitting up in bed was quite normal. With outstretched arms there is no drift. There are no resting, postural, or action tremors. There is no ataxia with finger to nose testing. There is good facility in the hands. No other abnormal involuntary movements are noted. Motor strength is 5/5 diffusely in the arms bilaterally including deltoids, biceps, triceps, brachioradialis, wrist flexors and extensors, slime plant operator, and intrinsic hand muscles. Motor strength is 5/5 diffusely in the legs bilaterally including hip flexors, quadriceps, hamstrings, gastrocnemius, tibialis anterior, tibialis posterior, and Peroneii muscles. Toe extensors are normal and there is good bulk in the extensor digitorum brevis muscles bilaterally. The limbs have good tone without rigidity or spasticity. There is no atrophy noted in the muscles. Muscle bulk is normal, there is no tenderness to palpation, no myotonia to percussion, and no fasciculations seen. Sensory examination is intact to touch and pin throughout all 4 limbs diffusely. Reflexes are 0/4 in the biceps, triceps, brachioradialis, quadriceps, and Achilles tendons bilaterally. There is no clonus bilaterally. Toes are downgoing with plantar stimulation bilaterally. Peripheral pulses are present and of normal quality distally in all 4 limbs. There is no peripheral edema noted in the limbs. Results & Data ([facility]) Vital Signs (Past 12 Hours) Vital Signs Temp Pulse Pulse Resp BP BP BP 07/03/20 08:32 37.0 C 74 18 161/78 H 07/03/20 03:55 37.1 C 70 19 190/74 H 07/03/20 01:00 37.2 C 82 18 174/71 H 07/03/20 00:00 77 19 203/87 H 07/02/20 23:45 77 18 197/89 H 07/02/20 23:30 78 21 197/86 H 07/02/20 23:15 77 20 196/84 H 07/02/20 23:00 76 20 181/84 H 07/02/20 22:45 79 20 189/84 H 07/02/20 22:30 83 18 208/126 H Pulse Ox 07/03/20 08:32 96 07/03/20 03:55 99 07/03/20 01:00 98 07/03/20 00:00 96 07/02/20 23:45 97 07/02/20 23:30 97 07/02/20 23:15 97 07/02/20 23:00 97 07/02/20 22:45 97 07/02/20 22:30 98 PG Care Time/CCT Total # of Minutes Spent Total Time Spent with Patient: Total time spent is greater than 50% in coordination of care (as documented) at patient's floor/unit and/or counseling patient: Coding Level of Care Code 36187 Initial Inpt Care Lvl 3 Diagnoses HTN (hypertension) I10 Hypertension type: unspecified Expressive aphasia R47.01 Facial droop R29.810 Carotid stenosis, bilateral I65.23 Time Spent (min) 60 (1) HTN (hypertension) Hypertension type: unspecified Qualified Code(s): I10 - Essential (primary) hypertension
[2020-07-03] MEDS ORDERED: VERAPAMIL HCL 40 MG TAB PO ONE (10:45)
--- NOTE | 2020-07-03 11:50 | Discharge Summary ---
Date of Service July 03, 2020 Admission HPI Per Admitting Provider The patient is an 89-year-old female with a past medical history including hypertension, invasive ductal carcinoma of the breast, anxiety, status post aortic valve replacement with bioprosthetic valve, single-vessel coronary disease, and long-term anticoagulant use, moderate mitral vegetation, asymptomatic carotid stenosis, hypothyroidism, diabetes mellitus with long-term insulin use, GERD without esophagitis, pulmonary hypertension, paroxysmal atrial fibrillation, CKD stage III OA, TIA and CVA. Patient presented to the emergency department via EMS due to acute development of right facial droop, which resolve d in route, and an expressive aphasia which gradually resolved while she was in the emergency department. She has been on Coumadin for anticoagulation for a long time, and reports recently being changed to Eliquis in June. Admission Exam Per Admitting Provider The patient is awake, alert and oriented 3, well developed and well nourished, normocephalic and atraumatic, lying in bed and in no acute distress. HEENT--PERRL, EOMI, mucous membranes and oropharynx dry. Neck--supple. No JVD. No bruits. Thyroid normal, trachea midline, no adenopathy. Heart--normal S1 and S2. No murmurs, rubs or gallops. Lungs--clear bilaterally, no respiratory distress, no accessory muscle use. Abdomen--normal bowel sounds and soft. Nontender. Nondistended, no hernias or masses, no organomegaly. Extremities--no cyanosis or clubbing. No edema. Dermatologic--normal skin turgor, normal color, no abnormal lymph nodes, no rash. Neurologic--cranial nerves II through XII grossly intact. Rheumatologic--normal range of motion. Psychiatric--normal affect. Principal Diagnosis Hypertension induced Vasospasm Discharge Exam Constitutional well developed, well nourished and + thin; no acute distress Eyes PERRL, conjunctivae normal, anicteric sclerae ENMT external ear and nose normal, oropharynx normal Neck trachea midline, no thyromegaly Respiratory normal respiratory effort, lungs clear to auscultation Auscultation: no crackles, no rales, no rhonchi and no wheezes Cardiovascular Rate/Rhythm: regular rate and regular rhythm Heart Sounds: + murmur (LUSB systolic) Gastrointestinal (Abdomen) Inspection/Auscultation: abdomen normal to inspection and normal bowel sounds; abdomen not distended Percussion/Palpation: abdomen soft; abdomen nontender and no guarding Musculoskeletal no cyanosis or clubbing, extremities motor strength 5/5 Skin no rashes, warm and dry Neurologic patellar DTR's 2+ bilat, sensation intact and PERRL, EOMI, accommodation nl, no face palsy, no dysarthria Psychiatric Orientation: alert and oriented x 3 Lymphatic no cervical or axillary lymphadenopathy Discharge Data Allergies Allergy/AdvReac Type Severity Reaction Status Date / Time Penicillins Allergy Unknown UNKNOWN Verified 07/02/20 20:35 Sulfa (Sulfonamide Allergy Unknown SEVERE Verified 07/02/20 20:35 Antibiotics) HIVES tramadol Allergy Unknown UNKNOWN Verified 07/02/20 20:35 Consultations 07/02/20 20:40 ED Decision to Admit Stat 07/03/20 01:02 Consult Case Management - Discharge Planning Routine Consult Case Management - Discharge Planning Routine Consult Neurology Routine Ordered Studies 07/02/20 19:16 CT angio head w con Stat CT angio neck with con Stat CT head/brain wo con Stat 07/03/20 01:02 MR brain wo con Routine ECHO Hospital Course (1) Acute CVA (cerebrovascular accident): Right facial droop resolved in route to the hospital-- while in the emergency department the expressive aphasia resolved. CT of head showed no acute intracranial abnormality CTA head and neck was stable compared to 10/30/2018. SANTI with at least 50% luminal narrowing. LICA with at least 70% stenosis. Left vertebral artery with 50% narrowing. The patient was felt to not be a candidate for TPA due to rapid improvement symptoms Stroke without TPA protocol order set. Consult PT/OT -- rec return home neurology -- thought to be HTN related vasospasm and rec increasing her Verapamil to 40mg TID --> to have follow up in next 1-[address] Martínez for further titration if needed --> discussed with patient regarding clonidine use and rebound hypertension. to be further discussed at follow up visit Order MRI brain -- no acute stroke noted ECHO with mild LVH, LV systolic function normal. Grade III diastolic d ysfunction. L atrium severly dilated. Mod to severe mitral annular calcification. Mild MS. RV systolic pressure elevated at 30-40mmHg. Mild-mod MR. -- Compared to 2019, transaortic gradient slightly increased -- verapamil was increased as above per neurology -- will need f/u with Dr. Martínez in next week (2) History of aortic valve replacement with bioprosthetic valve: History of AVR with bioprosthetic valve/CAD/PAF- Patient had recently been converted from Coumadin to Eliquis in the outpatient setting at her request due to ease of use Continue Eliquis (3) Invasive ductal carcinoma of breast, female: Relatively recent diagnosis, and has been placed on anastrozole 1 mg daily. 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 Place on Accu-Cheks before meals and at bedtime with NovoLog coverage for scale A1c 8.0 -- discussed and rec diet/exercise and if remains elevated on recheck would initiate therapy Total Time Total Time Spent Total Time Spent (In Minutes): 60 Discharge Plan Discharge Items Patient Disposition: Home - Self-Care Reason For Visit: CVA Discharge Diagnosis: Hypertension leading to Vasospasm Goals: You have been hospitalized for an acute medical problem. During your stay at [facility], we have made an effort to correct the problem that brought you to the hospital while keeping you as comfortable as possible. Medications were used to bring your condition under control and your discharge instructions will include directions for any medications you should take after leaving the hospital. Please make sure you see your Primary Care Provider as part of your follow up plan. Activity: Resume your previous activity Non-emergency contact: Primary Care Provider and Executive Meeting Manager Call non-emergency contact if: you have any medication questions and your symptoms worsen Follow-up/Referrals: Shahid Shea MD [Primary Care Provider] - 07/09/20 11:15 am Alfred Martínez MD [Physician] - 07/08/20 2:00 pm (APPOINTMENT WITH MOSHE BONILLA) Diet: Carb Consistent or DM2 and Heart Healthy Addtl Attending Provider Instructions: You have been hospitalized for facial droop and slurred speech. Imaging shows NO STROKE. Symptoms have resolved. Evaluated by therapy with recommendations to return home. Neurology evaluated you and it is felt that elevated blood pressures were the cause of your episode and your verapamil is being increased to 40mg THREE times day. You will need follow up with Dr Martínez and if pressures remain elevated they may continue to increase this. I would avoid clonidine use until discussed with Dr Martínez as this used intermittently has potential to cause rebound hypertension. Please follow up with your PCP in the next week to monitor your progress. You should try to increase exercise/work on dietary changes to help improve your blood sugars, as your A1c was elevated to 8.0. If continues to be elevated would consider starting agent to help lower this. Please return to the emergency department with any recurring symptoms or for any other symptoms that are concerning for you. It has been a pleasure being apart of the medical team providing for you while you have been in the hospital. Take care! Pending Studies at Discharge: Yes Studies:: Urine Culture Stand-Alone Forms: My [facility] [employer], Smoking Cessation Medications and DC Order Prescriptions: New verapamil 40 mg Tablet 40 mg PO TID Qty: 30 RF: 0 Continued anastrozole [Arimidex] 1 mg tablet 1 mg PO DAILY RF: 0 atorvastatin 40 mg tablet 40 mg PO HS Qty: 90 RF: 3 levothyroxine 25 mcg tablet 25 mcg PO QAM Qty: 90 RF: 0 escitalopram oxalate [Lexapro] 5 mg tablet 5 mg PO DAILY Qty: 90 RF: 1 verapamil 40 mg tablet 40 mg PO .COMPLEX Qty: 225 RF: 1 apixaban 5 mg tablet 5 mg PO BID Qty: 60 RF: 10 Novolog Flexpen U-100 Insulin 100 unit/mL (3 mL) insulin pen See Rx Instructions .ROUTE DAILY Qty: 75 RF: 3 Lantus Solostar U-100 Insulin 100 unit/mL (3 mL) insulin pen 12 unit subcut HS RF: 0 pantoprazole [Protonix] 40 mg tablet,delayed release (DR/EC) 40 mg PO QAM Qty: 90 RF: 3 clonidine HCl 0.1 mg tablet 0.1 mg PO DAILY PRN (Reason: Hypertension) RF: 0 docusate sodium 100 mg capsule 100 mg PO QAM RF: 0 lorazepam 0.5 mg tablet 0.25 mg PO DAILY PRN (Reason: Anxiety) RF: 0 aspirin [Aspirin Low Dose] 81 mg Tablet,Delayed Release (Dr/Ec) 81 mg PO QAM RF: 0 cholecalciferol (vitamin D3) [Vitamin D3] 1,000 unit Tablet 1,000 unit PO DAILY@1200 RF: 0 Simbrinza 1-0.2 % drops,suspension 1 drp OPB BID RF: 0 Discharge Orders: Discharge Order (Routine); Ordered 07/03/20 Ordered By: Aisha Segal Admission Data Admit Date/Time: 07/02/20 23:12 Attending Provider: Mj Tejada Admit Provider: Rogers Estevez Primary Care Provider: Shahid Shea Other Providers: Rogers Estevez ; Kamaljit Black Other Interventions: Discharge Summary Assessment (RN) Last Done: 07/03/20 14:19 Coding Level of Care Code D/C Day Management >30 mins Diagnoses Acute CVA (cerebrovascular accident) I63.9 History of aortic valve replacement with bioprosthetic valve Z95.3 Invasive ductal carcinoma of breast, female C50.919 HTN (hypertension) I10 Hypertension type: unspecified Single vessel coronary artery disease I25.10 Anticoagulant long-term use Z79.01 Asymptomatic carotid artery stenosis I65.29 Hypothyroidism E03.9 GERD without esophagitis K21.9 PAF (paroxysmal atrial fibrillation) I48.0 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
[2020-07-03] MEDS ORDERED: CHOLECALCIFEROL 1,000 UNITS 25 MCG TAB PO SCH (12:00)
--- NOTE | 2020-07-03 12:22 | XCELERA ---
[id number]
[2020-07-03] MEDS ORDERED: STROKE PATIENT DISCHARGE STA (13:18)
--- NOTE | 2020-07-03 14:07 | Electrocardiogram Report ---
Test Reason : Blood Pressure : / mmHG Vent. Rate : 083 BPM Atrial Rate : 083 BPM P-R Int : 128 ms QRS Dur : 096 ms QT Int : 378 ms P-R-T Axes : -18 024 057 degrees QTc Int : 444 ms Sinus rhythm with occasional Premature ventricular complexes Left ventricular hypertrophy with repolarization abnormality Abnormal ECG When compared with ECG of 11-DEC-2019 16:08, Premature ventricular complexes are now Present T wave inversion now evident in Lateral leads Confirmed by Unruly Powell ([id number]) on 07/03/2020 2:06:56 PM Referred By: REFERRED SELF Confirmed By:Bernabe Powell
[2020-07-03] MEDS ORDERED: INSULIN GLARGINE SOLOSTAR 100 UNITS/ML 3 ML PEN SQ SCH (21:00)
[2020-07-03] MEDS ORDERED: ATORVASTATIN 40 MG TAB PO SCH (21:00)
== END 2020-07-03 15:37 | disposition home or self-care (01) | DRG 683 ==
LOC: ED 19:19 → 2S 23:12 → SUATTDRO 23:12 → 2S 07-03 00:23